=== PATIENT | male | born 1955 | race Caucasian/White ===

== ENCOUNTER → 2016-12-06 | Outpatient (CLI) | payer OTHER ==
[2016-12-06 11:48] LABS: Anion Gap 9 mmol/L; Blood Urea Nitrogen 21 mg/dL (9-20); Calcium 9.5 mg/dL (8.4-10.2); Carbon Dioxide 30 mmol/L (22-30); Chloride 102 mmol/L (98-107); Glucose 102 mg/dL (74-99); Non-African American GFR(MDRD) >60 (>60 ml/min/1.73 sqM); Sodium 141 mmol/L (137-145)
== END | disposition home or self-care (01) ==
LOC: LABWHC1 10:50
PROVIDERS: ATTEND Internal Medicine Interventional Cardiology
DX: I25.10 Atherosclerotic heart disease of native coronary artery without angina pectoris (principal)
CPT/HCPCS: 36415; 80048

== ENCOUNTER → 2017-04-03 | Outpatient (CLI) | payer OTHER ==
--- NOTE | 2017-04-03 16:49 | US ---
EXAMINATION TYPE: US venous doppler duplex LE LT DATE OF EXAM: 04/03/2017 4:40 PM COMPARISON: NONE CLINICAL HISTORY: Edema R60.0 Left. SIDE PERFORMED: Left TECHNIQUE: The lower extremity deep venous system is examined utilizing real time linear array sonog lis with graded compression, doppler sonography and color-flow sonography. VESSELS IMAGED: External Iliac Vein (EIV) Common Femoral Vein Deep Femoral Vein Greater Saphenous Vein * Femoral Vein Popliteal Vein Small Saphenous Vein * Proximal Calf Veins (* superficial vessels) Left Leg: Negative for DVT IMPRESSION: Negative exam. No evidence of deep venous thrombosis in the left leg.
== END | disposition home or self-care (01) ==
LOC: RADUSMAIN 16:11
PROVIDERS: ATTEND Family Medicine
DX: R60.0 Localized edema (principal)

== ENCOUNTER → 2018-06-25 | Outpatient (CLI) | payer OTHER ==
[2018-06-25 13:15] LABS: HCT 43.9 % (39.0-53.0); HGB 14.5 gm/dL (13.0-17.5); MCH 33.1 pg (25.0-35.0); MCHC 33.1 g/dL (31.0-37.0); MCV 100.1 fL (80.0-100.0); Mean Platelet Volume 6.8; Platelet Count 281 k/uL (150-450); RBC 4.39 m/uL (4.30-5.90); RDW 13.6 % (11.5-15.5); WBC 7.1 k/uL (3.8-10.6)
[2018-06-25 13:22] LABS: Anion Gap 6 mmol/L; Blood Urea Nitrogen 32 mg/dL (9-20); Carbon Dioxide 33 mmol/L (22-30); Chloride 100 mmol/L (98-107); Potassium 4.3 mmol/L (3.5-5.1); Sodium 139 mmol/L (137-145)
== END | disposition home or self-care (01) ==
LOC: LABPAT 12:27
PROVIDERS: ATTEND Internal Medicine Interventional Cardiology
DX: Z01.812 Encounter for preprocedural laboratory examination (principal); I34.0 Nonrheumatic mitral (valve) insufficiency; E78.00 Pure hypercholesterolemia, unspecified
CPT/HCPCS: 36415; 80051; 82565; 84520; 85027

== ENCOUNTER 2018-07-01 08:01 | Day surgery (SDC) | payer OTHER ==
[2018-06-29 13:17] VITALS: BMI 26.6
[~2018-07-01 08:01] MED LIST: ALPRAZolam 0.25 MG TAB PO PRN; ALPRAZolam 0.5 MG TAB PO PRN; ASPIRIN 325 MG TAB PO STA; ATORVASTATIN 80 MG TAB PO ONE; NITROGLYCERIN SL TABS 0.4 MG TAB SUBLINGUAL PRN; SODIUM CHLORIDE 0.9% 1,000 ML in EMPTY BAG 1 BAG IV ONE
[2018-07-01] MEDS ORDERED: SODIUM CHLORIDE 0.9% 1,000 ML IV ONE ×2 (09:05→10:39)
[2018-07-01] MEDS ORDERED: BENZOCAINE SPRAY 1 CAN MUCOUS MEM ONE ×2 (09:05)
[2018-07-01] MEDS ORDERED: fentaNYL (PF) 50 MCG/ML 2 ML AMP IV ONE (09:09)
[2018-07-01] MEDS ORDERED: MIDAZOLAM 2 MG/2 ML VIAL IV ONE (09:09)
--- NOTE | 2018-07-01 09:56 | ECHOT ---
TRANSESOPHAGEAL ECHOCARDIOGRAM This transesophageal echocardiogram was performed to evaluate the patient's mitral regurgitation. Patient was given intravenous sedation with Versed and fentanyl and transesophageal echocardiogram was performed without any complications. Left ventricular chamber is normal in size with inferior wall hypokinesia with ejection fraction in the range of 40%. Left atrium is moderate to severely enlarged. The right atrium is moderate to severely enlarged. The mitral leaflet morphology is normal. The posterior leaflet motion is restricted and tethered, suggestive of ischemic mitral regurgitation. There is no evidence of any mitral valve prolapse. There is evidence of severe mitral regurgitation with reversal of systolic and diastolic flow in the pulmonary vein. There is no evidence of any thrombus in left atrium or atrial appendage. Interatrial septum is intact. There is no evidence of any PFO. There is a mild diffuse atherosclerotic plaque noted in the descending thoracic aorta. FINAL IMPRESSION: 1. This study shows the mitral valve leaflet morphology is normal. There is some tethering of the posterior mitral leaflet suggestive of ischemic mitral regurgitation. There is no evidence of mitral valve prolapse. There is evidence of severe degree mitral regurgitation which is directed posteriorly and it is suggestive of ischemic and functional mitral regurgitation. There is a reversal of systolic and diastolic flow in the pulmonary vein. 2. Biatrial enlargement is noted. 3. Moderate degree of tricuspid regurgitation is noted and trace aortic regurgitation is noted. 4. There is no evidence of any PFO. 5. There is a diffuse arthrosclerotic plaque noted in the descending thoracic. MMODL / IJN: [id number] /
[2018-07-01 09:58] VITALS: PULSE 74
[2018-07-01] MEDS ORDERED: MIDAZOLAM 2 MG/2 ML VIAL ONE (10:46)
[2018-07-01] MEDS ORDERED: diphenhydrAMINE 50 MG/ML 1 ML VIAL ONE (10:47)
[2018-07-01] MEDS ORDERED: diphenhydrAMINE 50 MG/ML 1 ML VIAL IVP ONE (11:10)
[2018-07-01] MEDS ORDERED: MIDAZOLAM 2 MG/2 ML VIAL IVP ONE (11:11)
[2018-07-01] MEDS ORDERED: LIDOCAINE 1% INJ 10MG/ML (20 ML MDV) SQ ONE (11:18)
[2018-07-01] MEDS ORDERED: FUROSEMIDE 10 MG/ML 4 ML VIAL ONE (11:54)
[2018-07-01] MEDS ORDERED: FUROSEMIDE 10 MG/ML 4 ML VIAL IV ONE (11:56)
[2018-07-01] MEDS ORDERED: IOPAMIDOL-370 100ML BTL INJ ONE ×2 (12:02→12:17)
[2018-07-01 12:04] LABS: O2 Sat Blood Gas 66.6 %
[2018-07-01 12:04] LABS: O2 Sat Blood Gas 66.8 %
[2018-07-01 12:05] LABS: O2 Sat Blood Gas 67.7 %
[2018-07-01 12:05] LABS: O2 Sat Blood Gas 96.2 %
[2018-07-01] MEDS ORDERED: RX INFO: IV CONTRAST WAS GIVEN 1 EACH MISC MISCELLANE PRN (13:00)
[2018-07-01] MEDS ORDERED: SODIUM CHLORIDE 0.9% 1,000 ML IV SCH (13:00)
--- NOTE | 2018-07-01 13:32 | CC ---
CARDIAC CATHETERIZATION REPORT DATE OF STUDY: 07/01/2018. PROCEDURE: Right and left heart catheterization, coronary angiography and selective injection of bypass grafts. PERFORMED BY: Dr. Ludmila Vogt. Moderate conscious sedation time was 64 minutes. Patient was administered Benadryl and Versed and his oxygen saturation, hemodynamics and EKG were monitored closely. CLINICAL INFORMATION: Mr. Abisai Warner is a 62-year-old gentleman with a known history of CAD, hypertension, hyperlipidemia, and previous history of Hodgkin disease for which he had radiation to his chest wall. The patient in 2002 underwent aortocoronary bypass surgery with WEBSTER to LAD, a free radial artery graft to the first obtuse marginal, vein graft to the diagonal and vein graft to the second obtuse marginal and RCA. In 2005, his vein graft to the diagonal and vein graft to the circumflex marginal were occluded. He had only 3 patent grafts. One was to the RCA which was a vein graft, the second was a free radial artery graft to the first OM and the WEBSTER to LAD was also patent. He presented with acute inferior MN and cardiogenic shock in 2005 and underwent stenting of [facility] circumflex had a balloon pump and recovered from this. In 2007, I performed stenting of the [facility] diagonal whose graft was already occluded. Since then, he has done fairly well. He is known to have moderate stable mitral regurgitation, but of late he is having increasing symptoms of shortness of breath and objectively he has developed more severe MR and pulmonary hypertension and therefore was advised coronary angiography with symptoms of increasing shortness of breath with mild activity. PROCEDURE NOTE: Under local anesthesia and strict aseptic precautions, a 6-Citizen [place] introducer was placed in the right femoral artery and an 8-Citizen [place] introducer in the right femoral vein. I performed a right heart catheterization using a balloon tipped floatation catheter. Hemodynamics and saturations were obtained. Thermodilution and Lamar cardiac outputs were obtained. I then performed coronary angiography. I used a standard left Marisa catheter for the left system and a standard right Marisa catheter for the right coronary artery. Used a Vince catheter for the vein graft and also the same Vince was used for the WEBSTER injection. I used an AR2 catheter for selective injection of the free radial artery graft to the obtuse marginal one branch. Subsequently, I checked LV pressures with a pigtail catheter but did not perform an LV-gram. The venous sheath was taken out and manual compression applied. Arterial sheath was taken out and Angio-Seal device used to secure hemostasis and he was sent to the room in a stable condition. CARDIAC CATHETERIZATION FINDINGS: The right atrial pressure was about 8 mmHg. Right ventricular pressure was 60/9. Pulmonary arterial pressure was 60/18 with a mean of 38. Pulmonary capillary wedge pressure was 25 mmHg and the V-wave was 50 mmHg. The Lamar cardiac output was 4.6 L and thermodilution cardiac output was 5.7 L. Oxygen saturation from the femoral artery was 96% and pulmonary artery was 68%. The left ventricular end-diastolic pressure was about 16 to 18 mmHg without any gradient across the aortic valve. CORONARY ANGIOGRAPHY FINDINGS: LEFT MAIN CORONARY ARTERY: A long patent disease-free vessel that bifurcates into LAD and circumflex. LEFT ANTERIOR DESCENDING CORONARY ARTERY: This vessel is totally occluded in the midportion and gives off a first diagonal branch and a large septal branch. The first diagonal branch was stented in 2007 appears to be patent with brisk flow. Very proximally there is a 40% narrowing of the diagonal that is unchanged, but the stented segment is widely patent with brisk flow. LAD is totally occluded in the midportion with some competitive flow. First septal is large and has no significant disease. LEFT POSTERIOR CIRCUMFLEX CORONARY ARTERY: This vessel was stented in 2005, is widely patent. This is a dominant circumflex vessel. The distal branches are patent and also the mid circumflex at the stented segment is widely patent. The obtuse marginal branches were occluded. RIGHT CORONARY ARTERY: This vessel is probably a codominant or nondominant vessel with fair caliber and fair distribution which was grafted. Now the vessel is totally occluded with very limited antegrade flow. There is a subtotal occlusion in the proximal and midportion, but the distal segment appears to be patent and appears to be small. SAPHENOUS VEIN GRAFT TO THE RCA: This graft is totally occluded, seen as a stump. SAPHENOUS VEIN GRAFT TO THE DIAGONAL BRANCH: This is totally occluded, seen as a stump. SAPHENOUS VEIN GRAFT TO THE SECOND OBTUSE MARGINAL: This is also totally occluded, seen as a stump. FREE RADIAL ARTERY GRAFT TO THE OBTUSE MARGINAL 1: This graft is widely patent. At the origin, there is a 30% to 40% narrowing. The body of the graft and beyond insertion site, the obtuse marginal is widely patent. There is no significant disease. The graft at its origin has about a 40% narrowing but no other significant disease is noted. There is brisk flow noted. LEFT AND LEFT INTERNAL MAMMARY ARTERY GRAFT TO LAD: This graft is widely patent at its origin, course and insertion site and opacifies the entire LAD, which goes back and fills the distal branches of the RCA. RCA is therefore collateralized from the distal LAD branches which is opacified by a good WEBSTER graft. The vein grafts to the diagonal and vein graft to the obtuse marginal are totally occluded, seen as stumps. LEFT VENTRICULOGRAM: Left ventriculogram was not performed, but LV pressures were obtained. FINAL IMPRESSION: This patient has a total occlusion of vein graft to the RCA which represents progression of disease. The previously occluded vein graft to the obtuse marginal and diagonal are noted again. The [facility] diagonal and circumflex vessel that was stented are widely patent. The WEBSTER to LAD is patent and the free radial artery graft to the first obtuse marginal is patent. By transesophageal echo, his mitral regurgitation is severe. He has significant MR with a V-wave of 50 mmHg and wedge of 25 mmHg. There is evidence of severe pulmonary hypertension with right-sided pressures in the range of 60 mmHg. RECOMMENDATIONS: Based on the data available, I believe patient will require a mitral valve replacement and possibly graft of the RCA. However, this is a major operation in a patient who has previous Hodgkin disease with radiation to the chest wall and also had a previous bypass surgery. I will therefore pursue medical therapy, re-evaluate the patient this Friday at 9:15 a.m. and then make further recommendations. I will seek a surgical opinion from Dr. Juan José Hussein. Based on clinical course, we will make further recommendations. Prognosis remains somewhat guarded. MMODL / IJN: [id number] /
--- NOTE | 2018-07-01 13:38 | LTR ---
July 01, 2018 Re: Abisai Warner Dear : Thank you for the opportunity to participate in the care of Mr. Abisai Warner. Please find enclosed my cardiac cath report for your records. He has significant progression of disease and also severe mitral regurgitation. Mitral valve replacement seems to be a reasonable approach associated with the significant risk. I will seek surgical opinion and then only make further recommendations. Thank you for your referral and please call for questions. With kindest regards. Sincerely yours. MD NELDA CoulterL / BELLEN: [id number] /
[2018-07-01 18:14] VITALS: RESP 18
[2018-07-01 18:16] VITALS: BP 103/74
== END 2018-07-01 18:05 | disposition home or self-care (01) ==
LOC: CATHCVL 08:01
PROVIDERS: ATTEND Internal Medicine Interventional Cardiology
DX: I08.3 Combined rheumatic disorders of mitral, aortic and tricuspid valves (principal); I70.0 Atherosclerosis of aorta; I25.110 Atherosclerotic heart disease of native coronary artery with unstable angina pectoris; I25.720 Atherosclerosis of autologous artery coronary artery bypass graft(s) with unstable angina pectoris; I25.790 Atherosclerosis of other coronary artery bypass graft(s) with unstable angina pectoris; I25.82 Chronic total occlusion of coronary artery; I10 Essential (primary) hypertension; E78.00 Pure hypercholesterolemia, unspecified; E03.9 Hypothyroidism, unspecified; F17.210 Nicotine dependence, cigarettes, uncomplicated; Z95.1 Presence of aortocoronary bypass graft; Z95.5 Presence of coronary angioplasty implant and graft; Z85.71 Personal history of Hodgkin lymphoma; Z92.3 Personal history of irradiation; Z82.49 Family history of ischemic heart disease and other diseases of the circulatory system; Z79.82 Long term (current) use of aspirin; Z79.890 Hormone replacement therapy; Z79.899 Other long term (current) drug therapy; Z91.09 Other allergy status, other than to drugs and biological substances
CPT/HCPCS: 93312; 93320; 93325; 93461; 85018; 82810; C1760; C1769 ×3; C1894 ×2; J2250; J1200; J1940; J2001; J3010; Q9967

== ENCOUNTER → 2018-07-23 | Outpatient (CLI) | payer OTHER ==
--- NOTE | 2018-07-23 10:53 | CT ---
EXAMINATION TYPE: CT chest w con DATE OF EXAM: 07/23/2018 COMPARISON: NONE HISTORY: Chest pain CT DLP: 257.9 mGycm. Automated Exposure Control for Dose Reduction was Utilized. TECHNIQUE: CT scan of the thorax is performed following with IV Contrast, patient injected with 100 ml mL of Isovue 300. FINDINGS: LUNGS: The lungs are grossly clear, there is no concerning parenchymal mass identified. Solitary gricelda d appearing 3 mm pulmonary nodule seen at the lateral left lung base on lung algorithm image 44. Min imal scattered subsegmental atelectasis. There is no pleural effusion or pneumothorax seen. The trac heobronchial tree is patent. MEDIASTINUM: There are no greater than 1 cm hilar or mediastinal lymph nodes. No pericardial effusi on is seen. Post CABG changes of the chest are noted. Reflux of contrast into the inferior vena cava and hepatic veins suggests a component of right heart failure. Correlate with echocardiogram. Main p ulmonary arteries within normal limits of size measuring 2.8 cm as is the ascending thoracic aorta me asuring 3.5 cm. Descending thoracic aorta is also within normal limits measuring 2.6 cm. Aortic root is also within normal limits measuring 3.6 cm. No central pulmonary embolus is seen. No evidence of a ortic dissection or focal stenosis. OTHER: Postsurgical changes of the sternoclavicular joint is seen. Spleen is surgically absent. There is a healed posterior rib fracture rib 7 on the left. Minimal degenerative changes of the thoracic s pine are seen. IMPRESSION: 1. Post CABG changes of the chest with findings that could relate to component of right heart failure . Correlate with echocardiogram. 2. Healed posterior left rib 7 fracture. 3. Solitary 3 mm left basilar pulmonary nodule. Follow-up CT thorax in one year is recommended to ens ure stability.
== END | disposition home or self-care (01) ==
LOC: RADCTMAIN 08:48
PROVIDERS: ATTEND Internal Medicine Critical Care Medicine
DX: R91.1 Solitary pulmonary nodule (principal); Z95.1 Presence of aortocoronary bypass graft; Z91.041 Radiographic dye allergy status
CPT/HCPCS: 71260; Q9967

== ENCOUNTER 2019-01-19 10:21 | Day surgery (SDC) | payer OTHER ==
[2019-01-14 15:55] VITALS: BMI 26.6
[2019-01-19] MEDS ORDERED: SODIUM CHLORIDE 0.9% 1,000 ML IV ONE (10:55)
[2019-01-19 10:56] VITALS: TEMP 98.2
[2019-01-19] MEDS ORDERED: fentaNYL (PF) 50 MCG/ML 2 ML AMP ONE (11:46)
[2019-01-19] MEDS: BENZOCAINE SPRAY 1 CAN MUCOUS MEM ONE ×2 (12:06→12:09)
[2019-01-19] MEDS ORDERED: MIDAZOLAM 2 MG/2 ML VIAL IV ONE ×2 (12:10→12:17)
[2019-01-19] MEDS ORDERED: fentaNYL (PF) 50 MCG/ML 2 ML AMP IV ONE (12:14)
[2019-01-19] MEDS ORDERED: SODIUM CHLORIDE 0.9% 1,000 ML IV SCH (12:45)
--- NOTE | 2019-01-19 13:26 | ECHOT ---
TRANSESOPHAGEAL ECHOCARDIOGRAM Mr. Warner is a 63-year-old gentleman who was advised transesophageal echocardiogram to assess the mitral regurgitation. The patient is status post previous coronary artery bypass surgery. PROCEDURE: Patient was given intravenous sedation with Versed and fentanyl and transesophageal echocardiogram was performed without any complications. FINDINGS: Left ventricular chamber is normal in size. There is evidence of inferior wall hypokinesia with estimated ejection fraction of 45%. Mitral valve morphology is normal. There is a tethering of the posterior mitral leaflet noted with evidence of severe mitral regurgitation. There is evidence of reversal of flow in the pulmonary vein. Left atrium is moderately enlarged. There is no evidence of thrombus in the left atrial appendage. There is a moderate degree of tricuspid regurgitation noted and severe pulmonary hypertension is noted with right ventricular systolic pressure calculated in the range of 70 to 80 mmHg. Interatrial septum is intact. There is no evidence of any PFO. FINAL IMPRESSION: 1. Normal left ventricular chamber size with inferior wall hypokinesia with ejection fraction of 45%. 2. There is evidence of severe degree of mitral regurgitation with reversal of flow in the pulmonary vein. The posterior leaflet is restricted. There is no any evidence of mitral valve prolapse or any flail mitral leaflet and this is suggestive of ischemic mitral regurgitation. 3. The left atrium is moderately enlarged. 4. There is no evidence of thrombus in left atrium. 5. There is a moderate degree of tricuspid regurgitation with severe pulmonary hypertension. Right ventricular systolic pressure is calculated in the range of 70 to 80 mmHg. 6. Interatrial septum is intact. MMODL / IJN: [id number] /
[2019-01-19 16:54] VITALS: RESP 16
[2019-01-19 16:58] VITALS: BP 118/67; PULSE 68
== END 2019-01-19 14:27 | disposition home or self-care (01) ==
LOC: CATHCVL 10:21
PROVIDERS: ATTEND Internal Medicine Cardiovascular Disease
DX: I34.1 Nonrheumatic mitral (valve) prolapse (principal); I08.1 Rheumatic disorders of both mitral and tricuspid valves; I27.20 Pulmonary hypertension, unspecified; I10 Essential (primary) hypertension; E78.00 Pure hypercholesterolemia, unspecified; I25.810 Atherosclerosis of coronary artery bypass graft(s) without angina pectoris; Z95.5 Presence of coronary angioplasty implant and graft; E03.9 Hypothyroidism, unspecified; E78.5 Hyperlipidemia, unspecified; Z87.891 Personal history of nicotine dependence; Z79.82 Long term (current) use of aspirin; Z79.890 Hormone replacement therapy; Z79.899 Other long term (current) drug therapy
CPT/HCPCS: 93312; 93320; 93325; J2250; J3010

== ENCOUNTER → 2019-02-09 | Outpatient (CLI) | payer OTHER ==
[2019-02-09 09:52] LABS: HCT 40.7 % (39.0-53.0); HGB 13.7 gm/dL (13.0-17.5); MCH 33.5 pg (25.0-35.0); MCHC 33.6 g/dL (31.0-37.0); MCV 99.7 fL (80.0-100.0); Macrocytosis Slight; Mean Platelet Volume 6.3; Platelet Count 311 k/uL (150-450); RBC 4.09 m/uL (4.30-5.90); RDW 14.3 % (11.5-15.5); WBC 4.1 k/uL (3.8-10.6)
[2019-02-09 09:58] LABS: Partial Thromboplastin Time 23.6 sec (22.0-30.0); Prothrombin Time 10.3 sec (9.0-12.0)
[2019-02-09 10:22] LABS: ALT 38 U/L (21-72); AST 25 U/L (17-59); Albumin 4.2 g/dL (3.5-5.0); Alkaline Phosphatase 66 U/L (38-126); Anion Gap 6 mmol/L; Blood Urea Nitrogen 21 mg/dL (9-20); Calcium 9.6 mg/dL (8.4-10.2); Carbon Dioxide 32 mmol/L (22-30); Chloride 101 mmol/L (98-107); Cholesterol 146 mg/dL (<200); Glucose 92 mg/dL (74-99); HDL Cholesterol 53 mg/dL (40-60); LDL Cholesterol,Calculated 74 mg/dL (0-99); Magnesium 2.3 mg/dL (1.6-2.3); Potassium 4.1 mmol/L (3.5-5.1); Sodium 139 mmol/L (137-145); Total Bilirubin 1.1 mg/dL (0.2-1.3); Total Protein 6.6 g/dL (6.3-8.2); Triglycerides 95 mg/dL (<150)
[2019-02-09 11:16] LABS: Appearance,Urine Clear (Clear); Bilirubin,Urine Negative (Negative); Blood,Urine Negative (Negative); Color,Urine Yellow; Glucose,Urine (UA) Negative (Negative); Ketones,Urine Negative (Negative); Leukocyte Esterase,Urine Negative (Negative); Nitrite,Urine Negative (Negative); PH, Urine 6.5 (5.0-8.0); Protein,Urine Trace (Negative); Specific Gravity,Urine 1.027 (1.001-1.035)
[2019-02-09 11:59] LABS: T4, Free (Free Thyroxine) 1.31 ng/dL (0.78-2.19)
--- NOTE | 2019-02-09 12:45 | US ---
EXAMINATION TYPE: US carotid duplex BILAT DATE OF EXAM: 02/09/2019 COMPARISON: NONE CLINICAL HISTORY: Open Heart. Pre-OP open heart EXAM MEASUREMENTS: RIGHT: Peak Systolic Velocity (PSV) cm/sec ----- Right CCA: 58.1 ----- Right ICA: 97.8 ----- Right ECA: 59.0 ICA/CCA ratio: 1.7 RIGHT: End Diastole cm/sec ----- Right CCA: 17.1 ----- Right ICA: 38.3 ----- Right ECA: 0.0 LEFT: Peak Systolic Velocity (PSV) cm/sec ----- Left CCA: 68.5 ----- Left ICA: 83.1 ----- Left ECA: 49.1 ICA/CCA ratio: 1.2 LEFT: End Diastole cm/sec ----- Left CCA: 21.9 ----- Left ICA: 33.8 ----- Left ECA: 0.0 VERTEBRALS (direction of flow): Right Vertebral: Antegrade Left Vertebral: Antegrade Rhythm: Normal No significant stenosis seen IMPRESSION: Mild degree of grayscale atheromatous plaquing with no sonographically evident hemodynam ically significant stenosis within either visualized carotid arterial system. Criteria for Assigning % of Stenosis / Diameter reduction (Estimation based on the indirect measurements of the internal carotid artery velocities (ICA PSV). 1. Normal (no stenosis)=ICA PSV < 125 cm/s: ratio < 2.0: ICA EDV<40 cm/s. 2. Less than 50% stenosis=ICA PSV < 125 cm/s: ratio < 2.0: ICA EDV<40 cm/s. 3. 50 to 69% stenosis=ICA PSV of 125 to 230 cm/s: ration 2.0 ? 4.0: ICA EDV 40-100 cm/s. 4. Greater than 70% stenosis to near occlusion= ICA PSV > 230 cm/s: ratio > 4.0: ICA EDV > 100 cm/s. 5. Near occlusion= ICA PSV velocities may be low or undetectable: variable ratio and ICA EDV. 6. Total occlusion=unable to detect flow.
--- NOTE | 2019-02-09 12:46 | XR ---
EXAMINATION TYPE: XR chest 2V DATE OF EXAM: 02/09/2019 COMPARISON: NONE HISTORY: Preoperative examination for open heart surgery. TECHNIQUE: Frontal and lateral views of the chest are obtained. FINDINGS: Post CABG changes are seen of the chest. Surgical clips are also seen in the left upper qu adrant. There appears to be mild osseous demineralization and minimal degenerative changes of the spi ne. No focal consolidation, pleural effusion or pneumothorax. Cardiomediastinal silhouette is nonenla rged. IMPRESSION: Postoperative changes of the chest and upper abdomen. No acute cardiopulmonary process.
--- NOTE | 2019-02-09 15:02 | P.PN ---
Progress Note - Text Progress Note Date: 02/09/19 5 meter walk test completed 02/09/19: #1 3.2 sec #2 3.35 sec #3 3.38 sec STS risk score calculated and discussed with patient
[2019-02-09 16:25] LABS: Hepatitis A Antibody IgM Non-Reactive (Non-Reactive); Hepatitis B Core IgM Non-Reactive (Non-Reactive)
[2019-02-09 19:20] LABS: Hemoglobin A1C 5.2 % (4.0-6.0)
== END ==
LOC: LABWHC1 08:54
PROVIDERS: ATTEND Thoracic Surgery (Cardiothoracic Vascular Surgery)
DX: Z01.810 Encounter for preprocedural cardiovascular examination (principal); Z01.812 Encounter for preprocedural laboratory examination; I25.10 Atherosclerotic heart disease of native coronary artery without angina pectoris; I34.0 Nonrheumatic mitral (valve) insufficiency; I67.2 Cerebral atherosclerosis; Z98.890 Other specified postprocedural states
CPT/HCPCS: 36415; 71046; 80053; 80061; 80074; 81003; 83036; 83735; 84439; 84443; 85027; 85610; 85730; 86850; 86900; 86901; 86920; 87070; 87086; 93005; 93880; 93970; 94150

== ENCOUNTER 2019-02-15 05:36 | Inpatient (IN) | payer OTHER ==
[~2019-02-15 05:36] MED LIST changes: +ALBUMIN HUMAN 25% 50 ML IV ONE; -ALPRAZolam 0.25 MG TAB PO PRN; -ALPRAZolam 0.5 MG TAB PO PRN; +ASPIRIN 325 MG TAB PO ONE; -ASPIRIN 325 MG TAB PO STA; +ATORVASTATIN 10 MG TAB PO ONE; -ATORVASTATIN 80 MG TAB PO ONE; +CALCIUM CHLORIDE 100 MG/ML 10 ML SYRINGE IV ONE; +CHLORHEXIDINE GLUCONATE 15 ML CUP MUCOUS MEM ONE; +CLEVIDIPINE BUTYRATE 25 MG in EMPTY BAG 1 BAG IV ONE; +DEXTROSE 5% IN WATER 1,000 ML with POTASSIUM CHLORIDE 110 MEQ, MAGNESIUM SULFATE 16 MEQ... IV ONE; +DEXTROSE 5% IN WATER 1,000 ML with POTASSIUM CHLORIDE 25 MEQ, SODIUM CHLORIDE 2.5MEQ/ML... IRRIGATION ONE; +HEPARIN SODIUM 1,000 UN/ML (10ML VL) IV ONE; +HEPARIN SODIUM,PORCINE 5,000 UNIT in SODIUM CHLORIDE 0.9% 500 ML 500 ML IV ONE; +INSULIN REGULAR 100 UNIT in SODIUM CHLORIDE 0.9% 100 ML IV ONE; +LACTATED RINGERS 1,000 ML IV ONE; +MAGNESIUM SULFATE MG 500 MG/ML IV ONE; +MANNITOL 25% 12.5 GM/50 ML VIAL IV ONE; +METOPROLOL TARTRATE 12.5 MG TAB PO ONE; -NITROGLYCERIN SL TABS 0.4 MG TAB SUBLINGUAL PRN; +NITROGLYCERIN-D5W PMX 25 MG/250 ML BTL IV ONE; +NOREPINEPHRINE 4 MG in SODIUM CHLORIDE 0.9% 250 ML IV ONE; +PAPAVERINE 360 MG in SODIUM CHLORIDE 0.9% 90 ML IV ONE; +PHENYLEPHRINE 10 MG/ML VIAL IV ONE; +PHENYLEPHRINE 40 MG in SODIUM CHLORIDE 0.9% 250 ML IV ONE; +PROPOFOL 1,000 MG/100 ML VIAL IV ONE; +PROTAMINE SULFATE 10 MG/ML 25 ML VIAL IV ONE; +PROTAMINE SULFATE 250 MG in EMPTY BAG 1 BAG IV ONE; +SODIUM BICARB 8.4% 50 ML SYR (1 MEQ/ML) IV ONE; +SODIUM CHLORIDE 0.9% 1,000 ML IV ONE; -SODIUM CHLORIDE 0.9% 1,000 ML in EMPTY BAG 1 BAG IV ONE; +TRANEXAMIC ACID 2,000 MG in SODIUM CHLORIDE 0.9% 80 ML IV ONE; +VANCOMYCIN 1,000 MG VIAL MISCELLANE ONE; +ceFAZolin 2,000 MG in SODIUM CHLORIDE 0.9% 30 ML IVPB ONE
[2019-02-15] MEDS ORDERED: LACTATED RINGERS 1,000 ML IV ONE (05:50)
[2019-02-15] MEDS ORDERED: fentaNYL (PF) 50 MCG/ML 2 ML AMP ONE (07:35)
[2019-02-15] MEDS ORDERED: ONDANSETRON 4 MG/2 ML VIAL ONE (07:35)
[2019-02-15] MEDS ORDERED: VECURONIUM 10 MG VIAL IV ONE (07:35)
[2019-02-15] MEDS ORDERED: SODIUM CHLORIDE 0.9% 250 ML BAG ONE (07:35)
[2019-02-15] MEDS ORDERED: HEPARIN SODIUM,PORCINE 10,000 UNIT/ML 1 ML VIAL ONE (07:35)
[2019-02-15] MEDS ORDERED: TRANEXAMIC ACID 1,000 MG/10 ML VIAL ONE (07:35)
[2019-02-15] MEDS ORDERED: MAGNESIUM SULFATE 4 MEQ/ML 10ML VIAL ONE (07:35)
[2019-02-15] MEDS ORDERED: METOCLOPRAMIDE 5 MG/ML 2 ML VIAL ONE (07:35)
[2019-02-15] MEDS ORDERED: PROPOFOL 10 MG/ML 20 ML VIAL IV ONE (07:35)
[2019-02-15] MEDS ORDERED: MIDAZOLAM 2 MG/2 ML VIAL ONE (07:35)
[2019-02-15] MEDS ORDERED: ALBUMIN HUMAN 5% (25gm) 500 ML VIAL IVPB ONE (07:35)
[2019-02-15] MEDS ORDERED: fentaNYL (PF) 50 MCG/ML 50 ML VIAL ONE (07:35)
[2019-02-15] MEDS ORDERED: PROTAMINE SULFATE 10 MG/ML 25 ML VIAL IV ONE (07:35)
[2019-02-15 08:49] LABS: ABG Base Excess 5.6 mmol/L; ABG HCO3 31 mmol/L (21-25); ABG PCO2 45 mmHg (35-45); ABG PH 7.44 (7.35-7.45); ABG Potassium Whole Blood 3.2 mmol/L (3.4-4.5); ABG Sodium Whole Blood 141 mmol/L (135-146); ABG TCO2 32 mmol/L (19-24)
[2019-02-15] MEDS ORDERED: PAPAVERINE 360 MG in SODIUM CHLORIDE 0.9% 90 ML IV ONE (09:34)
[2019-02-15] MEDS ORDERED: SODIUM CHLORIDE 0.9% 500 ML 500 ML with HEPARIN SODIUM,PORCINE 5,000 UNIT IV ONE ×2 (09:34)
[2019-02-15 11:02] LABS: ABG Base Excess 6.5 mmol/L; ABG HCO3 30 mmol/L (21-25); ABG Oxygen Saturation 99.4 % (94-97); ABG PCO2 39 mmHg (35-45); ABG PO2 123 mmHg (83-108); ABG Potassium Whole Blood 3.4 mmol/L (3.4-4.5); ABG Sodium Whole Blood 139 mmol/L (135-146); ABG TCO2 31 mmol/L (19-24)
[2019-02-15 11:13] LABS: ABG Base Excess 1.5 mmol/L; ABG HCO3 26 mmol/L (21-25); ABG PCO2 41 mmHg (35-45); ABG PH 7.41 (7.35-7.45); ABG PO2 410 mmHg (83-108); ABG Potassium Whole Blood 3.3 mmol/L (3.4-4.5); ABG Sodium Whole Blood 136 mmol/L (135-146); ABG TCO2 28 mmol/L (19-24)
[2019-02-15 11:54] LABS: ABG Base Excess 5.4 mmol/L; ABG HCO3 30 mmol/L (21-25); ABG PCO2 43 mmHg (35-45); ABG PH 7.45 (7.35-7.45); ABG PO2 356 mmHg (83-108); ABG Potassium Whole Blood 4.2 mmol/L (3.4-4.5); ABG Sodium Whole Blood 136 mmol/L (135-146); ABG TCO2 31 mmol/L (19-24)
[2019-02-15 12:28] LABS: ABG Base Excess 3.7 mmol/L; ABG HCO3 29 mmol/L (21-25); ABG PCO2 47 mmHg (35-45); ABG PO2 280 mmHg (83-108); ABG Potassium Whole Blood 4.3 mmol/L (3.4-4.5); ABG Sodium Whole Blood 137 mmol/L (135-146); ABG TCO2 30 mmol/L (19-24)
[2019-02-15 13:07] LABS: ABG Base Excess 4.8 mmol/L; ABG HCO3 29 mmol/L (21-25); ABG PCO2 43 mmHg (35-45); ABG PH 7.45 (7.35-7.45); ABG PO2 357 mmHg (83-108); ABG Potassium Whole Blood 4.3 mmol/L (3.4-4.5); ABG Sodium Whole Blood 136 mmol/L (135-146); ABG TCO2 31 mmol/L (19-24)
[2019-02-15 14:40] LABS: ABG Base Excess 2.2 mmol/L; ABG HCO3 27 mmol/L (21-25); ABG PCO2 40 mmHg (35-45); ABG PH 7.43 (7.35-7.45); ABG PO2 286 mmHg (83-108); ABG Potassium Whole Blood 3.2 mmol/L (3.4-4.5); ABG Sodium Whole Blood 140 mmol/L (135-146); ABG TCO2 28 mmol/L (19-24)
[2019-02-15 15:05] LABS: ABG PO2 >420 mmHg (83-108)
[2019-02-15] MEDS: MILRINONE-D5W PMX 20 MG in DEXTROSE/WATER 1 100ML.BAG IV SCH ×2 (15:15→22:37)
[2019-02-15] MEDS: NOREPINEPHRINE 4 MG in SODIUM CHLORIDE 0.9% 250 ML IV SCH ×2 (15:15→20:49)
[2019-02-15] MEDS: LACTATED RINGERS 1,000 ML IV SCH (15:15)
[2019-02-15] MEDS ORDERED: DEXTROSE 5% IN WATER 100 ML with AMIODARONE 150 MG IV PRN (15:24)
[2019-02-15] MEDS ORDERED: BENZOCAINE/MENTHOL LOZENG 1 EACH LOZENGE MUCOUS MEM PRN (15:24)
[2019-02-15] MEDS ORDERED: NITROGLYCERIN-D5W PMX 50 MG in DEXTROSE/WATER 1 250ML.BAG IV SCH (15:24)
[2019-02-15] MEDS ORDERED: Potassium Replacement Protocol 1 EACH MISC MISCELLANE PRN (15:24)
[2019-02-15] MEDS ORDERED: METOCLOPRAMIDE 5 MG/ML 2 ML VIAL IVP PRN (15:24)
[2019-02-15] MEDS ORDERED: IPRATROPIUM-ALBUTEROL 3 ML NEB INHALATION PRN (15:24)
[2019-02-15] MEDS ORDERED: ONDANSETRON 4 MG/2 ML VIAL IVP PRN (15:24)
[2019-02-15] MEDS ORDERED: Phosphorus Replacement Protoco 1 EACH MISC MISCELLANE PRN (15:24)
[2019-02-15] MEDS ORDERED: Magnesium Replacement Protocol 1 EACH MISC MISCELLANE PRN (15:24)
[2019-02-15 15:35] LABS: Glucose,Whole Blood 142 mg/dL (75-99)
[2019-02-15] MEDS: PROPOFOL 1,000 MG in EMPTY BAG 1 BAG IV SCH ×2 (15:45→22:30)
--- NOTE | 2019-02-15 15:57 | XR ---
EXAMINATION TYPE: XR chest 1V portable DATE OF EXAM: 02/15/2019 HISTORY: Post Op CABG COMPARISON: 4:30 seen TECHNIQUE: Single view of the chest is submitted. FINDINGS: Endotracheal tube, NG tube, SG catheter, mediastinal drains and chest tubes are appropriately placed. Post operative changes of CABG. No sizeable pneumothorax. Scattered Pleural-parenchymal opacities may reflect atelectasis. The heart is not enlarged. IMPRESSION: 1. Post operative changes of CABG.
[2019-02-15 15:58] LABS: ABG Base Excess -0.5 mmol/L; ABG HCO3 26 mmol/L (21-25); ABG Oxygen Saturation 99.8 % (94-97); ABG PCO2 53 mmHg (35-45); ABG PO2 293 mmHg (83-108); ABG TCO2 28 mmol/L (19-24)
[2019-02-15] MEDS ORDERED: AMIODARONE 360 MG in DEXTROSE 5% IN WATER 200 ML IV PRN ×2 (16:00)
[2019-02-15] MEDS ORDERED: CALCIUM GLUCONATE 2 GM in SODIUM CHLORIDE 0.9% 100 ML IVPB PRN (16:00)
[2019-02-15 16:01] LABS: Ionized Calcium 4.9 mg/dL (4.5-5.3)
[2019-02-15] MEDS: IPRATROPIUM-ALBUTEROL 3 ML NEB INHALATION SCH ×3 (16:06→19:18)
[2019-02-15 16:11] LABS: ALT 28 U/L (21-72); AST 61 U/L (17-59); Alkaline Phosphatase 28 U/L (38-126); Anion Gap 3 mmol/L; Blood Urea Nitrogen 19 mg/dL (9-20); Calcium 8.3 mg/dL (8.4-10.2); Carbon Dioxide 27 mmol/L (22-30); Chloride 108 mmol/L (98-107); Glucose 143 mg/dL (74-99); Magnesium 2.7 mg/dL (1.6-2.3); Potassium 4.2 mmol/L (3.5-5.1); Sodium 138 mmol/L (137-145); Total Bilirubin 1.7 mg/dL (0.2-1.3); Total Protein 4.5 g/dL (6.3-8.2)
[2019-02-15 16:13] LABS: Basophils % (A) 0 %; Eosinophils % (A) 1 %; HCT 26.4 % (39.0-53.0); Lymphocytes # (A) 1.3 k/uL (1.0-4.8); Lymphocytes % (A) 20 %; MCH 33.2 pg (25.0-35.0); MCHC 32.8 g/dL (31.0-37.0); Macrocytosis Slight; Mean Platelet Volume 7.8; Monocytes # (A) 0.2 k/uL (0-1.0); Monocytes % (A) 3 %; Neutrophils # (A) 4.7 k/uL (1.3-7.7); Neutrophils % (A) 76 %; Platelet Count 161 k/uL (150-450); RBC 2.62 m/uL (4.30-5.90); RDW 14.2 % (11.5-15.5); WBC 6.2 k/uL (3.8-10.6)
[2019-02-15 16:35] LABS: HGB 8.7 gm/dL (13.0-17.5)
[2019-02-15 16:35] LABS: Glucose,Whole Blood 137 mg/dL (75-99)
[2019-02-15] MEDS: ALBUMIN HUMAN 5% 250 ML in EMPTY BAG 1 BAG IVPB PRN ×3 (16:45→23:47)
[2019-02-15] MEDS ORDERED: PROTAMINE SULFATE 10 MG/ML 5 ML VIAL IV STA ×2 (17:06→17:12)
[2019-02-15 17:13] LABS: INR 1.3 (<1.2); Prothrombin Time 13.3 sec (9.0-12.0)
[2019-02-15 17:14] LABS: Partial Thromboplastin Time 39.2 sec (22.0-30.0)
[2019-02-15] MEDS ORDERED: LACTATED RINGERS 1,000 ML BAG IV ONE (17:35)
[2019-02-15] MEDS ORDERED: ELECTROLYTE-R (PH 7.4) 1,000 ML IV.SOLN IV ONE (17:35)
--- NOTE | 2019-02-15 17:35 | HP ---
HISTORY AND PHYSICAL DATE OF PROCEDURE: 02/15/2019 ATTENDING SURGEON: Dr. Juan José Hussein ASSISTANTS: 1. Jose Antonio ADAMS. 2. Claude Luo NP. PREOPERATIVE DIAGNOSIS: Severe mitral regurgitation. POSTOPERATIVE DIAGNOSIS: Severe mitral regurgitation. PROCEDURE: Redo sternotomy, mitral valve replacement with a #29 mm Magna Ease bioprosthetic aortic valve, coronary bypass grafting x1 with reverse saphenous vein graft off the aorta to the posterior descending artery with right lower extremity greater saphenous vein endoscopic vein harvesting and intraoperative transesophageal echocardiogram. ANESTHESIA: General. BLOOD LOSS: 500 mL. SUMMARY: The patient was taken to the operating room and placed in supine position. After administration of a general endotracheal anesthetic, placement of a Ward-Lauren catheter, arterial line adequate IV access, Severino catheter, the patient was carefully prepped and draped in normal sterile fashion using Betadine paint and sterile towels. Greater saphenous vein was harvested from the right lower extremity with endovascular vein harvesting technique. All branches were doubly tied and divided and the incisions closed in 2 layers. Midline incision in the chest was made. Sternum was divided using the redo sternal saw. A great amount of time was taken to gently dissect the dense adhesions from both sides of the sternum off the heart. Once this was completed, retractor was placed. At this point the patent WEBSTER to the LAD artery was dissected free and a vessel loop placed around it. At this point significant time was taken to dissect out the aorta and the right atrium. At this point, the patient was heparinized to an ACT of greater than 480. The aorta and 2 single-stage venous cannulas were placed. Antegrade and retrograde cardioplegic catheters were positioned in the ascending aorta and the coronary sinus. Patient was placed on bypass, cross-clamp placed, heart arrested with 1 L antegrade followed by 500 mL retrograde cardioplegia. Retrograde cardioplegia was delivered 300 to 500 mL at the end of each 20-minutes interval. First the distal anastomosis was constructed. Reverse saphenous vein graft anastomosis to the proximal posterior descending artery was constructed using a 7-0 Prolene running suture. Caliber of this vessel was 1.5 mm. Next the left atrium was dissected free at the junction of the right superior pulmonary vein and opened. A handheld retractor was placed. The mitral valve was identified. It was noted that, as preoperatively determined, there were significant foreshortened chordae to both posterior and to a small degree to the anterior leaflet, and these were thickened. But there were the 2 large calcific plaques ingrained in the anterior and posterior leaflets. Therefore it was decided that this would not be good valve for considering repair. The valve leaflets were carefully excised, the anulus debrided, and it was irrigated copiously again and again with cold saline. At this point, it sized to a 29 mm Magna Ease bioprosthetic aortic valve. The valve was brought into the field and prepared in the usual fashion as 2-0 Tycron non-pledgeted sutures were placed circumferentially with the pledgets atrially based. The valve was then brought into the field and all sutures passed through the valve. The valve was seated and seated well. All sutures were then secured using the Cor knot ligature system device. At this point it was irrigated out again and then tested with a shantanu. There was no leakage. The atrium was closed in a double-layered pledgeted 4-0 Prolene vertical mattress followed by an [id number] stitch on both sides. At this point, a single proximal anastomosis was constructed in the ascending aorta using 6-0 Prolene running suture. Complete de-airing maneuvers were performed 3 times and 1 L of warm blood retrograde cardioplegia was run. Cross- clamp was then removed. Once beating normal sinus rhythm, the patient was re-perfused and brought off bypass. He came off bypass uneventfully with good hemodynamics. Protamine was delivered and patient decannulated. Atrial and ventricular pacing wires were placed. Mediastinal left and right pleural chest tubes were placed. At this point, the sternum was closed with four #6 sternal wires and 2 [id number] Ferdinand cable closure cables. Postoperative JACEK showed excellent mitral valve function, no perivalvular leak, good left ventricular function. The patient was transported to the ICU in critical but stable condition. MMODL / IJN: [id number] /
[2019-02-15] MEDS: ceFAZolin IN SWFI 2 GM/20 ML SYRINGE IVP SCH (17:40)
--- NOTE | 2019-02-15 17:40 | P.CNPUL ---
History of Present Illness Consult date: 02/15/19 Requesting physician: Juan José Hussein Chief complaint: Coronary artery disease, severe mitral regurgitation History of present illness: This is a 63-year-old white male patient of Dr. Emse Raymond, with history of coronary artery disease with bypass surgery in 2002, with the reocclusion of the 2 vein grafts in 2005 requiring stenting of the [place] circumflex, that follows with Dr. CYRIL Vogt, was found to have progression of coronary artery disease, and severe mitral regurgitation. Patient was complaining of worsening dyspnea with mild activity. Heart catheterization showed a total occlusion of the vein graft to the RCA representing progression of the disease, and there was a previously occluded vein graft to the OM and the diagonal. The WEBSTER to LAD was patent, and the free radial artery graft to the first obtuse marginal was patent. Transesophageal echocardiogram revealed severe degree of mitral regurgi tation with reversal of flow in the pulmonary vein, with restriction of the posterior leaflet, there was no evidence of mitral valve prolapse or any flail mitral leaflet, no evidence of thrombus in the left atrium, there was moderate degree of tricuspid regurgitation with severe pulmonary hypertension with right ventricular systolic pressure in the range of 70 to 80 mmHg, anterior atrial septum was intact. Patient was recommended surgical intervention, and today on 02/15/2019 patient underwent a single-vessel bypass with a saphenous vein graft to the RCA and a mitral valve replacement with a tissue valve, Magna-Ease bioprosthetic valve #29. Patient is seen in the intensive care unit following surgery, sedated, intubated on mechanical ventilator, and initial vent settings were SIMV mode of ventilation with a rate of 12, tidal vital 500, FiO2 100% and PEEP of 5, and blood gases were obtained, which showed pO2 of 293, pCO2 of 53, and pH of 7.23, and ventilator adjustments were made, patient was placed on assist-control mode of ventilation with a rate of 16, FiO2 was decreased to 60%, and PEEP was increased to 8 related to bleeding from the chest tubes. Patient had estimated EBL of around 2 L, he did receive 2 units of fresh frozen plasma, 1 unit of platelets. Patient has 4 chest tubes, right pleural connected with right mediastinal, and left pleural connected with left mediastinal chest tubes, with sanguinous output in the Pleur-evac. Maintenance IV fluids include lactated Ringer's at a rate of 50 ML per hour, nitroglycerin drip at 5 mics per minute, Diprivan and at 30 mics per kilo per minute, levo fed at 7.9 mics per minute, insulin is at 3 units per hour, Primacor is a 3.75 mics per kilo per minute. PA pressures are 32/22, cardiac output and index are 3.5 and 1.8 respectively. Review of Systems All systems: negative Constitutional: Denies chills, Denies fever Eyes: denies blurred vision, denies pain Ears, nose, mouth and throat: Denies headache, Denies sore throat Cardiovascular: Denies chest pain, Denies shortness of breath Respiratory: Denies cough Gastrointestinal: Denies abdominal pain, Denies diarrhea, Denies nausea, Denies vomiting Musculoskeletal: Denies myalgias Integumentary: Denies pruritus, Denies rash Neurological: Denies numbness, Denies weakness Psychiatric: Denies anxiety, Denies depression Endocrine: Denies fatigue, Denies weight change Past Medical History Past Medical History: Cancer, Heart Failure, Hyperlipidemia, Hypertension, Myocardial Infarction (NM), Thyroid Disorder Additional Past Medical History / Comment(s): currently has bruised area with intermittent pain to left chest/rib areas after 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, RLS, mitral valve problem,insomnia-states "only sleeps a couple hours per night Last Myocardial Infarction Date:: 2004 History of Any Multi-Drug Resistant Organisms: None Reported Past Surgical History: Appendectomy, Bowel Resection, Coronary Bypass/CABG, Heart Catheterization, Heart Catheterization With Stent Additional Past Surgical History / Comment(s): staging laparotomy for Hodgkin's & splenectomy, quad bypass 2002,JACEK Past Anesthesia/Blood Transfusion Reactions: No Reported Reaction, Motion Sickness Additional Past Anesthesia/Blood Transfusion Reaction / Comment(s): no known hx blood trnasfusion Date of Last Stent Placement:: 2004 Smoking Status: Former smoker - Past Family History Mother Family Medical History: Cancer Additional Family Medical History / Comment(s): esophageal Medications and Allergies Home Medications Medication Instructions Recorded Confirmed Type Aspirin 325 mg PO DAILY 07/01/18 02/15/19 History Carvedilol [Coreg] 6.25 mg PO BID 07/01/18 02/15/19 History Furosemide [Lasix] 60 mg PO DAILY 07/01/18 02/15/19 History Levothyroxine Sodium [Synthroid] 50 mcg PO QAM 07/01/18 02/15/19 History Losartan [Cozaar] 25 mg PO DAILY 07/01/18 02/15/19 History Omeprazole [PriLOSEC] 20 mg PO HS 07/01/18 02/15/19 History Simvastatin 40 mg PO HS 07/01/18 02/15/19 History rOPINIRole HCL 0.75 mg PO HS 07/01/18 02/15/19 History Multivitamins, Thera [Multivitamin 1 tab PO DAILY 02/10/19 02/15/19 History (formulary)] Mupirocin 2% Oint [Bactroban 2% 1 applic NASAL BID 02/12/19 02/15/19 History Oint] Allergies Allergy/AdvReac Type Severity Reaction Status Date / Time Iodinated Contrast- Oral and Allergy Nausea & Verified 02/15/19 15:31 IV Dye Vomiting,chills Physical Exam Vitals: Vital Signs Temp Pulse Pulse Resp BP BP Pulse Ox 02/15/19 16:32 87 02/15/19 16:09 82 02/15/19 16:02 35.4 F L 80 16 105/55 02/15/19 16:00 95.7 F L 80 16 106/57 98 02/15/19 15:44 35.9 F L 84 14 117/63 98 02/15/19 15:40 35.6 F L 87 14 119/65 02/15/19 05:57 98.3 F 81 18 142/90 97 Intake and Output 02/15/19 02/15/19 02/15/19 06:59 14:59 22:59 Intake Total 100 5 610 Output Total 1100 Balance 100 -1095 610 Intake: IV 100 5 Blood Product 0 610 Ffp 24 Cp2d Unit 183 [id number] Ffp 24 Cp2d Unit 222 [id number] Platelet Pheresis Acda1 0 205 Unit [id number] Output: Urine 600 Estimated Blood Loss 500 GENERAL EXAM: Sedated, intubated 63-year-old white male comfortable in no apparent distress. HEAD: Normocephalic/atraumatic. EYES: Normal reaction of pupils, equal size. Conjunctiva pink, sclera white. NOSE: Clear with pink turbinates. THROAT: No erythema or exudates. NECK: No masses, no JVD, no thyroid enlargement, no adenopathy. CHEST: No chest wall deformity. Symmetrical expansion. Midsternal incision is clean dry and intact, covered with a surgical dressing, right pleural connected with the right mediastinal, and left pleural connected with the left mediastinal with moderate amount of sinus output and the Pleur-evac's no leak noted, AV wires connected to an external pacemaker with the backup rate, intrinsic rhythm is sinus rhythm with a rate of 70-80 LUNGS: Equal air entry with no crackles, wheeze, rhonchi or dullness. CVS: Regular rate and rhythm, normal S1 and S2, no gallops, no murmurs, no rubs ABDOMEN: Soft, nontender. No hepatosplenomegaly, normal bowel sounds, no guarding or rigidity. EXTREMITIES: No clubbing, no edema, no cyanosis, 2+ pulses and upper and lower extremities. Bilateral lower extremities are hamlet wrapped, and SCDs are on MUSCULOSKELETAL: Muscle strength and tone normal. SPINE: No scoliosis or deformity SKIN: No rashes CENTRAL NERVOUS SYSTEM: Sedated. No focal deficits, tone is normal in all 4 extremities. Results - Laboratory Findings CBC and BMP: 02/15/19 15:30 02/15/19 15:30 ABG ABG pH 7.30 (7.35-7.45) L 02/15/19 15:56 ABG pCO2 53 mmHg (35-45) H 02/15/19 15:56 ABG pO2 293 mmHg (83-108) H 02/15/19 15:56 ABG O2 Saturation 99.8 % (94-97) H 02/15/19 15:56 Abnormal lab findings: Abnormal Labs 02/09/19 02/15/19 02/15/19 09:10 08:49 11:02 RBC Hgb Hct MCV ABG pH 7.50 H ABG pCO2 ABG pO2 >420 H 123 H ABG HCO3 31 H 30 H ABG Total CO2 32 H 31 H ABG O2 Saturation 100.0 H 99.4 H ABG Hematocrit ABG Potassium 3.2 L ABG Ionized Calcium ABG Glucose 121 H 131 H Hemoglobin 12.7 L 12.0 L Chloride Creatinine Glucose POC Glucose (mg/dL) Calcium Magnesium Total Bilirubin AST Alkaline Phosphatase Total Protein Albumin Arterial Blood Potassium 3.2 L Arterial Blood Glucose 121 H 131 H Crossmatch See Detail 02/15/19 02/15/19 02/15/19 11:13 11:54 12:30 RBC Hgb Hct MCV ABG pH ABG pCO2 47 H ABG pO2 410 H 356 H 280 H ABG HCO3 26 H 30 H 29 H ABG Total CO2 28 H 31 H 30 H ABG O2 Saturation 100.0 H 100.0 H 100.0 H ABG Hematocrit 30 L 29 L 31 L ABG Potassium 3.3 L ABG Ionized Calcium 4.0 L 4.3 L 4.3 L ABG Glucose 117 H 204 H 215 H Hemoglobin 9.7 L 9.5 L 10.0 L Chloride Creatinine Glucose POC Glucose (mg/dL) Calcium Magnesium Total Bilirubin AST Alkaline Phosphatase Total Protein Albumin Arterial Blood Potassium 3.3 L Arterial Blood Glucose 117 H 204 H 215 H Crossmatch 02/15/19 02/15/19 02/15/19 13:07 14:40 15:30 RBC 2.62 L Hgb 8.7 L D Hct 26.4 L MCV 101.0 H ABG pH ABG pCO2 ABG pO2 357 H 286 H ABG HCO3 29 H 27 H ABG Total CO2 31 H 28 H ABG O2 Saturation 100.0 H 100.0 H ABG Hematocrit 29 L 29 L ABG Potassium 3.2 L ABG Ionized Calcium 4.2 L 4.2 L ABG Glucose 221 H 144 H Hemoglobin 9.4 L 9.3 L Chloride Creatinine Glucose POC Glucose (mg/dL) Calcium Magnesium Total Bilirubin AST Alkaline Phosphatase Total Protein Albumin Arterial Blood Potassium 3.2 L Arterial Blood Glucose 221 H 144 H Crossmatch 02/15/19 02/15/19 02/15/19 15:30 15:32 15:56 RBC Hgb Hct MCV ABG pH 7.30 L ABG pCO2 53 H ABG pO2 293 H ABG HCO3 26 H ABG Total CO2 28 H ABG O2 Saturation 99.8 H ABG Hematocrit ABG Potassium ABG Ionized Calcium ABG Glucose Hemoglobin Chloride 108 H Creatinine 0.64 L Glucose 143 H POC Glucose (mg/dL) 142 H Calcium 8.3 L Magnesium 2.7 H Total Bilirubin 1.7 H AST 61 H Alkaline Phosphatase 28 L Total Protein 4.5 L Albumin 3.0 L Arterial Blood Potassium Arterial Blood Glucose Crossmatch 02/15/19 16:32 RBC Hgb Hct MCV ABG pH ABG pCO2 ABG pO2 ABG HCO3 ABG Total CO2 ABG O2 Saturation ABG Hematocrit ABG Potassium ABG Ionized Calcium ABG Glucose Hemoglobin Chloride Creatinine Glucose POC Glucose (mg/dL) 137 H Calcium Magnesium Total Bilirubin AST Alkaline Phosphatase Total Protein Albumin Arterial Blood Potassium Arterial Blood Glucose Crossmatch - Diagnostic Findings Chest x-ray: report reviewed Assessment and Plan Plan: Assessment: #1. Progression of coronary artery disease, and heart catheterization showed a totally occluded RCA, status post 1 vessel coronary artery bypass with the saphenous vein graft to the RCA, postop day 0 #2. Severe nonrheumatic mitral regurgitation, statis post mitral valve replacement with a bioprosthetic Magna-Ease #29 valve, postop day 0 #3. Routine postoperative ventilator management #4. Acute blood loss anemia, an expected outcome of bypass and valve replacement surgery #5. History of coronary artery bypass grafting in 2002, with a WEBSTER to the LAD, a free radial artery graft to the first obtuse marginal, SVG to the diagonal, and SVG to the OR on 2 and RCA. Patient had his SVG to the diagonal and to the circumflex occluded in 2005. Patient had subsequent stenting of [place] circumflex in 2005 at the time of acute inferior wall NM and cardiogenic shock requiring IABP placement #6. Severe pulmonary hypertension with JACEK revealing right ventricular systolic pressure of 70-80 mmHg #7. Hypertension #6. Hyperlipidemia #7. Previous history of Hodgkin's disease with radiation to the chest wall #8. Solitary 3 mm left basilar pulmonary nodule for which 1 year follow-up with CT of the chest was recommended, noted on the CT chest on 07/23/2018 #9. History of nicotine dependence, [id number] history of 2 packs a day for 38 years. Preoperative FEV1 was reviewed and was 2.03 L or 62% of predicted, with forced vital capacity of 3 L or 68% of predicted, consistent with moderate restriction Plan: Postop blood gases were reviewed, necessary vent adjustments have been made, postop chest x-ray was reviewed by Dr. Hansen, patient was seen and evaluated by Dr. Hansen. Patient is having moderate amount of bleeding from his chest tubes, he has received some blood products, and he is requiring Primacor, and low-dose levo fed for low cardiac output, will likely be transfused with additional volume, including blood products. No arrhythmias, hemodynamically is stable. We'll monitor hemodynamic status, bleeding amount, we'll continue with spontaneous breathing trials and extubation as well as the patient remains hemodynamically stable. We'll start breathing treatments, incentive spirometry use, daily chest x-rays, daily labs. We'll continue to closely follow with CT surgery. I performed a history & physical examination of the patient and discussed their management with my nurse practitioner, Roseann Alcantara. I reviewed the nurse practitioner's note and agree with the documented findings and plan of care. Lung sounds are positive for clear breath sounds. The findings and the impression was discussed with the patient. I attest to the documentation by the nurse practitioner. Time with Patient: Greater than 30
[2019-02-15] MEDS: ACETAMINOPHEN IV (For NPO) 1,000 MG in EMPTY BAG 1 BAG IVPB SCH (17:43)
[2019-02-15] MEDS: PROTAMINE SULFATE 100 MG in SODIUM CHLORIDE 0.9% 50 ML IV ONE ×2 (17:50→17:53)
[2019-02-15 18:17] LABS: Glucose,Whole Blood 207 mg/dL (75-99)
[2019-02-15 19:15] LABS: Glucose,Whole Blood 197 mg/dL (75-99)
[2019-02-15] MEDS ORDERED: INSULIN REGULAR 100 UNIT in SODIUM CHLORIDE 0.9% 100 ML IV SCH (19:30)
[2019-02-15 20:04] LABS: Glucose,Whole Blood 164 mg/dL (75-99)
[2019-02-15] MEDS: CLEVIDIPINE BUTYRATE 25 MG in EMPTY BAG 1 BAG IV SCH (20:23)
[2019-02-15 21:14] LABS: Glucose,Whole Blood 132 mg/dL (75-99)
[2019-02-15] MEDS ORDERED: AMIODARONE 300 MG in DEXTROSE 5% IN WATER 250 ML IV PRN ×2 (22:00)
[2019-02-15 22:13] LABS: Glucose,Whole Blood 127 mg/dL (75-99)
[2019-02-15 23:11] LABS: Glucose,Whole Blood 106 mg/dL (75-99)
[2019-02-15 23:49] LABS: Basophils % (A) 0 %; Eosinophils % (A) 0 %; HCT 20.4 % (39.0-53.0); Lymphocytes # (A) 0.5 k/uL (1.0-4.8); Lymphocytes % (A) 7 %; MCH 32.6 pg (25.0-35.0); MCHC 34.5 g/dL (31.0-37.0); MCV 94.3 fL (80.0-100.0); Mean Platelet Volume 8.2; Monocytes # (A) 0.4 k/uL (0-1.0); Monocytes % (A) 6 %; Neutrophils % (A) 87 %; RBC 2.16 m/uL (4.30-5.90); RDW 15.6 % (11.5-15.5); WBC 6.9 k/uL (3.8-10.6)
[2019-02-15] MEDS: MUPIROCIN 2% OINT 22 GM TUBE NASAL SCH (23:59)
[2019-02-16 00:17] LABS: Glucose,Whole Blood 122 mg/dL (75-99)
[2019-02-16 00:22] LABS: INR 1.2 (<1.2); Partial Thromboplastin Time 25.4 sec (22.0-30.0); Prothrombin Time 12.3 sec (9.0-12.0)
[2019-02-16] MEDS: ACETAMINOPHEN IV (For NPO) 1,000 MG in EMPTY BAG 1 BAG IVPB SCH (00:26)
[2019-02-16] MEDS: ceFAZolin IN SWFI 2 GM/20 ML SYRINGE IVP SCH ×2 (00:27→08:29)
[2019-02-16 00:41] LABS: Platelet Count 99 k/uL (150-450)
[2019-02-16 01:40] LABS: Glucose,Whole Blood 115 mg/dL (75-99)
[2019-02-16] MEDS: HEPARIN SODIUM,PORCINE 5,000 UNIT/ML 1 ML VIAL SQ SCH ×3 (01:43→15:50)
[2019-02-16 02:26] LABS: Glucose,Whole Blood 110 mg/dL (75-99)
[2019-02-16] MEDS: NOREPINEPHRINE 4 MG in SODIUM CHLORIDE 0.9% 250 ML IV SCH (02:56)
[2019-02-16 03:57] LABS: Glucose,Whole Blood 120 mg/dL (75-99)
[2019-02-16] MEDS: PROPOFOL 1,000 MG in EMPTY BAG 1 BAG IV SCH (04:04)
[2019-02-16 04:22] LABS: Glucose,Whole Blood 128 mg/dL (75-99)
[2019-02-16 05:40] LABS: Basophils % (A) 0 %; Eosinophils % (A) 0 %; HCT 20.9 % (39.0-53.0); HGB 7.4 gm/dL (13.0-17.5); Lymphocytes # (A) 0.7 k/uL (1.0-4.8); Lymphocytes % (A) 10 %; MCH 33.4 pg (25.0-35.0); MCHC 35.4 g/dL (31.0-37.0); MCV 94.3 fL (80.0-100.0); Mean Platelet Volume 9.5; Monocytes # (A) 0.3 k/uL (0-1.0); Monocytes % (A) 5 %; Neutrophils # (A) 6.1 k/uL (1.3-7.7); Neutrophils % (A) 84 %; RBC 2.22 m/uL (4.30-5.90); RDW 15.9 % (11.5-15.5); WBC 7.2 k/uL (3.8-10.6)
[2019-02-16 05:43] LABS: Glucose,Whole Blood 136 mg/dL (75-99)
[2019-02-16 05:47] LABS: Platelet Count 92 k/uL (150-450)
[2019-02-16 06:01] LABS: Ionized Calcium 4.7 mg/dL (4.5-5.3)
[2019-02-16] MEDS ORDERED: DEXMEDETOMIDINE/0.9% NACL(PMX) 400 MCG in EMPTY BAG 1 BAG IV SCH (06:15)
[2019-02-16 06:19] LABS: Calcium 8.1 mg/dL (8.4-10.2); Magnesium 2.2 mg/dL (1.6-2.3); Phosphorus 3.8 mg/dL (2.5-4.5); Potassium 3.8 mmol/L (3.5-5.1); Total Bilirubin 1.2 mg/dL (0.2-1.3); Total Protein 4.6 g/dL (6.3-8.2)
[2019-02-16 06:21] LABS: INR 1.1 (<1.2); Partial Thromboplastin Time 24.8 sec (22.0-30.0); Prothrombin Time 11.8 sec (9.0-12.0)
[2019-02-16 06:32] LABS: Glucose,Whole Blood 122 mg/dL (75-99)
[2019-02-16] MEDS ORDERED: POTASSIUM BICARBONATE/CIT AC 20 MEQ TABLET.EFF NG-TUBE SCH (07:00)
[2019-02-16 07:13] LABS: ABG HCO3 27 mmol/L (21-25); ABG Oxygen Saturation 99.5 % (94-97); ABG PCO2 48 mmHg (35-45); ABG PH 7.35 (7.35-7.45); ABG PO2 171 mmHg (83-108); ABG TCO2 28 mmol/L (19-24)
[2019-02-16 07:16] LABS: Glucose,Whole Blood 125 mg/dL (75-99)
--- NOTE | 2019-02-16 07:46 | P.CRDCN ---
History of Present Illness Consult date: 02/16/19 History of present illness: This is a pleasant 63-year-old gentleman with a past medical history significant for coronary artery disease and prior coronary artery bypass grafting in 2002, hypertension, dyslipidemia, the patient does follow with Dr. CYRIL Vogt in the office as an outpatient, was experiencing recently a worsening dyspnea even with minor activities. Because of that a heart catheterization was performed and that revealed the total occlusion of the vein graft to the RCA as well as a total occlusion of the graft to OM and diagonal. The LAD WEBSTER to LAD was patent. Beside that he was found to have severe mitral regurgitation which was documented by transesophageal echocardiogram. Because of that the patient was referred for redo CABG as well as mitral valve repair. He underwent redo CABG and mitral valve repair yesterday. He underwent single-vessel bypass with SVG to RCA and mitral valve repair using #29 valve. This is his postovulation day #1. The patient continues to be intubated but he is awake and response to commands.. He is on Primacor as well as norepinephrine he has been utilizing the pacemaker. He has been making good urine. The hemoglobin is 7.4. The platelet is 92,000. The plan is possible extubation later on today. The plan also to wean the patient from norepinephrine hopefully from Primacor down the line. He is on aspirin as well as a statin. He is also on metoprolol. The Plavix is on hold at this point because of thrombocytopenia. 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, RLS, mitral valve problem,insomnia-states "only sleeps a couple hours per night Last Myocardial Infarction Date:: 2004 History of Any Multi-Drug Resistant Organisms: None Reported Past Surgical History: Appendectomy, Bowel Resection, Coronary Bypass/CABG, Heart Catheterization, Heart Catheterization With Stent Additional Past Surgical History / Comment(s): staging laparotomy for Hodgkin's & splenectomy, quad bypass 2002,JACEK Past Anesthesia/Blood Transfusion Reactions: No Reported Reaction, Motion Sickness Additional Past Anesthesia/Blood Transfusion Reaction / Comment(s): no known hx blood trnasfusion Date of Last Stent Placement:: 2004 Smoking Status: Former smoker - Past Family History Mother Family Medical History: Cancer Additional Family Medical History / Comment(s): esophageal Medications and Allergies Home Medications Medication Instructions Recorded Confirmed Type Aspirin 325 mg PO DAILY 07/01/18 02/15/19 History Carvedilol [Coreg] 6.25 mg PO BID 07/01/18 02/15/19 History Furosemide [Lasix] 60 mg PO DAILY 07/01/18 02/15/19 History Levothyroxine Sodium [Synthroid] 50 mcg PO QAM 07/01/18 02/15/19 History Losartan [Cozaar] 25 mg PO DAILY 07/01/18 02/15/19 History Omeprazole [PriLOSEC] 20 mg PO HS 07/01/18 02/15/19 History Simvastatin 40 mg PO HS 07/01/18 02/15/19 History rOPINIRole HCL 0.75 mg PO HS 07/01/18 02/15/19 History Multivitamins, Thera [Multivitamin 1 tab PO DAILY 02/10/19 02/15/19 History (formulary)] Mupirocin 2% Oint [Bactroban 2% 1 applic NASAL BID 02/12/19 02/15/19 History Oint] Allergies Allergy/AdvReac Type Severity Reaction Status Date / Time Iodinated Contrast- Oral and Allergy Nausea & Verified 02/15/19 15:31 IV Dye Vomiting,chills Physical Exam Vitals: Vital Signs Temp Pulse Pulse Resp BP Pulse Ox 02/16/19 07:15 101 H 24 100 02/16/19 07:00 80 28 H 99 02/16/19 06:45 63 16 99 02/16/19 06:30 63 16 100 02/16/19 06:15 67 16 100 02/16/19 06:00 65 16 99 02/16/19 05:45 66 17 100 02/16/19 05:30 67 17 100 02/16/19 05:15 67 28 H 100 02/16/19 05:00 67 16 100 02/16/19 04:45 67 16 100 02/16/19 04:30 68 16 100 02/16/19 04:15 66 17 100 02/16/19 04:05 99.9 F H 68 16 130/50 100 02/16/19 04:00 67 16 100 05 03:45 72 16 95 05 03:32 99.3 F 67 16 94/42 100 05 03:30 68 16 100 05 03:22 99.5 F 68 18 99/43 100 05 03:15 66 20 100 05 03:00 68 16 100 05 02:45 68 16 100 05 02:30 69 16 100 05 02:15 65 17 100 02/16/19 02:00 68 16 100 02/16/19 01:45 66 17 100 02/16/19 01:30 70 16 100 02/16/19 01:15 70 16 100 02/16/19 01:00 70 16 89/49 100 02/16/19 00:45 72 17 100 02/16/19 00:30 71 17 89/49 100 05 00:15 71 16 100 02/16/19 00:00 68 16 100 05 23:45 69 16 70/40 99 05 23:30 70 16 96/43 99 05 23:15 71 27 H 96/43 100 05 23:00 70 16 96/43 100 02/15/19 22:45 71 16 100 05 22:30 68 16 100 02/15/19 22:15 70 16 96/43 100 05 22:00 98.6 F 70 16 86/40 100 05/03/31 21:45 69 16 100 05 21:40 98.4 F 67 16 79/39 100 05/06 21:30 98.4 F 74 16 85/43 100 05/06 21:15 16 100 05/06 21:00 81 16 96/42 100 05/03/31 20:45 97.9 F 82 16 90/42 100 05/06 20:30 82 16 100 05/06 20:15 84 16 100 05/03/31 20:10 97.3 F L 84 16 71/35 100 05/06 20:00 97.2 F L 89 17 79/42 100 05/06 19:45 84 16 96/43 100 05/0619 19:30 85 17 100 02/15/19 19:26 88 02/15/19 19:15 87 16 100 02/15/19 19:12 86 02/15/19 19:00 84 18 100 02/15/19 18:45 85 18 100 02/15/19 18:30 86 16 100 02/15/19 18:15 35.6 F L 89 16 86/44 100 02/15/19 18:13 35.8 F L 86 16 85/43 100 02/15/19 18:08 35.7 F L 86 16 85/43 100 02/15/19 18:00 90 16 100 02/15/19 17:45 90 16 100 02/15/19 17:30 89 16 100 02/15/19 17:15 35.5 F L 87 16 100 02/15/19 17:00 90 16 100 02/15/19 16:45 86 16 100 02/15/19 16:32 87 02/15/19 16:30 85 16 100 02/15/19 16:15 35.4 F L 81 16 100 02/15/19 16:09 82 02/15/19 16:02 35.4 F L 80 16 105/55 02/15/19 16:00 95.7 F L 82 12 106/57 100 02/15/19 15:45 90 12 100 02/15/19 15:44 35.9 F L 84 14 117/63 98 02/15/19 15:40 35.6 F L 87 14 119/65 02/15/19 15:30 35.8 F L 80 12 100 02/15/19 15:20 81 16 Intake and Output 02/15/19 02/16/19 02/16/19 22:59 06:59 14:59 Intake Total 2982.538 2171.339 125.258 Output Total 2260 689 105 Balance 159.016 8192.339 20.258 Intake: IV 1372.64 957.18 63.74 ACETAMINOPHEN IV (For NPO 100 ) 1,000 mg In Empty Bag 1 bag @ 400 mls/hr IVPB Q6HR JON Rx#:[id number] Albumin Human 5% 250 ml 750 250 In Empty Bag 1 bag @ 250 mls/hr IVPB Q1HR PRN Rx#: [id number] CO/CI 40 140 Lactated Ringers 1,000 ml 430 350 50 @ 50 mls/hr IV .Q20H JON Rx#:[id number] Milrinone-D5w Pmx 20 mg 71.64 33.18 4.74 In Dextrose/Water 1 100ml .bag @ Per Protocol IV . Q0M JON Rx#:[id number] Nitroglycerin-D5w Pmx 50 3.0 12.0 mg In Dextrose/Water 1 250ml.bag @ 5 MCG/MIN 1.5 mls/hr IV .Q24H JON Rx#: [id number] Protamine Sulfate 100 mg 60 In Sodium Chloride 0.9% 50 ml @ Per Protocol 120 mls/hr IV ONCE ONE Rx#: [id number] pressure bag 18 72 9 Intake, IV Titration 367.898 504.159 61.518 Amount Dexmedetomidine/0.9% NaCl 6.268 (Pmx) 400 mcg In Empty Bag 1 bag @ Titrate IV . Q0M JON Rx#:[id number] Insulin Regular 100 unit 14.754 12.440 In Sodium Chloride 0.9% 100 ml @ Per Protocol IV .Q0M JON Rx#:[id number] Milrinone-D5w Pmx 20 mg 65.784 42.153 In Dextrose/Water 1 100ml .bag @ Per Protocol IV . Q0M JON Rx#:[id number] Nitroglycerin-D5w Pmx 50 23.55 mg In Dextrose/Water 1 250ml.bag @ 5 MCG/MIN 1.5 mls/hr IV .Q24H JON Rx#: [id number] Norepinephrine 4 mg In 216.795 338.883 Sodium Chloride 0.9% 250 ml @ 0.02 MCG/KG/MIN 6. 049 mls/hr IV .Q24H JON Rx#:[id number] Propofol 1,000 mg In 70.565 129.286 13.097 Empty Bag 1 bag @ Titrate IV .Q0M JON Rx#: [id number] Blood Product 1242 620 Ffp 24 Cp2d Unit 205 [id number] Ffp 24 Cp2d Unit 183 [id number] Ffp 24 Cp2d Unit 222 [id number] Ffp 24 Cpd Unit 0 [id number] Platelet Pheresis Acda1 205 Unit [id number] Pooled Cryoprecipitate 117 Unit [id number] Rc As-1 Unit 0 310 [id number] Rc As-1 Unit 310 [id number] Rc Pheresis 2 As3 Unit 310 [id number] Other 90 Output: Chest Tube Drainage 1930 420 60 Chest Tube Left Pleural/ 830 230 20 Mediastinal Chest Tube Right Pleural/ 1100 190 40 Mediastinal Urine 330 269 45 Other: Voiding Method Indwelling Catheter Indwelling Catheter Weight 84.5 kg ABP, PAP, CO, CI - Last 8 Hours Arterial Blood Pressure 98/46 Arterial Blood Pressure 111/43 Arterial Blood Pressure 85/35 Arterial Blood Pressure 122/47 Arterial Blood Pressure 93/37 Arterial Blood Pressure 100/41 Arterial Blood Pressure 110/43 Arterial Blood Pressure 105/44 Arterial Blood Pressure 115/50 Arterial Blood Pressure 137/55 Arterial Blood Pressure 126/49 Arterial Blood Pressure 131/55 Arterial Blood Pressure 126/50 Arterial Blood Pressure 125/49 Arterial Blood Pressure 135/46 Arterial Blood Pressure 102/44 Arterial Blood Pressure 123/49 Arterial Blood Pressure 119/49 Arterial Blood Pressure 113/48 Arterial Blood Pressure 100/45 Arterial Blood Pressure 88/42 Arterial Blood Pressure 97/45 Arterial Blood Pressure 116/49 Arterial Blood Pressure 105/46 Arterial Blood Pressure 94/43 Arterial Blood Pressure 88/40 Arterial Blood Pressure 92/44 Arterial Blood Pressure 89/41 Arterial Blood Pressure 91/41 Arterial Blood Pressure 79/39 Arterial Blood Pressure 70/37 Pulmonary Artery Pressure 34/17 Pulmonary Artery Pressure 30/17 Pulmonary Artery Pressure 27/13 Pulmonary Artery Pressure 28/14 Pulmonary Artery Pressure 30/14 Pulmonary Artery Pressure 23/12 Pulmonary Artery Pressure 24/13 Pulmonary Artery Pressure 26/16 Pulmonary Artery Pressure 31/18 Pulmonary Artery Pressure 32/20 Pulmonary Artery Pressure 31/19 Pulmonary Artery Pressure 35/20 Pulmonary Artery Pressure 34/20 Pulmonary Artery Pressure 33/19 Pulmonary Artery Pressure 40/21 Pulmonary Artery Pressure 31/18 Pulmonary Artery Pressure 31/19 Pulmonary Artery Pressure 30/17 Pulmonary Artery Pressure 29/17 Pulmonary Artery Pressure 29/17 Pulmonary Artery Pressure 27/16 Pulmonary Artery Pressure 29/17 Pulmonary Artery Pressure 31/18 Pulmonary Artery Pressure 31/18 Pulmonary Artery Pressure 31/18 Pulmonary Artery Pressure 33/18 Pulmonary Artery Pressure 33/20 Pulmonary Artery Pressure 35/20 Pulmonary Artery Pressure 33/20 Pulmonary Artery Pressure 33/19 Pulmonary Artery Pressure 31/19 Cardiac Output 5 Cardiac Output 5 Cardiac Output 5 Cardiac Output 5 Cardiac Output 5 Cardiac Output 5.1 Cardiac Output 5.1 Cardiac Output 5.1 Cardiac Output 5.1 Cardiac Output 5.1 Cardiac Output 5.5 Cardiac Output 5.5 Cardiac Output 5.5 Cardiac Output 5.5 Cardiac Output 5.5 Cardiac Output 5 Cardiac Output 5 Cardiac Output 5 Cardiac Output 5 Cardiac Output 4.7 Cardiac Output 4.7 Cardiac Output 5.3 Cardiac Output 5.3 Cardiac Output 5.3 Cardiac Output 5.3 Cardiac Output 4.7 Cardiac Output 4.7 Cardiac Output 4.7 Cardiac Index 2.6 Cardiac Index 2.7 Cardiac Index 2.8 Cardiac Index 2.6 Cardiac Index 2.4 - Constitutional General appearance: no acute distress Results 02/16/19 05:20 02/16/19 05:20 Cardiac Enzymes 02/15/19 02/16/19 Range/Units 15:30 05:20 AST 61 H 77 H (17-59) U/L Coagulation 02/15/19 02/15/19 02/16/19 Range/Units 15:30 23:07 05:20 PT 13.3 H 12.3 H 11.8 (9.0-12.0) sec APTT 39.2 H 25.4 24.8 (22.0-30.0) sec CBC 02/15/19 02/15/19 02/16/19 Range/Units 15:30 23:07 05:20 WBC 6.2 6.9 7.2 (3.8-10.6) k/uL RBC 2.62 L 2.16 L 2.22 L (4.30-5.90) m/uL Hgb 8.7 L D 7.0 L D 7.4 L (13.0-17.5) gm/dL Hct 26.4 L 20.4 L 20.9 L (39.0-53.0) % Plt Count 161 99 L 92 L (150-450) k/uL Comprehensive Metabolic Panel 02/15/19 02/16/19 Range/Units 15:30 05:20 Sodium 138 138 (137-145) mmol/L Potassium 4.2 3.8 (3.5-5.1) mmol/L Chloride 108 H 106 (98-107) mmol/L Carbon Dioxide 27 24 (22-30) mmol/L BUN 19 23 H (9-20) mg/dL Creatinine 0.64 L 1.06 (0.66-1.25) mg/dL Glucose 143 H 112 H (74-99) mg/dL Calcium 8.3 L 8.1 L (8.4-10.2) mg/dL AST 61 H 77 H (17-59) U/L ALT 28 31 (21-72) U/L Alkaline Phosphatase 28 L 28 L (38-126) U/L Total Protein 4.5 L 4.6 L (6.3-8.2) g/dL Albumin 3.0 L 3.0 L (3.5-5.0) g/dL Current Medications Generic Name Dose Route Start Last Admin Trade Name Freq PRN Reason Stop Dose Admin Hydrocodone Bitart/Acetaminophen 2 each 02/16/19 15:17 [place] 5-325 PO Q4HR PRN Severe Pain Hydrocodone Bitart/Acetaminophen 1 each 02/16/19 15:17 [place] 5-325 PO Q4HR PRN Moderate Pain Albuterol/Ipratropium 3 ml 02/15/19 15:24 Duoneb 0.5 Mg-3 Mg/3 Ml Soln INHALATION RT-Q2H PRN Shortness Of Breath Or Wheezing Albuterol/Ipratropium 3 ml 02/15/19 21:18 02/15/19 19:18 Duoneb 0.5 Mg-3 Mg/3 Ml Soln INHALATION Not Given RT-QID [facility] Aspirin 325 mg 02/16/19 09:00 Aspirin PO DAILY [facility] Atorvastatin Calcium 40 mg 02/16/19 09:00 Lipitor PO DAILY [facility] Benzocaine/Menthol 1 each 02/15/19 15:24 Cepacol Lozenge MUCOUS MEM Q2H PRN Sore Throat Bisacodyl 10 mg 02/16/19 15:17 Dulcolax RECTAL DAILY PRN Constipation Cefazolin Sodium 2 gm 02/15/19 16:00 02/16/19 00:27 Kefzol IVP 02/16/19 08:01 2 gm Q8HR [facility] Administration Clopidogrel Bisulfate 75 mg 02/16/19 09:00 Plavix PO DAILY [facility] Heparin Sodium (Porcine) 5,000 unit 02/16/19 00:00 02/16/19 01:43 Heparin SQ 5,000 unit Q8HR [facility] Administration Albumin Human 250 ml/ IV 250 mls @ 250 mls/hr 02/15/19 15:24 02/15/19 23:47 Solution IVPB 02/17/19 15:25 250 mls/hr Q1HR PRN Administration For Volume Amiodarone HCl 150 mg/ 103 mls @ 618 mls/hr 02/15/19 15:24 Dextrose/Water IV .Q10M PRN A.FIB/FLUTTER Protocol Amiodarone HCl 360 mg/ 200 mls @ 33.333 mls/hr 02/15/19 16:00 Dextrose/Water IV .Q6H PRN A.FIB/FLUTTER Protocol 1 MG/MIN Amiodarone HCl 300 mg/ 250 mls @ 25 mls/hr 02/15/19 22:00 Dextrose/Water IV .Q10H PRN A.FIB/FLUTTER Protocol 0.5 MG/MIN Clevidipine 25 mg/ IV Solution 50 mls @ 2 mls/hr 02/15/19 15:24 02/15/19 20:23 IV Not Given .Q24H JON Protocol 1 MG/HR Lactated Ringer's 1,000 mls @ 20 mls/hr 02/15/19 15:24 02/15/19 15:15 Lactated Ringers IV 50 mls/hr .Q24H JON Administration Milrinone Lactate/Dextrose 20 100 mls @ 0 mls/hr 02/15/19 16:00 02/16/19 07:28 mg/ IV Solution IV 0.1 mcg/kg/min .Q0M JON 2.381 mls/hr Titration Protocol Per Protocol Norepinephrine Bitartrate 4 mg 254 mls @ 6.049 mls/hr 02/15/19 16:00 02/16/19 06:57 / Sodium Chloride IV 0.02 mcg/kg/min .Q24H JON 6.049 mls/hr Titration Protocol 0.02 MCG/KG/MIN Insulin Human Regular 100 unit 101 mls @ 0 mls/hr 02/15/19 19:30 02/16/19 06:18 / Sodium Chloride IV 1 unit/hr .Q0M JON 1.01 mls/hr Titration Protocol Per Protocol Dexmedetomidine HCl 400 mcg/ 100 mls @ 0 mls/hr 02/16/19 06:15 02/16/19 07:25 IV Solution IV 02/17/19 06:12 0.3 mcg/kg/hr .Q0M JON 6.338 mls/hr Titration Protocol Titrate Magnesium Hydroxide 2,400 mg 02/16/19 15:17 Milk Of Magnesia PO BID PRN Constipation Metoclopramide HCl 10 mg 02/15/19 15:24 Reglan IVP Q4H PRN Nausea And Vomiting Metoprolol Tartrate 12.5 mg 02/16/19 09:00 Lopressor PO BID JON Miscellaneous Information 1 each 02/15/19 15:24 Magnesium Per Protocol MISCELLANE DAILY PRN Per Protocol Protocol Miscellaneous Information 1 each 02/15/19 15:24 Phosphorus Per Protocol MISCELLANE DAILY PRN Per Protocol Protocol Miscellaneous Information 1 each 02/15/19 15:24 Potassium Per Protocol MISCELLANE DAILY PRN Per Protocol Protocol Mupirocin 1 applic 02/15/19 21:00 02/15/19 23:59 Bactroban Oint NASAL 02/18/19 21:01 1 applic BID JON Administration Ondansetron HCl 4 mg 02/15/19 15:24 Zofran IVP Q6HR PRN Nausea And Vomiting Oxycodone HCl 10 mg 02/15/19 15:24 02/16/19 04:34 Oxyir PO 02/16/19 15:25 10 mg Q4H PRN Administration Severe Pain Oxycodone HCl 5 mg 02/15/19 15:24 Oxyir PO 02/16/19 15:25 Q4H PRN Moderate Pain Pantoprazole Sodium 40 mg 02/16/19 09:00 Protonix IVP DAILY JON Senna/Docusate Sodium 2 each 02/16/19 21:00 Senokot-S PO HS JON Sodium Chloride 10 ml 02/15/19 21:00 02/15/19 22:03 Saline Flush IV Not Given BID JON Intake and Output 02/15/19 02/16/19 02/16/19 22:59 06:59 14:59 Intake Total 2982.538 2171.339 125.258 Output Total 2260 689 105 Balance 574.680 2894.339 20.258 Intake: IV 1372.64 957.18 63.74 ACETAMINOPHEN IV (For NPO 100 ) 1,000 mg In Empty Bag 1 bag @ 400 mls/hr IVPB Q6HR [facility] Rx#:[id number] Albumin Human 5% 250 ml 750 250 In Empty Bag 1 bag @ 250 mls/hr IVPB Q1HR PRN Rx#: [id number] CO/CI 40 140 Lactated Ringers 1,000 ml 430 350 50 @ 50 mls/hr IV .Q20H JON Rx#:[id number] Milrinone-D5w Pmx 20 mg 71.64 33.18 4.74 In Dextrose/Water 1 100ml .bag @ Per Protocol IV . Q0M JON Rx#:[id number] Nitroglycerin-D5w Pmx 50 3.0 12.0 mg In Dextrose/Water 1 250ml.bag @ 5 MCG/MIN 1.5 mls/hr IV .Q24H JON Rx#: [id number] Protamine Sulfate 100 mg 60 In Sodium Chloride 0.9% 50 ml @ Per Protocol 120 mls/hr IV ONCE ONE Rx#: [id number] pressure bag 18 72 9 Intake, IV Titration 367.898 504.159 61.518 Amount Dexmedetomidine/0.9% NaCl 6.268 (Pmx) 400 mcg In Empty Bag 1 bag @ Titrate IV . Q0M [facility] Rx#:[id number] Insulin Regular 100 unit 14.754 12.440 In Sodium Chloride 0.9% 100 ml @ Per Protocol IV .Q0M JON Rx#:[id number] Milrinone-D5w Pmx 20 mg 65.784 42.153 In Dextrose/Water 1 100ml .bag @ Per Protocol IV . Q0M JON Rx#:[id number] Nitroglycerin-D5w Pmx 50 23.55 mg In Dextrose/Water 1 250ml.bag @ 5 MCG/MIN 1.5 mls/hr IV .Q24H JON Rx#: [id number] Norepinephrine 4 mg In 216.795 338.883 Sodium Chloride 0.9% 250 ml @ 0.02 MCG/KG/MIN 6. 049 mls/hr IV .Q24H JNO Rx#:[id number] Propofol 1,000 mg In 70.565 129.286 13.097 Empty Bag 1 bag @ Titrate IV .Q0M JON Rx#: [id number] Blood Product 1242 620 Ffp 24 Cp2d Unit 205 [id number] Ffp 24 Cp2d Unit 183 [id number] Ffp 24 Cp2d Unit 222 [id number] Ffp 24 Cpd Unit 0 [id number] Platelet Pheresis Acda1 205 Unit [id number] Pooled Cryoprecipitate 117 Unit [id number] Rc As-1 Unit 0 310 [id number] Rc As-1 Unit 310 [id number] Rc Pheresis 2 As3 Unit 310 [id number] Other 90 Output: Chest Tube Drainage 1930 420 60 Chest Tube Left Pleural/ 830 230 20 Mediastinal Chest Tube Right Pleural/ 1100 190 40 Mediastinal Urine 330 269 45 Other: Voiding Method Indwelling Catheter Indwelling Catheter Weight 84.5 kg 02/16/19 05:20 02/16/19 05:20 Assessment and Plan Assessment: Assessment #1 status post redo CABG with WEBSTER to LAD and status post mitral valve repair #2 known severe underlying coronary artery disease #3 multiple comorbid conditions Plan #1 continue the aspirin, statin, and metoprolol #2 consider adding Plavix once the platelet count improved #3 right wean the patient from norepinephrine as well as from Primacor #4 follow-up with the patient
[2019-02-16 08:15] LABS: Glucose,Whole Blood 135 mg/dL (75-99)
[2019-02-16] MEDS: IPRATROPIUM-ALBUTEROL 3 ML NEB INHALATION SCH ×4 (08:20→20:26)
[2019-02-16] MEDS ORDERED: Potassium Replacement Protocol 1 EACH MISC MISCELLANE PRN (08:24)
[2019-02-16] MEDS: POTASSIUM CHLORIDE 20 MEQ in WATER FOR INJECTION 1 100ML.BAG IVPB SCH ×2 (08:30→11:29)
--- NOTE | 2019-02-16 08:51 | XR ---
EXAMINATION TYPE: XR chest 1V portable DATE OF EXAM: 02/16/2019 COMPARISON: 02/15/2019 INDICATION: Postoperative cardiac surgery TECHNIQUE: Single frontal view of the chest is obtained. FINDINGS: The heart size is borderline prominent. The pulmonary vasculature is normal. Some mild infiltrate may be on the left. Small left pleural fluid may be present. Endotracheal tube tip is above the venessa. Nasogastric tube transverses the thorax the tip in left up per quadrant of the abdomen. Epicardial leads are present. Mediastinal chest tubes appear present. Le ft-sided chest tubes are present and stable in position. Right-sided chest tube is present. No pneumo thorax is evident. Right [place] catheter is present with the tip in the main pulmonary artery carina on. Sternotomy wires are present from cardiac valve surgery. IMPRESSION: 1. Mild cardiomegaly. 2. Small left pleural fluid. 3. Multiple lines and catheters, stable in position.
[2019-02-16] MEDS ORDERED: PANTOPRAZOLE 40 MG/10 ML VIAL IVP SCH (09:00)
[2019-02-16 09:09] LABS: Glucose,Whole Blood 135 mg/dL (75-99)
[2019-02-16] MEDS: ASPIRIN 325 MG TAB PO SCH (09:48)
[2019-02-16] MEDS: MUPIROCIN 2% OINT 22 GM TUBE NASAL SCH ×2 (09:48→21:19)
[2019-02-16] MEDS: ATORVASTATIN 40 MG TAB PO SCH (09:48)
[2019-02-16] MEDS: CLOPIDOGREL 75 MG TAB PO SCH (09:48)
[2019-02-16 10:07] LABS: Glucose,Whole Blood 131 mg/dL (75-99)
--- NOTE | 2019-02-16 10:38 | P.PN ---
Subjective Progress Note Date: 02/16/19 Principal diagnosis: Coronary artery disease and severe mitral regurgitation, status post CABG/one- vessel coronary artery bypass with saphenous vein graft to RCA, and mitral valve replacement with bioprosthetic magna ease #29 valve. Postoperative day #1. This is a 63-year-old white male patient of Dr. Esme Raymond, with history of coronary artery disease with bypass surgery in 2002, with the reocclusion of the 2 vein grafts in 2005 requiring stenting of the yurok circumflex, that follows with Dr. CYRIL Vogt, was found to have progression of coronary artery disease, and severe mitral regurgitation. Patient was complaining of worsening dyspnea with mild activity. Heart catheterization showed a total occlusion of the vein graft to the RCA representing progression of the disease, and there was a previously occluded vein graft to the OM and the diagonal. The WEBSTER to LAD was patent, and the free radial artery graft to the first obtuse marginal was patent. Transesophageal echocardiogram revealed severe degree of mitral regurgitation with reversal of flow in the pulmonary vein, with restriction of the posterior leaflet, there was no evidence of mitral valve prolapse or any flail mitral leaflet, no evidence of thrombus in the left atrium, there was moderate degree of tricuspid regurgitation with severe pulmonary hypertension with right ventricular systolic pressure in the range of 70 to 80 mmHg, anterior atrial septum was intact. Patient was recommended surgical intervention, and today on 02/15/2019 patient underwent a single-vessel bypass with a saphenous vein graft to the RCA and a mitral valve replacement with a tissue valve, Magna- Ease bioprosthetic valve #29. Patient is seen in the intensive care unit following surgery, sedated, intubated on mechanical ventilator, and initial vent settings were SIMV mode of ventilation with a rate of 12, tidal vital 500, FiO2 100% and PEEP of 5, and blood gases were obtained, which showed pO2 of 293, pCO2 of 53, and pH of 7.23, and ventilator adjustments were made, patient was placed on assist-control mode of ventilation with a rate of 16, FiO2 was decreased to 60%, and PEEP was increased to 8 related to bleeding from the chest tubes. Patient had estimated EBL of around 2 L, he did receive 2 units of fresh frozen plasma, 1 unit of platelets. Patient has 4 chest tubes, right pleural connected with right mediastinal, and left pleural connected with left mediastinal chest tubes, with sanguinous output in the Pleur-evac. Maintenance IV fluids include lactated Ringer's at a rate of 50 ML per hour, nitroglycerin drip at 5 mics per minute, Diprivan and at 30 mics per kilo per minute, levo fed at 7.9 mics per minute, insulin is at 3 units per hour, Primacor is a 3.75 mics per kilo per minute. PA pressures are 32/22, cardiac output and index are 3.5 and 1.8 respectively. Patient was reevaluated today on 02/16/2019, patient was on mechanical ventilation overnight, extubated early this morning, he was on a very short course of Precedex prior to extubation. Patient tolerated the extubation well, doing quite well at present, feels generally weak and tired. Denies any cough no wheezing no shortness of breath, no chest pain. Chest x-ray showed mild cardiomegaly, small left pleural effusion, and lines and catheters noted to be in proper position. Labs were reviewed. Hemoglobin is 7.4, electrolytes are normal BUN is 23 creatinine 1.06. All drips were reviewed. Objective - Vital Signs Vital signs: Vital Signs Temp 37.4 F L 02/16/19 08:00 Pulse 80 02/16/19 09:00 Resp 14 02/16/19 09:00 BP 107/67 02/16/19 09:00 Pulse Ox 99 02/16/19 09:00 Intake & Output 02/15/19 02/16/19 02/16/19 18:59 06:59 18:59 Intake Total 2157.561 3001.316 281.335 Output Total 2802 1247 252 Balance -450.571 7411.316 29.335 Weight 84.5 kg Intake: IV 1168.28 1166.54 207.48 ACETAMINOPHEN IV (For NPO 100 ) 1,000 mg In Empty Bag 1 bag @ 400 mls/hr IVPB Q6HR JON Rx#:[id number] Albumin Human 5% 250 ml 750 250 In Empty Bag 1 bag @ 250 mls/hr IVPB Q1HR PRN Rx#: [id number] CO/CI 180 20 Lactated Ringers 1,000 ml 300 480 150 @ 20 mls/hr IV .Q24H JON Rx#:[id number] Milrinone-D5w Pmx 20 mg 53.28 51.54 10.48 In Dextrose/Water 1 100ml .bag @ Per Protocol IV . Q0M [facility]ON Rx#:[id number] Nitroglycerin-D5w Pmx 50 15.0 mg In Dextrose/Water 1 250ml.bag @ 5 MCG/MIN 1.5 mls/hr IV .Q24H JON Rx#: [id number] Protamine Sulfate 100 mg 60 In Sodium Chloride 0.9% 50 ml @ Per Protocol 120 mls/hr IV ONCE ONE Rx#: [id number] pressure bag 90 27 Intake, IV Titration 57.281 814.776 73.855 Amount Dexmedetomidine/0.9% NaCl 9.965 (Pmx) 400 mcg In Empty Bag 1 bag @ Titrate IV . Q0M [facility] Rx#:[id number] Insulin Regular 100 unit 2.087 25.107 2.289 In Sodium Chloride 0.9% 100 ml @ Per Protocol IV .Q0M JON Rx#:[id number] Milrinone-D5w Pmx 20 mg 65.784 42.153 In Dextrose/Water 1 100ml .bag @ Per Protocol IV . Q0M [facility] Rx#:[id number] Nitroglycerin-D5w Pmx 50 23.55 mg In Dextrose/Water 1 250ml.bag @ 5 MCG/MIN 1.5 mls/hr IV .Q24H [facility] Rx#: [id number] Norepinephrine 4 mg In 55.194 500.484 6.351 Sodium Chloride 0.9% 250 ml @ 0.02 MCG/KG/MIN 6. 049 mls/hr IV .Q24H [facility] Rx#:[id number] Propofol 1,000 mg In 199.851 13.097 Empty Bag 1 bag @ Titrate IV .Q0M [facility] Rx#: [id number] Blood Product 932 930 0 Ffp 24 Cp2d Unit 205 [id number] Ffp 24 Cp2d Unit 183 [id number] Ffp 24 Cp2d Unit 222 [id number] Ffp 24 Cpd Unit 0 0 [id number] Platelet Pheresis Acda1 205 Unit [id number] Pooled Cryoprecipitate 117 Unit [id number] Rc As-1 Unit 310 [id number] Rc As-1 Unit 310 [id number] Rc Pheresis 2 As3 Unit 310 [id number] Other 90 Output: Chest Tube Drainage 1470 880 160 Chest Tube Left Pleural/ 660 400 50 Mediastinal Chest Tube Right Pleural/ 810 480 110 Mediastinal Urine 832 367 92 Estimated Blood Loss 500 Other: Voiding Method Indwelling Catheter Indwelling Catheter Indwelling Catheter ABP, PAP, CO, CI - Last Documented Arterial Blood Pressure 120/46 Pulmonary Artery Pressure 26/13 Cardiac Output 5 Cardiac Index 2.6 - Exam GENERAL EXAM: Revealed a 63-year-old white male, in no distress. On nasal cannula. HEAD: Normocephalic/atraumatic. EYES: Normal reaction of pupils, equal size. Conjunctiva pink, sclera white. NOSE: Clear with pink turbinates. THROAT: No erythema or exudates. NECK: No masses, no JVD, no thyroid enlargement, no adenopathy. CHEST: No chest wall deformity. Symmetrical expansion. Midsternal incision is clean dry and intact, covered with a surgical dressing, right pleural connected with the right mediastinal, and left pleural connected with the left mediastinal with moderate amount of output and the Pleur-evac's no leak noted, AV wires connected to an external pacemaker with the backup rate, intrinsic rhythm is sinus rhythm LUNGS: Equal air entry with no crackles, wheeze, rhonchi or dullness. CVS: Regular rate and rhythm, normal S1 and S2, no gallops, no murmurs, no rubs ABDOMEN: Soft, nontender. No hepatosplenomegaly, normal bowel sounds, no guarding or rigidity. EXTREMITIES: No clubbing, no edema, no cyanosis, 2+ pulses and upper and lower extremities. Bilateral lower extremities are hamlet wrapped, and SCDs are on MUSCULOSKELETAL: Muscle strength and tone normal. SPINE: No scoliosis or deformity CENTRAL NERVOUS SYSTEM: Alert oriented 3, no gross focal neurologic deficit.. - Labs CBC & Chem 7: 02/16/19 05:20 02/16/19 05:20 Labs: Abnormal Lab Results - Last 24 Hours (Table) 02/09/19 02/15/19 02/15/19 Range/Units 09:10 08:49 11:02 RBC (4.30-5.90) m/uL Hgb (13.0-17.5) gm/dL Hct (39.0-53.0) % MCV (80.0-100.0) fL RDW (11.5-15.5) % Plt Count (150-450) k/uL Lymphocytes # (1.0-4.8) k/uL PT (9.0-12.0) sec INR (<1.2) APTT (22.0-30.0) sec Fibrinogen (200-500) mg/dL ABG pH 7.50 H (7.35-7.45) ABG pCO2 (35-45) mmHg ABG pO2 >420 H 123 H (83-108) mmHg ABG HCO3 31 H 30 H (21-25) mmol/L ABG Total CO2 32 H 31 H (19-24) mmol/L ABG O2 Saturation 100.0 H 99.4 H (94-97) % ABG Hematocrit (34.0-46.0) % ABG Potassium 3.2 L (3.4-4.5) mmol/L ABG Ionized Calcium (4.5-5.3) mg/dL ABG Glucose 121 H 131 H (75-99) mg/dL Hemoglobin 12.7 L 12.0 L (13.0-17.5) gm/dL Chloride (98-107) mmol/L BUN (9-20) mg/dL Creatinine (0.66-1.25) mg/dL Glucose (74-99) mg/dL POC Glucose (mg/dL) (75-99) mg/dL Calcium (8.4-10.2) mg/dL Magnesium (1.6-2.3) mg/dL Total Bilirubin (0.2-1.3) mg/dL AST (17-59) U/L Alkaline Phosphatase (38-126) U/L Total Protein (6.3-8.2) g/dL Albumin (3.5-5.0) g/dL Arterial Blood Potassium 3.2 L (3.4-4.5) mmol/L Arterial Blood Glucose 121 H 131 H (75-99) mg/dL Crossmatch See Detail 02/15/19 02/15/19 02/15/19 Range/Units 11:13 11:54 12:30 RBC (4.30-5.90) m/uL Hgb (13.0-17.5) gm/dL Hct (39.0-53.0) % MCV (80.0-100.0) fL RDW (11.5-15.5) % Plt Count (150-450) k/uL Lymphocytes # (1.0-4.8) k/uL PT (9.0-12.0) sec INR (<1.2) APTT (22.0-30.0) sec Fibrinogen (200-500) mg/dL ABG pH (7.35-7.45) ABG pCO2 47 H (35-45) mmHg ABG pO2 410 H 356 H 280 H (83-108) mmHg ABG HCO3 26 H 30 H 29 H (21-25) mmol/L ABG Total CO2 28 H 31 H 30 H (19-24) mmol/L ABG O2 Saturation 100.0 H 100.0 H 100.0 H (94-97) % ABG Hematocrit 30 L 29 L 31 L (34.0-46.0) % ABG Potassium 3.3 L (3.4-4.5) mmol/L ABG Ionized Calcium 4.0 L 4.3 L 4.3 L (4.5-5.3) mg/dL ABG Glucose 117 H 204 H 215 H (75-99) mg/dL Hemoglobin 9.7 L 9.5 L 10.0 L (13.0-17.5) gm/dL Chloride (98-107) mmol/L BUN (9-20) mg/dL Creatinine (0.66-1.25) mg/dL Glucose (74-99) mg/dL POC Glucose (mg/dL) (75-99) mg/dL Calcium (8.4-10.2) mg/dL Magnesium (1.6-2.3) mg/dL Total Bilirubin (0.2-1.3) mg/dL AST (17-59) U/L Alkaline Phosphatase (38-126) U/L Total Protein (6.3-8.2) g/dL Albumin (3.5-5.0) g/dL Arterial Blood Potassium 3.3 L (3.4-4.5) mmol/L Arterial Blood Glucose 117 H 204 H 215 H (75-99) mg/dL Crossmatch 02/15/19 02/15/19 02/15/19 Range/Units 13:07 14:40 15:30 RBC (4.30-5.90) m/uL Hgb (13.0-17.5) gm/dL Hct (39.0-53.0) % MCV (80.0-100.0) fL RDW (11.5-15.5) % Plt Count (150-450) k/uL Lymphocytes # (1.0-4.8) k/uL PT (9.0-12.0) sec INR (<1.2) APTT (22.0-30.0) sec Fibrinogen 137 L (200-500) mg/dL ABG pH (7.35-7.45) ABG pCO2 (35-45) mmHg ABG pO2 357 H 286 H (83-108) mmHg ABG HCO3 29 H 27 H (21-25) mmol/L ABG Total CO2 31 H 28 H (19-24) mmol/L ABG O2 Saturation 100.0 H 100.0 H (94-97) % ABG Hematocrit 29 L 29 L (34.0-46.0) % ABG Potassium 3.2 L (3.4-4.5) mmol/L ABG Ionized Calcium 4.2 L 4.2 L (4.5-5.3) mg/dL ABG Glucose 221 H 144 H (75-99) mg/dL Hemoglobin 9.4 L 9.3 L (13.0-17.5) gm/dL Chloride (98-107) mmol/L BUN (9-20) mg/dL Creatinine (0.66-1.25) mg/dL Glucose (74-99) mg/dL POC Glucose (mg/dL) (75-99) mg/dL Calcium (8.4-10.2) mg/dL Magnesium (1.6-2.3) mg/dL Total Bilirubin (0.2-1.3) mg/dL AST (17-59) U/L Alkaline Phosphatase (38-126) U/L Total Protein (6.3-8.2) g/dL Albumin (3.5-5.0) g/dL Arterial Blood Potassium 3.2 L (3.4-4.5) mmol/L Arterial Blood Glucose 221 H 144 H (75-99) mg/dL Crossmatch 02/15/19 02/15/19 02/15/19 Range/Units 15:30 15:30 15:30 RBC 2.62 L (4.30-5.90) m/uL Hgb 8.7 L D (13.0-17.5) gm/dL Hct 26.4 L (39.0-53.0) % MCV 101.0 H (80.0-100.0) fL RDW (11.5-15.5) % Plt Count (150-450) k/uL Lymphocytes # (1.0-4.8) k/uL PT 13.3 H (9.0-12.0) sec INR 1.3 H (<1.2) APTT 39.2 H (22.0-30.0) sec Fibrinogen (200-500) mg/dL ABG pH (7.35-7.45) ABG pCO2 (35-45) mmHg ABG pO2 (83-108) mmHg ABG HCO3 (21-25) mmol/L ABG Total CO2 (19-24) mmol/L ABG O2 Saturation (94-97) % ABG Hematocrit (34.0-46.0) % ABG Potassium (3.4-4.5) mmol/L ABG Ionized Calcium (4.5-5.3) mg/dL ABG Glucose (75-99) mg/dL Hemoglobin (13.0-17.5) gm/dL Chloride 108 H (98-107) mmol/L BUN (9-20) mg/dL Creatinine 0.64 L (0.66-1.25) mg/dL Glucose 143 H (74-99) mg/dL POC Glucose (mg/dL) (75-99) mg/dL Calcium 8.3 L (8.4-10.2) mg/dL Magnesium 2.7 H (1.6-2.3) mg/dL Total Bilirubin 1.7 H (0.2-1.3) mg/dL AST 61 H (17-59) U/L Alkaline Phosphatase 28 L (38-126) U/L Total Protein 4.5 L (6.3-8.2) g/dL Albumin 3.0 L (3.5-5.0) g/dL Arterial Blood Potassium (3.4-4.5) mmol/L Arterial Blood Glucose (75-99) mg/dL Crossmatch 02/15/19 02/15/19 02/15/19 Range/Units 15:32 15:56 16:32 RBC (4.30-5.90) m/uL Hgb (13.0-17.5) gm/dL Hct (39.0-53.0) % MCV (80.0-100.0) fL RDW (11.5-15.5) % Plt Count (150-450) k/uL Lymphocytes # (1.0-4.8) k/uL PT (9.0-12.0) sec INR (<1.2) APTT (22.0-30.0) sec Fibrinogen (200-500) mg/dL ABG pH 7.30 L (7.35-7.45) ABG pCO2 53 H (35-45) mmHg ABG pO2 293 H (83-108) mmHg ABG HCO3 26 H (21-25) mmol/L ABG Total CO2 28 H (19-24) mmol/L ABG O2 Saturation 99.8 H (94-97) % ABG Hematocrit (34.0-46.0) % ABG Potassium (3.4-4.5) mmol/L ABG Ionized Calcium (4.5-5.3) mg/dL ABG Glucose (75-99) mg/dL Hemoglobin (13.0-17.5) gm/dL Chloride (98-107) mmol/L BUN (9-20) mg/dL Creatinine (0.66-1.25) mg/dL Glucose (74-99) mg/dL POC Glucose (mg/dL) 142 H 137 H (75-99) mg/dL Calcium (8.4-10.2) mg/dL Magnesium (1.6-2.3) mg/dL Total Bilirubin (0.2-1.3) mg/dL AST (17-59) U/L Alkaline Phosphatase (38-126) U/L Total Protein (6.3-8.2) g/dL Albumin (3.5-5.0) g/dL Arterial Blood Potassium (3.4-4.5) mmol/L Arterial Blood Glucose (75-99) mg/dL Crossmatch 02/15/19 02/15/19 02/15/19 Range/Units 18:13 19:11 20:02 RBC (4.30-5.90) m/uL Hgb (13.0-17.5) gm/dL Hct (39.0-53.0) % MCV (80.0-100.0) fL RDW (11.5-15.5) % Plt Count (150-450) k/uL Lymphocytes # (1.0-4.8) k/uL PT (9.0-12.0) sec INR (<1.2) APTT (22.0-30.0) sec Fibrinogen (200-500) mg/dL ABG pH (7.35-7.45) ABG pCO2 (35-45) mmHg ABG pO2 (83-108) mmHg ABG HCO3 (21-25) mmol/L ABG Total CO2 (19-24) mmol/L ABG O2 Saturation (94-97) % ABG Hematocrit (34.0-46.0) % ABG Potassium (3.4-4.5) mmol/L ABG Ionized Calcium (4.5-5.3) mg/dL ABG Glucose (75-99) mg/dL Hemoglobin (13.0-17.5) gm/dL Chloride (98-107) mmol/L BUN (9-20) mg/dL Creatinine (0.66-1.25) mg/dL Glucose (74-99) mg/dL POC Glucose (mg/dL) 207 H 197 H 164 H (75-99) mg/dL Calcium (8.4-10.2) mg/dL Magnesium (1.6-2.3) mg/dL Total Bilirubin (0.2-1.3) mg/dL AST (17-59) U/L Alkaline Phosphatase (38-126) U/L Total Protein (6.3-8.2) g/dL Albumin (3.5-5.0) g/dL Arterial Blood Potassium (3.4-4.5) mmol/L Arterial Blood Glucose (75-99) mg/dL Crossmatch 02/15/19 02/15/19 02/15/19 Range/Units 21:00 22:10 23:07 RBC 2.16 L (4.30-5.90) m/uL Hgb 7.0 L D (13.0-17.5) gm/dL Hct 20.4 L (39.0-53.0) % MCV (80.0-100.0) fL RDW 15.6 H (11.5-15.5) % Plt Count 99 L (150-450) k/uL Lymphocytes # 0.5 L (1.0-4.8) k/uL PT (9.0-12.0) sec INR (<1.2) APTT (22.0-30.0) sec Fibrinogen (200-500) mg/dL ABG pH (7.35-7.45) ABG pCO2 (35-45) mmHg ABG pO2 (83-108) mmHg ABG HCO3 (21-25) mmol/L ABG Total CO2 (19-24) mmol/L ABG O2 Saturation (94-97) % ABG Hematocrit (34.0-46.0) % ABG Potassium (3.4-4.5) mmol/L ABG Ionized Calcium (4.5-5.3) mg/dL ABG Glucose (75-99) mg/dL Hemoglobin (13.0-17.5) gm/dL Chloride (98-107) mmol/L BUN (9-20) mg/dL Creatinine (0.66-1.25) mg/dL Glucose (74-99) mg/dL POC Glucose (mg/dL) 132 H 127 H (75-99) mg/dL Calcium (8.4-10.2) mg/dL Magnesium (1.6-2.3) mg/dL Total Bilirubin (0.2-1.3) mg/dL AST (17-59) U/L Alkaline Phosphatase (38-126) U/L Total Protein (6.3-8.2) g/dL Albumin (3.5-5.0) g/dL Arterial Blood Potassium (3.4-4.5) mmol/L Arterial Blood Glucose (75-99) mg/dL Crossmatch 02/15/19 02/15/19 02/16/19 Range/Units 23:07 23:07 00:14 RBC (4.30-5.90) m/uL Hgb (13.0-17.5) gm/dL Hct (39.0-53.0) % MCV (80.0-100.0) fL RDW (11.5-15.5) % Plt Count (150-450) k/uL Lymphocytes # (1.0-4.8) k/uL PT 12.3 H (9.0-12.0) sec INR 1.2 H (<1.2) APTT (22.0-30.0) sec Fibrinogen 171 L (200-500) mg/dL ABG pH (7.35-7.45) ABG pCO2 (35-45) mmHg ABG pO2 (83-108) mmHg ABG HCO3 (21-25) mmol/L ABG Total CO2 (19-24) mmol/L ABG O2 Saturation (94-97) % ABG Hematocrit (34.0-46.0) % ABG Potassium (3.4-4.5) mmol/L ABG Ionized Calcium (4.5-5.3) mg/dL ABG Glucose (75-99) mg/dL Hemoglobin (13.0-17.5) gm/dL Chloride (98-107) mmol/L BUN (9-20) mg/dL Creatinine (0.66-1.25) mg/dL Glucose (74-99) mg/dL POC Glucose (mg/dL) 106 H 122 H (75-99) mg/dL Calcium (8.4-10.2) mg/dL Magnesium (1.6-2.3) mg/dL Total Bilirubin (0.2-1.3) mg/dL AST (17-59) U/L Alkaline Phosphatase (38-126) U/L Total Protein (6.3-8.2) g/dL Albumin (3.5-5.0) g/dL Arterial Blood Potassium (3.4-4.5) mmol/L Arterial Blood Glucose (75-99) mg/dL Crossmatch 02/16/19 02/16/19 02/16/19 Range/Units 01:18 02:12 03:03 RBC (4.30-5.90) m/uL Hgb (13.0-17.5) gm/dL Hct (39.0-53.0) % MCV (80.0-100.0) fL RDW (11.5-15.5) % Plt Count (150-450) k/uL Lymphocytes # (1.0-4.8) k/uL PT (9.0-12.0) sec INR (<1.2) APTT (22.0-30.0) sec Fibrinogen (200-500) mg/dL ABG pH (7.35-7.45) ABG pCO2 (35-45) mmHg ABG pO2 (83-108) mmHg ABG HCO3 (21-25) mmol/L ABG Total CO2 (19-24) mmol/L ABG O2 Saturation (94-97) % ABG Hematocrit (34.0-46.0) % ABG Potassium (3.4-4.5) mmol/L ABG Ionized Calcium (4.5-5.3) mg/dL ABG Glucose (75-99) mg/dL Hemoglobin (13.0-17.5) gm/dL Chloride (98-107) mmol/L BUN (9-20) mg/dL Creatinine (0.66-1.25) mg/dL Glucose (74-99) mg/dL POC Glucose (mg/dL) 115 H 110 H 120 H (75-99) mg/dL Calcium (8.4-10.2) mg/dL Magnesium (1.6-2.3) mg/dL Total Bilirubin (0.2-1.3) mg/dL AST (17-59) U/L Alkaline Phosphatase (38-126) U/L Total Protein (6.3-8.2) g/dL Albumin (3.5-5.0) g/dL Arterial Blood Potassium (3.4-4.5) mmol/L Arterial Blood Glucose (75-99) mg/dL Crossmatch 02/16/19 02/16/19 02/16/19 Range/Units 04:20 05:20 05:20 RBC 2.22 L (4.30-5.90) m/uL Hgb 7.4 L (13.0-17.5) gm/dL Hct 20.9 L (39.0-53.0) % MCV (80.0-100.0) fL RDW 15.9 H (11.5-15.5) % Plt Count 92 L (150-450) k/uL Lymphocytes # 0.7 L (1.0-4.8) k/uL PT (9.0-12.0) sec INR (<1.2) APTT (22.0-30.0) sec Fibrinogen (200-500) mg/dL ABG pH (7.35-7.45) ABG pCO2 (35-45) mmHg ABG pO2 (83-108) mmHg ABG HCO3 (21-25) mmol/L ABG Total CO2 (19-24) mmol/L ABG O2 Saturation (94-97) % ABG Hematocrit (34.0-46.0) % ABG Potassium (3.4-4.5) mmol/L ABG Ionized Calcium (4.5-5.3) mg/dL ABG Glucose (75-99) mg/dL Hemoglobin (13.0-17.5) gm/dL Chloride (98-107) mmol/L BUN 23 H (9-20) mg/dL Creatinine (0.66-1.25) mg/dL Glucose 112 H (74-99) mg/dL POC Glucose (mg/dL) 128 H (75-99) mg/dL Calcium 8.1 L (8.4-10.2) mg/dL Magnesium (1.6-2.3) mg/dL Total Bilirubin (0.2-1.3) mg/dL AST 77 H (17-59) U/L Alkaline Phosphatase 28 L (38-126) U/L Total Protein 4.6 L (6.3-8.2) g/dL Albumin 3.0 L (3.5-5.0) g/dL Arterial Blood Potassium (3.4-4.5) mmol/L Arterial Blood Glucose (75-99) mg/dL Crossmatch 02/16/19 02/16/19 02/16/19 Range/Units 05:25 06:18 07:10 RBC (4.30-5.90) m/uL Hgb (13.0-17.5) gm/dL Hct (39.0-53.0) % MCV (80.0-100.0) fL RDW (11.5-15.5) % Plt Count (150-450) k/uL Lymphocytes # (1.0-4.8) k/uL PT (9.0-12.0) sec INR (<1.2) APTT (22.0-30.0) sec Fibrinogen (200-500) mg/dL ABG pH (7.35-7.45) ABG pCO2 48 H (35-45) mmHg ABG pO2 171 H (83-108) mmHg ABG HCO3 27 H (21-25) mmol/L ABG Total CO2 28 H (19-24) mmol/L ABG O2 Saturation 99.5 H (94-97) % ABG Hematocrit (34.0-46.0) % ABG Potassium (3.4-4.5) mmol/L ABG Ionized Calcium (4.5-5.3) mg/dL ABG Glucose (75-99) mg/dL Hemoglobin (13.0-17.5) gm/dL Chloride (98-107) mmol/L BUN (9-20) mg/dL Creatinine (0.66-1.25) mg/dL Glucose (74-99) mg/dL POC Glucose (mg/dL) 136 H 122 H (75-99) mg/dL Calcium (8.4-10.2) mg/dL Magnesium (1.6-2.3) mg/dL Total Bilirubin (0.2-1.3) mg/dL AST (17-59) U/L Alkaline Phosphatase (38-126) U/L Total Protein (6.3-8.2) g/dL Albumin (3.5-5.0) g/dL Arterial Blood Potassium (3.4-4.5) mmol/L Arterial Blood Glucose (75-99) mg/dL Crossmatch 02/16/19 02/16/19 02/16/19 Range/Units 07:12 08:11 09:06 RBC (4.30-5.90) m/uL Hgb (13.0-17.5) gm/dL Hct (39.0-53.0) % MCV (80.0-100.0) fL RDW (11.5-15.5) % Plt Count (150-450) k/uL Lymphocytes # (1.0-4.8) k/uL PT (9.0-12.0) sec INR (<1.2) APTT (22.0-30.0) sec Fibrinogen (200-500) mg/dL ABG pH (7.35-7.45) ABG pCO2 (35-45) mmHg ABG pO2 (83-108) mmHg ABG HCO3 (21-25) mmol/L ABG Total CO2 (19-24) mmol/L ABG O2 Saturation (94-97) % ABG Hematocrit (34.0-46.0) % ABG Potassium (3.4-4.5) mmol/L ABG Ionized Calcium (4.5-5.3) mg/dL ABG Glucose (75-99) mg/dL Hemoglobin (13.0-17.5) gm/dL Chloride (98-107) mmol/L BUN (9-20) mg/dL Creatinine (0.66-1.25) mg/dL Glucose (74-99) mg/dL POC Glucose (mg/dL) 125 H 135 H 135 H (75-99) mg/dL Calcium (8.4-10.2) mg/dL Magnesium (1.6-2.3) mg/dL Total Bilirubin (0.2-1.3) mg/dL AST (17-59) U/L Alkaline Phosphatase (38-126) U/L Total Protein (6.3-8.2) g/dL Albumin (3.5-5.0) g/dL Arterial Blood Potassium (3.4-4.5) mmol/L Arterial Blood Glucose (75-99) mg/dL Crossmatch 02/16/19 Range/Units 10:02 RBC (4.30-5.90) m/uL Hgb (13.0-17.5) gm/dL Hct (39.0-53.0) % MCV (80.0-100.0) fL RDW (11.5-15.5) % Plt Count (150-450) k/uL Lymphocytes # (1.0-4.8) k/uL PT (9.0-12.0) sec INR (<1.2) APTT (22.0-30.0) sec Fibrinogen (200-500) mg/dL ABG pH (7.35-7.45) ABG pCO2 (35-45) mmHg ABG pO2 (83-108) mmHg ABG HCO3 (21-25) mmol/L ABG Total CO2 (19-24) mmol/L ABG O2 Saturation (94-97) % ABG Hematocrit (34.0-46.0) % ABG Potassium (3.4-4.5) mmol/L ABG Ionized Calcium (4.5-5.3) mg/dL ABG Glucose (75-99) mg/dL Hemoglobin (13.0-17.5) gm/dL Chloride (98-107) mmol/L BUN (9-20) mg/dL Creatinine (0.66-1.25) mg/dL Glucose (74-99) mg/dL POC Glucose (mg/dL) 131 H (75-99) mg/dL Calcium (8.4-10.2) mg/dL Magnesium (1.6-2.3) mg/dL Total Bilirubin (0.2-1.3) mg/dL AST (17-59) U/L Alkaline Phosphatase (38-126) U/L Total Protein (6.3-8.2) g/dL Albumin (3.5-5.0) g/dL Arterial Blood Potassium (3.4-4.5) mmol/L Arterial Blood Glucose (75-99) mg/dL Crossmatch Assessment and Plan Assessment: Impression: Status post CABG 4 totally occluded RCA, status post one-vessel coronary artery bypass with saphenous vein graft to RCA, postoperative day #1 Status post mitral valve replacement with a bioprosthetic magna ease #29 valve postoperative day #1 Previous CABG in 2002 Severe pulmonary hypertension documented on previous JACEK with right-sided pressures in the 70s. Benign essential hypertension History of Hodgkin's lymphoma and previous radiation History of 3 mm nodule will need to be monitored on outpatient basis follow-up CT in 6 months. Nicotine dependence syndrome [id number] smoking history with moderate COPD and FEV1 in the range of 62%. And some component of restrictive lung disease most likely related to previous radiation. Recommendation: Patient was extubated early this morning, tolerated the extubation well, will continue present cardiac meds, continue bronchodilators, incentive spirometry, early ambulation, GI and DVT prophylaxis, continue to monitor labs and renal profile on a daily basis, monitor electrolytes, and monitor hemoglobin. Patient will be kept in the ICU, no plans to transfer the patient out of the ICU yet today. We'll continue to follow. Time with Patient: Less than 30
[2019-02-16 11:27] LABS: Glucose,Whole Blood 115 mg/dL (75-99)
[2019-02-16] MEDS: MULTIVITAMINS, THERA 1 EACH TAB PO SCH (11:34)
[2019-02-16] MEDS: METOPROLOL TARTRATE 12.5 MG TAB PO SCH ×2 (11:34→22:08)
[2019-02-16] MEDS: LEVOTHYROXINE 50 MCG TAB PO SCH (11:34)
[2019-02-16 11:49] VITALS: BMI 28.3
--- NOTE | 2019-02-16 12:25 | P.PN ---
Subjective Progress Note Date: 02/16/19 Principal diagnosis: Severe nonrheumatic mitral regurgitation, coronary artery disease, severe pulmonary hypertension. 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 POD #1 redo sternotomy, mitral valve replacement with #29 mm magna ease bioprosthetic aortic valve, coronary bypass grafting 1 with reverse saphenous vein graft off the aorta to the posterior descending artery with right lower extremity greater saphenous vein endoscopic vein harvesting and intraoperative transesophageal echocardiogram. Postoperative acute blood loss anemia, expected outcome of surgery given cardiopulmonary bypass pump and hemodilution The patient's currently sitting up in bed in the intensive care unit in no acute distress. He had a ky postoperative course last night with hypotension, and restlessness. Did receive PRBCs, FFP, and platelets as well as IV levo administration. This morning he is currently hemodynamically stable, levo is off, Primacor is infusing at 0.1 mcg/kg/m. He was successfully extubated at 7:23 AM. States pain is controlled on current medication regimen, denies shortness of breath. No new complaints. Objective - Vital Signs Vital signs: Vital Signs Temp 37.4 F L 02/16/19 08:00 Pulse 80 02/16/19 11:00 Resp 12 02/16/19 11:00 BP 98/65 02/16/19 10:30 Pulse Ox 99 02/16/19 11:00 Intake & Output 02/15/19 02/16/19 02/16/19 18:59 06:59 18:59 Intake Total 2157.561 3001.316 903.930 Output Total 2802 1247 407 Balance -249.488 7906.316 496.930 Weight 84.5 kg 84.5 kg Intake: IV 1168.28 1166.54 275.48 ACETAMINOPHEN IV (For NPO 100 ) 1,000 mg In Empty Bag 1 bag @ 400 mls/hr IVPB Q6HR [facility] Rx#:[id number] Albumin Human 5% 250 ml 750 250 In Empty Bag 1 bag @ 250 mls/hr IVPB Q1HR PRN Rx#: [id number] CO/CI 180 20 Lactated Ringers 1,000 ml 300 480 200 @ 20 mls/hr IV .Q24H [facility] Rx#:[id number] Milrinone-D5w Pmx 20 mg 53.28 51.54 10.48 In Dextrose/Water 1 100ml .bag @ Per Protocol IV . Q0M [facility]ON Rx#:[id number] Nitroglycerin-D5w Pmx 50 15.0 mg In Dextrose/Water 1 250ml.bag @ 5 MCG/MIN 1.5 mls/hr IV .Q24H [facility] Rx#: [id number] Protamine Sulfate 100 mg 60 In Sodium Chloride 0.9% 50 ml @ Per Protocol 120 mls/hr IV ONCE ONE Rx#: [id number] pressure bag 90 45 Intake, IV Titration 57.281 814.776 78.450 Amount Dexmedetomidine/0.9% NaCl 9.965 (Pmx) 400 mcg In Empty Bag 1 bag @ Titrate IV . Q0M JON Rx#:[id number] Insulin Regular 100 unit 2.087 25.107 6.884 In Sodium Chloride 0.9% 100 ml @ Per Protocol IV .Q0M JON Rx#:[id number] Milrinone-D5w Pmx 20 mg 65.784 42.153 In Dextrose/Water 1 100ml .bag @ Per Protocol IV . Q0M [facility] Rx#:[id number] Nitroglycerin-D5w Pmx 50 23.55 mg In Dextrose/Water 1 250ml.bag @ 5 MCG/MIN 1.5 mls/hr IV .Q24H [facility] Rx#: [id number] Norepinephrine 4 mg In 55.194 500.484 6.351 Sodium Chloride 0.9% 250 ml @ 0.02 MCG/KG/MIN 6. 049 mls/hr IV .Q24H [facility] Rx#:[id number] Propofol 1,000 mg In 199.851 13.097 Empty Bag 1 bag @ Titrate IV .Q0M JON Rx#: [id number] Oral 500 Blood Product 932 930 0 Ffp 24 Cp2d Unit 205 [id number] Ffp 24 Cp2d Unit 183 [id number] Ffp 24 Cp2d Unit 222 [id number] Ffp 24 Cpd Unit 0 0 [id number] Platelet Pheresis Acda1 205 Unit [id number] Pooled Cryoprecipitate 117 Unit [id number] Rc As-1 Unit 310 [id number] Rc As-1 Unit 310 [id number] Rc Pheresis 2 As3 Unit 310 [id number] Lipid 50 Lactated Ringers 1,000 ml 50 @ 20 mls/hr IV .Q24H [facility] Rx#:[id number] Other 90 Output: Chest Tube Drainage 1470 880 240 Chest Tube Left Pleural/ 660 400 100 Mediastinal Chest Tube Right Pleural/ 810 480 140 Mediastinal Urine 832 367 167 Estimated Blood Loss 500 Other: Voiding Method Indwelling Catheter Indwelling Catheter Indwelling Catheter ABP, PAP, CO, CI - Last Documented Arterial Blood Pressure 118/43 Pulmonary Artery Pressure 26/10 Cardiac Output 5 Cardiac Index 2.6 - Constitutional General appearance: Present: cooperative, no acute distress - Respiratory Details: Lungs sounds diminished bilaterally. Respirations even, nonlabored. Currently on 2 L nasal cannula with oxygen saturation 99%. Weak cough. Left/mediastinal chest tube to continuous wall suction, 200 mL serosanguineous drainage overnight, 1050 mL since surgery. Right/mediastinal chest tube to continuous wall suction, 120 mL serosanguineous drainage overnight, 1500 mL since surgery. No air leaks present. - Cardiovascular Details: S1, S2 present. Regular rate and rhythm, currently sinus rhythm on telemetry. Sternum stable. A/V epicardial pacemaker wires present, connected to generator, AAI mode with rate 80 bpm, patient is occasionally atrially pacing. Palpable pe ripheral pulses bilaterally. No edema present. No calf pain or tenderness noted. Right internal jugular Scribner/Cordis, right radial arterial line present. Last CO/CI 5.0/2.6 and 0.1 mics per kilogram per minute of Primacor. Heart hugger in place with patient intermittently using appropriately. Antiembolism stockings, SCDs present. - Gastrointestinal Gastrointestinal Comment(s): Abdomen soft, nontender, nondistended. Hypoactive bowel sounds 4 quadrants. Tolerating ice chips. - Genitourinary Genitourinary Comment(s): Severino present draining clear, yellow urine. Output 25-45 mL per hour overnight. - Integumentary Integumentary Comment(s): Skin is warm and dry with evidence of good perfusion. Anterior chest incision well approximated and covered with dry intact dressing. Right lower extremity EVH site well approximated. - Neurologic Neurologic: Present: CNII-XII intact - Musculoskeletal Musculoskeletal: Present: strength equal bilaterally - Psychiatric Psychiatric: Present: A&O x's 3, appropriate affect, intact judgment & insight - Allied health notes Allied health notes reviewed: nursing - Labs CBC & Chem 7: 02/16/19 05:20 02/16/19 05:20 Labs: Abnormal Lab Results - Last 24 Hours (Table) 02/09/19 02/15/19 02/15/19 Range/Units 09:10 08:49 11:02 RBC (4.30-5.90) m/uL Hgb (13.0-17.5) gm/dL Hct (39.0-53.0) % MCV (80.0-100.0) fL RDW (11.5-15.5) % Plt Count (150-450) k/uL Lymphocytes # (1.0-4.8) k/uL PT (9.0-12.0) sec INR (<1.2) APTT (22.0-30.0) sec Fibrinogen (200-500) mg/dL ABG pH 7.50 H (7.35-7.45) ABG pCO2 (35-45) mmHg ABG pO2 >420 H 123 H (83-108) mmHg ABG HCO3 31 H 30 H (21-25) mmol/L ABG Total CO2 32 H 31 H (19-24) mmol/L ABG O2 Saturation 100.0 H 99.4 H (94-97) % ABG Hematocrit (34.0-46.0) % ABG Potassium 3.2 L (3.4-4.5) mmol/L ABG Ionized Calcium (4.5-5.3) mg/dL ABG Glucose 121 H 131 H (75-99) mg/dL Hemoglobin 12.7 L 12.0 L (13.0-17.5) gm/dL Chloride (98-107) mmol/L BUN (9-20) mg/dL Creatinine (0.66-1.25) mg/dL Glucose (74-99) mg/dL POC Glucose (mg/dL) (75-99) mg/dL Calcium (8.4-10.2) mg/dL Magnesium (1.6-2.3) mg/dL Total Bilirubin (0.2-1.3) mg/dL AST (17-59) U/L Alkaline Phosphatase (38-126) U/L Total Protein (6.3-8.2) g/dL Albumin (3.5-5.0) g/dL Arterial Blood Potassium 3.2 L (3.4-4.5) mmol/L Arterial Blood Glucose 121 H 131 H (75-99) mg/dL Crossmatch See Detail 02/15/19 02/15/19 02/15/19 Range/Units 11:13 11:54 12:30 RBC (4.30-5.90) m/uL Hgb (13.0-17.5) gm/dL Hct (39.0-53.0) % MCV (80.0-100.0) fL RDW (11.5-15.5) % Plt Count (150-450) k/uL Lymphocytes # (1.0-4.8) k/uL PT (9.0-12.0) sec INR (<1.2) APTT (22.0-30.0) sec Fibrinogen (200-500) mg/dL ABG pH (7.35-7.45) ABG pCO2 47 H (35-45) mmHg ABG pO2 410 H 356 H 280 H (83-108) mmHg ABG HCO3 26 H 30 H 29 H (21-25) mmol/L ABG Total CO2 28 H 31 H 30 H (19-24) mmol/L ABG O2 Saturation 100.0 H 100.0 H 100.0 H (94-97) % ABG Hematocrit 30 L 29 L 31 L (34.0-46.0) % ABG Potassium 3.3 L (3.4-4.5) mmol/L ABG Ionized Calcium 4.0 L 4.3 L 4.3 L (4.5-5.3) mg/dL ABG Glucose 117 H 204 H 215 H (75-99) mg/dL Hemoglobin 9.7 L 9.5 L 10.0 L (13.0-17.5) gm/dL Chloride (98-107) mmol/L BUN (9-20) mg/dL Creatinine (0.66-1.25) mg/dL Glucose (74-99) mg/dL POC Glucose (mg/dL) (75-99) mg/dL Calcium (8.4-10.2) mg/dL Magnesium (1.6-2.3) mg/dL Total Bilirubin (0.2-1.3) mg/dL AST (17-59) U/L Alkaline Phosphatase (38-126) U/L Total Protein (6.3-8.2) g/dL Albumin (3.5-5.0) g/dL Arterial Blood Potassium 3.3 L (3.4-4.5) mmol/L Arterial Blood Glucose 117 H 204 H 215 H (75-99) mg/dL Crossmatch 02/15/19 02/15/19 02/15/19 Range/Units 13:07 14:40 15:30 RBC (4.30-5.90) m/uL Hgb (13.0-17.5) gm/dL Hct (39.0-53.0) % MCV (80.0-100.0) fL RDW (11.5-15.5) % Plt Count (150-450) k/uL Lymphocytes # (1.0-4.8) k/uL PT (9.0-12.0) sec INR (<1.2) APTT (22.0-30.0) sec Fibrinogen 137 L (200-500) mg/dL ABG pH (7.35-7.45) ABG pCO2 (35-45) mmHg ABG pO2 357 H 286 H (83-108) mmHg ABG HCO3 29 H 27 H (21-25) mmol/L ABG Total CO2 31 H 28 H (19-24) mmol/L ABG O2 Saturation 100.0 H 100.0 H (94-97) % ABG Hematocrit 29 L 29 L (34.0-46.0) % ABG Potassium 3.2 L (3.4-4.5) mmol/L ABG Ionized Calcium 4.2 L 4.2 L (4.5-5.3) mg/dL ABG Glucose 221 H 144 H (75-99) mg/dL Hemoglobin 9.4 L 9.3 L (13.0-17.5) gm/dL Chloride (98-107) mmol/L BUN (9-20) mg/dL Creatinine (0.66-1.25) mg/dL Glucose (74-99) mg/dL POC Glucose (mg/dL) (75-99) mg/dL Calcium (8.4-10.2) mg/dL Magnesium (1.6-2.3) mg/dL Total Bilirubin (0.2-1.3) mg/dL AST (17-59) U/L Alkaline Phosphatase (38-126) U/L Total Protein (6.3-8.2) g/dL Albumin (3.5-5.0) g/dL Arterial Blood Potassium 3.2 L (3.4-4.5) mmol/L Arterial Blood Glucose 221 H 144 H (75-99) mg/dL Crossmatch 02/15/19 02/15/19 02/15/19 Range/Units 15:30 15:30 15:30 RBC 2.62 L (4.30-5.90) m/uL Hgb 8.7 L D (13.0-17.5) gm/dL Hct 26.4 L (39.0-53.0) % MCV 101.0 H (80.0-100.0) fL RDW (11.5-15.5) % Plt Count (150-450) k/uL Lymphocytes # (1.0-4.8) k/uL PT 13.3 H (9.0-12.0) sec INR 1.3 H (<1.2) APTT 39.2 H (22.0-30.0) sec Fibrinogen (200-500) mg/dL ABG pH (7.35-7.45) ABG pCO2 (35-45) mmHg ABG pO2 (83-108) mmHg ABG HCO3 (21-25) mmol/L ABG Total CO2 (19-24) mmol/L ABG O2 Saturation (94-97) % ABG Hematocrit (34.0-46.0) % ABG Potassium (3.4-4.5) mmol/L ABG Ionized Calcium (4.5-5.3) mg/dL ABG Glucose (75-99) mg/dL Hemoglobin (13.0-17.5) gm/dL Chloride 108 H (98-107) mmol/L BUN (9-20) mg/dL Creatinine 0.64 L (0.66-1.25) mg/dL Glucose 143 H (74-99) mg/dL POC Glucose (mg/dL) (75-99) mg/dL Calcium 8.3 L (8.4-10.2) mg/dL Magnesium 2.7 H (1.6-2.3) mg/dL Total Bilirubin 1.7 H (0.2-1.3) mg/dL AST 61 H (17-59) U/L Alkaline Phosphatase 28 L (38-126) U/L Total Protein 4.5 L (6.3-8.2) g/dL Albumin 3.0 L (3.5-5.0) g/dL Arterial Blood Potassium (3.4-4.5) mmol/L Arterial Blood Glucose (75-99) mg/dL Crossmatch 02/15/19 02/15/19 02/15/19 Range/Units 15:32 15:56 16:32 RBC (4.30-5.90) m/uL Hgb (13.0-17.5) gm/dL Hct (39.0-53.0) % MCV (80.0-100.0) fL RDW (11.5-15.5) % Plt Count (150-450) k/uL Lymphocytes # (1.0-4.8) k/uL PT (9.0-12.0) sec INR (<1.2) APTT (22.0-30.0) sec Fibrinogen (200-500) mg/dL ABG pH 7.30 L (7.35-7.45) ABG pCO2 53 H (35-45) mmHg ABG pO2 293 H (83-108) mmHg ABG HCO3 26 H (21-25) mmol/L ABG Total CO2 28 H (19-24) mmol/L ABG O2 Saturation 99.8 H (94-97) % ABG Hematocrit (34.0-46.0) % ABG Potassium (3.4-4.5) mmol/L ABG Ionized Calcium (4.5-5.3) mg/dL ABG Glucose (75-99) mg/dL Hemoglobin (13.0-17.5) gm/dL Chloride (98-107) mmol/L BUN (9-20) mg/dL Creatinine (0.66-1.25) mg/dL Glucose (74-99) mg/dL POC Glucose (mg/dL) 142 H 137 H (75-99) mg/dL Calcium (8.4-10.2) mg/dL Magnesium (1.6-2.3) mg/dL Total Bilirubin (0.2-1.3) mg/dL AST (17-59) U/L Alkaline Phosphatase (38-126) U/L Total Protein (6.3-8.2) g/dL Albumin (3.5-5.0) g/dL Arterial Blood Potassium (3.4-4.5) mmol/L Arterial Blood Glucose (75-99) mg/dL Crossmatch 02/15/19 02/15/19 02/15/19 Range/Units 18:13 19:11 20:02 RBC (4.30-5.90) m/uL Hgb (13.0-17.5) gm/dL Hct (39.0-53.0) % MCV (80.0-100.0) fL RDW (11.5-15.5) % Plt Count (150-450) k/uL Lymphocytes # (1.0-4.8) k/uL PT (9.0-12.0) sec INR (<1.2) APTT (22.0-30.0) sec Fibrinogen (200-500) mg/dL ABG pH (7.35-7.45) ABG pCO2 (35-45) mmHg ABG pO2 (83-108) mmHg ABG HCO3 (21-25) mmol/L ABG Total CO2 (19-24) mmol/L ABG O2 Saturation (94-97) % ABG Hematocrit (34.0-46.0) % ABG Potassium (3.4-4.5) mmol/L ABG Ionized Calcium (4.5-5.3) mg/dL ABG Glucose (75-99) mg/dL Hemoglobin (13.0-17.5) gm/dL Chloride (98-107) mmol/L BUN (9-20) mg/dL Creatinine (0.66-1.25) mg/dL Glucose (74-99) mg/dL POC Glucose (mg/dL) 207 H 197 H 164 H (75-99) mg/dL Calcium (8.4-10.2) mg/dL Magnesium (1.6-2.3) mg/dL Total Bilirubin (0.2-1.3) mg/dL AST (17-59) U/L Alkaline Phosphatase (38-126) U/L Total Protein (6.3-8.2) g/dL Albumin (3.5-5.0) g/dL Arterial Blood Potassium (3.4-4.5) mmol/L Arterial Blood Glucose (75-99) mg/dL Crossmatch 02/15/19 02/15/19 02/15/19 Range/Units 21:00 22:10 23:07 RBC 2.16 L (4.30-5.90) m/uL Hgb 7.0 L D (13.0-17.5) gm/dL Hct 20.4 L (39.0-53.0) % MCV (80.0-100.0) fL RDW 15.6 H (11.5-15.5) % Plt Count 99 L (150-450) k/uL Lymphocytes # 0.5 L (1.0-4.8) k/uL PT (9.0-12.0) sec INR (<1.2) APTT (22.0-30.0) sec Fibrinogen (200-500) mg/dL ABG pH (7.35-7.45) ABG pCO2 (35-45) mmHg ABG pO2 (83-108) mmHg ABG HCO3 (21-25) mmol/L ABG Total CO2 (19-24) mmol/L ABG O2 Saturation (94-97) % ABG Hematocrit (34.0-46.0) % ABG Potassium (3.4-4.5) mmol/L ABG Ionized Calcium (4.5-5.3) mg/dL ABG Glucose (75-99) mg/dL Hemoglobin (13.0-17.5) gm/dL Chloride (98-107) mmol/L BUN (9-20) mg/dL Creatinine (0.66-1.25) mg/dL Glucose (74-99) mg/dL POC Glucose (mg/dL) 132 H 127 H (75-99) mg/dL Calcium (8.4-10.2) mg/dL Magnesium (1.6-2.3) mg/dL Total Bilirubin (0.2-1.3) mg/dL AST (17-59) U/L Alkaline Phosphatase (38-126) U/L Total Protein (6.3-8.2) g/dL Albumin (3.5-5.0) g/dL Arterial Blood Potassium (3.4-4.5) mmol/L Arterial Blood Glucose (75-99) mg/dL Crossmatch 02/15/19 02/15/19 02/16/19 Range/Units 23:07 23:07 00:14 RBC (4.30-5.90) m/uL Hgb (13.0-17.5) gm/dL Hct (39.0-53.0) % MCV (80.0-100.0) fL RDW (11.5-15.5) % Plt Count (150-450) k/uL Lymphocytes # (1.0-4.8) k/uL PT 12.3 H (9.0-12.0) sec INR 1.2 H (<1.2) APTT (22.0-30.0) sec Fibrinogen 171 L (200-500) mg/dL ABG pH (7.35-7.45) ABG pCO2 (35-45) mmHg ABG pO2 (83-108) mmHg ABG HCO3 (21-25) mmol/L ABG Total CO2 (19-24) mmol/L ABG O2 Saturation (94-97) % ABG Hematocrit (34.0-46.0) % ABG Potassium (3.4-4.5) mmol/L ABG Ionized Calcium (4.5-5.3) mg/dL ABG Glucose (75-99) mg/dL Hemoglobin (13.0-17.5) gm/dL Chloride (98-107) mmol/L BUN (9-20) mg/dL Creatinine (0.66-1.25) mg/dL Glucose (74-99) mg/dL POC Glucose (mg/dL) 106 H 122 H (75-99) mg/dL Calcium (8.4-10.2) mg/dL Magnesium (1.6-2.3) mg/dL Total Bilirubin (0.2-1.3) mg/dL AST (17-59) U/L Alkaline Phosphatase (38-126) U/L Total Protein (6.3-8.2) g/dL Albumin (3.5-5.0) g/dL Arterial Blood Potassium (3.4-4.5) mmol/L Arterial Blood Glucose (75-99) mg/dL Crossmatch 02/16/19 02/16/19 02/16/19 Range/Units 01:18 02:12 03:03 RBC (4.30-5.90) m/uL Hgb (13.0-17.5) gm/dL Hct (39.0-53.0) % MCV (80.0-100.0) fL RDW (11.5-15.5) % Plt Count (150-450) k/uL Lymphocytes # (1.0-4.8) k/uL PT (9.0-12.0) sec INR (<1.2) APTT (22.0-30.0) sec Fibrinogen (200-500) mg/dL ABG pH (7.35-7.45) ABG pCO2 (35-45) mmHg ABG pO2 (83-108) mmHg ABG HCO3 (21-25) mmol/L ABG Total CO2 (19-24) mmol/L ABG O2 Saturation (94-97) % ABG Hematocrit (34.0-46.0) % ABG Potassium (3.4-4.5) mmol/L ABG Ionized Calcium (4.5-5.3) mg/dL ABG Glucose (75-99) mg/dL Hemoglobin (13.0-17.5) gm/dL Chloride (98-107) mmol/L BUN (9-20) mg/dL Creatinine (0.66-1.25) mg/dL Glucose (74-99) mg/dL POC Glucose (mg/dL) 115 H 110 H 120 H (75-99) mg/dL Calcium (8.4-10.2) mg/dL Magnesium (1.6-2.3) mg/dL Total Bilirubin (0.2-1.3) mg/dL AST (17-59) U/L Alkaline Phosphatase (38-126) U/L Total Protein (6.3-8.2) g/dL Albumin (3.5-5.0) g/dL Arterial Blood Potassium (3.4-4.5) mmol/L Arterial Blood Glucose (75-99) mg/dL Crossmatch 02/16/19 02/16/19 02/16/19 Range/Units 04:20 05:20 05:20 RBC 2.22 L (4.30-5.90) m/uL Hgb 7.4 L (13.0-17.5) gm/dL Hct 20.9 L (39.0-53.0) % MCV (80.0-100.0) fL RDW 15.9 H (11.5-15.5) % Plt Count 92 L (150-450) k/uL Lymphocytes # 0.7 L (1.0-4.8) k/uL PT (9.0-12.0) sec INR (<1.2) APTT (22.0-30.0) sec Fibrinogen (200-500) mg/dL ABG pH (7.35-7.45) ABG pCO2 (35-45) mmHg ABG pO2 (83-108) mmHg ABG HCO3 (21-25) mmol/L ABG Total CO2 (19-24) mmol/L ABG O2 Saturation (94-97) % ABG Hematocrit (34.0-46.0) % ABG Potassium (3.4-4.5) mmol/L ABG Ionized Calcium (4.5-5.3) mg/dL ABG Glucose (75-99) mg/dL Hemoglobin (13.0-17.5) gm/dL Chloride (98-107) mmol/L BUN 23 H (9-20) mg/dL Creatinine (0.66-1.25) mg/dL Glucose 112 H (74-99) mg/dL POC Glucose (mg/dL) 128 H (75-99) mg/dL Calcium 8.1 L (8.4-10.2) mg/dL Magnesium (1.6-2.3) mg/dL Total Bilirubin (0.2-1.3) mg/dL AST 77 H (17-59) U/L Alkaline Phosphatase 28 L (38-126) U/L Total Protein 4.6 L (6.3-8.2) g/dL Albumin 3.0 L (3.5-5.0) g/dL Arterial Blood Potassium (3.4-4.5) mmol/L Arterial Blood Glucose (75-99) mg/dL Crossmatch 02/16/19 02/16/19 02/16/19 Range/Units 05:25 06:18 07:10 RBC (4.30-5.90) m/uL Hgb (13.0-17.5) gm/dL Hct (39.0-53.0) % MCV (80.0-100.0) fL RDW (11.5-15.5) % Plt Count (150-450) k/uL Lymphocytes # (1.0-4.8) k/uL PT (9.0-12.0) sec INR (<1.2) APTT (22.0-30.0) sec Fibrinogen (200-500) mg/dL ABG pH (7.35-7.45) ABG pCO2 48 H (35-45) mmHg ABG pO2 171 H (83-108) mmHg ABG HCO3 27 H (21-25) mmol/L ABG Total CO2 28 H (19-24) mmol/L ABG O2 Saturation 99.5 H (94-97) % ABG Hematocrit (34.0-46.0) % ABG Potassium (3.4-4.5) mmol/L ABG Ionized Calcium (4.5-5.3) mg/dL ABG Glucose (75-99) mg/dL Hemoglobin (13.0-17.5) gm/dL Chloride (98-107) mmol/L BUN (9-20) mg/dL Creatinine (0.66-1.25) mg/dL Glucose (74-99) mg/dL POC Glucose (mg/dL) 136 H 122 H (75-99) mg/dL Calcium (8.4-10.2) mg/dL Magnesium (1.6-2.3) mg/dL Total Bilirubin (0.2-1.3) mg/dL AST (17-59) U/L Alkaline Phosphatase (38-126) U/L Total Protein (6.3-8.2) g/dL Albumin (3.5-5.0) g/dL Arterial Blood Potassium (3.4-4.5) mmol/L Arterial Blood Glucose (75-99) mg/dL Crossmatch 02/16/19 02/16/19 02/16/19 Range/Units 07:12 08:11 09:06 RBC (4.30-5.90) m/uL Hgb (13.0-17.5) gm/dL Hct (39.0-53.0) % MCV (80.0-100.0) fL RDW (11.5-15.5) % Plt Count (150-450) k/uL Lymphocytes # (1.0-4.8) k/uL PT (9.0-12.0) sec INR (<1.2) APTT (22.0-30.0) sec Fibrinogen (200-500) mg/dL ABG pH (7.35-7.45) ABG pCO2 (35-45) mmHg ABG pO2 (83-108) mmHg ABG HCO3 (21-25) mmol/L ABG Total CO2 (19-24) mmol/L ABG O2 Saturation (94-97) % ABG Hematocrit (34.0-46.0) % ABG Potassium (3.4-4.5) mmol/L ABG Ionized Calcium (4.5-5.3) mg/dL ABG Glucose (75-99) mg/dL Hemoglobin (13.0-17.5) gm/dL Chloride (98-107) mmol/L BUN (9-20) mg/dL Creatinine (0.66-1.25) mg/dL Glucose (74-99) mg/dL POC Glucose (mg/dL) 125 H 135 H 135 H (75-99) mg/dL Calcium (8.4-10.2) mg/dL Magnesium (1.6-2.3) mg/dL Total Bilirubin (0.2-1.3) mg/dL AST (17-59) U/L Alkaline Phosphatase (38-126) U/L Total Protein (6.3-8.2) g/dL Albumin (3.5-5.0) g/dL Arterial Blood Potassium (3.4-4.5) mmol/L Arterial Blood Glucose (75-99) mg/dL Crossmatch 02/16/19 02/16/19 Range/Units 10:02 11:24 RBC (4.30-5.90) m/uL Hgb (13.0-17.5) gm/dL Hct (39.0-53.0) % MCV (80.0-100.0) fL RDW (11.5-15.5) % Plt Count (150-450) k/uL Lymphocytes # (1.0-4.8) k/uL PT (9.0-12.0) sec INR (<1.2) APTT (22.0-30.0) sec Fibrinogen (200-500) mg/dL ABG pH (7.35-7.45) ABG pCO2 (35-45) mmHg ABG pO2 (83-108) mmHg ABG HCO3 (21-25) mmol/L ABG Total CO2 (19-24) mmol/L ABG O2 Saturation (94-97) % ABG Hematocrit (34.0-46.0) % ABG Potassium (3.4-4.5) mmol/L ABG Ionized Calcium (4.5-5.3) mg/dL ABG Glucose (75-99) mg/dL Hemoglobin (13.0-17.5) gm/dL Chloride (98-107) mmol/L BUN (9-20) mg/dL Creatinine (0.66-1.25) mg/dL Glucose (74-99) mg/dL POC Glucose (mg/dL) 131 H 115 H (75-99) mg/dL Calcium (8.4-10.2) mg/dL Magnesium (1.6-2.3) mg/dL Total Bilirubin (0.2-1.3) mg/dL AST (17-59) U/L Alkaline Phosphatase (38-126) U/L Total Protein (6.3-8.2) g/dL Albumin (3.5-5.0) g/dL Arterial Blood Potassium (3.4-4.5) mmol/L Arterial Blood Glucose (75-99) mg/dL Crossmatch - Imaging and Cardiology Chest x-ray: report reviewed, image reviewed Assessment and Plan Assessment: 1. Severe nonrheumatic mitral regurgitation, status post bioprosthetic mitral valve replacement 2. Coronary artery disease, status post redo coronary bypass surgery 3. Severe pulmonary hypertension 4. History of coronary artery disease status post CABG in 2002 with subsequent stenting of the [place] circumflex in 2005 5. Previous myocardial infarction 6. Hyperlipidemia 7. Hypertension 8. Chronic systolic heart failure 9. Hypothyroidism 10. Hodgkin's lymphoma in 1988 status post radiation 11. 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 Restless leg syndrome 13. Splenectomy 14. Solitary 3 mm left basilar pulmonary nodule 15. Mild COPD with preoperative FEV1 62% of predicted 16. Previous tobacco dependence 17. Postoperative acute blood loss anemia Plan: 1. Continue aspirin, statin, Plavix, beta cristina therapy. Will increase beta cristina therapy as tolerated. 2. Discontinue levo. Wean Primacor. 3. Wean O2 as tolerated. Encourage incentive spirometry is 10 times every hour while awake. 4. Increase activity, out of bed to chair, ambulate as tolerated. PT/OT/cardiac rehab following. 5. Bronchodilators per pulmonology. Encourage continued smoking cessation. 6. Will monitor daily labs and x-rays. Electrolyte replacement protocol. No further transfusions at this point. 7. Pain control with current medication regimen. 8. Insulin management per primary care service. 9. GI/DVT prophylaxis. 10. Restart home Synthroid, Requip 11. More recommendations to follow. Time with Patient: Greater than 30
[2019-02-16] MEDS ORDERED: HYDROcodone/APAP 5-325MG 1 EACH TAB PO PRN (15:17)
[2019-02-16] MEDS ORDERED: BISACODYL 10 MG SUPP RECTAL PRN (15:17)
[2019-02-16] MEDS: LACTATED RINGERS 1,000 ML IV SCH (15:50)
[2019-02-16] MEDS: CLEVIDIPINE BUTYRATE 25 MG in EMPTY BAG 1 BAG IV SCH (15:50)
[2019-02-16] MEDS: HYDROcodone/APAP 5-325MG 1 EACH TAB PO PRN ×2 (16:07→21:32)
[2019-02-16 17:28] LABS: Glucose,Whole Blood 131 mg/dL (75-99)
[2019-02-16] MEDS: INSULIN ASPART (NovoLOG) 100 UNIT/ML VIAL SQ SCH ×2 (17:30→21:16)
[2019-02-16 20:52] LABS: Glucose,Whole Blood 142 mg/dL (75-99)
[2019-02-16] MEDS: SENNOSIDES-DOCUSATE SODIUM 1 EACH TAB PO SCH (21:16)
--- NOTE | 2019-02-17 00:04 | CONS ---
CONSULTATION DATE OF CONSULTATION: 02/16/2019. REASON FOR CONSULTATION: Medical management requested by Dr. Hussein. CONSULTATION: This is a 63-year-old patient of Dr. Kang Raymond. Chronic stable medical conditions include hypertension, hyperlipidemia, restless leg syndrome, chronic insomnia. The patient did undergo a coronary bypass x1 and mitral valve replacement with prosthetic valve yesterday. The patient was extubated this morning. Currently on 2 L of nasal cannula. Awake. Telemetry shows sinus rhythm. The patient is off all drips. The patient has got [address] Did try some clear liquids. REVIEW OF SYSTEMS: CONSTITUTIONAL: Tired. HEENT: None. RESPIRATORY: Some short of breath. CARDIOVASCULAR: As above CARDIOVASCULAR: None. MUSCULOSKELETAL: None. DERMATOLOGIC, HEMATOLOGIC, LYMPHATIC: None. PSYCHIATRY: None. NEUROLOGIC: None. PAST MEDICAL HISTORY: Hypertension, hyperlipidemia, Hodgkin lymphoma treated, restless legs syndrome, coronary artery disease with stent, chronic insomnia. PAST SURGICAL HISTORY: Appendectomy, bowel resection, coronary bypass, cardiac cath with stent, staging laparotomy for Hodgkin and splenectomy, had a bypass in 2002. SOCIAL HISTORY: Patient is retired from ____ in [place]. Stopped smoking over 10 years ago. Alcohol occasionally. Marijuana occasionally. . FAMILY HISTORY: Esophageal cancer. MEDICATIONS: 1. Ropinirole 0.75 mg at bedtime. 2. Simvastatin 40 mg at bedtime. 3. Prilosec 20 mg at bedtime. 4. Bactroban 2% nasal b.i.d. 5. Multivitamin 1 tablet p.o. daily. 6. Cozaar 25 mg p.o. daily. 7. Synthroid 50 mcg p.o. daily. 8. Lasix 60 mg p.o. daily. 9. Coreg 6.25 b.i.d. 10.Aspirin 325 p.o. daily. ALLERGIES: IV CONTRAST DYE. PHYSICAL EXAMINATION: Temperature 98.6, pulse 80, respirations 12, blood pressure 120/52, pulse ox 100 percent on 2 L. GENERAL APPEARANCE: Lying in bed, awake. EYES: Normal. HEENT: External appearance of nose and ears normal. Oral cavity normal. Nasal cannula in place. NECK: JVD unable to assess. Mass not palpable. Respiratory effort normal. LUNGS: Diminished breath sounds. CARDIOVASCULAR: 1st and 2nd heart sounds normal. No edema. ABDOMEN: Soft, nontender. Liver and spleen not palpable. Chest tubes in place. LYMPHATIC: No lymph nodes palpable in the neck and axilla. PSYCHIATRY: Alert and oriented x3. Mood and affect normal. NEUROLOGIC: Pupils equal grossly intact. Moving all 4 limbs. INVESTIGATIONS: White count 7.2, hemoglobin 7.4, platelets 92,000, potassium 3.8, BUN 23, creatinine 1.06. Accu-Cheks are noted. Albumin 3.00. ASSESSMENT: 1. Status post coronary bypass x1 vessel and prosthetic mitral valve replacement. 2. Acute postoperative blood loss anemia expected from surgery. 3. Dilutional thrombocytopenia. 4. Essential hypertension. 5. Hyperlipidemia. 6. Restless leg syndrome. 7. Coronary artery disease with prior bypass and stent. 8. Chronic insomnia idiopathic. PLAN: Current medications reviewed. Home medications will be resumed. The patient is currently off all drips. Earlier had received amiodarone, albumin, clevidipine, , Milrinone, Lopressor. Care was discussed with the patient. Questions were answered. Will follow. Thank you Dr. Hussein. MMMELODYL / IJN: [id number] /
[2019-02-17] MEDS: HYDROcodone/APAP 5-325MG 1 EACH TAB PO PRN ×2 (01:52→05:02)
[2019-02-17] MEDS: HEPARIN SODIUM,PORCINE 5,000 UNIT/ML 1 ML VIAL SQ SCH ×4 (01:52→23:17)
[2019-02-17 05:07] LABS: Anisocytosis Slight; Basophils % (A) 0 %; Eosinophils % (A) 0 %; HCT 21.1 % (39.0-53.0); HGB 7.4 gm/dL (13.0-17.5); Lymphocytes # (A) 1.5 k/uL (1.0-4.8); Lymphocytes % (A) 14 %; MCH 33.5 pg (25.0-35.0); MCHC 35.1 g/dL (31.0-37.0); MCV 95.4 fL (80.0-100.0); Mean Platelet Volume 8.4; Monocytes # (A) 0.6 k/uL (0-1.0); Monocytes % (A) 6 %; Neutrophils # (A) 8.1 k/uL (1.3-7.7); Neutrophils % (A) 78 %; Platelet Count 109 k/uL (150-450); Poikilocytosis Slight; RBC 2.21 m/uL (4.30-5.90); RDW 16.7 % (11.5-15.5); WBC 10.5 k/uL (3.8-10.6)
[2019-02-17 05:13] LABS: Ionized Calcium 4.9 mg/dL (4.5-5.3)
[2019-02-17 05:21] LABS: ALT 32 U/L (21-72); AST 88 U/L (17-59); Albumin 3.3 g/dL (3.5-5.0); Alkaline Phosphatase 34 U/L (38-126); Anion Gap 4 mmol/L; Blood Urea Nitrogen 33 mg/dL (9-20); Calcium 8.6 mg/dL (8.4-10.2); Carbon Dioxide 28 mmol/L (22-30); Chloride 105 mmol/L (98-107); Glucose 117 mg/dL (74-99); Potassium 4.7 mmol/L (3.5-5.1); Sodium 137 mmol/L (137-145); Total Protein 5.1 g/dL (6.3-8.2)
[2019-02-17] MEDS: LEVOTHYROXINE 50 MCG TAB PO SCH (06:17)
[2019-02-17 07:05] LABS: Glucose,Whole Blood 146 mg/dL (75-99)
[2019-02-17] MEDS: INSULIN ASPART (NovoLOG) 100 UNIT/ML VIAL SQ SCH ×4 (07:08→21:02)
[2019-02-17] MEDS: IPRATROPIUM-ALBUTEROL 3 ML NEB INHALATION SCH ×4 (07:35→21:06)
--- NOTE | 2019-02-17 07:38 | XR ---
EXAMINATION TYPE: XR chest 1V portable DATE OF EXAM: 02/17/2019 Comparison: 02/16/2019 Clinical History: 63-year-old male Post Operative Cardiac Surgery Findings: Right IJ [place] catheter with tip in the expected proximal right main pulmonary artery. Median payam rnotomy wires and prosthetic cardiac valve and post-CABG clips. Mediastinal drain are present with 2 left-sided chest tubes and one right-sided chest tube. Continued small left pleural effusion but with prominent opacity within the left mid and lower lung, slightly increased in the interval. There is a small right apical pneumothorax measuring 1.1 cm. In retrospect, this may have measured 6 mm, previo usly. Heart remains borderline enlarged. Impression: 1. 2 chest tubes on the left and one chest tube on the right. There is a small right apical pneumotho rax measuring 1.1 cm. In retrospect, this measured 6 mm, previously. 2. Continued small left pleural effusion but with increasing confluent atelectasis or infiltrate at t he left mid and lower lung.
[2019-02-17] MEDS: ASPIRIN 325 MG TAB PO SCH (08:22)
[2019-02-17] MEDS: PANTOPRAZOLE 40 MG TABLET PO SCH (08:22)
[2019-02-17] MEDS: ATORVASTATIN 40 MG TAB PO SCH (08:22)
[2019-02-17] MEDS: CLOPIDOGREL 75 MG TAB PO SCH (08:23)
[2019-02-17] MEDS: MUPIROCIN 2% OINT 22 GM TUBE NASAL SCH ×2 (08:24→20:57)
--- NOTE | 2019-02-17 10:10 | P.PN ---
Subjective Progress Note Date: 02/17/19 Principal diagnosis: Status post coronary artery bypass grafting This is a pleasant 63-year-old gentleman with a past medical history significant for coronary artery disease and prior coronary artery bypass grafting in 2002, hypertension, dyslipidemia, the patient does follow with Dr. CYRIL Vogt in the office as an outpatient, was experiencing recently a worsening dyspnea even with minor activities. Because of that a heart catheterization was performed and that revealed the total occlusion of the vein graft to the RCA as well as a total occlusion of the graft to OM and diagonal. The LAD WEBSTER to LAD was patent. Beside that he was found to have severe mitral regurgitation which was documented by transesophageal echocardiogram. Because of that the patient was referred for redo CABG as well as mitral valve repair. He underwent redo CABG and mitral valve repair yesterday. He underwent single-vessel bypass with SVG to RCA and mitral valve repair using #29 valve. On follow-up with the patient today, February 182018, This is postovulation day #2. He was extubated yesterday. Hemodynamically, he is slightly hypotensive. He is also bradycardic. For that reason the metoprolol is going to be stopped. Beside that he continues to be on dual antiplatelet therapy with a statin. The platelet is better today and about 100,000. Objective - Vital Signs Vital signs: Vital Signs Temp 98.6 F 02/17/19 04:00 Pulse 79 02/17/19 09:00 Resp 14 02/17/19 09:00 BP 137/91 02/17/19 08:00 Pulse Ox 98 02/17/19 09:00 Intake & Output 02/16/19 02/17/19 02/17/19 18:59 06:59 18:59 Intake Total 1307.930 828 137 Output Total 857 866 115 Balance 450.930 -38 22 Weight 84.5 kg 87.3 kg Intake: IV 679.48 728 137 CO/CI 70 20 20 Lactated Ringers 1,000 ml 500 600 90 @ 20 mls/hr IV .Q24H JON Rx#:[id number] Milrinone-D5w Pmx 20 mg 10.48 In Dextrose/Water 1 100ml .bag @ Per Protocol IV . Q0M JON Rx#:[id number] pressure bag 99 108 27 Intake, IV Titration 78.450 Amount Dexmedetomidine/0.9% NaCl 9.965 (Pmx) 400 mcg In Empty Bag 1 bag @ Titrate IV . Q0M JON Rx#:[id number] Insulin Regular 100 unit 6.884 In Sodium Chloride 0.9% 100 ml @ Per Protocol IV .Q0M JON Rx#:[id number] Milrinone-D5w Pmx 20 mg 42.153 In Dextrose/Water 1 100ml .bag @ Per Protocol IV . Q0M JON Rx#:[id number] Norepinephrine 4 mg In 6.351 Sodium Chloride 0.9% 250 ml @ 0.02 MCG/KG/MIN 6. 049 mls/hr IV .Q24H JON Rx#:[id number] Propofol 1,000 mg In 13.097 Empty Bag 1 bag @ Titrate IV .Q0M JON Rx#: [id number] Oral 500 100 Blood Product 0 Ffp 24 Cpd Unit 0 [id number] Lipid 50 Lactated Ringers 1,000 ml 50 @ 20 mls/hr IV .Q24H JON Rx#:[id number] Output: Chest Tube Drainage 510 486 Chest Tube Left Pleural/ 220 200 Mediastinal Chest Tube Right Pleural/ 290 286 Mediastinal Urine 347 380 115 Other: Voiding Method Indwelling Catheter Indwelling Catheter Indwelling Catheter ABP, PAP, CO, CI - Last Documented Arterial Blood Pressure 98/59 Pulmonary Artery Pressure 32/17 Cardiac Output 4.2 Cardiac Index 2.2 - Constitutional General appearance: Present: no acute distress - Respiratory Respiratory: bilateral: rales - Cardiovascular Rhythm: regular - Labs CBC & Chem 7: 02/17/19 05:00 02/17/19 05:00 Labs: Abnormal Lab Results - Last 24 Hours (Table) 02/09/19 02/16/19 02/16/19 Range/Units 09:10 11:24 17:25 RBC (4.30-5.90) m/uL Hgb (13.0-17.5) gm/dL Hct (39.0-53.0) % RDW (11.5-15.5) % Plt Count (150-450) k/uL Neutrophils # (1.3-7.7) k/uL BUN (9-20) mg/dL Glucose (74-99) mg/dL POC Glucose (mg/dL) 115 H 131 H (75-99) mg/dL AST (17-59) U/L Alkaline Phosphatase (38-126) U/L Total Protein (6.3-8.2) g/dL Albumin (3.5-5.0) g/dL Crossmatch See Detail 02/16/19 02/17/19 02/17/19 Range/Units 20:37 05:00 05:00 RBC 2.21 L (4.30-5.90) m/uL Hgb 7.4 L (13.0-17.5) gm/dL Hct 21.1 L (39.0-53.0) % RDW 16.7 H (11.5-15.5) % Plt Count 109 L (150-450) k/uL Neutrophils # 8.1 H (1.3-7.7) k/uL BUN 33 H (9-20) mg/dL Glucose 117 H (74-99) mg/dL POC Glucose (mg/dL) 142 H (75-99) mg/dL AST 88 H (17-59) U/L Alkaline Phosphatase 34 L (38-126) U/L Total Protein 5.1 L (6.3-8.2) g/dL Albumin 3.3 L (3.5-5.0) g/dL Crossmatch 02/17/19 Range/Units 07:03 RBC (4.30-5.90) m/uL Hgb (13.0-17.5) gm/dL Hct (39.0-53.0) % RDW (11.5-15.5) % Plt Count (150-450) k/uL Neutrophils # (1.3-7.7) k/uL BUN (9-20) mg/dL Glucose (74-99) mg/dL POC Glucose (mg/dL) 146 H (75-99) mg/dL AST (17-59) U/L Alkaline Phosphatase (38-126) U/L Total Protein (6.3-8.2) g/dL Albumin (3.5-5.0) g/dL Crossmatch Assessment and Plan Assessment: Assessment #1 status post redo CABG with WEBSTER to LAD and status post mitral valve repair #2 known severe underlying coronary artery disease #3 multiple comorbid conditions Plan #1 continue the aspirin, statin, and metoprolol #2 DC metoprolol
[2019-02-17] MEDS: methylPREDNISolone SOD SUCCI 40 MG/ML 1 ML VIAL IV SCH ×3 (10:22→23:17)
--- NOTE | 2019-02-17 11:30 | P.PN ---
Subjective Progress Note Date: 02/17/19 Principal diagnosis: Severe nonrheumatic mitral regurgitation, coronary artery disease, severe pulmonary hypertension. 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 POD #2 redo sternotomy, mitral valve replacement with #29 mm magna ease bioprosthetic aortic valve, coronary bypass grafting 1 with reverse saphenous vein graft off the aorta to the posterior descending artery with right lower extremity greater saphenous vein endoscopic vein harvesting and intraoperative transesophageal echocardiogram. Postoperative acute blood loss anemia, expected outcome of surgery given cardiopulmonary bypass pump and hemodilution Postoperative thrombocytopenia, expected, reactive secondary to dilation and bypass pump The patient's currently sitting up in a recliner in the intensive care unit in no acute distress. Complains of surgical incisional type pain, not quite controlled on current medication regimen, denies shortness of breath. Epicardial pacemaker wires connected to generator and atrially pacing for hemodynamic support, underlying rhythm sinus bradycardia in the 50s. Patient had some hypotension getting up to the chair on the bed. Currently hemodynamically stable. Objective - Vital Signs Vital signs: Vital Signs Temp 98.6 F 02/17/19 04:00 Pulse 81 02/17/19 08:00 Resp 13 02/17/19 08:00 BP 137/91 02/17/19 08:00 Pulse Ox 100 02/17/19 08:00 Intake & Output 02/16/19 02/17/19 02/17/19 18:59 06:59 18:59 Intake Total 1307.930 828 108 Output Total 857 866 90 Balance 450.930 -38 18 Weight 84.5 kg 87.3 kg Intake: IV 679.48 728 108 CO/CI 70 20 20 Lactated Ringers 1,000 ml 500 600 70 @ 20 mls/hr IV .Q24H JON Rx#:[id number] Milrinone-D5w Pmx 20 mg 10.48 In Dextrose/Water 1 100ml .bag @ Per Protocol IV . Q0M JON Rx#:[id number] pressure bag 99 108 18 Intake, IV Titration 78.450 Amount Dexmedetomidine/0.9% NaCl 9.965 (Pmx) 400 mcg In Empty Bag 1 bag @ Titrate IV . Q0M JON Rx#:[id number] Insulin Regular 100 unit 6.884 In Sodium Chloride 0.9% 100 ml @ Per Protocol IV .Q0M JON Rx#:[id number] Milrinone-D5w Pmx 20 mg 42.153 In Dextrose/Water 1 100ml .bag @ Per Protocol IV . Q0M JON Rx#:[id number] Norepinephrine 4 mg In 6.351 Sodium Chloride 0.9% 250 ml @ 0.02 MCG/KG/MIN 6. 049 mls/hr IV .Q24H JON Rx#:[id number] Propofol 1,000 mg In 13.097 Empty Bag 1 bag @ Titrate IV .Q0M JON Rx#: [id number] Oral 500 100 Blood Product 0 Ffp 24 Cpd Unit 0 [id number] Lipid 50 Lactated Ringers 1,000 ml 50 @ 20 mls/hr IV .Q24H JON Rx#:[id number] Output: Chest Tube Drainage 510 486 Chest Tube Left Pleural/ 220 200 Mediastinal Chest Tube Right Pleural/ 290 286 Mediastinal Urine 347 380 90 Other: Voiding Method Indwelling Catheter Indwelling Catheter ABP, PAP, CO, CI - Last Documented Arterial Blood Pressure 113/64 Pulmonary Artery Pressure 32/17 Cardiac Output 4.2 Cardiac Index 2.2 - Constitutional General appearance: Present: cooperative, no acute distress - Respiratory Details: Lungs sounds diminished bilaterally. Respirations even, nonlabored. Currently on 2 L nasal cannula with oxygen saturation 97%. Weak cough. Left/mediastinal chest tube to continuous wall suction, 50 mL serosanguineous drainage overnight, 450 mL in the last 24 hours. Right/mediastinal chest tube to continuous wall suction, 130 mL serosanguineous drainage overnight, 960 mL in the last 24 hours. No air leaks present. - Cardiovascular Details: S1, S2 present. Regular rate and rhythm, atrially pacing on telemetry, u nderlying rhythm sinus bradycardia with heart rate in the 50s. A/V epicardial pacemaker wires present, connected to generator, AAI mode with rate 80 bpm. Sternum stable. Palpable peripheral pulses bilaterally. No edema present. No calf pain or tenderness noted. Right internal jugular [place], right radial arterial line present. Last CO/CI 4.6/2.2 on no inotropes or pressors. Heart hugger in place with patient using appropriately. Antiembolism stockings, SCDs present. - Gastrointestinal Gastrointestinal Comment(s): Abdomen soft, nontender, nondistended. Hypoactive bowel sounds 4 quadrants. Tolerating ice chips. Positive flatus, negative bowel movement. - Genitourinary Genitourinary Comment(s): [place] present draining clear, yellow urine. Output 25-50 mL per hour overnight. - Integumentary Integumentary Comment(s): Skin is warm and dry with evidence of good perfusion. Anterior chest incision well approximated and covered with dry intact dressing. Right lower extremity EVH site well approximated. - Neurologic Neurologic: Present: CNII-XII intact - Musculoskeletal Musculoskeletal: Present: generalized weakness, strength equal bilaterally - Psychiatric Psychiatric: Present: A&O x's 3, appropriate affect, intact judgment & insight - Allied health notes Allied health notes reviewed: nursing - Labs CBC & Chem 7: 02/17/19 05:00 02/17/19 05:00 Labs: Abnormal Lab Results - Last 24 Hours (Table) 02/09/19 02/16/19 02/16/19 Range/Units 09:10 09:06 10:02 RBC (4.30-5.90) m/uL Hgb (13.0-17.5) gm/dL Hct (39.0-53.0) % RDW (11.5-15.5) % Plt Count (150-450) k/uL Neutrophils # (1.3-7.7) k/uL BUN (9-20) mg/dL Glucose (74-99) mg/dL POC Glucose (mg/dL) 135 H 131 H (75-99) mg/dL AST (17-59) U/L Alkaline Phosphatase (38-126) U/L Total Protein (6.3-8.2) g/dL Albumin (3.5-5.0) g/dL Crossmatch See Detail 02/16/19 02/16/19 02/16/19 Range/Units 11:24 17:25 20:37 RBC (4.30-5.90) m/uL Hgb (13.0-17.5) gm/dL Hct (39.0-53.0) % RDW (11.5-15.5) % Plt Count (150-450) k/uL Neutrophils # (1.3-7.7) k/uL BUN (9-20) mg/dL Glucose (74-99) mg/dL POC Glucose (mg/dL) 115 H 131 H 142 H (75-99) mg/dL AST (17-59) U/L Alkaline Phosphatase (38-126) U/L Total Protein (6.3-8.2) g/dL Albumin (3.5-5.0) g/dL Crossmatch 02/17/19 02/17/19 02/17/19 Range/Units 05:00 05:00 07:03 RBC 2.21 L (4.30-5.90) m/uL Hgb 7.4 L (13.0-17.5) gm/dL Hct 21.1 L (39.0-53.0) % RDW 16.7 H (11.5-15.5) % Plt Count 109 L (150-450) k/uL Neutrophils # 8.1 H (1.3-7.7) k/uL BUN 33 H (9-20) mg/dL Glucose 117 H (74-99) mg/dL POC Glucose (mg/dL) 146 H (75-99) mg/dL AST 88 H (17-59) U/L Alkaline Phosphatase 34 L (38-126) U/L Total Protein 5.1 L (6.3-8.2) g/dL Albumin 3.3 L (3.5-5.0) g/dL Crossmatch - Imaging and Cardiology Chest x-ray: report reviewed, image reviewed Assessment and Plan Assessment: 1. Severe nonrheumatic mitral regurgitation, status post bioprosthetic mitral valve replacement 2. Coronary artery disease, status post redo coronary bypass surgery 3. Severe pulmonary hypertension 4. History of coronary artery disease status post CABG in 2002 with subsequent stenting of the qawalangin circumflex in 2005 5. Previous myocardial infarction 6. Hyperlipidemia 7. Hypertension 8. Chronic systolic heart failure 9. Hypothyroidism 10. Hodgkin's lymphoma in 1987 status post radiation 11. 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 Restless leg syndrome 13. Splenectomy 14. Solitary 3 mm left basilar pulmonary nodule 15. Mild COPD with preoperative FEV1 62% of predicted 16. Previous tobacco dependence 17. Postoperative acute blood loss anemia 18. Postoperative thrombocytopenia Plan: 1. Continue aspirin, statin, Plavix. Will hold beta cristina therapy for now secondary to underlying bradycardia. 2. Will monitor hemodynamics, possibly give IV lasix later today. Keep Severino for accurate intake and output. 3. Wean O2 as tolerated. Encourage incentive spirometry is 10 times every hour while awake. Patient needs encouragement for aggressive pulmonary hygiene 4. Increase activity, ambulate as tolerated. PT/OT/cardiac rehab following. 5. Bronchodilators per pulmonology. Encourage continued smoking cessation. 6. Will monitor daily labs and x-rays. Electrolyte replacement protocol. No further transfusions at this point. 7. Pain control with current medication regimen. [place] increased for better pain control. 8. Insulin management per primary care service. 9. GI/DVT prophylaxis. 10. We will keep chest tubes for another 24 hours. 11. Discontinue [place]. Connect Cordis to continue CVP monitoring. 12. More recommendations to follow. Time with Patient: Greater than 30
--- NOTE | 2019-02-17 11:49 | P.PN ---
Subjective Progress Note Date: 02/17/19 Principal diagnosis: Coronary artery disease and severe mitral regurgitation, status post CABG/one- vessel coronary artery bypass with saphenous vein graft to RCA, and mitral valve replacement with bioprosthetic magna ease #29 valve. Postoperative day #2 This is a 63-year-old white male patient of Dr. Esme Raymond, with history of coronary artery disease with bypass surgery in 2002, with the reocclusion of the 2 vein grafts in 2005 requiring stenting of the [place] circumflex, that follows with Dr. CYRIL Vogt, was found to have progression of coronary artery disease, and severe mitral regurgitation. Patient was complaining of worsening dyspnea with mild activity. Heart catheterization showed a total occlusion of the vein graft to the RCA representing progression of the disease, and there was a previously occluded vein graft to the OM and the diagonal. The WEBSTER to LAD was patent, and the free radial artery graft to the first obtuse marginal was patent. Transesophageal echocardiogram revealed severe degree of mitral regurgitation with reversal of flow in the pulmonary vein, with restriction of the posterior leaflet, there was no evidence of mitral valve prolapse or any flail mitral leaflet, no evidence of thrombus in the left atrium, there was moderate degree of tricuspid regurgitation with severe pulmonary hypertension with right ventricular systolic pressure in the range of 70 to 80 mmHg, anterior atrial septum was intact. Patient was recommended surgical intervention, and today on 02/15/2019 patient underwent a single-vessel bypass with a saphenous vein graft to the RCA and a mitral valve replacement with a tissue valve, Magna- Ease bioprosthetic valve #29. Patient is seen in the intensive care unit following surgery, sedated, intubated on mechanical ventilator, and initial vent settings were SIMV mode of ventilation with a rate of 12, tidal vital 500, FiO2 100% and PEEP of 5, and blood gases were obtained, which showed pO2 of 293, pCO2 of 53, and pH of 7.23, and ventilator adjustments were made, patient was placed on assist-control mode of ventilation with a rate of 16, FiO2 was decreased to 60%, and PEEP was increased to 8 related to bleeding from the chest tubes. Patient had estimated EBL of around 2 L, he did receive 2 units of fresh frozen plasma, 1 unit of platelets. Patient has 4 chest tubes, right pleural connected with right mediastinal, and left pleural connected with left mediastinal chest tubes, with sanguinous output in the Pleur-evac. Maintenance IV fluids include lactated Ringer's at a rate of 50 ML per hour, nitroglycerin drip at 5 mics per minute, Diprivan and at 30 mics per kilo per minute, levo fed at 7.9 mics per minute, insulin is at 3 units per hour, Primacor is a 3.75 mics per kilo per minute. PA pressures are 32/22, cardiac output and index are 3.5 and 1.8 respectively. Patient was reevaluated today on 02/16/2019, patient was on mechanical ventilation overnight, extubated early this morning, he was on a very short course of Precedex prior to extubation. Patient tolerated the extubation well, doing quite well at present, feels generally weak and tired. Denies any cough no wheezing no shortness of breath, no chest pain. Chest x-ray showed mild cardiomegaly, small left pleural effusion, and lines and catheters noted to be in proper position. Labs were reviewed. Hemoglobin is 7.4, electrolytes are normal BUN is 23 creatinine 1.06. All drips were reviewed. Reevaluated today on 02/17/2019, patient is sitting in a recliner, asymptomatic, in no distress, does have some incisional pain and discomfort. Denies being short of breath, patient continues to have underlying sinus bradycardia rhythm in the 50s. Presently he is being paced. Labs showed hemoglobin of 7.4 WBC count of 10.5 electrodes are normal renal profile is normal. Chest x-ray continues to show 2 chest tubes on the left, one chest tube on the right, small right apical pneumothorax is noted, small left pleural effusion is also noted with some atelectasis. Objective - Vital Signs Vital signs: Vital Signs Temp 98.6 F 02/17/19 04:00 Pulse 80 02/17/19 11:26 Resp 14 02/17/19 11:00 BP 121/72 02/17/19 10:00 Pulse Ox 98 02/17/19 11:00 Intake & Output 02/16/19 02/17/19 02/17/19 18:59 06:59 18:59 Intake Total 1307.930 828 315 Output Total 857 866 300 Balance 450.930 -38 15 Weight 84.5 kg 87.3 kg Intake: IV 679.48 728 315 CO/CI 70 20 20 Lactated Ringers 1,000 ml 500 600 250 @ 20 mls/hr IV .Q24H [facility] Rx#:[id number] Milrinone-D5w Pmx 20 mg 10.48 In Dextrose/Water 1 100ml .bag @ Per Protocol IV . Q0M [facility] Rx#:[id number] pressure bag 99 108 45 Intake, IV Titration 78.450 Amount Dexmedetomidine/0.9% NaCl 9.965 (Pmx) 400 mcg In Empty Bag 1 bag @ Titrate IV . Q0M [facility] Rx#:[id number] Insulin Regular 100 unit 6.884 In Sodium Chloride 0.9% 100 ml @ Per Protocol IV .Q0M [facility] Rx#:[id number] Milrinone-D5w Pmx 20 mg 42.153 In Dextrose/Water 1 100ml .bag @ Per Protocol IV . Q0M [facility] Rx#:[id number] Norepinephrine 4 mg In 6.351 Sodium Chloride 0.9% 250 ml @ 0.02 MCG/KG/MIN 6. 049 mls/hr IV .Q24H [facility] Rx#:[id number] Propofol 1,000 mg In 13.097 Empty Bag 1 bag @ Titrate IV .Q0M [facility] Rx#: [id number] Oral 500 100 Blood Product 0 Ffp 24 Cpd Unit 0 [id number] Lipid 50 Lactated Ringers 1,000 ml 50 @ 20 mls/hr IV .Q24H [facility] Rx#:[id number] Output: Chest Tube Drainage 510 486 120 Chest Tube Left Pleural/ 220 200 50 Mediastinal Chest Tube Right Pleural/ 290 286 70 Mediastinal Urine 347 380 180 Other: Voiding Method Indwelling Catheter Indwelling Catheter Indwelling Catheter ABP, PAP, CO, CI - Last Documented Arterial Blood Pressure 143/65 Pulmonary Artery Pressure 32/17 Cardiac Output 4.2 Cardiac Index 2.2 - Exam GENERAL EXAM: Revealed a 63-year-old white male, in no distress. On nasal cannula. HEAD: Normocephalic/atraumatic. EYES: Normal reaction of pupils, equal size. Conjunctiva pink, sclera white. NOSE: Clear with pink turbinates. THROAT: No erythema or exudates. NECK: No masses, no JVD, no thyroid enlargement, no adenopathy. CHEST: No chest wall deformity. Symmetrical expansion. Rhonchi noted bilaterally wheezing on forced expiratory maneuver was also noted. Chest tubes were also noted, and amount of bloody drainage was noted. CVS: Regular rate and rhythm, normal S1 and S2, no gallops, no murmurs, no rubs ABDOMEN: Soft, nontender. No hepatosplenomegaly, normal bowel sounds, no guarding or rigidity. EXTREMITIES: No clubbing, no edema, no cyanosis, 2+ pulses and upper and lower extremities. Bilateral lower extremities are hamlet wrapped, and SCDs are on MUSCULOSKELETAL: Muscle strength and tone normal. SPINE: No scoliosis or deformity CENTRAL NERVOUS SYSTEM: Alert oriented 3, no gross focal neurologic deficit.. - Labs CBC & Chem 7: 02/17/19 05:02/17/19 05:00 Labs: Abnormal Lab Results - Last 24 Hours (Table) 02/09/19 02/16/19 02/16/19 Range/Units 09:10 17:25 20:37 RBC (4.30-5.90) m/uL Hgb (13.0-17.5) gm/dL Hct (39.0-53.0) % RDW (11.5-15.5) % Plt Count (150-450) k/uL Neutrophils # (1.3-7.7) k/uL BUN (9-20) mg/dL Glucose (74-99) mg/dL POC Glucose (mg/dL) 131 H 142 H (75-99) mg/dL AST (17-59) U/L Alkaline Phosphatase (38-126) U/L Total Protein (6.3-8.2) g/dL Albumin (3.5-5.0) g/dL Crossmatch See Detail 02/17/19 02/17/19 02/17/19 Range/Units 05:00 05:00 07:03 RBC 2.21 L (4.30-5.90) m/uL Hgb 7.4 L (13.0-17.5) gm/dL Hct 21.1 L (39.0-53.0) % RDW 16.7 H (11.5-15.5) % Plt Count 109 L (150-450) k/uL Neutrophils # 8.1 H (1.3-7.7) k/uL BUN 33 H (9-20) mg/dL Glucose 117 H (74-99) mg/dL POC Glucose (mg/dL) 146 H (75-99) mg/dL AST 88 H (17-59) U/L Alkaline Phosphatase 34 L (38-126) U/L Total Protein 5.1 L (6.3-8.2) g/dL Albumin 3.3 L (3.5-5.0) g/dL Crossmatch Assessment and Plan Assessment: Impression: Status post CABG 4 totally occluded RCA, status post one-vessel coronary artery bypass with saphenous vein graft to RCA, postoperative day #2 Status post mitral valve replacement with a bioprosthetic magna ease #29 valve postoperative day #2 Previous CABG in 2002 Severe pulmonary hypertension documented on previous JACEK with right-sided pressures in the 70s. Benign essential hypertension History of Hodgkin's lymphoma and previous radiation History of 3 mm nodule will need to be monitored on outpatient basis follow-up CT in 6 months. Nicotine dependence syndrome 07-yvac-ibab smoking history with moderate COPD and FEV1 in the range of 62%. And some component of restrictive lung disease most likely related to previous radiation. Recommendation: Continue present supportive care measures, added Solu-Medrol bec ause of his pulmonary findings on physical examination today, patient will receive 40 mg of Solu-Medrol IV push every 8 hours, continue updrafts, continue incentive spirometry, GI and DVT prophylaxis, continue to monitor labs and renal profile on a daily basis, monitor electrolytes, and monitor hemoglobin. Continue aspirin and statin and Plavix, holding beta blockers because of underlying bradycardia. Continue to wean O2 as tolerated. Increase activity as tolerated. Continue bronchodilators along with IV Solu-Medrol. Continue pain control with medication. Continue GI and DVT prophylaxis. We'll continue to follow. Time with Patient: Less than 30
[2019-02-17 12:02] LABS: Glucose,Whole Blood 170 mg/dL (75-99)
[2019-02-17] MEDS: MULTIVITAMINS, THERA 1 EACH TAB PO SCH (12:24)
[2019-02-17] MEDS: LACTATED RINGERS 1,000 ML IV SCH (12:27)
[2019-02-17] MEDS: HYDROcodone/APAP 7.5-325MG 1 EACH TAB PO PRN ×2 (15:52→20:52)
[2019-02-17 16:54] LABS: Glucose,Whole Blood 139 mg/dL (75-99)
[2019-02-17] MEDS: SENNOSIDES-DOCUSATE SODIUM 1 EACH TAB PO SCH (20:50)
[2019-02-17 21:02] LABS: Glucose,Whole Blood 147 mg/dL (75-99)
[2019-02-18] MEDS ORDERED: hydrALAZINE HCL 20 MG/ML 1 ML VIAL IVP PRN (02:31)
[2019-02-18] MEDS ORDERED: FUROSEMIDE 10 MG/ML 4 ML VIAL IV STA ×2 (02:31→16:20)
[2019-02-18] MEDS: HYDROcodone/APAP 7.5-325MG 1 EACH TAB PO PRN ×3 (04:13→21:06)
[2019-02-18 04:46] LABS: ALT 29 U/L (21-72); AST 62 U/L (17-59); Albumin 3.4 g/dL (3.5-5.0); Alkaline Phosphatase 44 U/L (38-126); Anion Gap 6 mmol/L; Blood Urea Nitrogen 31 mg/dL (9-20); Calcium 8.7 mg/dL (8.4-10.2); Carbon Dioxide 27 mmol/L (22-30); Chloride 104 mmol/L (98-107); Glucose 114 mg/dL (74-99); Potassium 4.3 mmol/L (3.5-5.1); Sodium 137 mmol/L (137-145); Total Protein 5.3 g/dL (6.3-8.2)
[2019-02-18 05:08] LABS: Anisocytosis Slight; HCT 24.1 % (39.0-53.0); HGB 8.1 gm/dL (13.0-17.5); MCH 33.3 pg (25.0-35.0); MCHC 33.8 g/dL (31.0-37.0); MCV 98.5 fL (80.0-100.0); Macrocytosis Slight; Mean Platelet Volume 8.5; Platelet Count 111 k/uL (150-450); RBC 2.45 m/uL (4.30-5.90); RDW 16.9 % (11.5-15.5)
[2019-02-18 05:25] LABS: Band Neutrophils % 2 %; Lymphocytes # (M) 0.76 k/uL (1.0-4.8); Metamyelocytes # (M) 0.11 k/uL (0); Metamyelocytes % 1 %; Monocytes # (M) 0.32 k/uL (0-1.0); Neutrophils % (M) 89 %; Nucleated Red Blood Cells 2 /100 WBC (0-0); Poikilocytosis (M) Present; Polychromasia Present; Total Cells Counted 200; WBC 10.8 k/uL (3.8-10.6)
[2019-02-18 05:26] LABS: Crenated RBC Present
--- NOTE | 2019-02-18 05:47 | PN ---
PROGRESS NOTE DATE OF SERVICE: 02/17/2019 PRESENTING COMPLAINT: Coronary bypass. INTERVAL HISTORY: Patient is status post coronary bypass, mitral valve replacement with prosthetic valve. Sitting up in a chair. Not much of an appetite. Does feel a bit tired on room air. REVIEW OF SYSTEMS: Done for constitutional, cardiovascular, GI, pulmonary; relevant findings as above. CURRENT MEDICATIONS: Current medications are reviewed. PHYSICAL EXAMINATION: On examination, temperature 98.9, pulse 80, respiration 23, blood pressure 114/84, pulse ox 96% on 1 L. GENERAL APPEARANCE: Sitting up in a chair, awake. EYES: Pupils equal. Conjunctivae normal. NECK: JVD not raised. Mass not palpable. RESPIRATORY: Effort increased. LUNGS: Diminished breath sounds. CARDIOVASCULAR: First and second sounds normal. No edema. ABDOMEN: Soft, nontender. Liver and spleen not palpable. PSYCHIATRY: Alert and oriented x3. Mood and affect normal. INVESTIGATIONS: White count 10.5, hemoglobin 7.4, platelets 109, potassium 4.7, BUN 33, creatinine 1.0. Accu-Cheks are noted. ASSESSMENT: 1. Status post coronary bypass, one-vessel, and prosthetic mitral valve replacement. 2. Acute postoperative blood loss anemia expected from surgery. 3. Dilutional thrombocytopenia. 4. Essential hypertension. 5. Hyperlipidemia. 6. Restless legs syndrome. 7. Coronary artery disease with prior history of bypass and stent. 8. Chronic insomnia, idiopathic. PLAN: Continue current medication and treatment plan. Overall doing better. Sugars are looking good. Some hyperglycemia from steroids. MMODL / IJN: [id number] /
[2019-02-18 07:04] LABS: Glucose,Whole Blood 155 mg/dL (75-99)
--- NOTE | 2019-02-18 07:35 | P.PN ---
Subjective Progress Note Date: 02/18/19 Principal diagnosis: Status post coronary artery bypass grafting This is a pleasant 63-year-old gentleman with a past medical history significant for coronary artery disease and prior coronary artery bypass grafting in 2002, hypertension, dyslipidemia, the patient does follow with Dr. CYRIL Vogt in the office as an outpatient, was experiencing recently a worsening dyspnea even with minor activities. Because of that a heart catheterization was performed and that revealed the total occlusion of the vein graft to the RCA as well as a total occlusion of the graft to OM and diagonal. The LAD WEBSTER to LAD was patent. Beside that he was found to have severe mitral regurgitation which was documented by transesophageal echocardiogram. Because of that the patient was referred for redo CABG as well as mitral valve repair. He underwent redo CABG and mitral valve repair yesterday. He underwent single-vessel bypass with SVG to RCA and mitral valve repair using #29 valve. On follow-up with the patient today, 02/18/2019, this is his post operation day #3. Clinically the patient seems to be doing good. Hemodynamically he still goes to bradycardia. I will suggest stop the metoprolol by mouth and start the patient on Norvasc. Beside that continue the current medical regimen including dual antiplatelet therapy as well as a statin. Continue monitor the kidney function and electrolytes. Objective - Vital Signs Vital signs: Vital Signs Temp 98.5 F 02/18/19 04:00 Pulse 80 02/18/19 07:00 Resp 15 02/18/19 07:00 BP 146/84 02/18/19 07:00 Pulse Ox 98 02/18/19 07:00 Intake & Output 02/17/19 02/18/19 02/18/19 18:59 06:59 18:59 Intake Total 482 241 Output Total 670 1385 Balance -188 -1144 Intake: IV 482 241 CO/CI 20 Lactated Ringers 1,000 ml 390 220 @ 20 mls/hr IV .Q24H [facility] Rx#:[id number] pressure bag 72 21 Output: Chest Tube Drainage 290 140 Chest Tube Left Pleural/ 150 70 Mediastinal Chest Tube Right Pleural/ 140 70 Mediastinal Urine 380 1245 Other: Voiding Method Indwelling Catheter Indwelling Catheter ABP, PAP, CO, CI - Last Documented Arterial Blood Pressure 133/64 Pulmonary Artery Pressure 32/17 Cardiac Output 4.6 Cardiac Index 2.2 - Constitutional General appearance: Present: no acute distress - Respiratory Respiratory: bilateral: CTA - Cardiovascular Rhythm: regular - Labs CBC & Chem 7: 02/18/19 04:20 02/18/19 04:20 Labs: Abnormal Lab Results - Last 24 Hours (Table) 02/17/19 02/17/19 02/17/19 Range/Units 11:58 16:51 20:58 WBC (3.8-10.6) k/uL RBC (4.30-5.90) m/uL Hgb (13.0-17.5) gm/dL Hct (39.0-53.0) % RDW (11.5-15.5) % Plt Count (150-450) k/uL Neutrophils # (Manual) (1.3-7.7) k/uL Lymphocytes # (Manual) (1.0-4.8) k/uL Metamyelocytes # (Man) (0) k/uL Nucleated RBCs (0-0) /100 WBC BUN (9-20) mg/dL Glucose (74-99) mg/dL POC Glucose (mg/dL) 170 H 139 H 147 H (75-99) mg/dL AST (17-59) U/L Total Protein (6.3-8.2) g/dL Albumin (3.5-5.0) g/dL 02/18/19 02/18/19 02/18/19 Range/Units 04:20 04:20 07:01 WBC 10.8 H (3.8-10.6) k/uL RBC 2.45 L (4.30-5.90) m/uL Hgb 8.1 L (13.0-17.5) gm/dL Hct 24.1 L (39.0-53.0) % RDW 16.9 H (11.5-15.5) % Plt Count 111 L (150-450) k/uL Neutrophils # (Manual) 9.80 H (1.3-7.7) k/uL Lymphocytes # (Manual) 0.76 L (1.0-4.8) k/uL Metamyelocytes # (Man) 0.11 H (0) k/uL Nucleated RBCs 2 H (0-0) /100 WBC BUN 31 H (9-20) mg/dL Glucose 114 H (74-99) mg/dL POC Glucose (mg/dL) 155 H (75-99) mg/dL AST 62 H (17-59) U/L Total Protein 5.3 L (6.3-8.2) g/dL Albumin 3.4 L (3.5-5.0) g/dL Assessment and Plan Assessment: Assessment #1 status post redo CABG with WEBSTER to LAD and status post mitral valve repair #2 known severe underlying coronary artery disease #3 multiple comorbid conditions Plan #1 continue the current medical regimen Follow-up with the patient
[2019-02-18] MEDS: PANTOPRAZOLE 40 MG TABLET PO SCH (07:36)
[2019-02-18] MEDS: LEVOTHYROXINE 50 MCG TAB PO SCH (07:36)
[2019-02-18] MEDS: INSULIN ASPART (NovoLOG) 100 UNIT/ML VIAL SQ SCH ×4 (07:38→21:06)
--- NOTE | 2019-02-18 07:47 | XR ---
EXAMINATION TYPE: XR chest 1V portable DATE OF EXAM: 02/18/2019 CLINICAL HISTORY: Difficulty breathing progress study. TECHNIQUE: Single AP portable upright view of the chest is obtained. COMPARISON: Chest x-ray from one day earlier and older studies. FINDINGS: Interval removal of right internal jugular [place] catheter with persistent cordis sheat h. Redemonstration of bilateral chest tubes and mediastinal drainage catheters. Persistent left basilar opacity silhouetting left hemidiaphragm. Stable mild cardiomegaly. Overlying sternal wires and mediastinal clips are redemonstrated. Metallic aortic valve is again seen. Surgical clips and sutures epigastric region redemonstrated. Right lung remains clear. Osseous structures are intact. Improving right apical pneumothorax noted. Tiny residual pneumothorax are present. IMPRESSION: Improving tiny right apical pneumothorax with chest tube in place. Persistent cardiomegal y with left basilar acute infiltrate and/or atelectasis and probable small left pleural effusion are all redemonstrated.
[2019-02-18] MEDS: IPRATROPIUM-ALBUTEROL 3 ML NEB INHALATION SCH ×4 (07:54→19:24)
[2019-02-18] MEDS: ASPIRIN 325 MG TAB PO SCH (08:18)
[2019-02-18] MEDS: KETOROLAC 30 MG/ML 1 ML VIAL IVP SCH ×3 (08:19→20:05)
[2019-02-18] MEDS: ATORVASTATIN 40 MG TAB PO SCH (08:19)
[2019-02-18] MEDS: CLOPIDOGREL 75 MG TAB PO SCH (08:19)
[2019-02-18] MEDS: HEPARIN SODIUM,PORCINE 5,000 UNIT/ML 1 ML VIAL SQ SCH ×2 (08:21→15:21)
[2019-02-18] MEDS: MAGNESIUM HYDROXIDE 2,400 MG/10 ML CUP PO PRN (08:23)
[2019-02-18] MEDS: MUPIROCIN 2% OINT 22 GM TUBE NASAL SCH ×2 (08:24→20:07)
[2019-02-18] MEDS: METOPROLOL TARTRATE 25 MG TAB PO SCH ×2 (08:35→20:06)
[2019-02-18] MEDS: MULTIVITAMINS, THERA 1 EACH TAB PO SCH (12:11)
--- NOTE | 2019-02-18 12:17 | P.PN ---
Subjective Progress Note Date: 02/18/19 Principal diagnosis: Coronary artery disease and severe mitral regurgitation, status post CABG/one- vessel coronary artery bypass with saphenous vein graft to RCA, and mitral valve replacement with bioprosthetic magna ease #29 valve. Postoperative day #3 This is a 63-year-old white male patient of Dr. Esme Raymond, with history of coronary artery disease with bypass surgery in 2002, with the reocclusion of the 2 vein grafts in 2005 requiring stenting of the [place] circumflex, that follows with Dr. CYRIL Vogt, was found to have progression of coronary artery disease, and severe mitral regurgitation. Patient was complaining of worsening dyspnea with mild activity. Heart catheterization showed a total occlusion of the vein graft to the RCA representing progression of the disease, and there was a previously occluded vein graft to the OM and the diagonal. The WEBSTER to LAD was patent, and the free radial artery graft to the first obtuse marginal was patent. Transesophageal echocardiogram revealed severe degree of mitral regurgitation with reversal of flow in the pulmonary vein, with restriction of the posterior leaflet, there was no evidence of mitral valve prolapse or any flail mitral leaflet, no evidence of thrombus in the left atrium, there was moderate degree of tricuspid regurgitation with severe pulmonary hypertension with right ventricular systolic pressure in the range of 70 to 80 mmHg, anterior atrial septum was intact. Patient was recommended surgical intervention, and today on 02/15/2019 patient underwent a single-vessel bypass with a saphenous vein graft to the RCA and a mitral valve replacement with a tissue valve, Magna- Ease bioprosthetic valve #29. Patient is seen in the intensive care unit following surgery, sedated, intubated on mechanical ventilator, and initial vent settings were SIMV mode of ventilation with a rate of 12, tidal vital 500, FiO2 100% and PEEP of 5, and blood gases were obtained, which showed pO2 of 293, pCO2 of 53, and pH of 7.23, and ventilator adjustments were made, patient was placed on assist-control mode of ventilation with a rate of 16, FiO2 was decreased to 60%, and PEEP was increased to 8 related to bleeding from the chest tubes. Patient had estimated EBL of around 2 L, he did receive 2 units of fresh frozen plasma, 1 unit of platelets. Patient has 4 chest tubes, right pleural connected with right mediastinal, and left pleural connected with left mediastinal chest tubes, with sanguinous output in the Pleur-evac. Maintenance IV fluids include lactated Ringer's at a rate of 50 ML per hour, nitroglycerin drip at 5 mics per minute, Diprivan and at 30 mics per kilo per minute, levo fed at 7.9 mics per minute, insulin is at 3 units per hour, Primacor is a 3.75 mics per kilo per minute. PA pressures are 32/22, cardiac output and index are 3.5 and 1.8 respectively. Patient was reevaluated today on 02/16/2019, patient was on mechanical ventilation overnight, extubated early this morning, he was on a very short course of Precedex prior to extubation. Patient tolerated the extubation well, doing quite well at present, feels generally weak and tired. Denies any cough no wheezing no shortness of breath, no chest pain. Chest x-ray showed mild cardiomegaly, small left pleural effusion, and lines and catheters noted to be in proper position. Labs were reviewed. Hemoglobin is 7.4, electrolytes are normal BUN is 23 creatinine 1.06. All drips were reviewed. Reevaluated today on 02/17/2019, patient is sitting in a recliner, asymptomatic, in no distress, does have some incisional pain and discomfort. Denies being short of breath, patient continues to have underlying sinus bradycardia rhythm in the 50s. Presently he is being paced. Labs showed hemoglobin of 7.4 WBC count of 10.5 electrodes are normal renal profile is normal. Chest x-ray continues to show 2 chest tubes on the left, one chest tube on the right, small right apical pneumothorax is noted, small left pleural effusion is also noted with some atelectasis. Reevaluated today on 02/18/2019, patient seems to be comfortable, sitting at a bedside chair, in no distress, however on examination he is noted to have signi ficant rhonchi and wheezes bilaterally. Patient is not doing quite well with incentive spirometry, and not doing well with deep coughing and deep breathing. I recommended Solu-Medrol because of his wheezing yesterday, discontinued by thoracic surgery, mostly concerned about surgical wound healing. Patient is presently on DuoNeb 4 times a day and when necessary, he is also on Pulmicort. Patient is hemodynamically stable, intermittently bradycardic, that is being addressed by cardiology. Remains on dual antiplatelet therapy as well as statin. Labs showed the PEEP cigar of 10.8 hemoglobin 8.1. Electrolytes and renal profile are normal. Chest x-ray showed improving tiny right apical pneu mothorax left basilar atelectasis. And possibly a small left pleural effusion Objective - Vital Signs Vital signs: Vital Signs Temp 98.6 F 02/18/19 08:00 Pulse 62 02/18/19 11:44 Resp 8 L 02/18/19 09:00 BP 146/84 02/18/19 09:00 Pulse Ox 97 02/18/19 09:00 Intake & Output 02/17/19 02/18/19 02/18/19 18:59 06:59 18:59 Intake Total 482 264 46 Output Total 670 1775 90 Balance -188 -1511 -44 Weight 86 kg Intake: IV 482 264 46 CO/CI 20 Lactated Ringers 1,000 ml 390 240 40 @ 20 mls/hr IV .Q24H [facility] Rx#:[id number] pressure bag 72 24 6 Output: Chest Tube Drainage 290 330 Chest Tube Left Pleural/ 150 160 Mediastinal Chest Tube Right Pleural/ 140 170 Mediastinal Urine 380 1445 90 Other: Voiding Method Indwelling Catheter Indwelling Catheter Indwelling Catheter ABP, PAP, CO, CI - Last Documented Arterial Blood Pressure 133/64 Pulmonary Artery Pressure 32/17 Cardiac Output 4.6 Cardiac Index 2.2 - Exam GENERAL EXAM: Revealed a 63-year-old white male, in no distress. On nasal cannula. HEAD: Normocephalic/atraumatic. EYES: Normal reaction of pupils, equal size. Conjunctiva pink, sclera white. NOSE: Clear with pink turbinates. THROAT: No erythema or exudates. NECK: No masses, no JVD, no thyroid enlargement, no adenopathy. CHEST: No chest wall deformity. Symmetrical expansion. Rhonchi noted bilaterally wheezing on forced expiratory maneuver was also noted. Chest tubes were also noted, and amount of bloody drainage was noted. CVS: Regular rate and rhythm, normal S1 and S2, no gallops, no murmurs, no rubs ABDOMEN: Soft, nontender. No hepatosplenomegaly, normal bowel sounds, no guarding or rigidity. EXTREMITIES: No clubbing, no edema, no cyanosis, 2+ pulses and upper and lower extremities. Bilateral lower extremities are hamlet wrapped, and SCDs are on MUSCULOSKELETAL: Muscle strength and tone normal. SPINE: No scoliosis or deformity CENTRAL NERVOUS SYSTEM: Alert oriented 3, no gross focal neurologic deficit.. - Labs CBC & Chem 7: 02/18/19 04:20 02/18/19 04:20 Labs: Abnormal Lab Results - Last 24 Hours (Table) 02/17/19 02/17/19 02/18/19 Range/Units 16:51 20:58 04:20 WBC 10.8 H (3.8-10.6) k/uL RBC 2.45 L (4.30-5.90) m/uL Hgb 8.1 L (13.0-17.5) gm/dL Hct 24.1 L (39.0-53.0) % RDW 16.9 H (11.5-15.5) % Plt Count 111 L (150-450) k/uL Neutrophils # (Manual) 9.80 H (1.3-7.7) k/uL Lymphocytes # (Manual) 0.76 L (1.0-4.8) k/uL Metamyelocytes # (Man) 0.11 H (0) k/uL Nucleated RBCs 2 H (0-0) /100 WBC BUN (9-20) mg/dL Glucose (74-99) mg/dL POC Glucose (mg/dL) 139 H 147 H (75-99) mg/dL AST (17-59) U/L Total Protein (6.3-8.2) g/dL Albumin (3.5-5.0) g/dL 02/18/19 02/18/19 Range/Units 04:20 07:01 WBC (3.8-10.6) k/uL RBC (4.30-5.90) m/uL Hgb (13.0-17.5) gm/dL Hct (39.0-53.0) % RDW (11.5-15.5) % Plt Count (150-450) k/uL Neutrophils # (Manual) (1.3-7.7) k/uL Lymphocytes # (Manual) (1.0-4.8) k/uL Metamyelocytes # (Man) (0) k/uL Nucleated RBCs (0-0) /100 WBC BUN 31 H (9-20) mg/dL Glucose 114 H (74-99) mg/dL POC Glucose (mg/dL) 155 H (75-99) mg/dL AST 62 H (17-59) U/L Total Protein 5.3 L (6.3-8.2) g/dL Albumin 3.4 L (3.5-5.0) g/dL Assessment and Plan Assessment: Impression: Status post CABG 4 totally occluded RCA, status post one-vessel coronary artery bypass with saphenous vein graft to RCA, postoperative day #3 Status post mitral valve replacement with a bioprosthetic magna ease #29 valve postoperative day # 3 Previous CABG in 2003 Severe pulmonary hypertension documented on previous JACEK with right-sided pressures in the 70s. Benign essential hypertension History of Hodgkin's lymphoma and previous radiation History of 3 mm nodule will need to be monitored on outpatient basis follow-up CT in 6 months. Nicotine dependence syndrome [id number] smoking history with moderate COPD and FEV1 in the range of 62%. And some component of restrictive lung disease most likely related to previous radiation. Recommendation: Continue present supportive care measures, continue updrafts, Pulmicort updrafts were added. continue incentive spirometry, GI and DVT p rophylaxis, continue to monitor labs and renal profile on a daily basis, monitor electrolytes, and monitor hemoglobin. Continue aspirin and statin and Plavix, holding beta blockers because of underlying bradycardia. Continue to wean O2 as tolerated. Increase activity as tolerated. Continue bronchodilators , condition is guarded, still concerned about significant rhonchi and wheezes on physical examination. He eventually require going back on steroids. Time with Patient: Less than 30
[2019-02-18 12:19] LABS: Glucose,Whole Blood 150 mg/dL (75-99)
[2019-02-18] MEDS ORDERED: LOSARTAN 25 MG TAB PO SCH (12:45)
--- NOTE | 2019-02-18 14:11 | P.PN ---
Subjective Progress Note Date: 02/18/19 Principal diagnosis: Severe nonrheumatic mitral regurgitation, coronary artery disease, severe pulmonary hypertension. 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 POD #3 redo sternotomy, mitral valve replacement with #29 mm magna ease bioprosthetic aortic valve, coronary bypass grafting 1 with reverse saphenous vein graft off the aorta to the posterior descending artery with right lower extremity greater saphenous vein endoscopic vein harvesting and intraoperative transesophageal echocardiogram. Postoperative acute blood loss anemia, expected outcome of surgery given cardiopulmonary bypass pump and hemodilution Postoperative thrombocytopenia, expected, reactive secondary to dilation and bypass pump The patient's currently sitting up in a recliner in the intensive care unit in no acute distress. Complains of surgical incisional type pain, better controlled on current medication regimen, denies shortness of breath. Epicardial pacemaker wires connected to generator, underlying rhythm sinus rhythm in the 70-80s. Currently hemodynamically stable no inotropes or pressors. Received IV Lasix last night with excellent diuresis of 1 L. Objective - Vital Signs Vital signs: Vital Signs Temp 98.8 F 02/18/19 12:00 Pulse 61 02/18/19 12:00 Resp 14 02/18/19 12:00 BP 138/78 02/18/19 12:00 Pulse Ox 98 02/18/19 12:00 Intake & Output 02/17/19 02/18/19 02/18/19 18:59 06:59 18:59 Intake Total 482 264 138 Output Total 670 1285 215 Balance -188 -1511 -77 Weight 86 kg Intake: IV 482 264 138 CO/CI 20 Lactated Ringers 1,000 ml 390 240 120 @ 20 mls/hr IV .Q24H [facility] Rx#:[id number] pressure bag 72 24 18 Output: Chest Tube Drainage 290 330 50 Chest Tube Left Pleural/ 150 160 Mediastinal Chest Tube Right Pleural/ 140 170 50 Mediastinal Urine 380 1445 165 Other: Voiding Method Indwelling Catheter Indwelling Catheter Indwelling Catheter ABP, PAP, CO, CI - Last Documented Arterial Blood Pressure 133/64 Pulmonary Artery Pressure 32/17 Cardiac Output 4.6 Cardiac Index 2.2 - Constitutional General appearance: Present: cooperative, no acute distress - Respiratory Details: Lungs sounds diminished bilaterally. Respirations even, nonlabored. Currently on 2 L nasal cannula with oxygen saturation 99%. Weak cough. Left/mediastinal chest tube to continuous wall suction, 160 mL serosanguineous drainage overni ght, 300 mL in the last 24 hours. Right/mediastinal chest tube to continuous wall suction, 170 mL serosanguineous drainage overnight, 340 mL in the last 24 hours. No air leaks present. - Cardiovascular Details: S1, S2 present. Regular rate and rhythm, underlying rhythm sinus rhythm on telemetry. A/V epicardial pacemaker wires present, connected to generator, AAI mode with rate 80 bpm, decreased to backup rate 50 bpm. Sternum stable. Palpable peripheral pulses bilaterally. No edema present. No calf pain or tenderness noted. Right internal jugular Cordis present. Heart hugger in place with patient using appropriately. Antiembolism stockings, SCDs present. - Gastrointestinal Gastrointestinal Comment(s): Abdomen soft, nontender, nondistended. Hypoactive bowel sounds 4 quadrants. Tolerating ice chips. Positive flatus, negative bowel movement. - Genitourinary Genitourinary Comment(s): Severino present draining clear, yellow urine. Output 45-50 mL per hour overnight, diuresed approximately 1 L after IV Lasix given. - Integumentary Integumentary Comment(s): Skin is warm and dry with evidence of good perfusion. Anterior chest incision well approximated and covered with dry intact dressing. Right lower extremity EVH site well approximated. - Neurologic Neurologic: Present: CNII-XII intact - Musculoskeletal Musculoskeletal: Present: gait normal, generalized weakness, strength equal bilaterally - Psychiatric Psychiatric: Present: A&O x's 3, appropriate affect, intact judgment & insight - Allied health notes Allied health notes reviewed: nursing - Labs CBC & Chem 7: 02/18/19 04:20 02/18/19 04:20 Labs: Abnormal Lab Results - Last 24 Hours (Table) 02/17/19 02/17/19 02/18/19 Range/Units 16:51 20:58 04:20 WBC 10.8 H (3.8-10.6) k/uL RBC 2.45 L (4.30-5.90) m/uL Hgb 8.1 L (13.0-17.5) gm/dL Hct 24.1 L (39.0-53.0) % RDW 16.9 H (11.5-15.5) % Plt Count 111 L (150-450) k/uL Neutrophils # (Manual) 9.80 H (1.3-7.7) k/uL Lymphocytes # (Manual) 0.76 L (1.0-4.8) k/uL Metamyelocytes # (Man) 0.11 H (0) k/uL Nucleated RBCs 2 H (0-0) /100 WBC BUN (9-20) mg/dL Glucose (74-99) mg/dL POC Glucose (mg/dL) 139 H 147 H (75-99) mg/dL AST (17-59) U/L Total Protein (6.3-8.2) g/dL Albumin (3.5-5.0) g/dL 02/18/19 02/18/19 02/18/19 Range/Units 04:20 07:01 12:15 WBC (3.8-10.6) k/uL RBC (4.30-5.90) m/uL Hgb (13.0-17.5) gm/dL Hct (39.0-53.0) % RDW (11.5-15.5) % Plt Count (150-450) k/uL Neutrophils # (Manual) (1.3-7.7) k/uL Lymphocytes # (Manual) (1.0-4.8) k/uL Metamyelocytes # (Man) (0) k/uL Nucleated RBCs (0-0) /100 WBC BUN 31 H (9-20) mg/dL Glucose 114 H (74-99) mg/dL POC Glucose (mg/dL) 155 H 150 H (75-99) mg/dL AST 62 H (17-59) U/L Total Protein 5.3 L (6.3-8.2) g/dL Albumin 3.4 L (3.5-5.0) g/dL - Imaging and Cardiology Chest x-ray: report reviewed, image reviewed Assessment and Plan Assessment: 1. Severe nonrheumatic mitral regurgitation, status post bioprosthetic mitral valve replacement 2. Coronary artery disease, status post redo coronary bypass surgery 3. Severe pulmonary hypertension 4. History of coronary artery disease status post CABG in 2002 with subsequent stenting of the [place] circumflex in 2005 5. Previous myocardial infarction 6. Hyperlipidemia 7. Hypertension 8. Chronic systolic heart failure 9. Hypothyroidism 10. Hodgkin's lymphoma in 1987 status post radiation 11. 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 Restless leg syndrome 13. Splenectomy 14. Solitary 3 mm left basilar pulmonary nodule 15. Mild COPD with preoperative FEV1 62% of predicted 16. Previous tobacco dependence 17. Postoperative acute blood loss anemia 18. Postoperative thrombocytopenia Plan: 1. Continue aspirin, statin, Plavix. Beta cristina restarted, will increase as tolerated. Cozaar added for afterload reduction. 2. IV Lasix given this morning. Discontinue Severino catheter. 3. Wean O2 as tolerated. Encourage incentive spirometry is 10 times every hour while awake. Patient needs encouragement for aggressive pulmonary hygiene 4. Increase activity, ambulate as tolerated. PT/OT/cardiac rehab following. 5. Bronchodilators per pulmonology. Encourage continued smoking cessation. 6. Will monitor daily labs and x-rays. Electrolyte replacement protocol. No further transfusions at this point. 7. Pain control with current medication regimen. Toradol added for better pain control. 8. Insulin management per primary care service. 9. GI/DVT prophylaxis. 10. Mediastinal chest tubes discontinued without incident. Left and right pleural chest tubes to be kept for another 24 hours. 11. More recommendations to follow. Time with Patient: Greater than 30
[2019-02-18 17:20] LABS: Glucose,Whole Blood 123 mg/dL (75-99)
[2019-02-18] MEDS: BUDESONIDE 1 MG/2 ML NEBU INHALATION SCH (19:23)
[2019-02-18] MEDS: SENNOSIDES-DOCUSATE SODIUM 1 EACH TAB PO SCH (20:05)
[2019-02-18] MEDS: LACTATED RINGERS 1,000 ML IV SCH (20:07)
[2019-02-18 20:33] LABS: Glucose,Whole Blood 157 mg/dL (75-99)
[2019-02-19] MEDS: HEPARIN SODIUM,PORCINE 5,000 UNIT/ML 1 ML VIAL SQ SCH ×4 (00:48→23:30)
[2019-02-19] MEDS: KETOROLAC 30 MG/ML 1 ML VIAL IVP SCH ×2 (00:53→08:30)
[2019-02-19] MEDS: HYDROcodone/APAP 7.5-325MG 1 EACH TAB PO PRN ×4 (00:53→22:11)
[2019-02-19 05:54] LABS: Albumin 3.2 g/dL (3.5-5.0); Calcium 9.1 mg/dL (8.4-10.2); Potassium 4.4 mmol/L (3.5-5.1); Total Bilirubin 0.8 mg/dL (0.2-1.3); Total Protein 5.1 g/dL (6.3-8.2)
[2019-02-19 05:58] LABS: Anisocytosis Slight; HGB 7.7 gm/dL (13.0-17.5); MCH 33.2 pg (25.0-35.0); MCHC 33.5 g/dL (31.0-37.0); MCV 99.3 fL (80.0-100.0); Macrocytosis Slight; Mean Platelet Volume 8.2; Platelet Count 127 k/uL (150-450); Poikilocytosis Slight; RBC 2.32 m/uL (4.30-5.90)
--- NOTE | 2019-02-19 06:01 | PN ---
PROGRESS NOTE DATE OF SERVICE: 02/18/2019 PRESENTING COMPLAINT: Coronary bypass. INTERVAL HISTORY: Patient is status post coronary bypass, mitral valve replacement and prosthetic heart valve. Sitting up on a chair. Appetite is still not good. Just feels a bit tired and run down. Breathing is stable. Has been out of chair. REVIEW OF SYSTEMS: Done for constitutional, cardiovascular, GI, pulmonary; relevant findings as above. CURRENT MEDICATIONS: Current medications are reviewed. PHYSICAL EXAMINATION: On examination, temperature 98.2, pulse 62, respirations 14, blood pressure 131/83, pulse ox 99% on room air. GENERAL APPEARANCE: Sitting up on a chair, awake. EYES: Pupils equal. Conjunctivae normal. NECK: JVD not raised. Mass not palpable. RESPIRATORY: Effort normal. LUNGS: Decreased breath sounds. CARDIOVASCULAR: First and second sounds normal. No edema. ABDOMEN: Soft, nontender. Liver and spleen not palpable. PSYCHIATRY: Alert and oriented x3. Mood and affect normal. INVESTIGATIONS: White count 10.8, hemoglobin 8.1, platelets 111, potassium 4.3. BUN 31, creatinine 0.7. Accu-Cheks are noted. ASSESSMENT: 1. Status post coronary bypass one-vessel and prosthetic mitral valve replacement. 2. Acute postoperative blood loss anemia expected from surgery. 3. Dilutional thrombocytopenia. 4. Essential hypertension. 5. Hyperlipidemia. 6. Restless legs syndrome. 7. Coronary artery disease. 8. Chronic insomnia, idiopathic. PLAN: Patient is slowly improving. Encouraged to be out of bed. Continue current medication and treatment plan. Will follow. MMODL / IJN: [id number] /
[2019-02-19 06:25] LABS: Neutrophils % (M) 83 %; Nucleated Red Blood Cells 5 /100 WBC (0-0); Total Cells Counted 200
[2019-02-19 06:26] LABS: Monocytes # (M) 0.96 k/uL (0-1.0); Neutrophils # (M) 9.96 k/uL (1.3-7.7); Polychromasia Present
[2019-02-19 07:06] LABS: Glucose,Whole Blood 116 mg/dL (75-99)
--- NOTE | 2019-02-19 07:12 | P.PN ---
Subjective Progress Note Date: 02/19/19 Principal diagnosis: Status post coronary artery bypass grafting This is a pleasant 63-year-old gentleman with a past medical history significant for coronary artery disease and prior coronary artery bypass grafting in 2002, hypertension, dyslipidemia, the patient does follow with Dr. CYRIL Vogt in the office as an outpatient, was experiencing recently a worsening dyspnea even with minor activities. Because of that a heart catheterization was performed and that revealed the total occlusion of the vein graft to the RCA as well as a total occlusion of the graft to OM and diagonal. The LAD WEBSTER to LAD was patent. Beside that he was found to have severe mitral regurgitation which was documented by transesophageal echocardiogram. Because of that the patient was referred for redo CABG as well as mitral valve repair. He underwent redo CABG and mitral valve repair yesterday. He underwent single-vessel bypass with SVG to RCA and mitral valve repair using #29 valve. On follow-up with the patient today, February 192018, this is postoperative operation day #4. The patient is looking better clinically. Hemodynamically he is stable. He is not utilizing the pacer anymore. We'll continue monitor the hemoglobin as well as continue monitor the kidney function and electrolytes. He continues to be on aspirin, statin, Plavix, and metoprolol. Objective - Vital Signs Vital signs: Vital Signs Temp 97.8 F 02/19/19 04:00 Pulse 57 L 02/19/19 04:00 Resp 16 02/19/19 04:00 BP 131/83 02/19/19 04:00 Pulse Ox 99 02/19/19 04:00 Intake & Output 02/18/19 02/19/19 02/19/19 18:59 06:59 18:59 Intake Total 276 253 Output Total 410 615 Balance -134 -362 Intake: IV 276 253 Lactated Ringers 1,000 ml 240 220 @ 20 mls/hr IV .Q24H [facility] Rx#:[id number] pressure bag 36 33 Output: Chest Tube Drainage 115 150 Chest Tube Left 20 50 Chest Tube Right 45 100 Chest Tube Right Pleural/ 50 Mediastinal Urine 295 465 Other: Voiding Method Indwelling Catheter Indwelling Catheter ABP, PAP, CO, CI - Last Documented Arterial Blood Pressure 133/64 Pulmonary Artery Pressure 32/17 Cardiac Output 4.6 Cardiac Index 2.2 - Constitutional General appearance: Present: no acute distress - Respiratory Respiratory: bilateral: diminished - Cardiovascular Rhythm: regular Heart sounds: normal: S1, S2 - Labs CBC & Chem 7: 02/19/19 05:30 02/19/19 05:30 Labs: Abnormal Lab Results - Last 24 Hours (Table) 02/18/19 02/18/19 02/18/19 Range/Units 12:15 17:16 20:20 WBC (3.8-10.6) k/uL RBC (4.30-5.90) m/uL Hgb (13.0-17.5) gm/dL Hct (39.0-53.0) % RDW (11.5-15.5) % Plt Count (150-450) k/uL Neutrophils # (Manual) (1.3-7.7) k/uL Nucleated RBCs (0-0) /100 WBC Sodium (137-145) mmol/L Carbon Dioxide (22-30) mmol/L BUN (9-20) mg/dL Creatinine (0.66-1.25) mg/dL POC Glucose (mg/dL) 150 H 123 H 157 H (75-99) mg/dL Magnesium (1.6-2.3) mg/dL Total Protein (6.3-8.2) g/dL Albumin (3.5-5.0) g/dL 02/19/19 02/19/19 02/19/19 Range/Units 05:30 05:30 07:03 WBC 12.0 H (3.8-10.6) k/uL RBC 2.32 L (4.30-5.90) m/uL Hgb 7.7 L (13.0-17.5) gm/dL Hct 23.0 L (39.0-53.0) % RDW 18.0 H (11.5-15.5) % Plt Count 127 L (150-450) k/uL Neutrophils # (Manual) 9.96 H (1.3-7.7) k/uL Nucleated RBCs 5 H (0-0) /100 WBC Sodium 136 L (137-145) mmol/L Carbon Dioxide 33 H (22-30) mmol/L BUN 52 H (9-20) mg/dL Creatinine 1.27 H (0.66-1.25) mg/dL POC Glucose (mg/dL) 116 H (75-99) mg/dL Magnesium 3.0 H (1.6-2.3) mg/dL Total Protein 5.1 L (6.3-8.2) g/dL Albumin 3.2 L (3.5-5.0) g/dL Assessment and Plan Assessment: Assessment #1 status post redo CABG with WEBSTER to LAD and status post mitral valve repair #2 known severe underlying coronary artery disease #3 multiple comorbid conditions Plan #1 continue the current medical regimen #2 continue dual antiplatelet therapy along with a statin and metoprolol #3 follow-up with the patient
--- NOTE | 2019-02-19 07:17 | XR ---
EXAMINATION TYPE: XR chest 1V portable DATE OF EXAM: 02/19/2019 COMPARISON: 02/18/2019 HISTORY: SOB, Follow Up FINDINGS: Bilateral chest tubes are in place. Small biapical pneumothoraces are noted estimated at less than 10 %. Left basilar opacity persists which may reflect atelectasis and/or infiltrate. Stable appearance of the cardio-mediastinal structures at this time. Pleural effusion unchanged. IMPRESSION: 1. Bilateral chest tubes are in place. Small biapical pneumothoraces are noted, estimated at less th an 10%.
[2019-02-19] MEDS: BUDESONIDE 1 MG/2 ML NEBU INHALATION SCH ×2 (07:47→19:37)
[2019-02-19] MEDS: IPRATROPIUM-ALBUTEROL 3 ML NEB INHALATION SCH ×4 (07:47→19:37)
[2019-02-19] MEDS: INSULIN ASPART (NovoLOG) 100 UNIT/ML VIAL SQ SCH ×4 (08:11→22:09)
[2019-02-19] MEDS: CLOPIDOGREL 75 MG TAB PO SCH (08:31)
[2019-02-19] MEDS: PANTOPRAZOLE 40 MG TABLET PO SCH (08:31)
[2019-02-19] MEDS: METOPROLOL TARTRATE 25 MG TAB PO SCH ×2 (08:31→22:09)
[2019-02-19] MEDS: ASPIRIN 325 MG TAB PO SCH (08:31)
[2019-02-19] MEDS: ATORVASTATIN 40 MG TAB PO SCH (08:31)
[2019-02-19] MEDS: LEVOTHYROXINE 50 MCG TAB PO SCH (08:31)
[2019-02-19 09:31] LABS: Glucose,Whole Blood 111 mg/dL (75-99)
[2019-02-19] MEDS: MAGNESIUM HYDROXIDE 2,400 MG/10 ML CUP PO PRN (09:57)
[2019-02-19] MEDS: hydrALAZINE HCL 25 MG TAB PO SCH ×2 (09:58→22:08)
--- NOTE | 2019-02-19 11:20 | P.PN ---
Subjective Progress Note Date: 02/19/19 Principal diagnosis: Severe nonrheumatic mitral regurgitation, coronary artery disease, severe pulmonary hypertension. 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 POD #4 redo sternotomy, mitral valve replacement with #29 mm magna ease bioprosthetic aortic valve, coronary bypass grafting 1 with reverse saphenous vein graft off the aorta to the posterior descending artery with right lower extremity greater saphenous vein endoscopic vein harvesting and intraoperative transesophageal echocardiogram. Postoperative acute blood loss anemia, expected outcome of surgery given cardiopulmonary bypass pump and hemodilution Postoperative thrombocytopenia, expected, reactive secondary to dilation and bypass pump Acute kidney injury, likely secondary to dehydration after IV Lasix given yesterday combined with initiation of Cozaar and Toradol The patient's currently sitting up in a recliner in the intensive care unit in no acute distress. Complains of surgical incisional type pain, better controlled on current medication regimen, denies shortness of breath. Remains in normal sinus rhythm. Currently hemodynamically stable no inotropes or pressors. Received IV Lasix twice yesterday with bump in BUN/creatinine this morning. Does complain of feeling weak, refusing to ambulate this morning. Objective - Vital Signs Vital signs: Vital Signs Temp 98.6 F 02/19/19 08:00 Pulse 56 L 02/19/19 10:00 Resp 14 02/19/19 10:00 BP 123/68 02/19/19 10:00 Pulse Ox 95 02/19/19 10:00 Intake & Output 02/18/19 02/19/19 02/19/19 18:59 06:59 18:59 Intake Total 276 276 69 Output Total 410 635 88 Balance -134 -359 -19 Weight 85 kg Intake: IV 276 276 69 Lactated Ringers 1,000 ml 240 240 60 @ 20 mls/hr IV .Q24H [facility] Rx#:[id number] pressure bag 36 36 9 Output: Chest Tube Drainage 115 150 Chest Tube Left 20 50 Chest Tube Right 45 100 Chest Tube Right Pleural/ 50 Mediastinal Urine 295 485 88 Other: Voiding Method Indwelling Catheter Indwelling Catheter Indwelling Catheter ABP, PAP, CO, CI - Last Documented Arterial Blood Pressure 133/64 Pulmonary Artery Pressure 32/17 Cardiac Output 4.6 Cardiac Index 2.2 - Constitutional General appearance: Present: cooperative, no acute distress - Respiratory Details: Lungs sounds diminished bilaterally. Respirations even, nonlabored. Currently on room air with oxygen saturation 98%. Weak cough. Left chest tube to continuous wall suction, 40 mL serosanguineous drainage overnight, 90 mL in the last 24 hours. Right chest tube to continuous wall suction, 80 mL serosanguineous drainage overnight, 250 mL in the last 24 hours. No air leaks present. - Cardiovascular Details: S1, S2 present. Regular rate and rhythm, underlying rhythm sinus rhythm on telemetry. A/V epicardial pacemaker wires present, connected to generator, AAI mode with a backup rate 50 bpm. Sternum stable. Palpable peripheral pulses bilaterally. No edema present. No calf pain or tenderness noted. Right internal jugular Cordis present. Heart hugger in place with patient using appropriately. Antiembolism stockings, SCDs present. - Gastrointestinal Gastrointestinal Comment(s): Abdomen soft, nontender, nondistended. Hypoactive bowel sounds 4 quadrants. Tolerating clear liquids. Positive flatus, negative bowel movement. - Genitourinary Genitourinary Comment(s): Severino present draining clear, yellow urine. Output 20-35 mL per hour overnight, diuresed approximately 1 L after IV Lasix given yesterday morning, another 250 after Lasix given yesterday afternoon. - Integumentary Integumentary Comment(s): Skin is warm and dry with evidence of good perfusion. Anterior chest incision well approximated and covered with dry intact dressing. Right lower extremity EVH site well approximated. - Neurologic Neurologic: Present: CNII-XII intact - Musculoskeletal Musculoskeletal: Present: generalized weakness, strength equal bilaterally - Psychiatric Psychiatric Comment(s): Flat affect, patient reported to nurse that he felt he was seen things out of the corner of his eyes Psychiatric: Present: A&O x's 3 - Allied health notes Allied health notes reviewed: nursing - Labs CBC & Chem 7: 02/19/19 05:30 02/19/19 05:30 Labs: Abnormal Lab Results - Last 24 Hours (Table) 02/18/19 02/18/19 02/18/19 Range/Units 12:15 17:16 20:20 WBC (3.8-10.6) k/uL RBC (4.30-5.90) m/uL Hgb (13.0-17.5) gm/dL Hct (39.0-53.0) % RDW (11.5-15.5) % Plt Count (150-450) k/uL Neutrophils # (Manual) (1.3-7.7) k/uL Nucleated RBCs (0-0) /100 WBC Sodium (137-145) mmol/L Carbon Dioxide (22-30) mmol/L BUN (9-20) mg/dL Creatinine (0.66-1.25) mg/dL POC Glucose (mg/dL) 150 H 123 H 157 H (75-99) mg/dL Magnesium (1.6-2.3) mg/dL Total Protein (6.3-8.2) g/dL Albumin (3.5-5.0) g/dL 02/19/19 02/19/19 02/19/19 Range/Units 05:30 05:30 07:03 WBC 12.0 H (3.8-10.6) k/uL RBC 2.32 L (4.30-5.90) m/uL Hgb 7.7 L (13.0-17.5) gm/dL Hct 23.0 L (39.0-53.0) % RDW 18.0 H (11.5-15.5) % Plt Count 127 L (150-450) k/uL Neutrophils # (Manual) 9.96 H (1.3-7.7) k/uL Nucleated RBCs 5 H (0-0) /100 WBC Sodium 136 L (137-145) mmol/L Carbon Dioxide 33 H (22-30) mmol/L BUN 52 H (9-20) mg/dL Creatinine 1.27 H (0.66-1.25) mg/dL POC Glucose (mg/dL) 116 H (75-99) mg/dL Magnesium 3.0 H (1.6-2.3) mg/dL Total Protein 5.1 L (6.3-8.2) g/dL Albumin 3.2 L (3.5-5.0) g/dL 02/19/19 Range/Units 09:28 WBC (3.8-10.6) k/uL RBC (4.30-5.90) m/uL Hgb (13.0-17.5) gm/dL Hct (39.0-53.0) % RDW (11.5-15.5) % Plt Count (150-450) k/uL Neutrophils # (Manual) (1.3-7.7) k/uL Nucleated RBCs (0-0) /100 WBC Sodium (137-145) mmol/L Carbon Dioxide (22-30) mmol/L BUN (9-20) mg/dL Creatinine (0.66-1.25) mg/dL POC Glucose (mg/dL) 111 H (75-99) mg/dL Magnesium (1.6-2.3) mg/dL Total Protein (6.3-8.2) g/dL Albumin (3.5-5.0) g/dL - Imaging and Cardiology Chest x-ray: report reviewed, image reviewed Assessment and Plan Assessment: 1. Severe nonrheumatic mitral regurgitation, status post bioprosthetic mitral valve replacement 2. Coronary artery disease, status post redo coronary bypass surgery 3. Severe pulmonary hypertension 4. History of coronary artery disease status post CABG in 2002 with subsequent stenting of the twenty-nine palms circumflex in 2005 5. Previous myocardial infarction 6. Hyperlipidemia 7. Hypertension 8. Chronic systolic heart failure 9. Hypothyroidism 10. Hodgkin's lymphoma in 1987 status post radiation 11. 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 Restless leg syndrome 13. Splenectomy 14. Solitary 3 mm left basilar pulmonary nodule 15. Mild COPD with preoperative FEV1 62% of predicted 16. Previous tobacco dependence 17. Postoperative acute blood loss anemia 18. Postoperative thrombocytopenia Plan: 1. Continue aspirin, statin, Plavix, beta cristina. Discontinue Cozaar secondary to increased creatinine. Will start hydralazine for afterload reduction. 2. No Lasix today. Discontinue Severino catheter, may straight cath for greater than 300 mL residual. 3. Encourage incentive spirometry is 10 times every hour while awake. Patient needs encouragement for aggressive pulmonary hygiene 4. Increase activity, ambulate as tolerated. PT/OT/cardiac rehab following. 5. Bronchodilators per pulmonology. Encourage continued smoking cessation. 6. Will monitor daily labs and x-rays. Electrolyte replacement protocol. No further transfusions at this point. 7. Pain control with current medication regimen. Toradol discontinued secondary to increased creatinine. 8. Insulin management per primary care service. 9. GI/DVT prophylaxis. 10. Will discontinue left pleural chest tube. Right pleural chest tubes to be kept for another 24 hours. Discontinue Cordis. 11. Will place transfer orders for 3 S. cardiac stepdown unit. May transfer when bed available. 12. Patient may need rehab at discharge, would likely need daily physician visits and frequent lab work as well as higher acuity nursing care and nutritional management. Consult place for Dr. Lowery for inpatient rehab. 11. More recommendations to follow. Time with Patient: Greater than 30
[2019-02-19] MEDS: MULTIVITAMINS, THERA 1 EACH TAB PO SCH (11:33)
[2019-02-19 12:25] LABS: Glucose,Whole Blood 135 mg/dL (75-99)
--- NOTE | 2019-02-19 13:34 | P.CONS ---
History of Present Illness - Chief Complaint Cardiac debility - History of Present Illness I had the opportunity see patient for inpatient rehab consultation regarding cardiac debility. He was admitted to [facility] February 15 with known coronary disease and history of previous bypass and severe mitral regurg. Underwent single- vessel CABG and mitral valve replacement on February 16. Seen and consultations by Dr. Pepe and Tyrone. Chest x-rays followed and no tubes. PT reports minimal assistance for transfers and functional mobility. Gait 300 feet with supervision but fatigues. OT reports minimal assistance for upper dressing and toileting and moderate assistance for lower dressing and bathing and minimal assistance functional debility and transfers. Previous functional history as elicited from patient: 63-year-old right-handed white male who is lives in one floor home with . Patient retired but works full-time. They share the cooking and does the laundry. Patient dependent driving, standing shower and gait without device. Doesn't smoke or just quit and has a weekly drink. his regular doctor. Family history mother with cancer. Review of Systems Review of systems: ENT: Denies sneezes or discharge. Eyes: Denies discharge or photophobia. Cardiac: At least mild sternal discomfort. Pulmonary: [id number] shortness of breath. Gastrointestinal: Denies nausea, emesis, constipation, diarrhea. Genitourinary: Denies discharge or frequency. Musculoskeletal: Denies muscle or bone aches. Neurologic: Mild to moderate generalized weakness. Endocrine: Denies shakes or sweats. Oncology: Denies cancers. Dermatologic: Denies rash, itching, pruritus. ALLERGY/immunology: Denies sneezes, rashes. 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, RLS, mitral valve problem,insomnia-states "only sleeps a couple hours per night Last Myocardial Infarction Date:: 2004 History of Any Multi-Drug Resistant Organisms: None Reported Past Surgical History: Appendectomy, Bowel Resection, Coronary Bypass/CABG, Heart Catheterization, Heart Catheterization With Stent Additional Past Surgical History / Comment(s): staging laparotomy for Hodgkin's & splenectomy, quad bypass 2003,JACEK Past Anesthesia/Blood Transfusion Reactions: No Reported Reaction, Motion Sickness Additional Past Anesthesia/Blood Transfusion Reaction / Comm: no known hx blood trnasfusion Date of Last Stent Placement:: 2004 Smoking Status: Former smoker - Past Family History Mother Family Medical History: Cancer Additional Family Medical History / Comment(s): esophageal Medications and Allergies Home Medications Medication Instructions Recorded Confirmed Type Aspirin 325 mg PO DAILY 07/01/18 02/15/19 History Carvedilol [Coreg] 6.25 mg PO BID 07/01/18 02/15/19 History Furosemide [Lasix] 60 mg PO DAILY 07/01/18 02/15/19 History Levothyroxine Sodium [Synthroid] 50 mcg PO QAM 07/01/18 02/15/19 History Losartan [Cozaar] 25 mg PO DAILY 07/01/18 02/15/19 History Omeprazole [PriLOSEC] 20 mg PO HS 07/01/18 02/15/19 History Simvastatin 40 mg PO HS 07/01/18 02/15/19 History rOPINIRole HCL 0.75 mg PO HS 07/01/18 02/15/19 History Multivitamins, Thera [Multivitamin 1 tab PO DAILY 02/10/19 02/15/19 History (formulary)] Mupirocin 2% Oint [Bactroban 2% 1 applic NASAL BID 02/12/19 02/15/19 History Oint] Allergies Allergy/AdvReac Type Severity Reaction Status Date / Time Iodinated Contrast- Oral and Allergy Nausea & Verified 02/15/19 15:31 IV Dye Vomiting,chills Physical Exam Vitals: Vital Signs Temp Pulse Resp BP Pulse Ox 02/19/19 12:10 91 L 02/19/19 12:00 97.9 F 69 10 L 113/80 92 L 02/19/19 11:30 64 28 H 96 02/19/19 11:00 58 L 17 101/66 98 02/19/19 10:30 58 L 14 101/66 94 L 02/19/19 10:00 56 L 14 123/68 95 02/19/19 09:30 55 L 18 123/68 94 L 02/19/19 09:00 60 10 L 126/76 90 L 02/19/19 08:30 66 20 126/76 96 02/19/19 08:01 67 02/19/19 08:00 98.6 F 63 11 L 155/93 99 02/19/19 07:48 67 96 02/19/19 07:30 67 14 155/93 95 02/19/19 07:00 75 18 141/81 100 02/19/19 06:30 67 21 141/81 100 02/19/19 06:00 59 L 12 132/84 100 02/19/19 05:30 60 12 132/84 100 02/19/19 05:00 59 L 10 L 131/83 100 02/19/19 04:30 60 18 131/83 99 02/19/19 04:00 97.8 F 57 L 16 131/83 99 02/19/19 03:38 7 L 02/19/19 03:30 58 L 9 L 128/84 98 02/19/19 03:00 59 L 7 L 127/90 99 02/19/19 02:00 60 7 L 143/89 99 02/19/19 01:00 63 18 115/74 98 02/19/19 00:00 57 L 13 121/78 98 02/18/19 23:00 97.8 F 58 L 11 L 116/76 98 02/18/19 22:05 59 L 20 116/76 98 02/18/19 22:00 59 L 11 L 137/98 98 02/18/19 21:00 63 18 137/80 99 02/18/19 20:00 98.4 F 62 18 128/77 99 02/18/19 19:39 66 02/18/19 19:25 70 02/18/19 19:00 59 L 14 128/75 98 02/18/19 18:00 65 12 147/85 100 02/18/19 17:00 61 13 138/78 99 02/18/19 16:00 98.2 F 62 14 131/83 99 02/18/19 15:47 64 02/18/19 15:34 63 02/18/19 15:00 73 17 131/83 100 02/18/19 14:00 64 15 125/71 98 Intake and Output 02/18/19 02/19/19 02/19/19 22:59 06:59 14:59 Intake Total 184 184 135 Output Total 485 310 197 Balance -301 -126 -62 Intake: IV 184 184 135 Lactated Ringers 1,000 ml 160 160 120 @ 20 mls/hr IV .Q24H [facility] Rx#:[id number] pressure bag 24 24 15 Output: Chest Tube Drainage 95 120 Chest Tube Left 30 40 Chest Tube Right 65 80 Urine 390 190 197 Other: Voiding Method Indwelling Catheter Indwelling Catheter Indwelling Catheter Weight 85 kg ABP, PAP, CO, CI - Last 8 Hours Cardiac Output 4.6 Cardiac Output 4.6 Cardiac Output 4.6 Cardiac Output 4.6 Cardiac Output 4.6 Cardiac Output 4.6 Cardiac Output 4.6 Cardiac Output 4.6 Cardiac Output 4.6 Cardiac Output 4.6 Cardiac Output 4.6 Cardiac Output 4.6 Cardiac Output 4.6 Skin: Good color, texture, turgor. General: Medium build and comfortable appearance. Head: Normocephalic, atraumatic. Eyes: Symmetric. Pupils equal round. Ears: Symmetric. Hearing within normal limits. Mouth: Clear. Neck: Supple. Carotid without bruit. Cardiac: Regular rate and rhythm. Sternum clean and dressed. Wearing harness. Lungs: Clear anteriorly and posteriorly. Abdomen: Soft active nontender. Extremities: Normal tone. Neurological: Mental status: Alert, cooperative, pleasant. Cranial nerves: Symmetric facial tone and trapezius. Motor: Active movement all 4 limbs. Sensation: Intact throughout. DTRs: Symmetric and equal throughout. Mobility: Sits with physical assistance. Results CBC & Chem 7: 02/19/19 05:30 02/19/19 05:30 Labs: Abnormal Lab Results - Last 24 Hours (Table) 02/18/19 02/18/19 02/19/19 Range/Units 17:16 20:20 05:30 WBC (3.8-10.6) k/uL RBC (4.30-5.90) m/uL Hgb (13.0-17.5) gm/dL Hct (39.0-53.0) % RDW (11.5-15.5) % Plt Count (150-450) k/uL Neutrophils # (Manual) (1.3-7.7) k/uL Nucleated RBCs (0-0) /100 WBC Sodium 136 L (137-145) mmol/L Carbon Dioxide 33 H (22-30) mmol/L BUN 52 H (9-20) mg/dL Creatinine 1.27 H (0.66-1.25) mg/dL POC Glucose (mg/dL) 123 H 157 H (75-99) mg/dL Magnesium 3.0 H (1.6-2.3) mg/dL Total Protein 5.1 L (6.3-8.2) g/dL Albumin 3.2 L (3.5-5.0) g/dL 02/19/19 02/19/19 02/19/19 Range/Units 05:30 07:03 09:28 WBC 12.0 H (3.8-10.6) k/uL RBC 2.32 L (4.30-5.90) m/uL Hgb 7.7 L (13.0-17.5) gm/dL Hct 23.0 L (39.0-53.0) % RDW 18.0 H (11.5-15.5) % Plt Count 127 L (150-450) k/uL Neutrophils # (Manual) 9.96 H (1.3-7.7) k/uL Nucleated RBCs 5 H (0-0) /100 WBC Sodium (137-145) mmol/L Carbon Dioxide (22-30) mmol/L BUN (9-20) mg/dL Creatinine (0.66-1.25) mg/dL POC Glucose (mg/dL) 116 H 111 H (75-99) mg/dL Magnesium (1.6-2.3) mg/dL Total Protein (6.3-8.2) g/dL Albumin (3.5-5.0) g/dL 02/19/19 Range/Units 11:59 WBC (3.8-10.6) k/uL RBC (4.30-5.90) m/uL Hgb (13.0-17.5) gm/dL Hct (39.0-53.0) % RDW (11.5-15.5) % Plt Count (150-450) k/uL Neutrophils # (Manual) (1.3-7.7) k/uL Nucleated RBCs (0-0) /100 WBC Sodium (137-145) mmol/L Carbon Dioxide (22-30) mmol/L BUN (9-20) mg/dL Creatinine (0.66-1.25) mg/dL POC Glucose (mg/dL) 135 H (75-99) mg/dL Magnesium (1.6-2.3) mg/dL Total Protein (6.3-8.2) g/dL Albumin (3.5-5.0) g/dL Assessment and Plan (1) Mitral regurgitation Current Visit: Yes Status: Acute Code(s): I34.0 - NONRHEUMATIC MITRAL (VALVE) INSUFFICIENCY SNOMED Code(s): 68088151 Plan: Impression: 1. Cardiac debility. 2. Coronary artery disease with history of previous CABG and SD and recent CABG and one vessel 2. Mitral valve regurg status post MVR. 3. Hypertension. 4. Acute on chronic CHF. Comments and plan: At this time PT and OT are ongoing. Safety concerns noted. History discussed possible inpatient rehab with patient and he seems agreeable if necessary.
--- NOTE | 2019-02-19 14:36 | P.PN ---
Subjective Progress Note Date: 02/19/19 Principal diagnosis: Coronary artery disease and severe mitral regurgitation, status post CABG/one- vessel coronary artery bypass with saphenous vein graft to RCA, and mitral valve replacement with bioprosthetic magna ease #29 valve. Postoperative day #4 This is a 63-year-old white male patient of Dr. Esme Raymond, with history of coronary artery disease with bypass surgery in 2002, with the reocclusion of the 2 vein grafts in 2005 requiring stenting of the [place] circumflex, that follows with Dr. CYRIL Vogt, was found to have progression of coronary artery disease, and severe mitral regurgitation. Patient was complaining of worsening dyspnea with mild activity. Heart catheterization showed a total occlusion of the vein graft to the RCA representing progression of the disease, and there was a previously occluded vein graft to the OM and the diagonal. The WEBSTER to LAD was patent, and the free radial artery graft to the first obtuse marginal was patent. Transesophageal echocardiogram revealed severe degree of mitral regurgitation with reversal of flow in the pulmonary vein, with restriction of the posterior leaflet, there was no evidence of mitral valve prolapse or any flail mitral leaflet, no evidence of thrombus in the left atrium, there was moderate degree of tricuspid regurgitation with severe pulmonary hypertension with right ventricular systolic pressure in the range of 70 to 80 mmHg, anterior atrial septum was intact. Patient was recommended surgical intervention, and today on 02/15/2019 patient underwent a single-vessel bypass with a saphenous vein graft to the RCA and a mitral valve replacement with a tissue valve, Magna- Ease bioprosthetic valve #29. Patient is seen in the intensive care unit following surgery, sedated, intubated on mechanical ventilator, and initial vent settings were SIMV mode of ventilation with a rate of 12, tidal vital 500, FiO2 100% and PEEP of 5, and blood gases were obtained, which showed pO2 of 293, pCO2 of 53, and pH of 7.23, and ventilator adjustments were made, patient was placed on assist-control mode of ventilation with a rate of 16, FiO2 was decreased to 60%, and PEEP was increased to 8 related to bleeding from the chest tubes. Patient had estimated EBL of around 2 L, he did receive 2 units of fresh frozen plasma, 1 unit of platelets. Patient has 4 chest tubes, right pleural connected with right mediastinal, and left pleural connected with left mediastinal chest tubes, with sanguinous output in the Pleur-evac. Maintenance IV fluids include lactated Ringer's at a rate of 50 ML per hour, nitroglycerin drip at 5 mics per minute, Diprivan and at 30 mics per kilo per minute, levo fed at 7.9 mics per minute, insulin is at 3 units per hour, Primacor is a 3.75 mics per kilo per minute. PA pressures are 32/22, cardiac output and index are 3.5 and 1.8 respectively. Patient was reevaluated today on 02/16/2019, patient was on mechanical ventilation overnight, extubated early this morning, he was on a very short course of Precedex prior to extubation. Patient tolerated the extubation well, doing quite well at present, feels generally weak and tired. Denies any cough no wheezing no shortness of breath, no chest pain. Chest x-ray showed mild cardiomegaly, small left pleural effusion, and lines and catheters noted to be in proper position. Labs were reviewed. Hemoglobin is 7.4, electrolytes are normal BUN is 23 creatinine 1.06. All drips were reviewed. Reevaluated today on 02/17/2019, patient is sitting in a recliner, asymptomatic, in no distress, does have some incisional pain and discomfort. Denies being short of breath, patient continues to have underlying sinus bradycardia rhythm in the 50s. Presently he is being paced. Labs showed hemoglobin of 7.4 WBC count of 10.5 electrodes are normal renal profile is normal. Chest x-ray continues to show 2 chest tubes on the left, one chest tube on the right, small right apical pneumothorax is noted, small left pleural effusion is also noted with some atelectasis. Reevaluated today on 02/18/2019, patient seems to be comfortable, sitting at a bedside chair, in no distress, however on examination he is noted to have signi ficant rhonchi and wheezes bilaterally. Patient is not doing quite well with incentive spirometry, and not doing well with deep coughing and deep breathing. I recommended Solu-Medrol because of his wheezing yesterday, discontinued by thoracic surgery, mostly concerned about surgical wound healing. Patient is presently on DuoNeb 4 times a day and when necessary, he is also on Pulmicort. Patient is hemodynamically stable, intermittently bradycardic, that is being addressed by cardiology. Remains on dual antiplatelet therapy as well as statin. Labs showed the PEEP cigar of 10.8 hemoglobin 8.1. Electrolytes and renal profile are normal. Chest x-ray showed improving tiny right apical pneu mothorax left basilar atelectasis. And possibly a small left pleural effusion Patient was reevaluated today on 02/19/2019, remains in the ICU, continues to have chest tubes in place, patient is comfortable, complaining of pain, denies any fever chills, continues to have poor cough, and doing poorly with incentive spirometry. Chest x-ray showed small biapical pneumothoraces, estimated to be less than 10%. Patient is hemodynamically stable, remains on diuretics. Objective - Vital Signs Vital signs: Vital Signs Temp 97.9 F 02/19/19 12:00 Pulse 63 02/19/19 14:00 Resp 20 02/19/19 14:00 BP 123/71 02/19/19 14:00 Pulse Ox 99 02/19/19 14:00 Intake & Output 02/18/19 02/19/19 02/19/19 18:59 06:59 18:59 Intake Total 276 276 181 Output Total 410 635 197 Balance -134 -359 -16 Weight 85 kg Intake: IV 276 276 181 Lactated Ringers 1,000 ml 240 240 160 @ 20 mls/hr IV .Q24H [facility] Rx#:[id number] pressure bag 36 36 21 Output: Chest Tube Drainage 115 150 Chest Tube Left 20 50 Chest Tube Right 45 100 Chest Tube Right Pleural/ 50 Mediastinal Urine 295 485 197 Other: Voiding Method Indwelling Catheter Indwelling Catheter Indwelling Catheter ABP, PAP, CO, CI - Last Documented Arterial Blood Pressure 133/64 Pulmonary Artery Pressure 32/17 Cardiac Output 4.6 Cardiac Index 2.2 - Exam GENERAL EXAM: Revealed a 63-year-old white male, in no distress. On room air HEAD: Normocephalic/atraumatic. EYES: Normal reaction of pupils, equal size. Conjunctiva pink, sclera white. NOSE: Clear with pink turbinates. THROAT: No erythema or exudates. NECK: No masses, no JVD, no thyroid enlargement, no adenopathy. CHEST: No chest wall deformity. Symmetrical expansion. Rhonchi noted bilaterally wheezing on forced expiratory maneuver was also noted. CVS: Regular rate and rhythm, normal S1 and S2, no gallops, no murmurs, no rubs ABDOMEN: Soft, nontender. No hepatosplenomegaly, normal bowel sounds, no guarding or rigidity. EXTREMITIES: No clubbing, no edema, no cyanosis, 2+ pulses and upper and lower extremities. Bilateral lower extremities are hamlet wrapped, and SCDs are on MUSCULOSKELETAL: Muscle strength and tone normal. SPINE: No scoliosis or deformity CENTRAL NERVOUS SYSTEM: Alert oriented 3, no gross focal neurologic deficit.. - Labs CBC & Chem 7: 02/19/19 05:30 02/19/19 05:30 Labs: Abnormal Lab Results - Last 24 Hours (Table) 02/18/19 02/18/19 02/19/19 Range/Units 17:16 20:20 05:30 WBC (3.8-10.6) k/uL RBC (4.30-5.90) m/uL Hgb (13.0-17.5) gm/dL Hct (39.0-53.0) % RDW (11.5-15.5) % Plt Count (150-450) k/uL Neutrophils # (Manual) (1.3-7.7) k/uL Nucleated RBCs (0-0) /100 WBC Sodium 136 L (137-145) mmol/L Carbon Dioxide 33 H (22-30) mmol/L BUN 52 H (9-20) mg/dL Creatinine 1.27 H (0.66-1.25) mg/dL POC Glucose (mg/dL) 123 H 157 H (75-99) mg/dL Magnesium 3.0 H (1.6-2.3) mg/dL Total Protein 5.1 L (6.3-8.2) g/dL Albumin 3.2 L (3.5-5.0) g/dL 02/19/19 02/19/19 02/19/19 Range/Units 05:30 07:03 09:28 WBC 12.0 H (3.8-10.6) k/uL RBC 2.32 L (4.30-5.90) m/uL Hgb 7.7 L (13.0-17.5) gm/dL Hct 23.0 L (39.0-53.0) % RDW 18.0 H (11.5-15.5) % Plt Count 127 L (150-450) k/uL Neutrophils # (Manual) 9.96 H (1.3-7.7) k/uL Nucleated RBCs 5 H (0-0) /100 WBC Sodium (137-145) mmol/L Carbon Dioxide (22-30) mmol/L BUN (9-20) mg/dL Creatinine (0.66-1.25) mg/dL POC Glucose (mg/dL) 116 H 111 H (75-99) mg/dL Magnesium (1.6-2.3) mg/dL Total Protein (6.3-8.2) g/dL Albumin (3.5-5.0) g/dL 02/19/19 Range/Units 11:59 WBC (3.8-10.6) k/uL RBC (4.30-5.90) m/uL Hgb (13.0-17.5) gm/dL Hct (39.0-53.0) % RDW (11.5-15.5) % Plt Count (150-450) k/uL Neutrophils # (Manual) (1.3-7.7) k/uL Nucleated RBCs (0-0) /100 WBC Sodium (137-145) mmol/L Carbon Dioxide (22-30) mmol/L BUN (9-20) mg/dL Creatinine (0.66-1.25) mg/dL POC Glucose (mg/dL) 135 H (75-99) mg/dL Magnesium (1.6-2.3) mg/dL Total Protein (6.3-8.2) g/dL Albumin (3.5-5.0) g/dL Assessment and Plan Assessment: Impression: Status post CABG 4 totally occluded RCA, status post one-vessel coronary artery bypass with saphenous vein graft to RCA, postoperative day #4 Status post mitral valve replacement with a bioprosthetic magna ease #29 valve postoperative day number Previous CABG in 2002 Severe pulmonary hypertension documented on previous JACEK with right-sided pressures in the 70s. Benign essential hypertension History of Hodgkin's lymphoma and previous radiation History of 3 mm nodule will need to be monitored on outpatient basis follow-up CT in 6 months. Nicotine dependence syndrome [id number] smoking history with moderate COPD and FEV1 in the range of 62%. And some component of restrictive lung disease most likely related to previous radiation. Recommendation: Continue present supportive care measures, continue updrafts, Pulmicort updrafts were added. continue incentive spirometry, GI and DVT prophylaxis, continue to monitor labs and renal profile on a daily basis, monitor electrolytes, and monitor hemoglobin. Continue aspirin and statin and Plavix, we'll continue to follow. Time with Patient: Less than 30
[2019-02-19] MEDS: LACTATED RINGERS 1,000 ML IV SCH (17:20)
[2019-02-19 17:26] LABS: Glucose,Whole Blood 99 mg/dL (75-99)
[2019-02-19 20:25] LABS: Glucose,Whole Blood 110 mg/dL (75-99)
--- NOTE | 2019-02-19 22:08 | PN ---
PROGRESS NOTE DATE OF SERVICE: 02/19/2019 PRESENTING COMPLAINT: Coronary artery bypass. INTERVAL HISTORY: Patient is status post coronary artery bypass, mitral valve replacement, prosthetic cow valve, sitting up in a chair. Chest tube is in place. Appetite has picked up a bit today. Did walk a bit. Overall feeling better. Breathing is more stable. REVIEW OF SYSTEMS: Done for constitutional, cardiovascular, GI, pulmonary; relevant findings as above. CURRENT MEDICATIONS: Reviewed. PHYSICAL EXAMINATION: VITAL SIGNS: Temperature 97.9, pulse 59, respiration 15, blood pressure 113/80, pulse ox 92% on room air. GENERAL APPEARANCE: Sitting up in a chair. Looking more comfortable. EYES: Pupils equal. Conjunctivae normal. NECK: JVD not raised. Mass not palpable. RESPIRATORY: Effort normal. Lungs are clear. LUNGS: Decreased breath sounds. CARDIOVASCULAR: First and second sounds normal. No edema. ABDOMEN: Soft, non-tender. Liver and spleen not palpable. PSYCHIATRY: Alert and oriented x3. Mood and affect normal. INVESTIGATIONS: White count 12, hemoglobin 7.7, platelets 127, potassium 4.4, BUN 52, creatinine 1.27. ASSESSMENT: 1. Status post coronary artery bypass, one vessel, and prosthetic mitral valve replacement. 2. Acute postoperative blood loss anemia, expected from surgery. 3. Dilutional thrombocytopenia. 4. Essential hypertension. 5. Hyperlipidemia. 6. Restless legs syndrome. 7. Coronary artery disease. 8. Chronic insomnia, idiopathic. 9. Acute renal failure. Creatinine is gone from 0.64 up to 1.27; likely prerenal from getting IV Lasix. Must be careful with his diuretics. Follow electrolytes very closely. If need be, depending on renal function we may have to consult Nephrology. MMODL / IJN: [id number] /
[2019-02-19] MEDS: SENNOSIDES-DOCUSATE SODIUM 1 EACH TAB PO SCH (22:09)
[2019-02-20] MEDS: HYDROcodone/APAP 7.5-325MG 1 EACH TAB PO PRN ×4 (02:56→20:34)
[2019-02-20 04:59] LABS: Anisocytosis Slight; HGB 7.6 gm/dL (13.0-17.5); MCH 33.1 pg (25.0-35.0); MCHC 33.2 g/dL (31.0-37.0); MCV 99.5 fL (80.0-100.0); Macrocytosis Slight; Mean Platelet Volume 8.1; Platelet Count 168 k/uL (150-450); Poikilocytosis Slight; RBC 2.31 m/uL (4.30-5.90); RDW 17.1 % (11.5-15.5); WBC 9.7 k/uL (3.8-10.6)
[2019-02-20 05:08] LABS: Anion Gap 2 mmol/L; Blood Urea Nitrogen 59 mg/dL (9-20); Carbon Dioxide 32 mmol/L (22-30); Chloride 103 mmol/L (98-107); Glucose 88 mg/dL (74-99); Potassium 4.4 mmol/L (3.5-5.1); Sodium 137 mmol/L (137-145)
--- NOTE | 2019-02-20 06:25 | XR ---
EXAMINATION TYPE: XR chest 1V portable DATE OF EXAM: 02/20/2019 HISTORY: Post cardiac surgery. REFERENCE: Previous study dated 02/19/2019. FINDINGS: The patient's left pleural drain has been removed. The right pleural drain remains in place . There continue to be small apical pneumothoraces present bilaterally. The heart is enlarged. There is left basilar airspace disease. There is a left effusion. IMPRESSION: CONTINUING BIAPICAL PNEUMOTHORACES.
[2019-02-20 07:32] LABS: Glucose,Whole Blood 129 mg/dL (75-99)
--- NOTE | 2019-02-20 07:42 | P.PN ---
Subjective Progress Note Date: 02/20/19 Principal diagnosis: Status post coronary artery bypass grafting This is a pleasant 63-year-old gentleman with a past medical history significant for coronary artery disease and prior coronary artery bypass grafting in 2002, hypertension, dyslipidemia, the patient does follow with Dr. CYRIL Vogt in the office as an outpatient, was experiencing recently a worsening dyspnea even with minor activities. Because of that a heart catheterization was performed and that revealed the total occlusion of the vein graft to the RCA as well as a total occlusion of the graft to OM and diagonal. The LAD WEBSTER to LAD was patent. Beside that he was found to have severe mitral regurgitation which was documented by transesophageal echocardiogram. Because of that the patient was referred for redo CABG as well as mitral valve repair. He underwent redo CABG and mitral valve repair yesterday. He underwent single-vessel bypass with SVG to RCA and mitral valve repair using #29 valve. On follow-up with the patient today, 02/20/2019, this is postoperative day #5. The patient is doing good clinically. Hemodynamically he continues to be stable. He is on maximize medical treatment. He possibly can be discharged home in the next 24-48 hours. Objective - Vital Signs Vital signs: Vital Signs Temp 98 F 02/20/19 04:00 Pulse 63 02/20/19 04:00 Resp 10 L 02/20/19 04:00 BP 135/77 02/20/19 04:00 Pulse Ox 99 02/20/19 04:00 Intake & Output 02/19/19 02/20/19 02/20/19 18:59 06:59 18:59 Intake Total 181 250 Output Total 257 400 150 Balance -76 -150 -150 Weight 83.4 kg Intake: IV 181 Lactated Ringers 1,000 ml 160 @ 20 mls/hr IV .Q24H [facility] Rx#:[id number] pressure bag 21 Oral 250 Output: Chest Tube Drainage 150 Chest Tube Right 150 Urine 257 400 Other: Voiding Method Urinal Bedside Commode Urinal # Voids 1 # Bowel Movements 1 1 ABP, PAP, CO, CI - Last Documented Arterial Blood Pressure 133/64 Pulmonary Artery Pressure 32/17 Cardiac Output 4.6 Cardiac Index 2.2 - Constitutional General appearance: Present: no acute distress - Respiratory Respiratory: bilateral: diminished - Cardiovascular Rhythm: regular - Labs CBC & Chem 7: 02/20/19 04:34 02/20/19 04:34 Labs: Abnormal Lab Results - Last 24 Hours (Table) 02/19/19 02/19/19 02/19/19 Range/Units 09:28 11:59 20:17 RBC (4.30-5.90) m/uL Hgb (13.0-17.5) gm/dL Hct (39.0-53.0) % RDW (11.5-15.5) % Carbon Dioxide (22-30) mmol/L BUN (9-20) mg/dL POC Glucose (mg/dL) 111 H 135 H 110 H (75-99) mg/dL 02/20/19 02/20/19 02/20/19 Range/Units 04:34 04:34 07:12 RBC 2.31 L (4.30-5.90) m/uL Hgb 7.6 L (13.0-17.5) gm/dL Hct 23.0 L (39.0-53.0) % RDW 17.1 H (11.5-15.5) % Carbon Dioxide 32 H (22-30) mmol/L BUN 59 H (9-20) mg/dL POC Glucose (mg/dL) 129 H (75-99) mg/dL Assessment and Plan Assessment: Assessment #1 status post redo CABG with WEBSTER to LAD and status post mitral valve repair #2 known severe underlying coronary artery disease #3 multiple comorbid conditions Plan #1 continue the current medical regimen #2 continue dual antiplatelet therapy along with a statin and metoprolol #3 follow-up with the patient
[2019-02-20] MEDS: INSULIN ASPART (NovoLOG) 100 UNIT/ML VIAL SQ SCH ×4 (07:56→20:44)
[2019-02-20] MEDS: BUDESONIDE 1 MG/2 ML NEBU INHALATION SCH ×2 (08:03→20:54)
[2019-02-20] MEDS: IPRATROPIUM-ALBUTEROL 3 ML NEB INHALATION SCH ×4 (08:03→20:54)
[2019-02-20] MEDS: METOPROLOL TARTRATE 25 MG TAB PO SCH ×2 (08:20→20:34)
[2019-02-20] MEDS: HEPARIN SODIUM,PORCINE 5,000 UNIT/ML 1 ML VIAL SQ SCH ×2 (08:21→17:00)
[2019-02-20] MEDS: ASPIRIN 325 MG TAB PO SCH (08:21)
[2019-02-20] MEDS: CLOPIDOGREL 75 MG TAB PO SCH (08:21)
[2019-02-20] MEDS: LEVOTHYROXINE 50 MCG TAB PO SCH (08:21)
[2019-02-20] MEDS: ATORVASTATIN 40 MG TAB PO SCH (08:21)
[2019-02-20] MEDS: hydrALAZINE HCL 25 MG TAB PO SCH ×2 (08:21→20:34)
[2019-02-20] MEDS: PANTOPRAZOLE 40 MG TABLET PO SCH (08:21)
[2019-02-20] MEDS ORDERED: FUROSEMIDE 10 MG/ML 4 ML VIAL IV STA (09:13)
--- NOTE | 2019-02-20 10:42 | P.PN ---
Subjective Progress Note Date: 02/20/19 Principal diagnosis: Coronary artery disease and severe mitral regurgitation, status post CABG/one- vessel coronary artery bypass with saphenous vein graft to RCA, and mitral valve replacement with bioprosthetic magna ease #29 valve. Postoperative day #5 This is a 63-year-old white male patient of Dr. Esme Raymond, with history of coronary artery disease with bypass surgery in 2002, with the reocclusion of the 2 vein grafts in 2005 requiring stenting of the [place] circumflex, that follows with Dr. CYRIL Vogt, was found to have progression of coronary artery disease, and severe mitral regurgitation. Patient was complaining of worsening dyspnea with mild activity. Heart catheterization showed a total occlusion of the vein graft to the RCA representing progression of the disease, and there was a previously occluded vein graft to the OM and the diagonal. The WEBSTER to LAD was patent, and the free radial artery graft to the first obtuse marginal was patent. Transesophageal echocardiogram revealed severe degree of mitral regurgitation with reversal of flow in the pulmonary vein, with restriction of the posterior leaflet, there was no evidence of mitral valve prolapse or any flail mitral leaflet, no evidence of thrombus in the left atrium, there was moderate degree of tricuspid regurgitation with severe pulmonary hypertension with right ventricular systolic pressure in the range of 70 to 80 mmHg, anterior atrial septum was intact. Patient was recommended surgical intervention, and today on 02/15/2019 patient underwent a single-vessel bypass with a saphenous vein graft to the RCA and a mitral valve replacement with a tissue valve, Magna- Ease bioprosthetic valve #29. Patient is seen in the intensive care unit following surgery, sedated, intubated on mechanical ventilator, and initial vent settings were SIMV mode of ventilation with a rate of 12, tidal vital 500, FiO2 100% and PEEP of 5, and blood gases were obtained, which showed pO2 of 293, pCO2 of 53, and pH of 7.23, and ventilator adjustments were made, patient was placed on assist-control mode of ventilation with a rate of 16, FiO2 was decreased to 60%, and PEEP was increased to 8 related to bleeding from the chest tubes. Patient had estimated EBL of around 2 L, he did receive 2 units of fresh frozen plasma, 1 unit of platelets. Patient has 4 chest tubes, right pleural connected with right mediastinal, and left pleural connected with left mediastinal chest tubes, with sanguinous output in the Pleur-evac. Maintenance IV fluids include lactated Ringer's at a rate of 50 ML per hour, nitroglycerin drip at 5 mics per minute, Diprivan and at 30 mics per kilo per minute, levo fed at 7.9 mics per minute, insulin is at 3 units per hour, Primacor is a 3.75 mics per kilo per minute. PA pressures are 32/22, cardiac output and index are 3.5 and 1.8 respectively. Patient was reevaluated today on 02/16/2019, patient was on mechanical ventilation overnight, extubated early this morning, he was on a very short course of Precedex prior to extubation. Patient tolerated the extubation well, doing quite well at present, feels generally weak and tired. Denies any cough no wheezing no shortness of breath, no chest pain. Chest x-ray showed mild cardiomegaly, small left pleural effusion, and lines and catheters noted to be in proper position. Labs were reviewed. Hemoglobin is 7.4, electrolytes are normal BUN is 23 creatinine 1.06. All drips were reviewed. Reevaluated today on 02/17/2019, patient is sitting in a recliner, asymptomatic, in no distress, does have some incisional pain and discomfort. Denies being short of breath, patient continues to have underlying sinus bradycardia rhythm in the 50s. Presently he is being paced. Labs showed hemoglobin of 7.4 WBC count of 10.5 electrodes are normal renal profile is normal. Chest x-ray continues to show 2 chest tubes on the left, one chest tube on the right, small right apical pneumothorax is noted, small left pleural effusion is also noted with some atelectasis. Reevaluated today on 02/18/2019, patient seems to be comfortable, sitting at a bedside chair, in no distress, however on examination he is noted to have signi ficant rhonchi and wheezes bilaterally. Patient is not doing quite well with incentive spirometry, and not doing well with deep coughing and deep breathing. I recommended Solu-Medrol because of his wheezing yesterday, discontinued by thoracic surgery, mostly concerned about surgical wound healing. Patient is presently on DuoNeb 4 times a day and when necessary, he is also on Pulmicort. Patient is hemodynamically stable, intermittently bradycardic, that is being addressed by cardiology. Remains on dual antiplatelet therapy as well as statin. Labs showed the PEEP cigar of 10.8 hemoglobin 8.1. Electrolytes and renal profile are normal. Chest x-ray showed improving tiny right apical pneu mothorax left basilar atelectasis. And possibly a small left pleural effusion Patient was reevaluated today on 02/19/2019, remains in the ICU, continues to have chest tubes in place, patient is comfortable, complaining of pain, denies any fever chills, continues to have poor cough, and doing poorly with incentive spirometry. Chest x-ray showed small biapical pneumothoraces, estimated to be less than 10%. Patient is hemodynamically stable, remains on diuretics. Reevaluated today on 02/19/2019, remains in the ICU, seems to be quite comfortable, in no distress, no cough no fever no chills, doing well with incentive spirometry, feels congested intermittently, but denies shortness of breath. Chest x-ray continues to have biapical small tiny pneumothoraces. Right-sided Chest tube remains in place. Objective - Vital Signs Vital signs: Vital Signs Temp 98.7 F 02/20/19 08:00 Pulse 76 02/20/19 08:18 Resp 13 02/20/19 08:00 BP 131/80 02/20/19 08:00 Pulse Ox 96 02/20/19 08:00 Intake & Output 02/19/19 02/20/19 02/20/19 18:59 06:59 18:59 Intake Total 181 250 Output Total 257 400 150 Balance -76 -150 -150 Weight 83.4 kg Intake: IV 181 Lactated Ringers 1,000 ml 160 @ 20 mls/hr IV .Q24H [facility] Rx#:[id number] pressure bag 21 Oral 250 Output: Chest Tube Drainage 150 Chest Tube Right 150 Urine 257 400 Other: Voiding Method Urinal Bedside Commode Bedside Commode Urinal Urinal # Voids 1 # Bowel Movements 1 1 ABP, PAP, CO, CI - Last Documented Arterial Blood Pressure 133/64 Pulmonary Artery Pressure 32/17 Cardiac Output 4.6 Cardiac Index 2.2 - Exam GENERAL EXAM: Revealed a 63-year-old white male, in no distress. On room air HEAD: Normocephalic/atraumatic. EYES: Normal reaction of pupils, equal size. Conjunctiva pink, sclera white. NOSE: Clear with pink turbinates. THROAT: No erythema or exudates. NECK: No masses, no JVD, no thyroid enlargement, no adenopathy. CHEST: No chest wall deformity. Symmetrical expansion. Rhonchi noted bilaterally wheezing on forced expiratory maneuver was also noted. Right-sided chest tube is noted in place CVS: Regular rate and rhythm, normal S1 and S2, no gallops, no murmurs, no rubs ABDOMEN: Soft, nontender. No hepatosplenomegaly, normal bowel sounds, no guarding or rigidity. EXTREMITIES: No clubbing, no edema, no cyanosis, 2+ pulses and upper and lower extremities. Bilateral lower extremities are hamlet wrapped, and SCDs are on MUSCULOSKELETAL: Muscle strength and tone normal. SPINE: No scoliosis or deformity CENTRAL NERVOUS SYSTEM: Alert oriented 3, no gross focal neurologic deficit.. - Labs CBC & Chem 7: 02/20/19 04:34 02/20/19 04:34 Labs: Abnormal Lab Results - Last 24 Hours (Table) 02/19/19 02/19/19 02/20/19 Range/Units 11:59 20:17 04:34 RBC 2.31 L (4.30-5.90) m/uL Hgb 7.6 L (13.0-17.5) gm/dL Hct 23.0 L (39.0-53.0) % RDW 17.1 H (11.5-15.5) % Carbon Dioxide (22-30) mmol/L BUN (9-20) mg/dL POC Glucose (mg/dL) 135 H 110 H (75-99) mg/dL 02/20/19 02/20/19 Range/Units 04:34 07:12 RBC (4.30-5.90) m/uL Hgb (13.0-17.5) gm/dL Hct (39.0-53.0) % RDW (11.5-15.5) % Carbon Dioxide 32 H (22-30) mmol/L BUN 59 H (9-20) mg/dL POC Glucose (mg/dL) 129 H (75-99) mg/dL Assessment and Plan Assessment: Impression: Status post CABG 4 totally occluded RCA, status post one-vessel coronary artery bypass with saphenous vein graft to RCA, postoperative day #5 Status post mitral valve replacement with a bioprosthetic magna ease #29 valve postoperative day #5 Previous CABG in 2003 Severe pulmonary hypertension documented on previous JACEK with right-sided pressures in the 70s. Benign essential hypertension History of Hodgkin's lymphoma and previous radiation History of 3 mm nodule will need to be monitored on outpatient basis follow-up CT in 6 months. Nicotine dependence syndrome [id number] smoking history with moderate COPD and FEV1 in the range of 62%. And some component of restrictive lung disease most likely related to previous radiation. Recommendation: Continue present supportive care measures, continue updrafts, Pulmicort updrafts will continue. continue incentive spirometry, GI and DVT prophylaxis, continue to monitor labs and renal profile on a daily basis, monitor electrolytes, and monitor hemoglobin. Continue aspirin and statin and Plavix, we'll continue to follow. Time with Patient: Less than 30
[2019-02-20] MEDS: MULTIVITAMINS, THERA 1 EACH TAB PO SCH (12:18)
[2019-02-20 12:57] LABS: Glucose,Whole Blood 103 mg/dL (75-99)
--- NOTE | 2019-02-20 14:28 | P.PN ---
Subjective Progress Note Date: 02/20/19 Principal diagnosis: Severe nonrheumatic mitral regurgitation, coronary artery disease, severe pulmonary hypertension. 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 POD #5 redo sternotomy, mitral valve replacement with #29 mm magna ease bioprosthetic aortic valve, coronary bypass grafting 1 with reverse saphenous vein graft off the aorta to the posterior descending artery with right lower extremity greater saphenous vein endoscopic vein harvesting and intraoperative transesophageal echocardiogram. Postoperative acute blood loss anemia, expected outcome of surgery given cardiopulmonary bypass pump and hemodilution. Postoperative thrombocytopenia, expected, reactive secondary to hemodilution and bypass pump. Acute kidney injury, likely secondary to dehydration after IV Lasix given yesterday combined with initiation of Cozaar and Toradol. Patient is sitting up to bedside chair. He is in no acute distress. Denies any complaints of pain but reports that he is having episodes where he feels like he is gasping for his breaths. The patient states that he has had this feeling for a couple years even be for his open heart surgery. Bedside telemetry shows normal sinus rhythm heart rate 76. Remains hemodynamically stable and is on no inotropic or pressor support. Cozaar and Toradol were discontinued yesterday due to a bump in his BUN and creatinine. He also reports that he has been ambulating in the hallway with physical, occupational therapy and cardiac rehabilitation service. Objective - Vital Signs Vital signs: Vital Signs Temp 97.8 F 02/20/19 12:00 Pulse 82 02/20/19 12:00 Resp 17 02/20/19 12:00 BP 117/66 02/20/19 12:00 Pulse Ox 96 02/20/19 12:00 Intake & Output 02/19/19 02/20/19 02/20/19 18:59 06:59 18:59 Intake Total 181 250 Output Total 257 400 150 Balance -76 -150 -150 Weight 83.4 kg Intake: IV 181 Lactated Ringers 1,000 ml 160 @ 20 mls/hr IV .Q24H [facility] Rx#:[id number] pressure bag 21 Oral 250 Output: Chest Tube Drainage 150 Chest Tube Right 150 Urine 257 400 Other: Voiding Method Urinal Bedside Commode Bedside Commode Urinal Urinal # Voids 1 # Bowel Movements 1 1 ABP, PAP, CO, CI - Last Documented Arterial Blood Pressure 133/64 Pulmonary Artery Pressure 32/17 Cardiac Output 4.6 Cardiac Index 2.2 - Constitutional General appearance: Present: cooperative, no acute distress - Respiratory Details: Lungs sounds are diminished to his bilateral bases. Respirations are symmetrical and nonlabored. Oxygen saturation is are 95% on room air. Achieving 1500 mL on his incentive spirometry. Right pleural chest tube in place to low continuous wall suction -20 cm H2O. No air leak is present. Draining thin serosanguineous drainage with 150 mL output in the last 8 hours, 350 mL output in the last 24 hours. - Cardiovascular Details: Regular rhythm and rate. S1 and S2 present, negative for S3, gallop or murmur. Atrial and ventricular epicardial pacemaker wires present and grounded. Sternum is stable. Heart hugger is in place and he is demonstrating appropriate use. Knee-high NICOLLE hose and sequential compression devices in place was bilateral lower extremities. No edema present. Bedside telemetry showing normal sinus rhythm heart rate 76. - Gastrointestinal Gastrointestinal Comment(s): Abdomen is soft, nontender and nondistended. Active bowel sounds to all 4 abdominal quadrants. Tolerating oral intake. Passing flatus. Bowel movement. - Genitourinary Genitourinary Comment(s): Voiding clear yellow urine. - Integumentary Integumentary Comment(s): Skin is warm and dry. No clubbing or cyanosis is present. Midline sternal incision is clean, dry and approximated. Dressing is clean, dry and intact. Right lower extremity EVH site is clean, dry and approximated. No drainage or redness at present. - Neurologic Neurologic: Present: CNII-XII intact - Musculoskeletal Musculoskeletal: Present: gait normal, strength equal bilaterally - Psychiatric Psychiatric: Present: A&O x's 3, appropriate affect, intact judgment & insight - Allied health notes Allied health notes reviewed: nursing - Labs CBC & Chem 7: 02/20/19 04:34 02/20/19 04:34 Labs: Abnormal Lab Results - Last 24 Hours (Table) 02/19/19 02/20/19 02/20/19 Range/Units 20:17 04:34 04:34 RBC 2.31 L (4.30-5.90) m/uL Hgb 7.6 L (13.0-17.5) gm/dL Hct 23.0 L (39.0-53.0) % RDW 17.1 H (11.5-15.5) % Carbon Dioxide 32 H (22-30) mmol/L BUN 59 H (9-20) mg/dL POC Glucose (mg/dL) 110 H (75-99) mg/dL 02/20/19 02/20/19 Range/Units 07:12 12:07 RBC (4.30-5.90) m/uL Hgb (13.0-17.5) gm/dL Hct (39.0-53.0) % RDW (11.5-15.5) % Carbon Dioxide (22-30) mmol/L BUN (9-20) mg/dL POC Glucose (mg/dL) 129 H 103 H (75-99) mg/dL - Imaging and Cardiology Chest x-ray: report reviewed, image reviewed Assessment and Plan Assessment: 1. Severe nonrheumatic mitral regurgitation, status post bioprosthetic mitral valve replacement 2. Coronary artery disease, status post redo coronary bypass surgery 3. Severe pulmonary hypertension 4. History of coronary artery disease status post CABG in 2002 with subsequent stenting of the [place] circumflex in 2005 5. Previous myocardial infarction 6. Hyperlipidemia 7. Hypertension 8. Chronic systolic heart failure 9. Hypothyroidism 10. Hodgkin's lymphoma in 1987 status post radiation 11. 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 Restless leg syndrome 13. Splenectomy 14. Solitary 3 mm left basilar pulmonary nodule 15. Mild COPD with preoperative FEV1 62% of predicted 16. Previous tobacco dependence 17. Postoperative acute blood loss anemia and expected outcome 18. Postoperative thrombocytopenia, expected Plan: 1. Continue aspirin, statin, Plavix, hydralazine and beta cristina. Will increase his beta cristina as tolerated. 2. Lasix 40 mg IV 1 now. 3. Encourage incentive spirometry is 10 times every hour while awake. 4. Increase activity, ambulate as tolerated. PT/OT/cardiac rehab following. 5. Bronchodilators per pulmonology. Encourage continued smoking cessation. 6. Will monitor daily labs and x-rays. Electrolyte replacement protocol. 7. Pain control with current medication regimen. 8. Insulin management per primary care service. 9. GI/DVT prophylaxis. 10. Will discontinue right pleural chest tube. 11. May transfer when bed available to 3 S. cardiac stepdown unit. 12. Patient may need rehab at discharge, would likely need daily physician visits and frequent lab work as well as higher acuity nursing care and nutritional management. 13. Discontinue atrial and ventricular epicardial pacemaker wires now, bed rest for 1 hour post pacemaker wire removal. 14. More recommendations to follow based on patient's clinical course. Atrial and ventricular epicardial pacemaker wires removed today without incident at 10:30 AM. He'll be on bed rest for 1 hour post pacemaker wire removal. Right pleural chest tube removed today without incident at 11:50 AM. 4 x 4 gauze to cover, Vaseline impregnated gauze and secured with tape. Time with Patient: Greater than 30
[2019-02-20 17:07] LABS: Glucose,Whole Blood 100 mg/dL (75-99)
--- NOTE | 2019-02-20 17:19 | PN ---
PROGRESS NOTE DATE OF SERVICE: 02/20/2019 This 63-year-old gentleman who was admitted after CAD, CABG is improved significantly. The patient also had mitral valve replacement. The patient had previous CABG in 2002. The chest tube has been removed at this time. Blood sugar has been improved at 110, 120, 103. The patient is being closely monitored. Hemoglobin 7.6. PAST MEDICAL HISTORY: Reviewed. REVIEW OF SYSTEMS: CARDIOVASCULAR SYSTEM: No angina. RESPIRATORY SYSTEM: As mentioned earlier. GI: As mentioned earlier. : No dysuria. NERVOUS SYSTEM: No numbness or weakness. CURRENT MEDICATIONS: Current medications are reviewed and include: 1. [place] 7.5 p.r.n. 2. DuoNeb q.i.d. and p.r.n. 3. Amiodarone for atrial fibrillation. 4. Aspirin 325 mg daily. 5. Lipitor. 6. Cepacol. 7. Pulmicort. 8. Plavix. 9. Apresoline. 10.Synthroid 50 mcg daily. 11.Reglan. 12.Lopressor. 13.Magnesium replacement protocols. 14.Zofran. 15.Protonix. 16.Senokot. PHYSICAL EXAMINATION: Patient is alert and oriented x3. Pulse 82, blood pressure 117/66, respiration 17, temperature 97.8, pulse ox 96% on room air. HEENT: Conjunctivae normal. NECK: No jugular venous distention. CARDIOVASCULAR: S1, S2 muffled. RESPIRATORY: Breath sounds diminished at bases. A few scattered rhonchi and crackles. ABDOMEN: Soft, nontender. LEGS: No edema. NERVOUS SYSTEM: No focal deficits. LABS: Labs are at this time show labs are WBC 9.7, hemoglobin 7.6. Sodium 137, potassium 4.4. Glucose 129, 103. ASSESSMENT: 1. Status post coronary artery disease, coronary artery bypass grafting and prosthetic mitral valve replacement. 2. Acute postoperative blood-loss anemia, suspected from the surgery. 3. Dilutional thrombocytopenia. 4. Essential hypertension. 5. Hyperlipidemia. 6. Restless legs syndrome. 7. Coronary artery disease. 8. Chronic insomnia, idiopathic. 9. Acute renal failure. 10.Remote history of nicotine dependence. 11.History of severe pulmonary hypertension. 12.History of Hodgkin's lymphoma with previous radiation. RECOMMENDATIONS AND DISCUSSION: Recommend to continue current medications. Continue symptomatic treatment. Continue the bronchodilators. Continue with DVT prophylaxis. Repeat labs and incentive spirometry. Continue with insulin scale and Accu-Cheks a.c. and at bedtime. The patient did not have any history of previous history of diabetes mellitus, so the elevated blood sugars could be managed by sliding scale and continue to monitor. Further recommendations to follow. MMODL / IJN: [id number] /
[2019-02-20] MEDS: SENNOSIDES-DOCUSATE SODIUM 1 EACH TAB PO SCH (20:35)
[2019-02-20 20:50] LABS: Glucose,Whole Blood 123 mg/dL (75-99)
[2019-02-21] MEDS: HEPARIN SODIUM,PORCINE 5,000 UNIT/ML 1 ML VIAL SQ SCH ×2 (00:15→09:12)
[2019-02-21] MEDS: HYDROcodone/APAP 7.5-325MG 1 EACH TAB PO PRN ×2 (04:44→09:11)
[2019-02-21 05:38] LABS: Anisocytosis Slight; HCT 23.5 % (39.0-53.0); HGB 7.9 gm/dL (13.0-17.5); Hypochromasia Slight; MCH 33.6 pg (25.0-35.0); MCHC 33.7 g/dL (31.0-37.0); MCV 99.7 fL (80.0-100.0); Macrocytosis Slight; Mean Platelet Volume 8.2; Platelet Count 190 k/uL (150-450); Poikilocytosis Slight; RBC 2.36 m/uL (4.30-5.90); RDW 18.2 % (11.5-15.5); WBC 10.5 k/uL (3.8-10.6)
[2019-02-21 05:48] LABS: Anion Gap 4 mmol/L; Blood Urea Nitrogen 37 mg/dL (9-20); Calcium 8.9 mg/dL (8.4-10.2); Carbon Dioxide 33 mmol/L (22-30); Chloride 101 mmol/L (98-107); Glucose 110 mg/dL (74-99); Potassium 3.8 mmol/L (3.5-5.1); Sodium 138 mmol/L (137-145)
--- NOTE | 2019-02-21 06:48 | XR ---
EXAMINATION TYPE: XR chest 1V portable DATE OF EXAM: 02/21/2019 HISTORY: Postoperative redo CABG/mitral valve replacement. REFERENCE: Previous study dated 02/20/2019. FINDINGS: The patient's right pleural drain has been removed. There continues to be a small right api miladys pneumothorax. No definite left-sided pneumothorax is seen. There is left basilar airspace disease. There is a left-sided effusion. The heart is not enlarged. IMPRESSION: 1. TINY RIGHT APICAL PNEUMOTHORAX. 2. CONTINUING LEFT BASILAR AIRSPACE DISEASE. 3. SMALL, LEFT-SIDED EFFUSION.
[2019-02-21 07:27] LABS: Glucose,Whole Blood 109 mg/dL (75-99)
[2019-02-21] MEDS: INSULIN ASPART (NovoLOG) 100 UNIT/ML VIAL SQ SCH ×2 (07:51→12:09)
[2019-02-21] MEDS: BUDESONIDE 1 MG/2 ML NEBU INHALATION SCH (07:53)
[2019-02-21] MEDS: IPRATROPIUM-ALBUTEROL 3 ML NEB INHALATION SCH ×2 (07:53→11:37)
[2019-02-21] MEDS: hydrALAZINE HCL 25 MG TAB PO SCH (09:11)
[2019-02-21] MEDS: LEVOTHYROXINE 50 MCG TAB PO SCH (09:11)
[2019-02-21] MEDS: PANTOPRAZOLE 40 MG TABLET PO SCH (09:11)
[2019-02-21] MEDS: ASPIRIN 325 MG TAB PO SCH (09:12)
[2019-02-21] MEDS: CLOPIDOGREL 75 MG TAB PO SCH (09:12)
[2019-02-21] MEDS: ATORVASTATIN 40 MG TAB PO SCH (09:12)
[2019-02-21] MEDS: METOPROLOL TARTRATE 25 MG TAB PO SCH (09:12)
[2019-02-21 09:20] VITALS: TEMP 98.4
[2019-02-21] MEDS ORDERED: FUROSEMIDE 10 MG/ML 4 ML VIAL IV STA (11:23)
[2019-02-21] MEDS ORDERED: POTASSIUM CHLORIDE ER 20 MEQ TAB.ER PO SCH (11:30)
[2019-02-21] MEDS: MULTIVITAMINS, THERA 1 EACH TAB PO SCH (11:50)
[2019-02-21 12:08] VITALS: BP 109/66; PULSE 79; RESP 21
[2019-02-21 12:09] LABS: Glucose,Whole Blood 101 mg/dL (75-99)
--- NOTE | 2019-02-21 12:56 | P.PN ---
Subjective Progress Note Date: 02/21/19 Principal diagnosis: Status post coronary artery bypass grafting This is a pleasant 63-year-old gentleman with a past medical history significant for coronary artery disease and prior coronary artery bypass grafting in 2002, hypertension, dyslipidemia, the patient does follow with Dr. CYRIL Vogt in the office as an outpatient, was experiencing recently a worsening dyspnea even with minor activities. Because of that a heart catheterization was performed and that revealed the total occlusion of the vein graft to the RCA as well as a total occlusion of the graft to OM and diagonal. The LAD WEBSTER to LAD was patent. Beside that he was found to have severe mitral regurgitation which was documented by transesophageal echocardiogram. Because of that the patient was referred for redo CABG as well as mitral valve repair. He underwent redo CABG and mitral valve repair yesterday. He underwent single-vessel bypass with SVG to RCA and mitral valve repair using #29 valve. On follow-up with the patient today, 02/21/2019, this is postoperative day #6. The patient is doing good clinically. Hemodynamically he continues to be stable. He is on maximize medical treatment. He possibly can be discharged home in the next 24-48 hours. Objective - Vital Signs Vital signs: Vital Signs Temp 98.4 F 02/21/19 12:00 Pulse 79 02/21/19 12:00 Resp 21 02/21/19 12:00 BP 109/66 02/21/19 10:00 Pulse Ox 94 L 02/21/19 12:00 Intake & Output 02/20/19 02/21/19 02/21/19 18:59 06:59 18:59 Intake Total 180 250 Output Total 150 450 700 Balance -150 -270 -450 Weight 80.4 kg Intake: Oral 180 250 Output: Chest Tube Drainage 150 Chest Tube Right 150 Urine 450 700 Other: Voiding Method Bedside Commode Bedside Commode Bedside Commode Urinal Urinal Urinal # Voids 3 # Bowel Movements 1 1 ABP, PAP, CO, CI - Last Documented Arterial Blood Pressure 133/64 Pulmonary Artery Pressure 32/17 Cardiac Output 4.6 Cardiac Index 2.2 - Constitutional General appearance: Present: no acute distress - Respiratory Respiratory: bilateral: diminished - Cardiovascular Rhythm: regular - Labs CBC & Chem 7: 02/21/19 05:08 02/21/19 05:08 Labs: Abnormal Lab Results - Last 24 Hours (Table) 02/20/19 02/20/19 02/20/19 Range/Units 12:07 17:04 20:38 RBC (4.30-5.90) m/uL Hgb (13.0-17.5) gm/dL Hct (39.0-53.0) % RDW (11.5-15.5) % Carbon Dioxide (22-30) mmol/L BUN (9-20) mg/dL Glucose (74-99) mg/dL POC Glucose (mg/dL) 103 H 100 H 123 H (75-99) mg/dL 02/21/19 02/21/19 02/21/19 Range/Units 05:08 05:08 07:24 RBC 2.36 L (4.30-5.90) m/uL Hgb 7.9 L (13.0-17.5) gm/dL Hct 23.5 L (39.0-53.0) % RDW 18.2 H (11.5-15.5) % Carbon Dioxide 33 H (22-30) mmol/L BUN 37 H (9-20) mg/dL Glucose 110 H (74-99) mg/dL POC Glucose (mg/dL) 109 H (75-99) mg/dL 02/21/19 Range/Units 11:48 RBC (4.30-5.90) m/uL Hgb (13.0-17.5) gm/dL Hct (39.0-53.0) % RDW (11.5-15.5) % Carbon Dioxide (22-30) mmol/L BUN (9-20) mg/dL Glucose (74-99) mg/dL POC Glucose (mg/dL) 101 H (75-99) mg/dL Assessment and Plan Assessment: Assessment #1 status post redo CABG with WEBSTER to LAD and status post mitral valve repair #2 known severe underlying coronary artery disease #3 multiple comorbid conditions Plan #1 continue the current medical regimen #2 continue dual antiplatelet therapy along with a statin and metoprolol #3 follow-up with the patient
--- NOTE | 2019-02-21 13:03 | P.DS ---
Providers Date of admission: 02/15/19 05:36 Expected date of discharge: 02/21/19 Attending physician: Juan José Hussein Consults: 02/15/19 15:24 Consult Physician Routine Consulting Provider: Yuriy Alcantar Consult Reason/Comments: Air Brake Tester Consult: post cardiac surgery Do you want consulting provider notified?: Yes Consult Physician Routine Consulting Provider: Ashley Vogt Consult Reason/Comments: Medical Laboratory Technicians Consult: post cardiac surgery Do you want consulting provider notified?: Yes 02/16/19 10:30 Consult Physician Routine Consulting Provider: Anders Brown Consult Reason/Comments: med management Do you want consulting provider notified?: Already Contacted 02/19/19 10:14 Consult Physician Routine Consulting Provider: Roscoe Lowery Consult Reason/Comments: inpatient rehab Do you want consulting provider notified?: Yes Primary care physician: Kang Raymond [facility] Course: FINAL DIAGNOSIS: 1. Severe nonrheumatic mitral regurgitation, status post bioprosthetic mitral valve replacement 2. Coronary artery disease, status post redo coronary bypass surgery 3. Severe pulmonary hypertension 4. History of coronary artery disease status post CABG in 2002 with subsequent stenting of the takotna circumflex in 2005 5. Previous myocardial infarction 6. Hyperlipidemia 7. Hypertension 8. Chronic systolic heart failure 9. Hypothyroidism 10. Hodgkin's lymphoma in 1987 status post radiation 11. 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 Restless leg syndrome 13. Splenectomy 14. Solitary 3 mm left basilar pulmonary nodule 15. Mild COPD with preoperative FEV1 62% of predicted 16. Previous tobacco dependence 17. Postoperative acute blood loss anemia and expected outcome 18. Postoperative thrombocytopenia, expected PRINCIPAL PROCEDURE: 1. Redo sternotomy, mitral valve replacement with a #29 mm magna ease bioprosthetic mitral valve. 2. Coronary artery bypass grafting 1 using a reverse greater saphenous vein off the aorta to the posterior descending coronary artery. 3. Right lower extremity greater saphenous vein endoscopic vein harvesting. 4. Intraoperative transesophageal echocardiogram. HISTORY OF PRESENT ILLNESS: This is a 63-year-old gentleman who is followed by Dr. Esme Raymond on an outpatient basis. He is a past medical history significant for severe nonrheumatic mitral valve regurgitation, coronary artery disease having undergone a order artery bypass grafting surgery 5 vessels in 2002 with subsequent stenting of his takotna circumflex coronary artery in 2005, previous myocardial infarction, hyperlipidemia, hypertension, chronic systolic heart failure, Hypothyroidism, Hodgkin's lymphoma in 1988 status post radiation, cancer of the appendix and 2015 status post appendectomy and splenectomy, restless leg syndrome, solitary 3 mm left basilar pulmonary nodule, COPD, and remote history of tobacco dependence. The patient has been following with Dr. CYRIL Vogt from [facility] for his cardiac checkups. Recently, the patient has had complaints of progressive shortness of breath and increased swelling to his lower extremities. Subsequently he underwent a cardiac catheterization which demonstrated a total occlusion of the vein graft to his right coronary artery, previously occluded vein graft to the obtuse marginal and diagonal coronary artery, and his takotna diagonal and circumflex coronary artery was stented and were widely patent. The WEBSTER to the LAD was shown to be patent and the free radial artery graft to the obtuse marginal coronary artery was also shown to be patent. For further evaluation the patient underwent a transesophageal echocardiogram which showed an overall normal left ventricular chamber size with inferior wall hypokinesia with an ejection fraction of 45%. It also showed evidence of severe degree of mitral valve regurgitation with a reversal of flow in the pulmonary vein and a moderate degree of tricuspid valve regurgitation with severe pulmonary hypertension. Due to the patient's recent symptoms of progressive shortness of breath, cardiac catheterization results and transesophageal echocardiogram result a consult was placed to Dr. Hussein from cardiothoracic surgery. Dr. Hussein reviewed the findings of the heart catheterization and transesophageal echocardiogram results with the patient and his and an elective redo sternotomy, mitral valve repair/replacement and myocardial revascularization surgery was recommended. The risks and benefits including the STS risk score was discussed with the patient and his and they wish to proceed with an elective surgery. HOSPITAL COURSE: The patient was admitted to the hospital and after obtaining consent was taken the operating room where Dr. Juan José Hussein performed an elective redo sternotomy, mitral valve replacement with a #29 mm magna ease bioprosthetic mitral valve, a coronary artery bypass grafting 1 vessel using a reverse greater saphenous vein graft off the aorta to the posterior descending coronary artery, endoscopic vein harvesting of his right lower extremity greater saphenous vein and an intraoperative transesophageal echocardiogram. Upon completion of the surgery the patient was transferred to the cardiovascular intensive care unit where he was recovered, monitored hemodynamically and where he progressed cardiac rehabilitation phase 1. He was extubated, all lines, tubes and supportive drips were discontinued when appropriate. Transfer orders were placed for 3 S. cardiac stepdown unit but due to lack of bed availability he was kept in the intensive care unit for further monitoring and rehabilitation. His oxygen was titrated down, he continued to work with physical and occupational therapy, he was tolerating a normal heart healthy diet, his pain was well-controlled and he was ready to be discharged home with [facility] care on postoperative day #6. He has received written and verbal instructions regarding his medications, activity restrictions, signs and symptoms requiring physician notification and his follow-up appointments. COMPLICATIONS: There were no postoperative complications. CONSULTATIONS: 1. Dr. CYRIL Vogt for cardiology management. 2. Dr. Mcallister for pulmonary and ventilator management. 3. Dr. Brown for medical management. 4. Dr. Lowery for rehab management. DISCHARGE INSTRUCTIONS: 1. No driving for 4 weeks, or until physician gives their ok. 2. The patient should sleep in their own bed, no medical bed needed. 3. Stairs are not an issue. If the bedroom is upstairs, it is advised that the patient go up at night and down in the morning for the first week. Go slowly, using handrail and take 1 step at a time. 4. NICOLLE hose are to be worn for 30 days or until physician discontinues. 5. Heart hugger is to be worn 100% of the time until physician discontinues.(except when showering) 6. No lifting, pushing, or pulling more than 10 pounds for 12 weeks. The physician will advise of any restriction changes. 7. The patient is expected to continue the prescribed walking program. 8. Continue pain control per as needed orders. 9. Continue with incentive spirometry and splinting/heart hugger until otherwise directed by the physician. 10. Must shower daily using liquid antibacterial soap and a separate white washcloth for each individual incision. 11. Routine sternal incision care, no ointments, lotions or powders on the incisions. 12. Please notify surgeon/nurse practitioner for temperature greater than 101F or purulent drainage from incisions 13. Prescriptions for first 30 days given per cardiac surgery service. After 30 days, all prescription refills obtained through cardiology/primary care physician. 14. A red arm and has been placed on this patient it should be worn for 30 days post surgery and will be removed by the cardiothoracic surgeons. If an ER visit is necessary, please make sure the number on the red arm band is called. HOME HEALTH SERVICES TO PROVIDE: RN SKILLED HOME CARE SERVICES FOR POST-OP SURGICAL PATIENTS WITH THE FO LLOWING: Coronary Artery Bypass Surgery (CABG), Mitral Valve Replacement/Repair ( MVR), Aortic Valve Replacement/Repair (AVR) RN TO CONTINUE EDUCATION FROM ``ROAD TO A HEALTH HEART PATIENT EDUCATION MANUAL" (GIVEN TO PATIENT IN THE HOSPITAL) MEDICATION RECONCILIATION WITH EDUCATION NEEDED ON FIRST HOME VISIT EMPHASIZE IMPORTANCE OF WEARING BREAST SUPPORT/HEART HUGGER ENCOURAGE USE OF INCENTIVE SPIROMETER 10 X EVERY HOUR WHILE AWAKE ENCOURAGE UTILIZATION OF LOWER EXTREMITY COMPRESSION STOCKINGS/NICOLLE HOSE and ELEVATE LEGS ABOVE LEVEL OF HEART WHILE AT REST. ENCOURAGE AMBULATION 3-5x/day INCREASING TOLERATES, WHILE AVOID EXTREMES IN TEMPERATURE FREQUENCY: RN TO OPEN THE PATIENT WITHIN 24 HOURS OF DISCHARGE FROM THE HOSPITAL WITH TELEHEALTH INSTALLED AT [facility] [place], [place], RN TO VISIT 2-3 X A WEEK FOR 4 WEEKS ESTABLISHED BY PATIENT NEEDS. LABORATORY: CBC, CMP TO BE DRAWN ON THE THIRD DAY HOME, 02/24/2018 (RAN STAT) FAX RESULTS TO [phone]. TELEHEALTH PARAMETERS: WEIGHT: NOTIFY MD OF WEIGHT GAIN OF 2 LBS IN 24 HOURS OR 5 LBS IN ONE WEEK HR: NOTIFY MD OF HR <55 BPM OR HR>100 BPM BP: NOTIFY MD IF BP <90/55 OR BP>140/100 O2 SAT: NOTIFY MD IF PO2<93% ON ROOM AIR SEND TELEHEALTH REPORT TO BOBJ DEVELOPER AND CARDIOVASCULAR SURGEON THE FIRST WEEK OF CARE AND THEN BI-WEEKLY. PLEASE ADDITIONALLY COMMUNICATE ANY ABNORMALS AND NEW FINDINGS TO THE SURGEONS OFFICE. Plan - Discharge Summary Discharge Rx Participant: No New Discharge Prescriptions: New hydrALAZINE HCL [Apresoline] 25 mg PO BID #60 tab Furosemide [Lasix] 40 mg PO DAILY #30 tab Atorvastatin [Lipitor] 40 mg PO DAILY #30 tab Metoprolol Tartrate [Lopressor] 25 mg PO BID #60 tab Clopidogrel [Plavix] 75 mg PO DAILY #30 tab Sennosides-Docusate Sodium [Senokot-S] 2 each PO HS #14 tab Acetaminophen Tab [Tylenol] 1,000 mg PO Q6HR PRN #100 tablet PRN Reason: Pain Continue Aspirin 325 mg PO DAILY Levothyroxine Sodium [Synthroid] 50 mcg PO QAM Omeprazole [PriLOSEC] 20 mg PO HS rOPINIRole HCL 0.75 mg PO HS Multivitamins, Thera [Multivitamin (formulary)] 1 tab PO DAILY Discontinued Furosemide [Lasix] 60 mg PO DAILY Losartan [Cozaar] 25 mg PO DAILY Carvedilol [Coreg] 6.25 mg PO BID Simvastatin 40 mg PO HS Mupirocin 2% Oint [Bactroban 2% Oint] 1 applic NASAL BID Discharge Medication List Aspirin 325 mg PO DAILY 07/01/18 [History] Levothyroxine Sodium [Synthroid] 50 mcg PO QAM 07/01/18 [History] Omeprazole [PriLOSEC] 20 mg PO HS 07/01/18 [History] rOPINIRole HCL 0.75 mg PO HS 07/01/18 [History] Multivitamins, Thera [Multivitamin (formulary)] 1 tab PO DAILY 02/10/19 [Hist ory] Acetaminophen Tab [Tylenol] 1,000 mg PO Q6HR PRN #100 tablet 02/21/19 [Rx] Atorvastatin [Lipitor] 40 mg PO DAILY #30 tab 02/21/19 [Rx] Clopidogrel [Plavix] 75 mg PO DAILY #30 tab 02/21/19 [Rx] Furosemide [Lasix] 40 mg PO DAILY #30 tab 02/21/19 [Rx] Metoprolol Tartrate [Lopressor] 25 mg PO BID #60 tab 02/21/19 [Rx] Sennosides-Docusate Sodium [Senokot-S] 2 each PO HS #14 tab 02/21/19 [Rx] hydrALAZINE HCL [Apresoline] 25 mg PO BID #60 tab 02/21/19 [Rx] Follow up Appointment(s)/Referral(s): [facility], [NON-STAFF] - 1-2 Days Ashley Vogt MD [STAFF PHYSICIAN] - 2 Weeks Almas Carmen DO [Doctor of Osteopathic Medicine] - 2 Weeks Kang Raymond DO [Primary Care Provider] - 2 Weeks Juan José Hussein MD [STAFF PHYSICIAN] - 4 Weeks Claude Luo NPC [Nurse Practitioner] - 02/26/19 3:30 pm Ambulatory/Diagnostic Orders: Complete Blood Count w/diff [LAB.AMB] Time Frame: 02/24/19, Facility: [facility], Location: Laboratory Main Hospital Comprehensive Metabolic Panel [LAB.AMB] Time Frame: 02/24/19, Facility: [facility], Location: Laboratory Main Hospital Discharge Disposition: HOME WITH HOME HEALTH SERVICES
[2019-02-22] MEDS ORDERED: FUROSEMIDE 40 MG TAB PO SCH (09:00)
== END 2019-02-21 13:25 | disposition home health service (06) | DRG 219 ==
LOC: 2ORMAIN 05:36 → 2SICU 15:22
PROVIDERS: ADMIT Thoracic Surgery (Cardiothoracic Vascular Surgery); ATTEND Thoracic Surgery (Cardiothoracic Vascular Surgery)
PROC: 5A1221Z Performance of Cardiac Output, Continuous (ICD-10-PCS; 2019-02-15)
PROC: 5A1223Z Performance of Cardiac Pacing, Continuous (ICD-10-PCS; 2019-02-15)
PROC: B24BZZ4 Ultrasonography of Heart with Aorta, Transesophageal (ICD-10-PCS; 2019-02-15)
PROC: 30243K1 Transfusion of Nonautologous Frozen Plasma into Central Vein, Percutaneous Approach (ICD-10-PCS; 2019-02-15)
PROC: 30243N1 Transfusion of Nonautologous Red Blood Cells into Central Vein, Percutaneous Approach (ICD-10-PCS; 2019-02-15)
PROC: 30243R1 Transfusion of Nonautologous Platelets into Central Vein, Percutaneous Approach (ICD-10-PCS; 2019-02-15)
PROC: 02RG08Z Replacement of Mitral Valve with Zooplastic Tissue, Open Approach (ICD-10-PCS; principal; 2019-02-15 08:00)
PROC: 021009W Bypass Coronary Artery, One Artery from Aorta with Autologous Venous Tissue, Open Approach (ICD-10-PCS; 2019-02-15 08:00)
PROC: 06BP4ZZ Excision of Right Saphenous Vein, Percutaneous Endoscopic Approach (ICD-10-PCS; 2019-02-15 08:00)
DX: I08.1 Rheumatic disorders of both mitral and tricuspid valves (principal); I50.23 Acute on chronic systolic (congestive) heart failure; I25.810 Atherosclerosis of coronary artery bypass graft(s) without angina pectoris; D62 Acute posthemorrhagic anemia; J93.83 Other pneumothorax; J98.11 Atelectasis; N17.9 Acute kidney failure, unspecified; D69.59 Other secondary thrombocytopenia; I25.82 Chronic total occlusion of coronary artery; I27.20 Pulmonary hypertension, unspecified; I95.9 Hypotension, unspecified; I11.0 Hypertensive heart disease with heart failure; J98.4 Other disorders of lung; R00.1 Bradycardia, unspecified; J44.9 Chronic obstructive pulmonary disease, unspecified; E78.5 Hyperlipidemia, unspecified; E86.0 Dehydration; G25.81 Restless legs syndrome; I25.2 Old myocardial infarction; R45.1 Restlessness and agitation; R91.1 Solitary pulmonary nodule; F51.01 Primary insomnia; E03.9 Hypothyroidism, unspecified; Z79.82 Long term (current) use of aspirin; Z79.890 Hormone replacement therapy; Z79.899 Other long term (current) drug therapy; Z85.71 Personal history of Hodgkin lymphoma; Z87.891 Personal history of nicotine dependence; Z85.038 Personal history of other malignant neoplasm of large intestine; Z90.49 Acquired absence of other specified parts of digestive tract; Z92.3 Personal history of irradiation; Z90.81 Acquired absence of spleen; Z95.5 Presence of coronary angioplasty implant and graft; Z80.0 Family history of malignant neoplasm of digestive organs
CPT/HCPCS: 71045; 80048; 80053; 82330; 82805; 83735; 84100; 85025; 85027; 85384; 85520; 85610; 85730; 86850; 86891; 86900; 86901; 86920; 88305; 94002; 94003; 94640

== ENCOUNTER 2019-02-25 11:13 | Observation (INO) | payer OTHER ==
[2019-02-25] MEDS ORDERED: IBUPROFEN 600 MG TAB PO STA (11:28)
[2019-02-25] MEDS ORDERED: PIPERACILLIN-TAZOBACTAM 3.375 GM in SODIUM CHLORIDE 0.9% 100 ML IVPB STA (11:28)
[2019-02-25] MEDS ORDERED: ACETAMINOPHEN TAB 500 MG TAB PO STA (11:28)
--- NOTE | 2019-02-25 11:49 | ED ---
General Adult HPI - General Chief complaint: Arrhythmia/Palpitations Stated complaint: Weakness Time Seen by Provider: 02/25/19 11:25 Source: patient, EMS, RN notes reviewed Mode of arrival: EMS Limitations: no limitations - History of Present Illness Initial comments: This is a 63-year-old male who presents emergency Department with a past medical history of bypass surgery on the sixth of this month. Patient states he was at home and his heart rate started going real fast he noted it to be 160 on the monitor. Patient states he is also short of breath at this time. Patient states he is feeling better currently. Patient states the pain has not been that bad. Patient states he did take his aspirin this morning. Patient denies any lightheadedness dizziness or near syncopal episode. She denies any abdominal pain patient denies nausea or vomiting. Patient denies a fever patient states she does have cough. - Related Data Home Medications Medication Instructions Recorded Confirmed Aspirin 325 mg PO DAILY 07/01/18 02/25/19 Levothyroxine Sodium [Synthroid] 50 mcg PO QAM 07/01/18 02/25/19 Omeprazole [PriLOSEC] 20 mg PO HS 07/01/18 02/25/19 rOPINIRole HCL 0.75 mg PO HS 07/01/18 02/25/19 Multivitamins, Thera [Multivitamin 1 tab PO DAILY 02/10/19 02/25/19 (formulary)] Sennosides-Docusate Sodium 2 tab PO HS 02/25/19 02/25/19 [Senokot-S] Previous Rx's Medication Instructions Recorded Acetaminophen Tab [Tylenol] 1,000 mg PO Q6HR PRN #100 tablet 02/21/19 Atorvastatin [Lipitor] 40 mg PO DAILY #30 tab 02/21/19 Clopidogrel [Plavix] 75 mg PO DAILY #30 tab 02/21/19 Furosemide [Lasix] 40 mg PO DAILY #30 tab 02/21/19 Metoprolol Tartrate [Lopressor] 25 mg PO BID #60 tab 02/21/19 hydrALAZINE HCL [Apresoline] 25 mg PO BID #60 tab 02/21/19 Allergies Allergy/AdvReac Type Severity Reaction Status Date / Time Iodinated Contrast- Oral and AdvReac Nausea & Verified 02/25/19 11:37 IV Dye Vomiting,chills Review of Systems ROS Statement: Those systems with pertinent positive or pertinent negative responses have been documented in the HPI. ROS Other: All systems not noted in ROS Statement are negative. Past Medical History Past Medical History: Cancer, Heart Failure, Hyperlipidemia, Hypertension, Myocardial Infarction ([place]), Thyroid Disorder Additional Past Medical History / Comment(s): hx. 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, RLS, mitral valve problem,insomnia- states "only sleeps a couple hours per night Last Myocardial Infarction Date:: 2004 History of Any Multi-Drug Resistant Organisms: None Reported Past Surgical History: Appendectomy, Bowel Resection, Coronary Bypass/CABG, Heart Catheterization, Heart Catheterization With Stent Additional Past Surgical History / Comment(s): staging laparotomy for Hodgkin's & splenectomy, quad bypass 2002,JACEK Past Anesthesia/Blood Transfusion Reactions: No Reported Reaction, Motion Sickness Additional Past Anesthesia/Blood Transfusion Reaction / Comment(s): no known hx blood trnasfusion Date of Last Stent Placement:: 2004 Past Psychological History: No Psychological Hx Reported Smoking Status: Former smoker Past Alcohol Use History: None Reported Past Drug Use History: None Reported - Past Family History Mother Family Medical History: Cancer Additional Family Medical History / Comment(s): esophageal General Exam - General Exam Comments Initial Comments: GENERAL: Patient is well-developed and well-nourished. Patient is nontoxic and well- hydrated and is in mild distress. Oral temperature was 100.1 ENT: Neck is soft and supple. No significant lymphadenopathy is noted. Oropharynx is clear. Moist mucous membranes. Neck has full range of motion without eliciting any pain. EYES: The sclera were anicteric and conjunctiva were pink and moist. Extraocular movements were intact and pupils were equal round and reactive to light. Eyelids were unremarkable. PULMONARY: Unlabored respirations. Good breath sounds bilaterally. Patient is crackles bilateral bases CARDIOVASCULAR: Irregular rate at about 100 beats a minute ABDOMEN: Soft and nontender with normal bowel sounds. No palpable organomegaly was noted. There is no palpable pulsatile mass. SKIN: Skin is clear with no lesions or rashes and otherwise unremarkable. NEUROLOGIC: Patient is alert and oriented x3. Cranial nerves II through XII are grossly intact. Motor and sensory are also intact. Normal speech, volume and content. Symmetrical smile. MUSCULOSKELETAL: Normal extremities with adequate strength and full range of motion. LYMPHATICS: No significant lymphadenopathy is noted PSYCHIATRIC: Normal psychiatric evaluation. Limitations: no limitations Course Vital Signs 02/25/19 02/25/19 02/25/19 11:26 12:00 12:30 Temperature 100.1 F H Pulse Rate 97 101 H 69 Respiratory 24 22 22 Rate Blood Pressure 102/75 97/66 83/60 O2 Sat by Pulse 99 99 99 Oximetry 02/25/19 02/25/19 13:30 13:53 Temperature 98.2 F Pulse Rate 80 Respiratory 30 H Rate Blood Pressure 91/63 O2 Sat by Pulse 99 Oximetry Medical Decision Making - Medical Decision Making EKG showed atrial fibrillation at a rate of 102 bpm patient had multiple PVCs QRS is 96 QT interval 314 QTC is 49. Patient's EKG shows no ST segment elevation or depression. Patient felt a little dizzy so went in the room and it appeared that the patient converted to a normal sinus rhythm. I did a repeat EKG shows normal sinus rhythm at 71 bpm GA interval 140 Fortress is 90 QT intervals 438 QTC is 475. Patient's EKG shows some inversions in leads V2 V3 V4. Patient also has inverted T waves in 1 and aVL. After patient had been here a while he did indicate that he forgot to take his beta cristina last night and took it late thi s morning. Chest x-ray shows probable acute pulmonary edema. Infiltrate cannot be ruled out. Computed tomography scan of the chest was done secondary to the elevated d- dimer. Did not show any pulmonary embolism. Again demonstrated signs of pulmonary edema. I spoke with David Luo nurse practitioner for the cardiothoracic surgeon she agreed that we should 23 hour admit this patient for new onset A. fib and consult cardiothoracic surgery. I also started patient on antibiotics as of the possible infiltrate low-grade fever. - Lab Data Result diagrams: 02/25/19 11:56 02/25/19 11:56 Lab Results 02/25/19 02/25/19 02/25/19 Range/Units 11:56 11:56 11:56 WBC 10.8 H (3.8-10.6) k/uL RBC 3.25 L (4.30-5.90) m/uL Hgb 10.0 L D (13.0-17.5) gm/dL Hct 32.3 L (39.0-53.0) % MCV 99.2 (80.0-100.0) fL MCH 30.9 (25.0-35.0) pg MCHC 31.1 (31.0-37.0) g/dL RDW 16.6 H (11.5-15.5) % Plt Count 675 H D (150-450) k/uL Neutrophils % (Manual) 78 % Band Neutrophils % 1 % Lymphocytes % (Manual) 8 % Monocytes % (Manual) 6 % Eosinophils % (Manual) 7 % Neutrophils # (Manual) 8.50 H (1.3-7.7) k/uL Lymphocytes # (Manual) 0.86 L (1.0-4.8) k/uL Monocytes # (Manual) 0.65 (0-1.0) k/uL Eosinophils # (Manual) 0.76 H (0-0.7) k/uL Nucleated RBCs 1 H (0-0) /100 WBC Manual Slide Review Performed Polychromasia Present Hypochromasia Moderate Poikilocytosis Moderate Anisocytosis Slight Macrocytosis Slight PT 9.8 (9.0-12.0) sec INR 0.9 (<1.2) APTT 23.1 (22.0-30.0) sec D-Dimer 3.80 H (<0.60) mg/L FEU Sodium 139 (137-145) mmol/L Potassium 4.6 (3.5-5.1) mmol/L Chloride 103 (98-107) mmol/L Carbon Dioxide 30 (22-30) mmol/L Anion Gap 6 mmol/L BUN 26 H (9-20) mg/dL Creatinine 0.74 (0.66-1.25) mg/dL Est GFR (CKD-EPI)AfAm >90 (>60 ml/min/1.73 sqM) Est GFR (CKD-EPI)NonAf >90 (>60 ml/min/1.73 sqM) Glucose 118 H (74-99) mg/dL Plasma Lactic Acid Carlos Eduardo (0.7-2.0) mmol/L Calcium 9.1 (8.4-10.2) mg/dL Total Bilirubin 1.2 (0.2-1.3) mg/dL AST 114 H (17-59) U/L ALT 73 H (21-72) U/L Alkaline Phosphatase 80 (38-126) U/L Troponin I (0.000-0.034) ng/mL NT-Pro-B Natriuret Pep pg/mL Total Protein 6.2 L (6.3-8.2) g/dL Albumin 3.6 (3.5-5.0) g/dL Urine Color Urine Appearance (Clear) Urine pH (5.0-8.0) Ur Specific [place] (1.001-1.035) Urine Protein (Negative) Urine Glucose (UA) (Negative) Urine Ketones (Negative) Urine Blood (Negative) Urine Nitrite (Negative) Urine Bilirubin (Negative) Urine Urobilinogen (<2.0) mg/dL Ur Leukocyte Esterase (Negative) 02/25/19 02/25/19 02/25/19 Range/Units 11:56 11:56 11:56 WBC (3.8-10.6) k/uL RBC (4.30-5.90) m/uL Hgb (13.0-17.5) gm/dL Hct (39.0-53.0) % MCV (80.0-100.0) fL MCH (25.0-35.0) pg MCHC (31.0-37.0) g/dL RDW (11.5-15.5) % Plt Count (150-450) k/uL Neutrophils % (Manual) % Band Neutrophils % % Lymphocytes % (Manual) % Monocytes % (Manual) % Eosinophils % (Manual) % Neutrophils # (Manual) (1.3-7.7) k/uL Lymphocytes # (Manual) (1.0-4.8) k/uL Monocytes # (Manual) (0-1.0) k/uL Eosinophils # (Manual) (0-0.7) k/uL Nucleated RBCs (0-0) /100 WBC Manual Slide Review Polychromasia Hypochromasia Poikilocytosis Anisocytosis Macrocytosis PT (9.0-12.0) sec INR (<1.2) APTT (22.0-30.0) sec D-Dimer (<0.60) mg/L FEU Sodium (137-145) mmol/L Potassium (3.5-5.1) mmol/L Chloride (98-107) mmol/L Carbon Dioxide (22-30) mmol/L Anion Gap mmol/L BUN (9-20) mg/dL Creatinine (0.66-1.25) mg/dL Est GFR (CKD-EPI)AfAm (>60 ml/min/1.73 sqM) Est GFR (CKD-EPI)NonAf (>60 ml/min/1.73 sqM) Glucose (74-99) mg/dL Plasma Lactic Acid Carlos Eduardo 1.4 (0.7-2.0) mmol/L Calcium (8.4-10.2) mg/dL Total Bilirubin (0.2-1.3) mg/dL AST (17-59) U/L ALT (21-72) U/L Alkaline Phosphatase (38-126) U/L Troponin I 0.236 H* (0.000-0.034) ng/mL NT-Pro-B Natriuret Pep 2720 pg/mL Total Protein (6.3-8.2) g/dL Albumin (3.5-5.0) g/dL Urine Color Urine Appearance (Clear) Urine pH (5.0-8.0) Ur Specific [place] (1.001-1.035) Urine Protein (Negative) Urine Glucose (UA) (Negative) Urine Ketones (Negative) Urine Blood (Negative) Urine Nitrite (Negative) Urine Bilirubin (Negative) Urine Urobilinogen (<2.0) mg/dL Ur Leukocyte Esterase (Negative) 02/25/19 Range/Units 14:00 WBC (3.8-10.6) k/uL RBC (4.30-5.90) m/uL Hgb (13.0-17.5) gm/dL Hct (39.0-53.0) % MCV (80.0-100.0) fL MCH (25.0-35.0) pg MCHC (31.0-37.0) g/dL RDW (11.5-15.5) % Plt Count (150-450) k/uL Neutrophils % (Manual) % Band Neutrophils % % Lymphocytes % (Manual) % Monocytes % (Manual) % Eosinophils % (Manual) % Neutrophils # (Manual) (1.3-7.7) k/uL Lymphocytes # (Manual) (1.0-4.8) k/uL Monocytes # (Manual) (0-1.0) k/uL Eosinophils # (Manual) (0-0.7) k/uL Nucleated RBCs (0-0) /100 WBC Manual Slide Review Polychromasia Hypochromasia Poikilocytosis Anisocytosis Macrocytosis PT (9.0-12.0) sec INR (<1.2) APTT (22.0-30.0) sec D-Dimer (<0.60) mg/L FEU Sodium (137-145) mmol/L Potassium (3.5-5.1) mmol/L Chloride (98-107) mmol/L Carbon Dioxide (22-30) mmol/L Anion Gap mmol/L BUN (9-20) mg/dL Creatinine (0.66-1.25) mg/dL Est GFR (CKD-EPI)AfAm (>60 ml/min/1.73 sqM) Est GFR (CKD-EPI)NonAf (>60 ml/min/1.73 sqM) Glucose (74-99) mg/dL Plasma Lactic Acid Carlos Eduardo (0.7-2.0) mmol/L Calcium (8.4-10.2) mg/dL Total Bilirubin (0.2-1.3) mg/dL AST (17-59) U/L ALT (21-72) U/L Alkaline Phosphatase (38-126) U/L Troponin I (0.000-0.034) ng/mL NT-Pro-B Natriuret Pep pg/mL Total Protein (6.3-8.2) g/dL Albumin (3.5-5.0) g/dL Urine Color Yellow Urine Appearance Clear (Clear) Urine pH 7.0 (5.0-8.0) Ur Specific [place] 1.018 (1.001-1.035) Urine Protein Negative (Negative) Urine Glucose (UA) Negative (Negative) Urine Ketones Negative (Negative) Urine Blood Negative (Negative) Urine Nitrite Negative (Negative) Urine Bilirubin Negative (Negative) Urine Urobilinogen <2.0 (<2.0) mg/dL Ur Leukocyte Esterase Negative (Negative) Critical Care Time Critical Care Time: Yes Total Critical Care Time: 35 Disposition Clinical Impression: Atrial fibrillation, Elevated troponin, Acute pulmonary edema, Pneumonia Disposition: ADMITTED IP TO THIS [facility] Referrals: Kang Raymond DO [Primary Care Provider] - 1-2 days Time of Disposition: 15:14
[2019-02-25 12:19] LABS: ALT 73 U/L (21-72); AST 114 U/L (17-59); Albumin 3.6 g/dL (3.5-5.0); Alkaline Phosphatase 80 U/L (38-126); Anion Gap 6 mmol/L; Blood Urea Nitrogen 26 mg/dL (9-20); Calcium 9.1 mg/dL (8.4-10.2); Carbon Dioxide 30 mmol/L (22-30); Chloride 103 mmol/L (98-107); Glucose 118 mg/dL (74-99); Sodium 139 mmol/L (137-145); Total Bilirubin 1.2 mg/dL (0.2-1.3); Total Protein 6.2 g/dL (6.3-8.2)
[2019-02-25 12:28] LABS: INR 0.9 (<1.2); Partial Thromboplastin Time 23.1 sec (22.0-30.0); Prothrombin Time 9.8 sec (9.0-12.0)
[2019-02-25 12:31] LABS: Anisocytosis Slight; HCT 32.3 % (39.0-53.0); Hypochromasia Moderate; MCH 30.9 pg (25.0-35.0); MCHC 31.1 g/dL (31.0-37.0); MCV 99.2 fL (80.0-100.0); Macrocytosis Slight; Mean Platelet Volume 6.6; Poikilocytosis Moderate; RBC 3.25 m/uL (4.30-5.90); RDW 16.6 % (11.5-15.5)
[2019-02-25 12:32] LABS: D-Dimer 3.8 mg/L FEU (<0.60)
[2019-02-25 12:33] LABS: Platelet Count 675 k/uL (150-450)
[2019-02-25 12:47] LABS: Potassium 4.6 mmol/L (3.5-5.1)
[2019-02-25 12:52] LABS: Band Neutrophils % 1 %; Eosinophils # (M) 0.76 k/uL (0-0.7); Lymphocytes # (M) 0.86 k/uL (1.0-4.8); Monocytes # (M) 0.65 k/uL (0-1.0); Neutrophils % (M) 78 %; Nucleated Red Blood Cells 1 /100 WBC (0-0); Total Cells Counted 200; WBC 10.8 k/uL (3.8-10.6)
[2019-02-25 12:54] LABS: Polychromasia Present
--- NOTE | 2019-02-25 13:09 | XR ---
EXAMINATION TYPE: XR chest 2V DATE OF EXAM: 02/25/2019 COMPARISON: 02/21/2019 TECHNIQUE: PA and lateral views submitted. HISTORY: Shortness of breath FINDINGS: Bilateral pleural effusion and areas of consolidation or infiltrate are stable. Interstitial pattern seen and there is cardiomegaly with postsurgical changes. No definite sizable pneumothorax on today's exam. Findings appear progressed on the right relative to the prior exam. Hypertrophic changes of th e vertebral column noted. Surgical changes in the abdomen noted. IMPRESSION: 1. Bilateral infiltrate and pleural effusion correlate for pneumonia versus pulmonary edema. There ma y be slight progression in amount of pleural fluid on the right relative to the prior exam.
[2019-02-25] MEDS ORDERED: cefTRIAXone IN SWFI 1,000 MG/10 ML SYRINGE IVP STA (13:13)
[2019-02-25] MEDS ORDERED: diphenhydrAMINE 50 MG/ML 1 ML VIAL IVP STA (13:14)
[2019-02-25] MEDS ORDERED: methylPREDNISolone SOD SUCCI 125 MG/2 ML VIAL IV STA (13:14)
[2019-02-25] MEDS ORDERED: FAMOTIDINE 20 MG/2 ML VIAL IV STA (13:14)
[2019-02-25 14:18] LABS: Appearance,Urine Clear (Clear); Bilirubin,Urine Negative (Negative); Blood,Urine Negative (Negative); Color,Urine Yellow; Glucose,Urine (UA) Negative (Negative); Ketones,Urine Negative (Negative); Leukocyte Esterase,Urine Negative (Negative); Nitrite,Urine Negative (Negative); Protein,Urine Negative (Negative); Specific Gravity,Urine 1.018 (1.001-1.035); Urobilinogen,Urine <2.0 mg/dL (<2.0)
--- NOTE | 2019-02-25 14:57 | CT ---
EXAMINATION TYPE: CT chest angio for PE DATE OF EXAM: 02/25/2019 COMPARISON: Radiograph same day and CT chest 07/23/2018 HISTORY: 63-year-old male Weakness, trouble breathing, Hodgkin's lymphoma TECHNIQUE: Contiguous axial scanning of the chest performed with IV Contrast, patient injected with 1 00, wasted 20 ml mL of Isovue 370. Coronal/sagittal MIP reconstructions performed. CT DLP: 285.2 mGycm Automated exposure control for dose reduction was used. FINDINGS: Heart is borderline enlarged. Median sternotomy wires are present with prosthetic mitral valve post C ABG changes. Aorta normal caliber with conventional arch vessel branching anatomy. Satisfactory opacification of the pulmonary arterial system. Enlarged caliber to the main right and l eft pulmonary arteries and 2.7 and 2.6 cm, respectively. Excessive respiratory motion at the lower gualberto ngs limiting assessment, especially in the left lower lobe. Otherwise, no evidence for pulmonary embo thao. No flattening of the interventricular septum. Small amount of reflux of contrast into the hepati c veins. Calcified right paratracheal lymph node. No thoracic lymphadenopathy by size criteria. There is soft tissue thickening versus edema within the prevascular space extending up to the level o f the sternal notch and seems to extend out laterally along the right side of the heart measuring up to 1.5 cm thick. There are small to moderate right and small left pleural effusions. Mild emphysematous change in the upper lungs. Prominent groundglass in the left lower lobe with more focal masslike area of consolidat ion measuring 4.0 cm with adjacent focal opacities just above measuring up to 1.6 cm. There is an elongated opacity measuring 1.9 x 0.8 cm in the superior segment right lower lobe at the mid lung level. Upper abdomen shows hydropic gallbladder measuring 4.3 cm wide. A couple areas of focal nodularity along the anterior epigastrium measuring 1.7 and 1.4 cm. Foci of subcutaneous air within the anterior upper abdomen may relate to subcutaneous injections and should be correlated clinically. Bones: No osseous destructive process. IMPRESSION: 1. Some respiratory motion artifacts in the lower lungs. No definite pulmonary embolus. 2. Borderline heart size with pulmonary arterial hypertension, small to moderate right, and small lef t pleural effusions. Correlate for fluid overload state. 3. There is either soft tissue edema or abnormal soft tissue thickening in the prevascular space exte nding out laterally along the right side of the heart measuring up to 1.5 cm thick. Findings are new from 07/23/2018. Lymphomatous involvement versus mediastinal edema with adjacent pericardial effusion are in the differential. Follow up recommended after successful treatment of the patient's acute pre sentation. 4. Focal areas of consolidation in the left lower lobe measuring up to 4.0 cm could represent develo ping confluent pulmonary edema. An elongated focal opacity measuring 1.9 x 0.8 cm in the right midlun g is also noted. Given history of lymphoma, follow-up after successful treatment of the acute present ation. 5. A couple areas of nodularity in the anterior midline epigastric region measuring up to 1.7 cm. Aga in, follow-up recommended. 6. Mildly hydropic gallbladder may relate to fasting state. If right upper quadrant pain or concern f or early acute cholecystitis, follow-up ultrasound or HIDA scan.
[2019-02-25] MEDS ORDERED: SODIUM CHLORIDE 0.9% 1,000 ML IV ONE (15:14)
[2019-02-25] MEDS ORDERED: AZITHROMYCIN 500 MG in SODIUM CHLORIDE 0.9% 250 ML IVPB STA (15:18)
[2019-02-25] MEDS ORDERED: ACETAMINOPHEN TAB 500 MG TAB PO PRN (15:56)
[2019-02-25] MEDS: FUROSEMIDE 10 MG/ML 2 ML VIAL IV SCH ×2 (17:02→22:51)
[2019-02-25 18:01] VITALS: BMI 22.7
[2019-02-25] MEDS: SENNOSIDES-DOCUSATE SODIUM 1 EACH TAB PO SCH (20:18)
[2019-02-25] MEDS: METOPROLOL TARTRATE 25 MG TAB PO SCH (20:20)
[2019-02-25] MEDS: hydrALAZINE HCL 25 MG TAB PO SCH (20:20)
[2019-02-25] MEDS: PANTOPRAZOLE 40 MG TABLET PO SCH (20:20)
[2019-02-26] MEDS: LEVOTHYROXINE 50 MCG TAB PO SCH (06:16)
[2019-02-26 06:57] LABS: Anisocytosis Slight; HCT 28.5 % (39.0-53.0); HGB 8.7 gm/dL (13.0-17.5); Hypochromasia Marked; MCH 31.1 pg (25.0-35.0); MCHC 30.5 g/dL (31.0-37.0); Macrocytosis Moderate; Mean Platelet Volume 6.6; Platelet Count 643 k/uL (150-450); Poikilocytosis Moderate; RDW 17.2 % (11.5-15.5); WBC 13.3 k/uL (3.8-10.6)
[2019-02-26 07:23] LABS: Anion Gap 5 mmol/L; Blood Urea Nitrogen 29 mg/dL (9-20); Calcium 8.4 mg/dL (8.4-10.2); Carbon Dioxide 29 mmol/L (22-30); Chloride 103 mmol/L (98-107); Glucose 116 mg/dL (74-99); Magnesium 2.3 mg/dL (1.6-2.3); Potassium 4.2 mmol/L (3.5-5.1); Sodium 137 mmol/L (137-145)
--- NOTE | 2019-02-26 07:52 | XR ---
EXAMINATION TYPE: XR chest 1V portable DATE OF EXAM: 02/26/2019 COMPARISON: Prior chest x-ray and chest CT 02/25/2019 HISTORY: Postop coronary artery bypass graft, mitral valve replacement TECHNIQUE: Single frontal view of the chest is obtained. FINDINGS: There is blunting of the left gastric angle. Patient is post median sternotomy and mitral valve replacement. No pneumothorax. Heart size is stable. Patchy bilateral density within the lungs s hows a similar appearance. IMPRESSION: There are pleural effusions and associated atelectasis. Correlate for possible pneumonia . Follow-up recommended.
[2019-02-26] MEDS: FUROSEMIDE 10 MG/ML 2 ML VIAL IV SCH (08:20)
[2019-02-26] MEDS: MULTIVITAMINS, THERA 1 EACH TAB PO SCH (08:20)
[2019-02-26] MEDS: hydrALAZINE HCL 25 MG TAB PO SCH ×2 (08:20→20:02)
[2019-02-26] MEDS: METOPROLOL TARTRATE 25 MG TAB PO SCH ×2 (08:20→20:03)
[2019-02-26] MEDS: ATORVASTATIN 40 MG TAB PO SCH (08:21)
[2019-02-26] MEDS ORDERED: CLOPIDOGREL 75 MG TAB PO SCH (09:00)
[2019-02-26] MEDS ORDERED: ASPIRIN 325 MG TAB PO SCH (09:00)
[2019-02-26] MEDS: AMIODARONE 200 MG TAB PO SCH ×2 (12:29→20:02)
[2019-02-26] MEDS: APIXABAN 5 MG TAB PO SCH ×2 (12:29→20:02)
--- NOTE | 2019-02-26 12:33 | CONS ---
CONSULTATION Mr. Warner is a 63-year-old male who is followed by Dr. Ludmila Vogt and presented to the emergency room with symptoms of palpitation, dizziness and dyspnea. He has a known history of coronary artery disease, status post coronary artery bypass grafting in 2004 and subsequently was found to have progressive symptoms of dyspnea and worsening mitral regurgitation underwent repeat cardiac catheterization and redo surgery by Dr. Hussein done about 10 days ago with a single saphenous vein graft to the right coronary artery and mitral valve repair. He has been feeling weak after his surgery, but has been relatively stable until yesterday when he started to feel palpitation associated with dyspnea, dizziness but no chest discomfort, came into the emergency room, was noted to be in atrial fibrillation and subsequently converted to sinus mechanism. He is in sinus mechanism at this time and feeling better. He has no symptoms of angina. He has no prior history of atrial fibrillation. This is his first episode. He has no PND or orthopnea. He has some peripheral edema. No syncope. His coronary risk factors positive for remote history of smoking. He stopped about 9 years ago. He has a history of hypertension and hyperlipidemia. MEDICATION: His medications include ropinirole, omeprazole, hydralazine 25 mg twice a day, metoprolol tartrate 25 mg twice a day, Lasix 40 mg daily, Plavix 75 mg daily, Lipitor 40 mg daily and aspirin once a day. REVIEW OF SYSTEMS: RESPIRATORY SYSTEM: He had dyspnea on exertion recently. No significant cough. GI SYSTEM: No recent GI bleeding. No peptic ulcer disease. SYSTEM: No dysuria or hematuria. NERVOUS SYSTEM: No stroke or seizure. PHYSICAL EXAMINATION: A 63-year-old male, alert, oriented, in no apparent distress. Blood pressure running in the 120s to 130s with a heart rate in the 90s. HEAD: Normocephalic. EYES: Sclerae anicteric. NECK: Good upstroke. No bruit. No jugular venous distention. LUNGS: With few crackles at the bases. No wheezes. HEART: Regular rate and rhythm. S1, S2. No S3 with systolic ejection murmur. No diastolic murmur. No rub. ABDOMEN: Soft, nontender. EXTREMITIES: +1 edema. LAB DATA: Lab data revealed a chest x-ray that showed pleural effusion with questionable infiltrate. Initial EKG revealed atrial fibrillation, rate of 102, left axis deviation with nonspecific ST-T wave changes. Subsequent EKG reveals sinus mechanism with nonspecific ST-T wave changes. CT scan of the chest revealed a consolidation of the left lower lobe and soft tissue edema. His hemoglobin is 8.7, white blood cells 13.3, BUN and creatinine 29 and 0.84. Troponin 0.236, 0.246 and 0.164. NT proBNP of 2720. IMPRESSION: 1. Paroxysmal atrial fibrillation, post mitral valve repair and coronary artery bypass grafting. 2. Status post recent surgical intervention with redo surgery with mitral valve repair and coronary artery bypass grafting with single saphenous vein graft to the right coronary artery. 3. Pleural effusion. 4. Questionable pneumonia. 5. History of hypertension. 6. Hyperlipidemia. RECOMMENDATION: I will initiate anticoagulation with Eliquis and I will stop the Plavix. I will add amiodarone to his regimen to try to prevent atrial fibrillation at this point. I will switch him to oral diuretic, but increase the dose. Follow his weight and his rhythm. If he remains stable then will continue present therapy and I am hopeful that down the road we should be able to stop the amiodarone and the anticoagulation as well. I have discussed those finding with the patient and his family. Thank you for this consult. We will follow with you. NELDAL / IJN: [id number] / FERNANDA
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
--- NOTE | 2019-02-26 15:03 | HP ---
HISTORY AND PHYSICAL DATE OF ADMISSION: February 25, 2019. DATE OF SERVICE: February 26, 2019. PRESENTING COMPLAINT: Short of breath. HISTORY OF PRESENTING COMPLAINT: This is a very pleasant 63-year-old patient of . Chronic stable medical conditions include hypertension, hyperlipidemia, restless legs syndrome. Chronic insomnia. The patient on February 15, 2019, underwent a coronary bypass x1, mitral valve replacement with a prosthetic valve and was discharged on February 21, 2019. The night before, the patient missed 1 of his medications and noticed his heart rate to be going up, then last night again his heart rate was up to about 160s. Blood pressure is running low. The patient became short of breath and decided to come to the ER. The patient is found to be in atrial fibrillation with rapid ventricular rate. The patient was given IV Lasix in the ER. The patient denies any cough. No fever. No chills. Feels much better after getting the Lasix. Admitted for the same. No fever. No chills. Appetite is fair. REVIEW OF SYSTEMS: CONSTITUTIONAL: Tired. HEENT: None. RESPIRATORY as above. CARDIOVASCULAR: No chest pain. GASTROINTESTINAL: None. GENITOURINARY none. MUSCULOSKELETAL/DERMATOLOGICAL: Incision healing well. HEMATOLOGIC, LYMPHATIC: none. PSYCHIATRY none. NEUROLOGICAL none. PAST MEDICAL HISTORY: Of hypertension, hyperlipidemia, Hodgkin lymphoma treated, restless legs syndrome, coronary artery disease with stent, chronic insomnia, recent coronary artery bypass, mitral valve repair. PAST SURGICAL HISTORY: Appendectomy, bowel resection, coronary artery bypass, cardiac cath with stent, staging, and splenectomy, bypass in 2002. 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 Stopped smoking over 10 years ago. Alcohol occasionally. . Marijuana occasionally. FAMILY HISTORY: Esophageal cancer. HOME MEDICATIONS: Ropinirole 0.75 mg p.o. q.h.s., Senokot-S 2 tablets p.o. q.h.s., Prilosec 20 mg q.h.s., Tylenol 1000 mg p.o. q.6 p.r.n., hydralazine 25 mg b.i.d. multivitamin 1 tablet p.o. daily and Lopressor 25 mg b.i.d., Synthroid 50 mcg p.o. daily, Lasix 40 mg p.o. daily, Plavix 75 mg p.o. daily, Lipitor 40 mg p.o. daily, Aspirin 325 mg p.o. daily. ALLERGIES: IV CONTRAST DYE. PHYSICAL EXAMINATION: VITAL SIGNS: Vital signs on presentation: Temperature 100.1, pulse 106, respirations 24, blood pressure 102/75, pulse ox 99% on 2 L. GENERAL APPEARANCE: Thin build, sitting up in a chair, awake. EYES: Pupils are equal. Conjunctivae normal. HEENT: External appearance of nose and ears normal. Oral cavity normal. NECK: JVD not raised. Mass not palpable. RESPIRATORY: Effort increased. LUNGS: Decreased breath sounds. CARDIOVASCULAR: Heart sounds irregular. Minimal edema. ABDOMEN: Soft, nontender. Liver and spleen not palpable. LYMPHATIC: No lymph nodes palpable in the neck and axilla. PSYCHIATRY: Alert and oriented x3. Mood and affect normal. NEUROLOGICAL: Pupils equal. Cranial nerves grossly intact. Power and sensation grossly intact. Chest wall incision healing well. INVESTIGATIONS: White count 10.8, hemoglobin 10, platelets 675. Potassium 4.6, BUN 26, creatinine 0.74. Troponin 0.2, 0.2 and 0.01. TSH 1.0. ProBNP 2 720. UA negative. Chest x-ray film personally reviewed by me shows evidence of pulmonary edema, possible infiltrate. EKG tracing personally reviewed by me shows atrial fibrillation. Chest CTA negative for PE. EF is 45% from recent JACEK. ASSESSMENT: 1. Acute on chronic congestive heart failure from systolic dysfunction EF 45% from underlying coronary artery disease. 2. Coronary artery disease with recent coronary artery bypass. 3. Mitral valve replacement with prosthetic heart valve. 4. Pneumonia suspect gram-negative organism. 5. Essential hypertension. 6. Hyperlipidemia. 7. Restless legs syndrome. 8. Chronic insomnia idiopathic. PLAN: Patient is started on IV ceftriaxone, Zithromax in the ER, also did receive IV Lasix. Other home medications are resumed. The patient also started on Cordarone by Cardiology and also will be started on Eliquis. Repeat labs in the morning. Care was discussed with the patient. Questions were answered. Copy to . TYRELL / BELLEN: [id number] /
--- NOTE | 2019-02-26 16:28 | P.GSCN ---
History of Present Illness Consult date: 02/26/19 Reason for Consult: Recent redo sternotomy with single-vessel coronary artery bypass grafting and mitral valve replacement. Requesting physician: Francesco Patton History of present illness: This is 63-year-old gentleman who is followed by Dr. Esme Raymond on an outpatient basis. He is also followed by Dr. CYRIL Vogt from [facility]. 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 The patient also has a recent history of redo sternotomy with single-vessel coronary artery bypass grafting surgery and mitral valve replacement performed by Dr. Hussein on on 02/15/2019. He was subsequently discharged home on 02/21/2019 with home healthcare support. He presented to the emergency department here at [facility] yesterday with complaints of rapid heartbeat, feeling lightheaded with dizziness and near syncope. He denies any recent fever, chills, nausea, vomiting, diarrhea, syncope or pain. On presentation to the emergency department a 12-lead EKG was completed which showed atrial fibrillation with rapid ventricular response with a heart rate of 102 BPM. While in the emergency department he did convert to normal sinus rhythm and he reports once he was in a regular rhythm he did feel much better. He denies any further episodes of feeling his heart racing. Due to the patient's recent open heart surgery a consult was placed to Dr. Juan José Hussein. Review of Systems A 14 point review of systems was completed was negative except as mentioned in HPI. Past Medical History Past Medical History: Coronary Artery Disease (CAD), Cancer, Heart Failure, COPD, Hyperlipidemia, Hypertension, Myocardial Infarction (DE), Thyroid Disorder Additional Past Medical History / Comment(s): hx. 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, RLS, ,insomnia-states "only sleeps a couple hours per night,mitral valve replaced 02/15/2019 Last Myocardial Infarction Date:: 2004 History of Any Multi-Drug Resistant Organisms: None Reported Past Surgical History: Appendectomy, Bowel Resection, Coronary Bypass/CABG, Heart Catheterization, Heart Catheterization With Stent Additional Past Surgical History / Comment(s): staging laparotomy for Hodgkin's & splenectomy, CABG 5 vessel bypass 2002,JACEK, single-vessel bypass with mitral valve mitral valve replacement feb 15 2019 Past Anesthesia/Blood Transfusion Reactions: No Reported Reaction, Motion Sickness Additional Past Anesthesia/Blood Transfusion Reaction / Comm: no known hx blood trnasfusion Date of Last Stent Placement:: 2004 Past Psychological History: No Psychological Hx Reported Smoking Status: Former smoker Past Alcohol Use History: None Reported Additional Past Alcohol Use History / Comment(s): quit smoking 19 yrs. ago, 1- 2ppd for >30 yrs. Past Drug Use History: None Reported Additional Drug Use History / Comment(s): occasional use - Past Family History Mother Family Medical History: Cancer Additional Family Medical History / Comment(s): esophageal Medications and Allergies Home Medications Medication Instructions Recorded Confirmed Type Aspirin 325 mg PO DAILY 07/01/18 02/25/19 History Levothyroxine Sodium [Synthroid] 50 mcg PO QAM 07/01/18 02/25/19 History Omeprazole [PriLOSEC] 20 mg PO HS 07/01/18 02/25/19 History rOPINIRole HCL 0.75 mg PO HS 07/01/18 02/25/19 History Multivitamins, Thera [Multivitamin 1 tab PO DAILY 02/10/19 02/25/19 History (formulary)] Acetaminophen Tab [Tylenol] 1,000 mg PO Q6HR PRN #100 tablet 02/21/19 02/25/19 Rx Atorvastatin [Lipitor] 40 mg PO DAILY #30 tab 02/21/19 02/25/19 Rx Clopidogrel [Plavix] 75 mg PO DAILY #30 tab 02/21/19 02/25/19 Rx Furosemide [Lasix] 40 mg PO DAILY #30 tab 02/21/19 02/25/19 Rx Metoprolol Tartrate [Lopressor] 25 mg PO BID #60 tab 02/21/19 02/25/19 Rx hydrALAZINE HCL [Apresoline] 25 mg PO BID #60 tab 02/21/19 02/25/19 Rx Sennosides-Docusate Sodium 2 tab PO HS 02/25/19 02/25/19 History [Senokot-S] Allergies Allergy/AdvReac Type Severity Reaction Status Date / Time Iodinated Contrast- Oral and AdvReac Nausea & Verified 02/25/19 11:37 IV Dye Vomiting,chills Surgical - Exam Vital Signs Temp Pulse Resp BP Pulse Ox 100.1 F H 97 24 102/75 99 02/25/19 11:26 02/25/19 11:26 02/25/19 11:26 02/25/19 11:26 02/25/19 11:26 - General well developed, well nourished, no distress, no pain - Eyes PERRL, normal ocular movement - ENT normal pinna, normal nares, normal mucosa, no hearing loss, no congestion - Neck Neck is supple, no lymphadenopathy, no thyromegaly no masses, no bruits, trachea midline, no venous distension - Respiratory Lung sounds essentially clear throughout, diminished to his bilateral bases. Respirations are symmetrical and nonlabored. No wheezes no rhonchi. No edema present. - Cardiovascular Regular rhythm and rate. S1 and S2 present, negative for S3, or gallop. Systolic murmur present 1/6. - Abdomen Abdomen soft, nontender and nondistended. Active bowel sounds all 4 abdominal quadrants. No guarding or rigidity. No organomegaly. - Genitourinary Deferred - Rectum Deferred - Integumentary Midline sternal incision is clean, dry and approximated. No drainage or redness is present. Right lower extremity EVH site clean, dry and approximated. No drainage or redness present. no rash, no growths, no abnormal pigmentation - Neurologic normal coordination, normal sensation - Musculoskeletal normal gait, normal posture - Psychiatric oriented to time, oriented to person, oriented to place, speech is normal, memory intact Results - Labs 02/26/19 06:06 02/26/19 06:06 Abnormal Lab Results - Last 24 Hours (Table) 02/25/19 02/25/19 02/26/19 Range/Units 15:00 23:44 06:06 WBC 13.3 H (3.8-10.6) k/uL RBC 2.80 L (4.30-5.90) m/uL Hgb 8.7 L (13.0-17.5) gm/dL Hct 28.5 L (39.0-53.0) % MCV 102.0 H (80.0-100.0) fL MCHC 30.5 L (31.0-37.0) g/dL RDW 17.2 H (11.5-15.5) % Plt Count 643 H (150-450) k/uL BUN (9-20) mg/dL Glucose (74-99) mg/dL Troponin I 0.246 H* 0.164 H* (0.000-0.034) ng/mL 02/26/19 Range/Units 06:06 WBC (3.8-10.6) k/uL RBC (4.30-5.90) m/uL Hgb (13.0-17.5) gm/dL Hct (39.0-53.0) % MCV (80.0-100.0) fL MCHC (31.0-37.0) g/dL RDW (11.5-15.5) % Plt Count (150-450) k/uL BUN 29 H (9-20) mg/dL Glucose 116 H (74-99) mg/dL Troponin I (0.000-0.034) ng/mL Microbiology - Last 24 Hours (Table) 02/25/19 11:56 Blood Culture - Preliminary Blood No Growth after 24 hours 02/25/19 14:00 Urine Culture - Preliminary Urine,Voided Diabetes panel 02/26/19 Range/Units 06:06 Sodium 137 (137-145) mmol/L Potassium 4.2 (3.5-5.1) mmol/L Chloride 103 (98-107) mmol/L Carbon Dioxide 29 (22-30) mmol/L BUN 29 H (9-20) mg/dL Creatinine 0.84 (0.66-1.25) mg/dL Glucose 116 H (74-99) mg/dL Calcium 8.4 (8.4-10.2) mg/dL Thyroid panel 02/26/19 Range/Units 06:06 TSH 1.010 (0.465-4.680) mIU/L Calcium panel 02/26/19 Range/Units 06:06 Calcium 8.4 (8.4-10.2) mg/dL Pituitary panel 02/26/19 02/26/19 Range/Units 06:06 06:06 Sodium 137 (137-145) mmol/L Potassium 4.2 (3.5-5.1) mmol/L Chloride 103 (98-107) mmol/L Carbon Dioxide 29 (22-30) mmol/L BUN 29 H (9-20) mg/dL Creatinine 0.84 (0.66-1.25) mg/dL Glucose 116 H (74-99) mg/dL Calcium 8.4 (8.4-10.2) mg/dL TSH 1.010 (0.465-4.680) mIU/L Adrenal panel 02/26/19 Range/Units 06:06 Sodium 137 (137-145) mmol/L Potassium 4.2 (3.5-5.1) mmol/L Chloride 103 (98-107) mmol/L Carbon Dioxide 29 (22-30) mmol/L BUN 29 H (9-20) mg/dL Creatinine 0.84 (0.66-1.25) mg/dL Glucose 116 H (74-99) mg/dL Calcium 8.4 (8.4-10.2) mg/dL - Imaging Chest x-ray: report reviewed, image reviewed Assessment and Plan Assessment: 1. Paroxysmal atrial fibrillation, postoperative redo sternotomy with single- vessel coronary artery bypass grafting surgery and mitral valve replacement 2. Severe pulmonary hypertension 3. History of coronary artery disease status post coronary artery bypass grafting 5 vessels in 2002 was subsequent stenting of the [place] circumflex in 2002 4. Previous myocardial infarction 6. Hyperlipidemia 7. Hypertension 8. Chronic systolic heart failure 9. Hypothyroidism 10. History of Hodgkin's lymphoma in 1987 status post radiation 11. 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 Restless leg syndrome 13. History of splenectomy 14. Solitary 3 mm left basilar pulmonary nodule 15. Mild chronic obstructive pulmonary disease with a recent FEV1 62% of predicted value 16. Previous tobacco dependence Plan: Patient was seen and examined. Discharge diagnosis were reviewed. He was seen and examined by Dr. Jenn Schmidt from cardiothoracic surgery. We will consult cardiology for recommendations on anticoagulation and amiodarone. Per cardioth oracic surgery standpoint he can be discharged to home when okay per primary care service. Continue postoperative instructions which were reinforced with the patient. Reinforced the importance of continued smoking cessation. Continue to wear her heart hugger. Medical management and comorbid conditions per primary care service. Thank you for this consult and we will look forward to working with you in the care of your patient. Time with Patient: Greater than 30
[2019-02-26] MEDS: AZITHROMYCIN 500 MG in SODIUM CHLORIDE 0.9% 250 ML IVPB SCH (18:01)
[2019-02-26] MEDS: SENNOSIDES-DOCUSATE SODIUM 1 EACH TAB PO SCH (19:50)
[2019-02-26] MEDS: PANTOPRAZOLE 40 MG TABLET PO SCH (20:02)
[2019-02-26] MEDS: FUROSEMIDE 40 MG TAB PO SCH (20:02)
[2019-02-27] MEDS: LEVOTHYROXINE 50 MCG TAB PO SCH (06:02)
[2019-02-27 06:50] LABS: Anion Gap 5 mmol/L; Blood Urea Nitrogen 33 mg/dL (9-20); Calcium 8.7 mg/dL (8.4-10.2); Carbon Dioxide 32 mmol/L (22-30); Chloride 101 mmol/L (98-107); Glucose 83 mg/dL (74-99); Potassium 3.7 mmol/L (3.5-5.1); Sodium 138 mmol/L (137-145)
[2019-02-27] MEDS: AMIODARONE 200 MG TAB PO SCH ×2 (08:33→22:08)
[2019-02-27] MEDS: hydrALAZINE HCL 25 MG TAB PO SCH ×2 (08:33→22:09)
[2019-02-27] MEDS: ASPIRIN 81 MG PO SCH (08:33)
[2019-02-27] MEDS: APIXABAN 5 MG TAB PO SCH ×2 (08:33→22:09)
[2019-02-27] MEDS: MULTIVITAMINS, THERA 1 EACH TAB PO SCH (08:34)
[2019-02-27] MEDS: ATORVASTATIN 40 MG TAB PO SCH (08:34)
[2019-02-27] MEDS: FUROSEMIDE 40 MG TAB PO SCH (08:34)
[2019-02-27] MEDS: METOPROLOL TARTRATE 25 MG TAB PO SCH ×2 (08:37→22:09)
[2019-02-27] MEDS ORDERED: FUROSEMIDE 40 MG TAB PO SCH (09:00)
[2019-02-27] MEDS ORDERED: CALCIUM CARBONATE 500 MG CHEWABLE PO PRN (14:31)
[2019-02-27] MEDS: POTASSIUM CHLORIDE ER 20 MEQ TAB.ER PO SCH (14:41)
[2019-02-27] MEDS: AZITHROMYCIN 500 MG in SODIUM CHLORIDE 0.9% 250 ML IVPB SCH (14:41)
--- NOTE | 2019-02-27 14:53 | PN ---
PROGRESS NOTE Mr. Warner is a 63-year-old male status post mitral valve repair and coronary artery bypass grafting with redo surgery, who presented with an episode of atrial fibrillation. He is in sinus mechanism at this time. He felt some palpitation in the morning, although on the monitor I could not find a clear documentation of recurrent atrial fibrillation. His breathing is better. He denies any dizziness or palpitation. He denies any nausea. His activity level has been stable. He was started yesterday on anticoagulation in the form of Eliquis 5 mg twice a day. He is on amiodarone 400 mg twice a day, aspirin once a day, Lipitor 40 mg daily, Lasix 40 mg twice a day, hydralazine 25 mg twice a day, metoprolol tartrate 25 mg twice a day. PHYSICAL EXAMINATION: Blood pressure 119/60 with a heart in 90s. LUNGS: No wheezes or rales. HEART: Regular rate and rhythm S1, S2. No S3. With systolic murmur. No rub. ABDOMEN: Soft, nontender. No organomegaly. EXTREMITIES: No edema. LAB DATA: BUN and creatinine 33 and 0.84, potassium 3.7. His TSH is 1.01. IMPRESSION: 1. Paroxysmal atrial fibrillation back in sinus mechanism. 2. Status post redo surgery with mitral valve repair and coronary artery bypass grafting. 3. History of hyperlipidemia. 4. History of hypertension. RECOMMENDATION: We will continue present therapy. The dose of amiodarone can be decreased to 200 mg twice a day in 1 week. If he remains stable, I would expect he should be able to be discharged home tomorrow. We will follow his renal function and at this point, I will cut down the dose of the Lasix 40 mg once a day and follow his renal function. MMODL / IJN: [id number] /
--- NOTE | 2019-02-27 15:24 | PN ---
PROGRESS NOTE DATE OF SERVICE: February 27, 2019. PRESENTING COMPLAINT: Tired. INTERVAL HISTORY: This patient with recent coronary artery bypass presented with CHF exacerbation and paroxysmal atrial fibrillation. The patient has had episodes of sinus tachycardia yesterday. Does feel a bit tired today. Breathing overall is better. Did tolerate some diet. REVIEW OF SYSTEMS: Done for constitutional, cardiovascular, GI, pulmonary; relevant findings as above. CURRENT MEDICATIONS: Reviewed that include p.o. amiodarone, Eliquis, ceftriaxone for pneumonia. PHYSICAL EXAMINATION: VITAL SIGNS: Afebrile. Pulse 95, respirations 16, blood pressure 109/68, pulse ox 96% on room air. GENERAL APPEARANCE: Sitting up on a chair, awake. EYES: Pupils equal. Conjunctivae normal. NECK: JVD not raised. Mass not palpable. RESPIRATORY: Effort increased. LUNGS: Decreased breath sounds. CARDIOVASCULAR: 1st and 2nd sounds normal. Minimal edema. ABDOMEN: Soft, nontender. Liver and spleen not palpable. PSYCHIATRY: Alert and oriented x3. Mood and affect normal. INVESTIGATIONS: Potassium 3.7, BUN 33, creatinine 0.84. Procalcitonin 0.21. ASSESSMENT: 1. Acute on chronic congestive heart failure exacerbation from systolic dysfunction EF 45% from underlying coronary artery disease with clinical improvement. 2. Coronary artery disease with recent coronary bypass. 3. Mitral valve replacement, prosthetic heart valve. 4. Paroxysmal atrial fibrillation with rapid ventricular rate, now back in sinus rhythm, started on Eliquis. 5. Pneumonia suspect gram-negative organism, POA. 6. Essential hypertension. 7. Hyperlipidemia. 8. Restless legs syndrome. 9. Chronic insomnia, idiopathic. PLAN: Overall doing better. Continue another 24 hours of IV antibiotic. Repeat labs in the morning. Encourage to ambulate. The patient should be able to go home hopefully tomorrow. MMODL / IJN: [id number] /
[2019-02-27] MEDS: SENNOSIDES-DOCUSATE SODIUM 1 EACH TAB PO SCH (22:08)
[2019-02-27] MEDS: PANTOPRAZOLE 40 MG TABLET PO SCH (22:10)
[2019-02-28] MEDS: LEVOTHYROXINE 50 MCG TAB PO SCH (06:18)
[2019-02-28 07:19] LABS: Anion Gap 4 mmol/L; Blood Urea Nitrogen 32 mg/dL (9-20); Calcium 8.9 mg/dL (8.4-10.2); Carbon Dioxide 35 mmol/L (22-30); Chloride 100 mmol/L (98-107); Glucose 88 mg/dL (74-99); Potassium 3.9 mmol/L (3.5-5.1); Sodium 139 mmol/L (137-145)
[2019-02-28 08:21] LABS: Anisocytosis Slight; HCT 30.4 % (39.0-53.0); HGB 9.2 gm/dL (13.0-17.5); Hypochromasia Marked; MCHC 30.3 g/dL (31.0-37.0); MCV 102.2 fL (80.0-100.0); Macrocytosis Moderate; Mean Platelet Volume 7.3; Platelet Count 750 k/uL (150-450); Poikilocytosis Moderate; RBC 2.98 m/uL (4.30-5.90); RDW 17.3 % (11.5-15.5)
[2019-02-28] MEDS: ATORVASTATIN 40 MG TAB PO SCH (08:31)
[2019-02-28] MEDS: POTASSIUM CHLORIDE ER 20 MEQ TAB.ER PO SCH (08:31)
[2019-02-28] MEDS: APIXABAN 5 MG TAB PO SCH (08:31)
[2019-02-28] MEDS: hydrALAZINE HCL 25 MG TAB PO SCH (08:31)
[2019-02-28] MEDS: AMIODARONE 200 MG TAB PO SCH (08:31)
[2019-02-28] MEDS: METOPROLOL TARTRATE 25 MG TAB PO SCH (08:32)
[2019-02-28] MEDS: MULTIVITAMINS, THERA 1 EACH TAB PO SCH (08:32)
[2019-02-28] MEDS: ASPIRIN 81 MG PO SCH (08:32)
[2019-02-28] MEDS ORDERED: FUROSEMIDE 40 MG TAB PO SCH (09:00)
[2019-02-28 09:34] LABS: Basophils # (M) 0.12 k/uL (0-0.2); Eosinophils # (M) 0.35 k/uL (0-0.7); Lymphocytes # (M) 1.84 k/uL (1.0-4.8); Monocytes # (M) 0.35 k/uL (0-1.0); Neutrophils # (M) 8.97 k/uL (1.3-7.7); Neutrophils % (M) 78 %; Nucleated Red Blood Cells 3 /100 WBC (0-0); Total Cells Counted 200; WBC 11.5 k/uL (3.8-10.6)
[2019-02-28 09:35] LABS: Polychromasia Present; RBC Fragments Present
[2019-02-28 09:36] LABS: Mixed Population RBC Present
[2019-02-28 09:42] VITALS: PULSE 86; RESP 16
--- NOTE | 2019-02-28 10:53 | PN ---
PROGRESS NOTE Mr. Warner is a 63-year-old male with a history of coronary artery disease status post coronary artery bypass grafting and mitral valve repair, who presented with an episode of atrial fibrillation. He continued to be in sinus mechanism. His breathing is stable. He feels tired at times, but he has been ambulating. He denies any dizziness or palpitation. No syncope. He continues to be on amiodarone 400 mg twice a day, Eliquis 5 mg twice a day, aspirin 81 mg daily, furosemide 40 mg daily, hydralazine 50 mg twice a day, metoprolol tartrate 25 mg twice a day in addition to Protonix. PHYSICAL EXAMINATION: Blood pressure 129/70 with a heart rate in 60s. LUNGS: Clear. HEART: Regular rate and rhythm S1, S2. No S3 with systolic murmur. No diastolic murmur. No rub. ABDOMEN: Soft nontender. EXTREMITIES: No edema. LAB DATA: Hemoglobin 9.2, white blood cell of 11.5, BUN and creatinine 32 and 0.77. IMPRESSION: 1. Atrial fibrillation paroxysmal, status post redo surgery and mitral valve repair, now in sinus mechanism. 2. Status post coronary artery bypass grafting. 3. Mitral valve repair. 4. Hypertension. 5. Hyperlipidemia. RECOMMENDATION: From the cardiac standpoint, I would expect he should be able to be discharged home today. I will continue on the amiodarone at this dose for 3 more days then cut it down to 200 mg twice a day. Continue rest of his medical regimen and follow up as an outpatient. Hopefully we can taper down the amiodarone and subsequently stop it, in addition to the anticoagulation if he can maintain sinus mechanism. MMODL / IJN: [id number] /
[2019-02-28 13:34] VITALS: BP 129/79; TEMP 98.5
--- NOTE | 2019-02-28 22:41 | DS ---
DISCHARGE SUMMARY DATE OF ADMISSION: 02/25/2019. DATE OF DISCHARGE: 02/28/2019. FINAL DIAGNOSES: 1. Pneumonia, suspect gram-negative organism, POA. 2. Acute on chronic congestive heart failure exacerbation from systolic dysfunction, EF 45% from underlying coronary artery disease, POA. 3. Coronary artery disease recent coronary bypass. 4. Mitral valve replacement, prosthetic heart valve. 5. Paroxysmal atrial fibrillation, rapid ventricular rate on presentation, now back in sinus rhythm, POA. 6. Essential hypertension. 7. Hyperlipidemia. 8. Restless leg syndrome. 9. Chronic insomnia, idiopathic. HOSPITAL COURSE: This patient underwent coronary bypass and mitral valve replacement with a prosthetic valve. Discharged on 02/21/2019. The patient presented with heart rate up into 160s, found to be in atrial fibrillation. Did revert to sinus rhythm. Also found to have pneumonia and CHF exacerbation. Responded well to antibiotics and IV fluids. Doing much better today. Care was discussed with the patient in detail. Tolerating a diet. White count is coming down. PHYSICAL EXAMINATION: Afebrile, pulse 72, respiration2 16, blood pressure 129/79, pulse ox 98% on room air. LUNGS: Fair air entry. CARDIOVASCULAR: First and second sounds normal. Incision healing well. Discussion discharge planning more than 35 minutes. LABS: White count 11.5, hemoglobin 9.2, platelets 150,000, creatinine 0.77. CONSULTATION: 1. Dr. Mills from Cardiology. 2. Dr. Schmidt from Cardiothoracic. Additionally patient was felt to be too good for inpatient rehab. DISCHARGE MEDICATIONS: 1. Aspirin 325 p.o. daily. 2. Synthroid 50 mcg a day. 3. Prilosec 20 mg p.o. at bedtime. 4. Ropinirole 0.75 mg at bedtime. 5. Multivitamin 1 tablet p.o. daily. 6. Tylenol 1000 mg p.o. every 6 hours p.r.n. 7. Lipitor 40 mg p.o. daily. 8. Lasix 40 mg p.o. daily. 9. Lopressor 25 mg b.i.d. 10.Hydralazine 25 mg b.i.d. 11.Senokot-S 2 tablets p.o. at bedtime. 12.Cordarone 400 mg twice a day for 7 days, 400 mg a day for 7 days then 200 mg a day. 13.Eliquis 5 mg b.i.d. 14.Ceftin 500 mg b.i.d. for 3 days. 15.Potassium 20 mEq p.o. daily. FOLLOWUP: 1. Cardiology in [address] Kang Raymond in 3 days. Discussion and discharge planning more than 35 minutes. MMODL / IJN: [id number] /
== END 2019-02-28 16:55 | disposition home health service (06) ==
LOC: EC 11:13 → 3SCARD 15:14 → OBSVTOIN 02-27 14:50 → INTOOBSV 02-27 14:50
PROVIDERS: ADMIT Hospitalist; ATTEND Hospitalist
DX: J18.9 Pneumonia, unspecified organism (principal); I11.0 Hypertensive heart disease with heart failure; I50.23 Acute on chronic systolic (congestive) heart failure; J44.0 Chronic obstructive pulmonary disease with (acute) lower respiratory infection; I27.20 Pulmonary hypertension, unspecified; I48.0 Paroxysmal atrial fibrillation; E78.5 Hyperlipidemia, unspecified; E03.9 Hypothyroidism, unspecified; F51.04 Psychophysiologic insomnia; G25.81 Restless legs syndrome; I25.10 Atherosclerotic heart disease of native coronary artery without angina pectoris; I25.2 Old myocardial infarction; I49.3 Ventricular premature depolarization; R91.1 Solitary pulmonary nodule; R79.89 Other specified abnormal findings of blood chemistry; R77.8 Other specified abnormalities of plasma proteins; R03.1 Nonspecific low blood-pressure reading; R53.81 Other malaise; Z79.02 Long term (current) use of antithrombotics/antiplatelets; Z79.82 Long term (current) use of aspirin; Z79.890 Hormone replacement therapy; Z79.899 Other long term (current) drug therapy; Z91.041 Radiographic dye allergy status; Z90.81 Acquired absence of spleen; Z85.71 Personal history of Hodgkin lymphoma; Z92.3 Personal history of irradiation; Z95.1 Presence of aortocoronary bypass graft; Z90.49 Acquired absence of other specified parts of digestive tract; Z85.89 Personal history of malignant neoplasm of other organs and systems; Z95.5 Presence of coronary angioplasty implant and graft; Z95.2 Presence of prosthetic heart valve; Z87.891 Personal history of nicotine dependence; Z80.0 Family history of malignant neoplasm of digestive organs
CPT/HCPCS: 96376 ×2; 96365 ×2; 96366 ×2; 96375; 99291; 36415; 93005; 97161; 97165; 85379; 83880; 80053; 80048 ×3; 84443; 83605; 83735 ×2; 84484; 85025 ×2; 85027; 85610; 85730; 81003; 87040; 87086; 84145; 71045; 71046; 71275; G0378 ×4; J2543; J1200; J1940 ×2; J2930; J0456 ×3; J0696 ×3; Q9967

== ENCOUNTER → 2019-03-02 | Outpatient (CLI) | payer OTHER ==
--- NOTE | 2019-03-02 15:58 | XR ---
EXAMINATION TYPE: XR chest 2V DATE OF EXAM: 03/02/2019 COMPARISON: 02/26/2019 HISTORY: Pneumonia. Follow-up exam. Abnormal lung sounds. Patient denies cough or fever. TECHNIQUE: Frontal and lateral views of the chest are obtained. FINDINGS: Patchy left basilar airspace disease is again noted with trace pleural effusions. Prior ca rdiac valvular replacement has been performed. Small amount of intrafissural fluid is seen with eleva tion of the right minor fissure. Given the recent CT findings continued surveillance with CT is recom mended. Right midlung rounded pulmonary nodule is evident. There is generalized osseous demineralizat ion and mild degenerative changes of the thoracic spine. Surgical clips are noted in the upper abdome n. IMPRESSION: Similar exam to the prior of 02/26/2019 with right midlung pulmonary nodule, nodular cons olidation of the left lung base and trace pleural effusions. Follow-up to resolution is recommended.
== END | disposition home or self-care (01) ==
LOC: RADXRMAIN 15:19
PROVIDERS: ATTEND Nurse Practitioner
DX: R91.1 Solitary pulmonary nodule (principal)
CPT/HCPCS: 71046

== ENCOUNTER → 2019-03-29 | Outpatient (CLI) | payer OTHER ==
--- NOTE | 2019-03-29 16:19 | XR ---
EXAMINATION TYPE: XR chest 2V DATE OF EXAM: 03/29/2019 COMPARISON: 03/02/2019 HISTORY: 63 year-old male shortness of breath TECHNIQUE: PA and lateral views FINDINGS: Median sternotomy wires and post-CABG clips in the mediastinum. Prosthetic cardiac valve. Diffuse int erstitial prominence with small bilateral pleural effusions. Effusions and interstitial opacities sli ghtly increased. IMPRESSION: Interstitial changes with small pleural effusions and adjacent atelectasis and/or consolidation. Bruna elate for fluid overload state with pulmonary vascular congestion.
--- NOTE | 2019-03-29 16:35 | US ---
EXAMINATION TYPE: US venous doppler duplex LE BI DATE OF EXAM: 03/29/2019 3:18 PM COMPARISON: None CLINICAL HISTORY: 63-year-old male I82.409 deep vein thrombosis. SIDE PERFORMED: Bilateral TECHNIQUE: The lower extremity deep venous system is examined utilizing real time linear array sonog lis with graded compression, doppler sonography and color-flow sonography. FINDINGS: VESSELS IMAGED: External Iliac Vein (EIV) Common Femoral Vein Deep Femoral Vein Greater Saphenous Vein * Femoral Vein Popliteal Vein Small Saphenous Vein * Proximal Calf Veins (* superficial vessels) Right Leg: Negative for DVT Left Leg: Negative for DVT IMPRESSION: No evidence for DVT within the bilateral lower extremities imaged from the groin to the upper calves.
== END | disposition home or self-care (01) ==
LOC: RADUSWWP 14:13
PROVIDERS: ATTEND Thoracic Surgery (Cardiothoracic Vascular Surgery)
DX: J90 Pleural effusion, not elsewhere classified (principal); J98.11 Atelectasis; I82.409 Acute embolism and thrombosis of unspecified deep veins of unspecified lower extremity
CPT/HCPCS: 71046; 93970

== ENCOUNTER 2019-04-08 08:40 | Day surgery (SDC) | payer OTHER ==
[2019-04-08 09:12] LABS: Mean Platelet Volume 7.2; Platelet Count 478 k/uL (150-450)
[2019-04-08 09:14] VITALS: TEMP 97.1
[2019-04-08 09:16] LABS: Prothrombin Time 10.8 sec (9.0-12.0)
[2019-04-08 11:07] VITALS: PULSE 64
[2019-04-08 11:21] VITALS: BP 105/80; RESP 16
--- NOTE | 2019-04-08 11:26 | XR ---
EXAMINATION TYPE: XR chest 1V portable DATE OF EXAM: 04/08/2019 COMPARISON: 03/02/2019 and 03/29/2019 HISTORY: Status post right thoracentesis. Follow-up for pleural effusion. TECHNIQUE: Single frontal view of the chest is obtained. FINDINGS: Previously seen nodular density overlying the right upper lung appears now as a subtle con solidation. There is improved degree of right pleural effusion, now trace bilaterally. Minimal left b asilar subsegmental linear atelectasis is seen. Remainder the lungs are clear. Cardiac cranioplasty a nd post CABG changes are present. Cardia mediastinal silhouette is nonenlarged and stable. No acute o sseous pathology is seen. No postprocedural pneumothorax. IMPRESSION: No postprocedural pneumothorax. Improved right pleural effusion now trace bilaterally. R ight nodular density seen on the prior exam of 03/02/2019 now appears as right midlung airspace diseas e.
--- NOTE | 2019-04-08 16:14 | US ---
EXAMINATION TYPE: US thoracentesis DATE OF EXAM: 04/08/2019 COMPARISON: NONE HISTORY: Pleural effusion. FINDINGS: Maximal barrier technique was utilized. The skin overlying a suitable pocket of fluid was localized and the overlying skin prepped and draped. Lidocaine was used for local anesthesia. Ultras ound was used with sterile technique. A 5 [place] catheter over guide needle was advanced into the pl eural fluid collection using ultrasound guidance and the catheter advanced, needle removed. Approxim ately 1.5 liter(s) of serous angle is fluid was removed. Catheter was withdrawn and hemostasis achie omnica. There is no immediate complication. The patient discharged in stable condition without complic ation. IMPRESSION: STATUS POST ULTRASOUND GUIDED THORACENTESIS, POST PROCEDURE CHEST X-RAY PENDING. THIS NC OCEDURE WAS PERFORMED BY THE UNDERSIGNED.
== END 2019-04-08 11:32 | disposition home or self-care (01) ==
LOC: RADPROMAIN 08:40
PROVIDERS: ATTEND Thoracic Surgery (Cardiothoracic Vascular Surgery)
DX: J90 Pleural effusion, not elsewhere classified (principal); Z95.1 Presence of aortocoronary bypass graft
CPT/HCPCS: 32555; 71045; 85049; 85610

== ENCOUNTER 2019-04-09 11:43 | Day surgery (SDC) | payer OTHER ==
[2019-04-09 12:34] VITALS: BP 121/72; PULSE 79; RESP 18; TEMP 98.1
--- NOTE | 2019-04-09 16:34 | US ---
Discontinued left thoracentesis HISTORY: Pleural effusion Small left pleural effusion is identified. No thoracentesis performed at this time.
== END 2019-04-09 13:15 | disposition home or self-care (01) ==
LOC: RADPROMAIN 11:43
PROVIDERS: ATTEND Thoracic Surgery (Cardiothoracic Vascular Surgery)
DX: J90 Pleural effusion, not elsewhere classified (principal); Z91.041 Radiographic dye allergy status; Z53.8 Procedure and treatment not carried out for other reasons
CPT/HCPCS: 76604

== ENCOUNTER → 2019-04-21 | Outpatient (CLI) | payer OTHER ==
[2019-04-21 12:10] LABS: Anisocytosis Slight; Basophils # (A) 0.1 k/uL (0-0.2); Basophils % (A) 1 %; Eosinophils # (A) 0.2 k/uL (0-0.7); Eosinophils % (A) 3 %; HCT 34.2 % (39.0-53.0); HGB 10.2 gm/dL (13.0-17.5); Hypochromasia Marked; Lymphocytes # (A) 1.8 k/uL (1.0-4.8); Lymphocytes % (A) 25 %; MCH 26.6 pg (25.0-35.0); MCHC 29.8 g/dL (31.0-37.0); Mean Platelet Volume 6.8; Monocytes # (A) 0.7 k/uL (0-1.0); Monocytes % (A) 9 %; Neutrophils # (A) 4.2 k/uL (1.3-7.7); Neutrophils % (A) 59 %; Platelet Count 454 k/uL (150-450); Poikilocytosis Moderate; RBC 3.84 m/uL (4.30-5.90); RDW 16.9 % (11.5-15.5); WBC 7.1 k/uL (3.8-10.6)
[2019-04-21 12:14] LABS: MCV 89.2 fL (80.0-100.0)
[2019-04-22 14:39] LABS: LOG HCV IU/mL <1.08 (<1.08)
== END | disposition home or self-care (01) ==
LOC: LABWHC1 11:19
PROVIDERS: ATTEND Family Medicine
DX: D64.9 Anemia, unspecified (principal)
CPT/HCPCS: 36415; 85025; 87522

== ENCOUNTER → 2019-05-07 | Outpatient (CLI) | payer OTHER ==
--- NOTE | 2019-05-07 09:19 | US ---
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 No pain, NPO EXAM MEASUREMENTS: Liver Length: 13.7 cm Gallbladder Wall: 0.2 cm CHD: 0.6 cm Right Kidney: 11.8 x 4.8 x 4.3 cm Limited due to overlying bowel gas Pancreas: Obscured by bowel gas Liver: Appears coarse related to this patient's underlying known hepatocellular disease. This does l imit evaluation for hepatic masses however no focal hepatic mass is seen on today's exam.. Prominent hepatic veins and portal veins seen. Gallbladder: wnl Evidence for sonographic Holt's sign: neg CBD: Obscured by overlying bowel gas CHD: wnl Right Kidney: lower pole lateral hypoechoic lesion measures 0.8 x 0.7 x 0.7 cm. This is too small to accurately characterize. Incidental finding- AAA visualized in distal Aorta= 7.3 x 3.3 x 2.3 cm Probable right pleural effusion visualized. IMPRESSION: 1. Incidentally noted fusiform abdominal aortic aneurysm with marked atherosclerosis. This measures u p to 3.3 cm in transverse dimension. 2. Coarsened hepatic echotexture compatible with this patient's known history of hepatocellular disea se. Although this limits evaluation for hepatic masses no focal mass is seen on today's exam. 3. Prominent size of the portal venous system suggesting portal venous hypertension. 4. Probable small right pleural effusion.
== END | disposition home or self-care (01) ==
LOC: RADUSWWP 07:37
PROVIDERS: ATTEND Family Medicine
DX: B19.20 Unspecified viral hepatitis C without hepatic coma (principal)
CPT/HCPCS: 76705

== ENCOUNTER → 2019-05-10 | Outpatient (CLI) | payer OTHER ==
--- NOTE | 2019-05-11 07:19 | XR ---
EXAMINATION TYPE: XR chest 2V DATE OF EXAM: 05/10/2019 COMPARISON: 04/08/2019 HISTORY: Bilateral pleural effusions, follow-up exam. TECHNIQUE: Frontal and lateral views of the chest are obtained. FINDINGS: Persistent trace pleural effusions and hazy bibasilar airspace disease, likely atelectasis . Postsurgical changes are seen in the mediastinum with cardiac valvular replacement as well as of th e upper abdomen. No acute osseous pathology. No pneumothorax. Cardia mediastinal silhouette is stable . IMPRESSION: Persistent trace pleural effusions and bibasilar atelectasis.
== END | disposition home or self-care (01) ==
LOC: RADXRMAIN 16:58
PROVIDERS: ATTEND Nurse Practitioner
DX: J90 Pleural effusion, not elsewhere classified (principal)
CPT/HCPCS: 71046

== ENCOUNTER → 2019-05-14 | Outpatient (CLI) | payer OTHER ==
--- NOTE | 2019-05-14 15:27 | XR ---
EXAMINATION TYPE: XR chest 2V DATE OF EXAM: 05/14/2019 COMPARISON: 05/07/2019 HISTORY: R07.9. Prior cardiac valve replacement. Cough. Rib pain. TECHNIQUE: Frontal and lateral views of the chest are obtained. FINDINGS: There is chronic elevation of the right minor fissure without paratracheal thickening or e vidence of right upper lobe collapse. Trace pleural effusions remain. Cardiomediastinal silhouette is stable and nonenlarged with prior cardiac valvular replacement. Multiple surgical clips are seen in the upper abdomen. Generalized osseous demineralization is seen. IMPRESSION: Chronic elevation of the right minor fissure and chronic trace bilateral pleural effusio ns. No acute cardiopulmonary process.
== END | disposition home or self-care (01) ==
LOC: RADXRMAIN 14:40
PROVIDERS: ATTEND Thoracic Surgery (Cardiothoracic Vascular Surgery)
DX: J90 Pleural effusion, not elsewhere classified (principal)
CPT/HCPCS: 71046

== ENCOUNTER → 2019-06-09 | Outpatient (CLI) | payer OTHER ==
[2019-06-09 23:08] LABS: African American GFR (CKD) 74.7 (60.0-200.0); Albumin 4.7 g/dL (3.80-4.90); Albumin/Globulin Ratio 2.24 (1.60-3.17); Anion Gap 8.7 mmol/L (4.00-12.00); BUN/Creat Ratio 28.33 Ratio (12.00-20.00); Calcium 9.5 mg/dL (8.7-10.3); Carbon Dioxide 32.3 mmol/L (21.6-31.8); Globulin 2.1 g/dL (1.6-3.3); Potassium 4.1 mmol/L (3.5-5.5); Total Bilirubin 0.5 mg/dL (0.2-1.2); Total Protein 6.8 g/dL (6.2-8.2)
== END | disposition home or self-care (01) ==
LOC: LABWHC1 15:33
PROVIDERS: ATTEND Internal Medicine Gastroenterology
DX: R94.5 Abnormal results of liver function studies (principal)
CPT/HCPCS: 36415; 80053

== ENCOUNTER → 2019-07-20 | Outpatient (CLI) | payer OTHER ==
--- NOTE | 2019-07-21 08:39 | XR ---
EXAMINATION TYPE: XR chest 2V DATE OF EXAM: 07/20/2019 COMPARISON: 05/14/2019 HISTORY: Coronary artery disease. Pleural effusion. Follow-up exam. TECHNIQUE: Frontal and lateral views of the chest are obtained. FINDINGS: Trace pleural effusions blunt the costophrenic angles. Postsurgical changes from aortic va lvular replacement, CABG, abdominal surgery are seen. Chronic right minor fissural elevation is again noted. No new focal consolidation. Pulmonary hyperinflation of underlying COPD with lateral flatteni ng of the diaphragms. Mild degenerative changes of the spine. IMPRESSION: Stable trace pleural effusions and other chronic findings. No acute process.
== END | disposition home or self-care (01) ==
LOC: RADXRMAIN 15:50
PROVIDERS: ATTEND Internal Medicine Interventional Cardiology
DX: J90 Pleural effusion, not elsewhere classified (principal); I25.10 Atherosclerotic heart disease of native coronary artery without angina pectoris
CPT/HCPCS: 71046

== ENCOUNTER → 2019-09-06 | Outpatient (CLI) | payer OTHER | END | disposition home or self-care (01) | LOC: LABWHC1 12:30 | PROVIDERS: ATTEND Internal Medicine Interventional Cardiology | DX: E03.9 Hypothyroidism, unspecified (principal) | CPT/HCPCS: 36415; 84443 ==

== ENCOUNTER → 2019-10-04 | Outpatient (CLI) | payer OTHER ==
--- NOTE | 2019-10-04 16:25 | XR ---
EXAMINATION TYPE: XR cervical spine limited, 4 views DATE OF EXAM: 10/04/2019 COMPARISON: NONE HISTORY: 63-year-old male cervicalgia, neck pain TECHNIQUE: 4 views FINDINGS: No predental space widening or prevertebral soft tissue swelling. Preserved alignment of the cervical spine. Moderate facet arthropathy is present throughout. Disc interspaces relatively maintained. Limited odo ntoid view shows no gross abnormality. IMPRESSION: Moderate facet arthropathy throughout. No malalignment or prevertebral soft tissue swelling.
== END | disposition home or self-care (01) ==
LOC: RADXRMAIN 13:26
PROVIDERS: ATTEND Family Medicine
DX: M46.92 Unspecified inflammatory spondylopathy, cervical region (principal)
CPT/HCPCS: 72040

== ENCOUNTER 2019-11-15 10:28 | Day surgery (SDC) | payer OTHER ==
[2019-11-15 10:58] VITALS: TEMP 98.3
[2019-11-15] MEDS ORDERED: LACTATED RINGERS 1,000 ML IV ONE (11:00)
[2019-11-15] MEDS ORDERED: PHENYLEPHRINE-0.9% NACL SYG 1 MG/10 ML SYRINGE ONE (11:33)
[2019-11-15] MEDS ORDERED: LIDOCAINE HCL/PF 20 MG/ML 10 ML AMP ONE (11:33)
[2019-11-15] MEDS ORDERED: PROPOFOL 10 MG/ML 20 ML VIAL IV ONE (11:33)
[2019-11-15] MEDS ORDERED: KETAMINE 10 MG/ML 20 ML VIAL ONE (11:33)
--- NOTE | 2019-11-15 12:27 | P.PCN ---
Date of Procedure: 11/15/19 Description of Procedure: Brief history: Patient is a pleasant scheduled for an elective upper endoscopy as well as colonoscopy as a part of evaluation of GERD and abnormal weight loss. Patient with a long-standing history of GERD. Currently on Prilosec daily. Was sprayed symptoms a few times a week. He also reports unintentional weight loss. He feels this may be an association with mitral valve replacement. Procedure performed: Esophagogastroduodenoscopy With biopsy Colonoscopy with polypectomy Estimated blood loss: Minimal. Preoperative diagnosis: GERD, abnormal weight loss, patient has had EGD and colonoscopy in the past, history of colon polyps [place]est[place] [facility] [place]: After informed consent was obtained from the patient was brought into the endoscopy unit and IV sedation was administered by anesthesia under continuous monitoring. Initially upper endoscopy was done. The Olympus GF 190 video endoscope was inserted into the mouth and esophagus intubated without any difficulty and was gradually advanced into the stomach and duodenum and carefully examined. The bulb and second part of the duodenum appeared normal, With biopsies taken to rule out celiac sprue. The scope was then withdrawn into the stomach adequately insufflated with air and upon careful examination the antrum and body, cardia and fundus appeared normal, Except for some mild scattered erythema and body suggestive of gastritis. The scope was then withdrawn into the esophagus. The GE junction was located at 40 cm to the incisors and biopsied to rule out reflux esophagitis. It appeared regular with no erythema erosions or ulcerations. Rest of the esophagus appeared normal. Patient tolerated the procedure well. At this time the patient continued to remain sedation. Initial digital rectal examination was normal. Olympus CF 190 video colonoscope was then inserted into the rectum and gradually advanced to the cecum without any difficulty. Careful examination was performed as the scope was gradually being withdrawn. The prep was excellent. The ascending colon, transverse colon, descending colon, sigmoid colon and rectum appeared normal. 11 mm sessile descending colon polyp removed with cold snare polypectomy. Diminutive 2 mm transverse colon polyp removed with cold forcep polypectomy. Moderate left colonic diverticulosis marked by small and large diverticula. Somewhat tortuous sigmoid colon. The patient did have evidence of prior colonic resection with intact anastomotic site, patient appears to have had an ileocecectomy in the past. Retroflexion was performed in the rectum and no lesions were noted. Patient tolerated the procedure well. Impression: 1. Mild gastritis in body, biopsied. Biopsies of duodenum and GE junction. 2. Diminutive transverse colon polyp removed with cold forceps. 11 mm descending colon polyp removed with cold snare polypectomy. Moderate left colonic diverticulosis. Evidence of prior partial colectomy with anatomy consistent with ileocecectomy with intact anastomosis and normal visualized small bowel. Recommendations: Findings of this examination were discussed with the patient as well as his family. Okay to resume diet. Okay to resume medications and Eliquis tomorrow. Await pathology from all the x-rays. Would recommend repeat colonoscopy in 3 years for high risk colon polyps. Otherwise continue current medical treatment.
[2019-11-15 13:46] VITALS: RESP 16
[2019-11-15 13:47] VITALS: BP 121/73; PULSE 81
== END 2019-11-15 13:30 | disposition home or self-care (01) ==
LOC: ORWHC2ENDO 10:28
PROVIDERS: ATTEND Internal Medicine
DX: K29.80 Duodenitis without bleeding (principal); K31.7 Polyp of stomach and duodenum; K31.9 Disease of stomach and duodenum, unspecified; D12.4 Benign neoplasm of descending colon; K63.5 Polyp of colon; K57.30 Diverticulosis of large intestine without perforation or abscess without bleeding; Q43.8 Other specified congenital malformations of intestine; Z86.010 Personal history of colon polyps; I48.91 Unspecified atrial fibrillation; I11.0 Hypertensive heart disease with heart failure; I50.9 Heart failure, unspecified; E78.49 Other hyperlipidemia; Z90.49 Acquired absence of other specified parts of digestive tract; Z85.71 Personal history of Hodgkin lymphoma; Z87.891 Personal history of nicotine dependence; Z95.1 Presence of aortocoronary bypass graft; Z95.5 Presence of coronary angioplasty implant and graft; Z95.2 Presence of prosthetic heart valve; Z80.0 Family history of malignant neoplasm of digestive organs; I25.2 Old myocardial infarction; J44.9 Chronic obstructive pulmonary disease, unspecified; Z79.01 Long term (current) use of anticoagulants; Z79.82 Long term (current) use of aspirin; Z79.890 Hormone replacement therapy; Z79.899 Other long term (current) drug therapy; Z91.041 Radiographic dye allergy status
CPT/HCPCS: 88305; 45380; 45385; 43239; J2001; J2370; J2704

== ENCOUNTER 2020-05-05 18:35 | Inpatient (IN) | payer OTHER ==
[2020-05-05] MEDS ORDERED: IPRATROPIUM-ALBUTEROL 3 ML NEB INHALATION STA (19:04)
--- NOTE | 2020-05-05 19:08 | ED ---
General Adult HPI - General Chief complaint: Arrhythmia/Palpitations Stated complaint: AFIB Time Seen by Provider: 05/05/20 18:53 Source: patient, RN notes reviewed Mode of arrival: ambulatory Limitations: no limitations - History of Present Illness Initial comments: Patient is a pleasant 64-year-old male presenting to the emergency Department with complaints of palpitations. Onset of symptoms was this morning. Patient has had intermittent palpitations on and off. Patient is checked heart rate as high as 1:15. Patient does have history of similar symptoms previously associated with atrial fibrillation. Patient is on Eliquis. Patient states he has mild fatigue and some mild shortness of breath associated. Patient states he was also little bit fatigued the past day or 2. No chest pain. Symptoms at this time are mild. Patient dds she does have a history of COPD when questioned regarding this during examination secondary to mild wheezing. Patient is agreeable to nebulizer treatment. - Related Data Home Medications Medication Instructions Recorded Confirmed Levothyroxine Sodium [Synthroid] 50 mcg PO QAM 07/01/18 05/05/20 Omeprazole [PriLOSEC] 20 mg PO HS 07/01/18 05/05/20 Multivitamins, Thera [Multivitamin 1 tab PO DAILY 02/10/19 05/05/20 (formulary)] Aspirin [Adult Low Dose Aspirin EC] 81 mg PO DAILY 10/18/19 05/05/20 Metoprolol Tartrate [Lopressor] 25 mg PO QAM 10/18/19 05/05/20 Potassium Chloride 10 meq PO QAM 10/18/19 05/05/20 Albuterol Sulfate [Ventolin HFA] 2 puff INHALATION RT-Q6H PRN 10/29/19 05/05/20 Umeclidinium Brm/Vilanterol Tr 1 puff INHALATION RT-DAILY 10/29/19 05/05/20 [Anoro Ellipta 62.5-25 Mcg INH] Atorvastatin [Lipitor] 40 mg PO QAM 11/12/19 05/05/20 Furosemide [Lasix] 40 mg PO QAM 11/12/19 05/05/20 Gabapentin [Neurontin] 100 mg PO HS 05/05/20 05/05/20 Previous Rx's Medication Instructions Recorded Apixaban [Eliquis] 5 mg PO BID #60 tab 02/28/19 Allergies Allergy/AdvReac Type Severity Reaction Status Date / Time Iodinated Contrast Media AdvReac Nausea & Verified 05/05/20 20:36 [Iodinated Contrast- Oral Vomiting,chills and IV Dye] Review of Systems ROS Statement: Those systems with pertinent positive or pertinent negative responses have been documented in the HPI. ROS Other: All systems not noted in ROS Statement are negative. Constitutional: Denies: fever Eyes: Denies: eye pain ENT: Denies: ear pain Respiratory: Reports: as per HPI Cardiovascular: Reports: palpitations Endocrine: Reports: fatigue Gastrointestinal: Denies: abdominal pain Genitourinary: Denies: dysuria Musculoskeletal: Denies: back pain Skin: Denies: rash Neurological: Denies: weakness Past Medical History Past Medical History: Coronary Artery Disease (CAD), Cancer, Heart Failure, COPD, GERD/Reflux, Hyperlipidemia, Hypertension, Myocardial Infarction ([place]), Thyroid Disorder Additional Past Medical History / Comment(s): hx. 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, insomnia-states "only sleeps a couple hours per night, mitral valve replaced 02/15/2019, Last Myocardial Infarction Date:: 2004 History of Any Multi-Drug Resistant Organisms: None Reported Past Surgical History: Appendectomy, Bowel Resection, Coronary Bypass/CABG, Heart Catheterization, Heart Catheterization With Stent Additional Past Surgical History / Comment(s): staging laparotomy for Hodgkin's & splenectomy, CABG 5 vessel bypass 2002,JACEK, single-vessel bypass with mitral valve replacement feb 15 2019 Past Anesthesia/Blood Transfusion Reactions: Motion Sickness Additional Past Anesthesia/Blood Transfusion Reaction / Comment(s): no known hx blood transfusion Date of Last Stent Placement:: 2004 Past Psychological History: No Psychological Hx Reported Past Alcohol Use History: None Reported Past Drug Use History: Marijuana - Past Family History Mother Family Medical History: Cancer Additional Family Medical History / Comment(s): esophageal General Exam Limitations: no limitations General appearance: alert, in no apparent distress Head exam: Present: normocephalic Eye exam: Present: normal appearance Neck exam: Present: normal inspection Respiratory exam: Present: wheezes (Mild expiratory) Cardiovascular Exam: Present: tachycardia, irregular rhythm Expanded Peripheral pulses: 2+: Dorsalis Pedis (R), Dorsalis Pedis (L) GI/Abdominal exam: Present: soft. Absent: tenderness Extremities exam: Present: normal inspection. Absent: pedal edema, calf tenderness Neurological exam: Present: alert Psychiatric exam: Present: normal affect, normal mood Skin exam: Present: normal color Course Vital Signs 05/05/20 05/05/20 05/05/20 18:37 19:10 19:20 Temperature 98.1 F Pulse Rate 116 H 101 H Respiratory 20 18 18 Rate Blood Pressure 137/80 120/83 O2 Sat by Pulse 95 98 Oximetry 05/05/20 05/05/20 05/05/20 19:52 19:59 20:01 Temperature Pulse Rate 102 H 100 105 H Respiratory 18 Rate Blood Pressure 123/84 O2 Sat by Pulse 98 Oximetry EKG Findings - EKG Comments: EKG Findings:: A. fib with RVR, rate 109. QRS 102. QT 368. QTC 495. Left axis. Left anterior fascicular block. No acute ST change. Medical Decision Making - Medical Decision Making Patient reevaluated and resting comfortably in bed. Heart rate 102. Case discussed with practitioner Lucy covering with Dr. Daily, who will admit for Dr. Brown, who covers for . - Lab Data Result diagrams: 05/05/20 19:18 05/05/20 19:18 Lab Results 05/05/20 05/05/20 05/05/20 Range/Units 19:18 19:18 19:18 WBC 7.5 (3.8-10.6) k/uL RBC 4.53 (4.30-5.90) m/uL Hgb 13.9 (13.0-17.5) gm/dL Hct 41.3 (39.0-53.0) % MCV 91.3 (80.0-100.0) fL MCH 30.7 (25.0-35.0) pg MCHC 33.6 (31.0-37.0) g/dL RDW 16.7 H (11.5-15.5) % Plt Count 329 (150-450) k/uL Neutrophils % 56 % Lymphocytes % 20 % Monocytes % 6 % Eosinophils % 15 % Basophils % 1 % Neutrophils # 4.2 (1.3-7.7) k/uL Lymphocytes # 1.5 (1.0-4.8) k/uL Monocytes # 0.4 (0-1.0) k/uL Eosinophils # 1.1 H (0-0.7) k/uL Basophils # 0.0 (0-0.2) k/uL Anisocytosis Slight PT 11.7 (9.0-12.0) sec INR 1.2 H (<1.2) APTT 24.7 (22.0-30.0) sec Sodium 137 (137-145) mmol/L Potassium 3.9 (3.5-5.1) mmol/L Chloride 98 (98-107) mmol/L Carbon Dioxide 27 (22-30) mmol/L Anion Gap 12 mmol/L BUN 35 H (9-20) mg/dL Creatinine 1.36 H (0.66-1.25) mg/dL Est GFR (CKD-EPI)AfAm 64 (>60 ml/min/1.73 sqM) Est GFR (CKD-EPI)NonAf 55 (>60 ml/min/1.73 sqM) Glucose 111 H (74-99) mg/dL Calcium 10.0 (8.4-10.2) mg/dL Magnesium 2.0 (1.6-2.3) mg/dL Total Bilirubin 0.9 (0.2-1.3) mg/dL AST 24 (17-59) U/L ALT 18 (4-49) U/L Alkaline Phosphatase 145 H (38-126) U/L Creatine Kinase 45 L (55-170) U/L Troponin I (0.000-0.034) ng/mL Total Protein 7.8 (6.3-8.2) g/dL Albumin 4.7 (3.5-5.0) g/dL TSH 4.490 (0.465-4.680) mIU/L Free T4 1.76 (0.78-2.19) ng/dL Free T3 pg/mL 3.0 (2.8-5.3) pg/ml 05/05/20 Range/Units 19:18 WBC (3.8-10.6) k/uL RBC (4.30-5.90) m/uL Hgb (13.0-17.5) gm/dL Hct (39.0-53.0) % MCV (80.0-100.0) fL MCH (25.0-35.0) pg MCHC (31.0-37.0) g/dL RDW (11.5-15.5) % Plt Count (150-450) k/uL Neutrophils % % Lymphocytes % % Monocytes % % Eosinophils % % Basophils % % Neutrophils # (1.3-7.7) k/uL Lymphocytes # (1.0-4.8) k/uL Monocytes # (0-1.0) k/uL Eosinophils # (0-0.7) k/uL Basophils # (0-0.2) k/uL Anisocytosis PT (9.0-12.0) sec INR (<1.2) APTT (22.0-30.0) sec Sodium (137-145) mmol/L Potassium (3.5-5.1) mmol/L Chloride (98-107) mmol/L Carbon Dioxide (22-30) mmol/L Anion Gap mmol/L BUN (9-20) mg/dL Creatinine (0.66-1.25) mg/dL Est GFR (CKD-EPI)AfAm (>60 ml/min/1.73 sqM) Est GFR (CKD-EPI)NonAf (>60 ml/min/1.73 sqM) Glucose (74-99) mg/dL Calcium (8.4-10.2) mg/dL Magnesium (1.6-2.3) mg/dL Total Bilirubin (0.2-1.3) mg/dL AST (17-59) U/L ALT (4-49) U/L Alkaline Phosphatase (38-126) U/L Creatine Kinase (55-170) U/L Troponin I 0.014 (0.000-0.034) ng/mL Total Protein (6.3-8.2) g/dL Albumin (3.5-5.0) g/dL TSH (0.465-4.680) mIU/L Free T4 (0.78-2.19) ng/dL Free T3 pg/mL (2.8-5.3) pg/ml - Radiology Data Radiology results: image reviewed (Chest x-ray shows small left effusion) Disposition Clinical Impression: Atrial fibrillation with RVR Disposition: ADMITTED IP TO THIS [facility] Is patient prescribed a controlled substance at d/c from ED?: No Referrals: Kang Raymond DO [Primary Care Provider] - 1-2 days Decision Time: 20:48
[2020-05-05 19:35] LABS: Anisocytosis Slight; Basophils % (A) 1 %; Eosinophils # (A) 1.1 k/uL (0-0.7); Eosinophils % (A) 15 %; HCT 41.3 % (39.0-53.0); HGB 13.9 gm/dL (13.0-17.5); Lymphocytes # (A) 1.5 k/uL (1.0-4.8); Lymphocytes % (A) 20 %; MCH 30.7 pg (25.0-35.0); MCHC 33.6 g/dL (31.0-37.0); MCV 91.3 fL (80.0-100.0); Mean Platelet Volume 6.8; Monocytes # (A) 0.4 k/uL (0-1.0); Monocytes % (A) 6 %; Neutrophils # (A) 4.2 k/uL (1.3-7.7); Neutrophils % (A) 56 %; Platelet Count 329 k/uL (150-450); RBC 4.53 m/uL (4.30-5.90); RDW 16.7 % (11.5-15.5); WBC 7.5 k/uL (3.8-10.6)
[2020-05-05 19:48] LABS: INR 1.2 (<1.2); Partial Thromboplastin Time 24.7 sec (22.0-30.0); Prothrombin Time 11.7 sec (9.0-12.0)
[2020-05-05 19:50] LABS: Albumin 4.7 g/dL (3.5-5.0); Potassium 3.9 mmol/L (3.5-5.1); Total Bilirubin 0.9 mg/dL (0.2-1.3); Total Protein 7.8 g/dL (6.3-8.2)
--- NOTE | 2020-05-05 19:51 | XR ---
EXAMINATION TYPE: XR chest 1V portable DATE OF EXAM: 05/05/2020 COMPARISON: 07/20/2019 HISTORY: Dysrhythmia TECHNIQUE: FINDINGS: There are sternal wires. There is cardiac valve surgery. There is no heart failure nor conf luent pneumonic infiltrate. There is slight blunting left costophrenic angle. There are no hilar mass es. IMPRESSION: Small left pleural effusion. Pleural fluid improved compared to old exam. No heart failur e seen. Normal heart.
[2020-05-05] MEDS: DILTIAZEM 125 MG in SODIUM CHLORIDE 0.9% 100 ML IV SCH (19:58)
[2020-05-05 20:09] LABS: T4, Free (Free Thyroxine) 1.76 ng/dL (0.78-2.19)
[2020-05-05] MEDS ORDERED: NALOXONE 0.4 MG/ML 1 ML VIAL IV PRN (20:48)
[2020-05-05] MEDS: ZOLPIDEM 5 MG TAB PO PRN (23:16)
[2020-05-05] MEDS: GABAPENTIN 100 MG CAP PO SCH (23:16)
[2020-05-05] MEDS: APIXABAN 5 MG TAB PO SCH (23:16)
[2020-05-05] MEDS: PANTOPRAZOLE 40 MG TABLET PO SCH (23:16)
[2020-05-05] MEDS: SODIUM CHLORIDE 0.9% 1,000 ML IV SCH (23:19)
[2020-05-06] MEDS: APIXABAN 5 MG TAB PO SCH ×2 (08:26→20:03)
--- NOTE | 2020-05-06 08:36 | P.HPIM ---
History of Present Illness This is a pleasant 64 years old male with past medical history of multiple medical problems. He follows up with . 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 Carmen for his COPD. He has his mitral valve replaced on and since then has not eaten drinking well and he has some swallowing problems he feels like food is stuck in his throat at times. Yesterday he noticed in his monitor that his heart rate is going up to 115-120 and then the drops to 60 stating that his A. fib. However patient denies chest pain or dyspnea, he has chronic cough. No abdominal pain. No nausea vomiting or diarrhea actually discussed patent. No dysuria or urinary problem Vitals and labs are reviewed, on admission his heart rate was elevated at 116,creatinine is slightly elevated at 1.3 EKG showing atrial fibrillation with RVR at 109 Chest x-ray: No acute process, except for small left pleural effusion, no CHF In the emergency room he got a breathing treatment only. And he was started on Cardizem drip Review of Systems CONSTITUTIONAL: No fever, no malaise, no fatigue. HEENT: No recent visual problems or hearing problems. Denied any sore throat. CARDIOVASCULAR: No orthopnea, PND, no palpitations, no syncope. PULMONARY: No shortness of breath, no cough, no hemoptysis. GASTROINTESTINAL: No diarrhea, no nausea, no vomiting, no abdominal pain. Normoactive bowel sounds. NEUROLOGICAL: No headaches, no weakness, no numbness. HEMATOLOGICAL: Denies any bleeding or petechiae. GENITOURINARY: Denies any burning micturition, frequency, or urgency. MUSCULOSKELETAL/RHEUMATOLOGICAL: Denies any joint pain, swelling, or any muscle pain. ENDOCRINE: Denies any polyuria or polydipsia. Past Medical History Past Medical History: Coronary Artery Disease (CAD), Cancer, Heart Failure, COPD, GERD/Reflux, Hyperlipidemia, Hypertension, Myocardial Infarction ([place]), Thyroid Disorder Additional Past Medical History / Comment(s): hx. 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, insomnia-states "only sleeps a couple hours per night, mitral valve replaced 02/15/2019, Last Myocardial Infarction Date:: 2004 History of Any Multi-Drug Resistant Organisms: None Reported Past Surgical History: Appendectomy, Bowel Resection, Coronary Bypass/CABG, Heart Catheterization, Heart Catheterization With Stent Additional Past Surgical History / Comment(s): staging laparotomy for Hodgkin's & splenectomy, CABG 5 vessel bypass 2002,JACEK, single-vessel bypass with mitral valve replacement feb 15 2019 Past Anesthesia/Blood Transfusion Reactions: Motion Sickness Additional Past Anesthesia/Blood Transfusion Reaction / Comment(s): no known hx blood transfusion Date of Last Stent Placement:: 2004 Past Psychological History: No Psychological Hx Reported Smoking Status: Former smoker Past Alcohol Use History: Rare Additional Past Alcohol Use History / Comment(s): STARTED SMOKING AT AGE 15 quit smoking 2009 , SMOKED 1-2ppd Past Drug Use History: Marijuana Additional Drug Use History / Comment(s): PAST HISTORY - Past Family History Mother Family Medical History: Cancer Additional Family Medical History / Comment(s): esophageal Medications and Allergies Home Medications Medication Instructions Recorded Confirmed Type Levothyroxine Sodium [Synthroid] 50 mcg PO QAM 07/01/18 05/05/20 History Omeprazole [PriLOSEC] 20 mg PO HS 07/01/18 05/05/20 History Multivitamins, Thera [Multivitamin 1 tab PO DAILY 02/10/19 05/05/20 History (formulary)] Apixaban [Eliquis] 5 mg PO BID #60 tab 02/28/19 05/05/20 Rx Aspirin [Adult Low Dose Aspirin EC] 81 mg PO DAILY 10/18/19 05/05/20 History Metoprolol Tartrate [Lopressor] 25 mg PO QAM 10/18/19 05/05/20 History Potassium Chloride 10 meq PO QAM 10/18/19 05/05/20 History Albuterol Sulfate [Ventolin HFA] 2 puff INHALATION RT-Q6H PRN 10/29/19 05/05/20 History Umeclidinium Brm/Vilanterol Tr 1 puff INHALATION RT-DAILY 10/29/19 05/05/20 History [Anoro Ellipta 62.5-25 Mcg INH] Atorvastatin [Lipitor] 40 mg PO QAM 11/12/19 05/05/20 History Furosemide [Lasix] 40 mg PO QAM 11/12/19 05/05/20 History Gabapentin [Neurontin] 100 mg PO HS 05/05/20 05/05/20 History Allergies Allergy/AdvReac Type Severity Reaction Status Date / Time Iodinated Contrast Media AdvReac Nausea & Verified 05/05/20 20:36 [Iodinated Contrast- Oral Vomiting,chills and IV Dye] Physical Exam Vitals: Vital Signs Temp Pulse Pulse Resp BP BP Pulse Ox 05/06/20 03:59 98.4 F 100 16 116/81 95 05/05/20 22:20 97.8 F 105 H 16 142/81 97 05/05/20 21:40 98.7 F 96 18 117/79 97 05/05/20 20:01 105 H 18 123/84 98 05/05/20 19:59 100 05/05/20 19:52 102 H 05/05/20 19:20 101 H 18 120/83 98 05/05/20 19:10 18 05/05/20 18:37 98.1 F 116 H 20 137/80 95 Intake and Output 05/05/20 05/06/20 05/06/20 22:59 06:59 14:59 Intake Total 100 240 Balance 100 240 Intake: Oral 100 240 Other: # Voids 2 Weight 63.503 kg 58.9 kg GENERAL: The patient is alert and oriented x3, not in any acute distress. Well developed, well nourished. HEENT: Pupils are round and equally reacting to light. EOMI. No scleral icterus. No conjunctival pallor. Normocephalic, atraumatic. No pharyngeal erythema. No thyromegaly. CARDIOVASCULAR: S1 and S2 present. No murmurs, rubs, or gallops. PULMONARY: Chest is clear to auscultation, no wheezing or crackles. ABDOMEN: Soft, nontender, nondistended, normoactive bowel sounds. No palpable organomegaly. MUSCULOSKELETAL: No joint swelling or deformity. EXTREMITIES: No cyanosis, clubbing, or pedal edema. NEUROLOGICAL: Gross neurological examination did not reveal any focal deficits. SKIN: No rashes. No petechiae Results CBC & Chem 7: 05/05/20 19:18 05/05/20 19:18 Labs: Abnormal Lab Results - Last 24 Hours (Table) 05/05/20 05/05/20 05/05/20 Range/Units 19:18 19:18 19:18 RDW 16.7 H (11.5-15.5) % Eosinophils # 1.1 H (0-0.7) k/uL INR 1.2 H (<1.2) BUN 35 H (9-20) mg/dL Creatinine 1.36 H (0.66-1.25) mg/dL Glucose 111 H (74-99) mg/dL Alkaline Phosphatase 145 H (38-126) U/L Creatine Kinase 45 L (55-170) U/L Thrombosis Risk Factor Assmnt - Choose All That Apply Any of the Below Risk Factors Present?: Yes Each Factor Represents 1 point: Abnormal pulmonary function (COPD) Other Risk Factors: Yes Each Risk Factor Represents 2 Points: Age 61-74 years Thrombosis Risk Factor Assessment Total Risk Factor Score: 3 Thrombosis Risk Factor Assessment Level: Moderate Risk Assessment and Plan Assessment: A. fib and RVR, He is on Eliquis Acute kidney injury Swallowing problem, he feels food stuck in his throat. We'll do a swallow evaluation Hyperlipidemia Hypertension Hypothyroidism Heart failure COPD History of coronary artery disease History of her chin lymphoma and 1988 Mitral valve replacement on 02/2019 Plan: This is a pleasant 64 years old male who presents with A. fib and RVR. Continue with monitoring heart rate. continue with Cardizem drip and switched to oral medication per cardiology. Cardiology consult.Start patient on gentle hydration Labs and medication were reviewed.. Continue same treatment. Continue with symptomatic treatment. Resume home medication. Monitor lytes and vitals. DVT and GI prophylaxis. Further recommendations of the clinical course of the patient DVT prophylaxis Eliquis GI Prophylaxis: Pepcid PT/OT: Pending Prognosis is guarded
[2020-05-06] MEDS ORDERED: METOPROLOL TARTRATE 25 MG TAB PO SCH (09:00)
[2020-05-06] MEDS: ATORVASTATIN 40 MG TAB PO SCH (09:16)
[2020-05-06] MEDS: ASPIRIN 81 MG PO SCH (09:16)
[2020-05-06] MEDS: FUROSEMIDE 40 MG TAB PO SCH (09:16)
[2020-05-06] MEDS: LEVOTHYROXINE 50 MCG TAB PO SCH (09:19)
[2020-05-06] MEDS: IPRATROPIUM-ALBUTEROL 3 ML NEB INHALATION SCH ×3 (11:41→20:13)
[2020-05-06] MEDS: DILTIAZEM 125 MG in SODIUM CHLORIDE 0.9% 100 ML IV SCH (16:07)
[2020-05-06] MEDS: SODIUM CHLORIDE 0.9% 1,000 ML IV SCH ×3 (16:08→20:04)
--- NOTE | 2020-05-06 16:26 | P.CRDCN ---
History of Present Illness History of present illness: This is Joyce Adams PA-C dictating a consult on this patient The patient was interviewed and examined by me as well as by Dr. Feldman Case discussed with Dr. Feldman and he agrees with the plan of care HPI Patient is a 63-year-old male with a history of CAD status post CABG,, ca rdiomyopathy, valvular heart disease status post mitral valve repair, paroxysmal atrial fibrillation, COPD who presents with complaints of palpitations and weakness. He follows with Dr. Vogt in the office. He states that he has been feeling weak and tired lately. He has been having intermittent palpitations but they have become more frequent lately. He states that yesterday after he took his medications he felt very weak and tired, felt that his muscles were weak. He then started to experience palpitations and worsening shortness of breath. He had some associated dizziness. No chest pain, no syncope. He came to the emergency department for evaluation. He was found to be in atrial fibrillation with RVR. He was started on Cardizem. Today he remains in atrial fibrillation with rates in the 100s. Patient seen and examined resting in bed. States he is feeling somewhat better. ROS: No fevers, chills or rigors, no cough, phlegm or expectoration, no nausea, vomiting or diarrhea, no hematuria, dysuria, Positive for weakness no strokes or seizures, no skin lesions. EXAMINATION: Patient is afebrile, pulse in the 90s, respirations 16, blood pressure 123/81, oxygen saturation 96% on room air Patient seen and examined resting in bed, in no acute distress lungs with expiratory wheezing I laterally Heart is irregularly irregular, no audible murmurs No lower extremity edema REVIEW OF LABS, ECG & MEDICAL DATA WBC 7.5, hemoglobin 13.9, platelets 329, potassium 3.9, BUN 35, creatinine 1.36 Troponin normal TSH within normal limits IMPRESSION / ASSESSMENT: #1 symptomatic atrial fibrillation with RVR, remains in rate controlled atrial fibrillation and anticoagulated with eliquis #2 history of CAD status post CABG #3 history of cardiomyopathy #4 history of valvular heart disease status post mitral valve repair #5 COPD PLAN: Increase the metoprolol to 25 mg twice a day and try to wean off Cardizem Continue anticoagulation Continue to monitor telemetry Continue aspirin and statins Past Medical History Past Medical History: Coronary Artery Disease (CAD), Cancer, Heart Failure, COPD, GERD/Reflux, Hyperlipidemia, Hypertension, Myocardial Infarction (MT), Thyroid Disorder Additional Past Medical History / Comment(s): hx. 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, insomnia-states "only sleeps a couple hours per night, mitral valve replaced 02/15/2019, Last Myocardial Infarction Date:: 2004 History of Any Multi-Drug Resistant Organisms: None Reported Past Surgical History: Appendectomy, Bowel Resection, Coronary Bypass/CABG, Heart Catheterization, Heart Catheterization With Stent Additional Past Surgical History / Comment(s): staging laparotomy for Hodgkin's & splenectomy, CABG 5 vessel bypass 2002,JACEK, single-vessel bypass with mitral valve replacement feb 15 2019 Past Anesthesia/Blood Transfusion Reactions: Motion Sickness Additional Past Anesthesia/Blood Transfusion Reaction / Comment(s): no known hx blood transfusion Date of Last Stent Placement:: 2004 Past Psychological History: No Psychological Hx Reported Smoking Status: Former smoker Past Alcohol Use History: Rare Additional Past Alcohol Use History / Comment(s): STARTED SMOKING AT AGE 15 quit smoking 2009 , SMOKED 1-2ppd Past Drug Use History: Marijuana Additional Drug Use History / Comment(s): PAST HISTORY - Past Family History Mother Family Medical History: Cancer Additional Family Medical History / Comment(s): esophageal Medications and Allergies Home Medications Medication Instructions Recorded Confirmed Type Levothyroxine Sodium [Synthroid] 50 mcg PO QAM 07/01/18 05/05/20 History Omeprazole [PriLOSEC] 20 mg PO HS 07/01/18 05/05/20 History Multivitamins, Thera [Multivitamin 1 tab PO DAILY 02/10/19 05/05/20 History (formulary)] Apixaban [Eliquis] 5 mg PO BID #60 tab 02/28/19 05/05/20 Rx Aspirin [Adult Low Dose Aspirin EC] 81 mg PO DAILY 10/18/19 05/05/20 History Metoprolol Tartrate [Lopressor] 25 mg PO QAM 10/18/19 05/05/20 History Potassium Chloride 10 meq PO QAM 10/18/19 05/05/20 History Albuterol Sulfate [Ventolin HFA] 2 puff INHALATION RT-Q6H PRN 10/29/19 05/05/20 History Umeclidinium Brm/Vilanterol Tr 1 puff INHALATION RT-DAILY 10/29/19 05/05/20 History [Anoro Ellipta 62.5-25 Mcg INH] Atorvastatin [Lipitor] 40 mg PO QAM 11/12/19 05/05/20 History Furosemide [Lasix] 40 mg PO QAM 11/12/19 05/05/20 History Gabapentin [Neurontin] 100 mg PO HS 05/05/20 05/05/20 History Allergies Allergy/AdvReac Type Severity Reaction Status Date / Time Iodinated Contrast Media AdvReac Nausea & Verified 05/05/20 20:36 [Iodinated Contrast- Oral Vomiting,chills and IV Dye] Physical Exam Vitals: Vital Signs Temp Pulse Pulse Resp BP BP Pulse Ox 05/06/20 16:00 98.2 F 90 16 123/81 05/06/20 15:43 78 05/06/20 15:32 78 05/06/20 12:00 97.7 F 76 16 114/75 96 05/06/20 11:52 92 05/06/20 11:42 90 05/06/20 08:00 98.2 F 91 16 106/61 94 L 05/06/20 03:59 98.4 F 100 16 116/81 95 05/05/20 22:20 97.8 F 105 H 16 142/81 97 05/05/20 21:40 98.7 F 96 18 117/79 97 05/05/20 20:01 105 H 18 123/84 98 05/05/20 19:59 100 05/05/20 19:52 102 H 05/05/20 19:20 101 H 18 120/83 98 05/05/20 19:10 18 05/05/20 18:37 98.1 F 116 H 20 137/80 95 Intake and Output 05/06/20 05/06/20 05/06/20 06:59 14:59 22:59 Intake Total 240 100.75 Balance 240 100.75 Intake: Intake, IV Titration 100.75 Amount Diltiazem 125 mg In 100.75 Sodium Chloride 0.9% 100 ml @ 5 MG/HR 5 mls/hr IV .Q24H [facility] Rx#:[id number] Oral 240 Other: # Voids 2 Weight 58.9 kg Results 05/05/20 19:18 05/05/20 19:18 Cardiac Enzymes 05/05/20 05/05/20 Range/Units 19:18 19:18 AST 24 (17-59) U/L Troponin I 0.014 (0.000-0.034) ng/mL Coagulation 05/05/20 Range/Units 19:18 PT 11.7 (9.0-12.0) sec APTT 24.7 (22.0-30.0) sec CBC 05/05/20 Range/Units 19:18 WBC 7.5 (3.8-10.6) k/uL RBC 4.53 (4.30-5.90) m/uL Hgb 13.9 (13.0-17.5) gm/dL Hct 41.3 (39.0-53.0) % Plt Count 329 (150-450) k/uL Comprehensive Metabolic Panel 05/05/20 Range/Units 19:18 Sodium 137 (137-145) mmol/L Potassium 3.9 (3.5-5.1) mmol/L Chloride 98 (98-107) mmol/L Carbon Dioxide 27 (22-30) mmol/L BUN 35 H (9-20) mg/dL Creatinine 1.36 H (0.66-1.25) mg/dL Glucose 111 H (74-99) mg/dL Calcium 10.0 (8.4-10.2) mg/dL AST 24 (17-59) U/L ALT 18 (4-49) U/L Alkaline Phosphatase 145 H (38-126) U/L Total Protein 7.8 (6.3-8.2) g/dL Albumin 4.7 (3.5-5.0) g/dL Current Medications Generic Name Dose Route Start Last Admin Trade Name Freq PRN Reason Stop Dose Admin Albuterol/Ipratropium 3 ml 05/06/20 12:00 05/06/20 15:32 Duoneb 0.5 Mg-3 Mg/3 Ml Soln INHALATION 3 ml RT-QID JON Administration Apixaban 5 mg 05/05/20 23:00 05/06/20 08:26 Eliquis PO 5 mg BID JON Administration Aspirin 81 mg 05/06/20 09:00 05/06/20 09:16 Aspirin PO 81 mg DAILY JON Administration Atorvastatin Calcium 40 mg 05/06/20 09:00 05/06/20 09:16 Lipitor PO 40 mg QAM JON Administration Furosemide 40 mg 05/06/20 09:00 05/06/20 09:16 Lasix PO 40 mg QAM JON Administration Gabapentin 100 mg 05/05/20 23:00 05/05/20 23:16 Neurontin PO 100 mg HS JON Administration Diltiazem HCl 125 mg/ Sodium 125 mls @ 5 mls/hr 05/05/20 19:15 05/06/20 16:07 Chloride IV 5 mg/hr .Q24H JON 5 mls/hr Administration 5 MG/HR Sodium Chloride 1,000 mls @ 20 mls/hr 05/05/20 21:00 05/05/20 23:19 Saline 0.9% IV 20 mls/hr .Q24H JON Administration Sodium Chloride 1,000 mls @ 50 mls/hr 05/06/20 08:30 05/06/20 16:08 Saline 0.9% IV Not Given .Q20H JON Levothyroxine Sodium 50 mcg 05/06/20 09:00 05/06/20 09:19 Synthroid PO 50 mcg QAM@0630 JON Administration Metoprolol Tartrate 25 mg 05/06/20 21:00 Lopressor PO BID JON Naloxone HCl 0.2 mg 05/05/20 20:48 Narcan IV Q2M PRN Opioid Reversal Pantoprazole Sodium 40 mg 05/05/20 22:45 05/05/20 23:16 Protonix PO 40 mg HS JON Administration Zolpidem Tartrate 5 mg 05/05/20 22:44 05/05/20 23:16 Ambien PO 5 mg HS PRN Administration Insomnia Intake and Output 05/06/20 05/06/20 05/06/20 06:59 14:59 22:59 Intake Total 240 100.75 Balance 240 100.75 Intake: Intake, IV Titration 100.75 Amount Diltiazem 125 mg In 100.75 Sodium Chloride 0.9% 100 ml @ 5 MG/HR 5 mls/hr IV .Q24H [facility] Rx#:[id number] Oral 240 Other: # Voids 2 Weight 58.9 kg 05/05/20 19:18 05/05/20 19:18
[2020-05-06] MEDS: PANTOPRAZOLE 40 MG TABLET PO SCH (20:03)
[2020-05-06] MEDS: METOPROLOL TARTRATE 25 MG TAB PO SCH (20:03)
[2020-05-06] MEDS: GABAPENTIN 100 MG CAP PO SCH (20:03)
[2020-05-06] MEDS: MELATONIN 3 MG TABLET PO SCH (20:55)
[2020-05-06] MEDS: ZOLPIDEM 5 MG TAB PO PRN (22:52)
[2020-05-07] MEDS: LEVOTHYROXINE 50 MCG TAB PO SCH (05:42)
[2020-05-07 06:49] LABS: African American GFR (CKD) >90 (>60 ml/min/1.73 sqM); Anion Gap 5 mmol/L; Blood Urea Nitrogen 33 mg/dL (9-20); Calcium 9.1 mg/dL (8.4-10.2); Carbon Dioxide 31 mmol/L (22-30); Chloride 102 mmol/L (98-107); Glucose 95 mg/dL (74-99); Non-African American GFR(CKD) 79 (>60 ml/min/1.73 sqM); Potassium 3.6 mmol/L (3.5-5.1); Sodium 138 mmol/L (137-145)
[2020-05-07] MEDS ORDERED: Potassium Replacement Protocol 1 EACH MISC MISCELLANE PRN (07:25)
[2020-05-07] MEDS ORDERED: POTASSIUM CHLORIDE ER 20 MEQ TAB.ER PO SCH (08:00)
[2020-05-07] MEDS: IPRATROPIUM-ALBUTEROL 3 ML NEB INHALATION SCH ×4 (08:10→20:20)
[2020-05-07] MEDS: APIXABAN 5 MG TAB PO SCH ×2 (09:11→20:09)
[2020-05-07] MEDS: FUROSEMIDE 40 MG TAB PO SCH (09:12)
[2020-05-07] MEDS: METOPROLOL TARTRATE 25 MG TAB PO SCH (09:12)
[2020-05-07] MEDS: ATORVASTATIN 40 MG TAB PO SCH (09:12)
[2020-05-07] MEDS: ASPIRIN 81 MG PO SCH (09:12)
--- NOTE | 2020-05-07 15:06 | P.PN ---
Subjective This is Joyce Adams PA-C dictating a progress note on this patient The patient was interviewed and examined by me as well as by Dr. Feldman Case discussed with Dr. Feldman and he agrees with the plan of care HPI/interval history Patient is a 63-year-old male with a history of CAD status post CABG,, cardiomyopathy, valvular heart disease status post mitral valve repair, paroxysmal atrial fibrillation, COPD who presents with complaints of palpitations and weakness. He was found to be in atrial fibrillation with RVR. He was started on IV Cardizem and his metoprolol was increased. Yesterday he converted to sinus rhythm. He had hypotension on higher doses of metoprolol and he also had some bradycardia in the 40s. Patient seen and examined resting in bed. States he did have some dizziness but is overall feeling better than when he came in. None currently. States his breathing has improved. No chest pain. EXAMINATION Patient is afebrile, pulse in the 60s, respirations 18, blood pressure 120/70, oxygen saturation 94% on room air Patient seen and examined resting in bed, in no acute distress Heart is irregular, systolic murmur audible Lungs with expiratory wheezing bilaterally REVIEW OF LABS, ECG Potassium 3.6, BUN 33, creatinine 1.01 TSH within normal limits IMPRESSION / ASSESSMENT: #1 symptomatic atrial fibrillation with RVR, currently in sinus rhythm, anticoagulated #2 history of CAD status post CABG #3 history of cardiomyopathy #4 history of valvular heart disease status post mitral valve repair #5 COPD #6 underlying sick sinus syndrome PLAN: Dr. Feldman discussed atrial fibrillation management with the patient He has underlying sick sinus syndrome and has been intolerant to higher doses of metoprolol secondary to bradycardia and hypotension Antiarrhythmic drug therapy is limited secondary to his history of cardiomyopathy and CAD The doses of metoprolol he can tolerate will likely not control his rates when he is in A. fib In the future consider atrial fibrillation ablation Objective - Vital Signs Vital signs: Vital Signs Temp 98.0 F 05/07/20 08:00 Pulse 66 05/07/20 12:53 Resp 18 05/07/20 12:00 BP 120/70 05/07/20 12:00 Pulse Ox 94 L 05/07/20 12:00 Intake & Output 05/06/20 05/07/20 05/07/20 18:59 06:59 18:59 Intake Total 340.75 542.333 270 Balance 340.75 542.333 270 Weight 62.4 kg Intake: Intake, IV Titration 100.75 62.333 Amount Diltiazem 125 mg In 100.75 62.333 Sodium Chloride 0.9% 100 ml @ 5 MG/HR 5 mls/hr IV .Q24H [facility] Rx#:[id number] Oral 240 480 270 Other: # Voids 2 3 - Labs CBC & Chem 7: 05/05/20 19:18 05/07/20 06:12 Labs: Abnormal Lab Results - Last 24 Hours (Table) 05/07/20 Range/Units 06:12 Carbon Dioxide 31 H (22-30) mmol/L BUN 33 H (9-20) mg/dL
[2020-05-07] MEDS: DOCUSATE 100 MG CAP PO SCH ×2 (17:14→20:09)
[2020-05-07] MEDS: SODIUM CHLORIDE 0.9% 1,000 ML IV SCH ×2 (20:05)
[2020-05-07] MEDS: MELATONIN 3 MG TABLET PO SCH (20:09)
[2020-05-07] MEDS: PANTOPRAZOLE 40 MG TABLET PO SCH (20:09)
[2020-05-07] MEDS: GABAPENTIN 100 MG CAP PO SCH (20:09)
[2020-05-07] MEDS ORDERED: HYDROcodone/APAP 5-325MG 1 EACH TAB PO STA (21:00)
--- NOTE | 2020-05-08 01:06 | P.PN ---
Subjective This is a pleasant 64 years old male with past medical history of multiple medical problems. He follows up with . His logger is Dr. Vogt and he sees Dr. Carmen for his COPD. He has his mitral valve replaced on 02/2019 and since then has not eaten drinking well and he has some swallowing problems he feels like food is stuck in his throat at times. Yesterday he noticed in his monitor that his heart rate is going up to 115-120 and then the drops to 60 stating that his A. fib. However patient denies chest pain or dyspnea, he has chronic cough. No abdominal pain. No nausea vomiting or diarrhea actually discussed patent. No dysuria or urinary problem Vitals and labs are reviewed, on admission his heart rate was elevated at 116,creatinine is slightly elevated at 1.3 EKG showing atrial fibrillation with RVR at 109 Chest x-ray: No acute process, except for small left pleural effusion, no CHF In the emergency room he got a breathing treatment only. And he was started on Cardizem drip 05/07/2020 Patient lying in bed comfortable not in distress, no new symptoms. And hemodynamically stable Cardizem drip was stopped and metoprolol is at 25 mg daily, cardiology think patient has sick sinus syndrome because heart rate drops at times Respiratory effort to keep monitor the patient for 24 hours, besides patient still pending swallow evaluation because he feels sometimes food sticks in his throat Creatinine normal, stop IV fluids Objective - Vital Signs Vital signs: Vital Signs Temp 98.0 F 05/07/20 08:00 Pulse 66 05/07/20 12:53 Resp 18 05/07/20 12:00 BP 120/70 05/07/20 12:00 Pulse Ox 94 L 05/07/20 12:00 Intake & Output 05/06/20 05/07/20 05/07/20 18:59 06:59 18:59 Intake Total 340.75 542.333 270 Balance 340.75 542.333 270 Weight 62.4 kg Intake: Intake, IV Titration 100.75 62.333 Amount Diltiazem 125 mg In 100.75 62.333 Sodium Chloride 0.9% 100 ml @ 5 MG/HR 5 mls/hr IV .Q24H [facility] Rx#:[id number] Oral 240 480 270 Other: # Voids 2 3 - Exam GENERAL: The patient is alert and oriented x3, not in any acute distress. Well developed, well nourished. HEENT: Pupils are round and equally reacting to light. EOMI. No scleral icterus. No conjunctival pallor. Normocephalic, atraumatic. No pharyngeal erythema. No thyromegaly. CARDIOVASCULAR: S1 and S2 present. No murmurs, rubs, or gallops. PULMONARY: Chest is clear to auscultation, no wheezing or crackles. ABDOMEN: Soft, nontender, nondistended, normoactive bowel sounds. No palpable organomegaly. MUSCULOSKELETAL: No joint swelling or deformity. EXTREMITIES: No cyanosis, clubbing, or pedal edema. NEUROLOGICAL: Gross neurological examination did not reveal any focal deficits. SKIN: No rashes. no petechiae. - Labs CBC & Chem 7: 05/05/20 19:18 05/07/20 06:12 Labs: Abnormal Lab Results - Last 24 Hours (Table) 05/07/20 Range/Units 06:12 Carbon Dioxide 31 H (22-30) mmol/L BUN 33 H (9-20) mg/dL Assessment and Plan Assessment: A. fib and RVR, He is on Eliquis Possible sick sinus syndrome Acute kidney injury, resolved Swallowing problem, he feels food stuck in his throat. We'll do a swallow evaluation Hyperlipidemia Hypertension Hypothyroidism Heart failure COPD History of coronary artery disease History of her chin lymphoma and 1988 Mitral valve replacement on 02/2019 Plan: This is a pleasant 64 years old male who presents with A. fib and RVR. Continue with monitoring heart rate. continue with oral medication per cardiology. Discontinue IV fluids. Pending swallow evaluation Labs and medication were reviewed.. Continue same treatment. Continue with symptomatic treatment. Resume home medication. Monitor lytes and vitals. DVT and GI prophylaxis. Further recommendations of the clinical course of the patient DVT prophylaxis Eliquis GI Prophylaxis: Pepcid Prognosis is guarded
[2020-05-08] MEDS: LEVOTHYROXINE 50 MCG TAB PO SCH (05:31)
[2020-05-08 06:53] LABS: African American GFR (CKD) >90 (>60 ml/min/1.73 sqM); Anion Gap 9 mmol/L; Blood Urea Nitrogen 29 mg/dL (9-20); Calcium 9.6 mg/dL (8.4-10.2); Carbon Dioxide 30 mmol/L (22-30); Chloride 98 mmol/L (98-107); Glucose 89 mg/dL (74-99); Non-African American GFR(CKD) 80 (>60 ml/min/1.73 sqM); Potassium 3.6 mmol/L (3.5-5.1); Sodium 137 mmol/L (137-145)
[2020-05-08 07:51] VITALS: TEMP 98.4
[2020-05-08] MEDS: IPRATROPIUM-ALBUTEROL 3 ML NEB INHALATION SCH ×2 (08:05→11:40)
[2020-05-08] MEDS: ASPIRIN 81 MG PO SCH (08:21)
[2020-05-08] MEDS: ATORVASTATIN 40 MG TAB PO SCH (08:21)
[2020-05-08] MEDS: DOCUSATE 100 MG CAP PO SCH (08:21)
[2020-05-08] MEDS: APIXABAN 5 MG TAB PO SCH (08:21)
[2020-05-08] MEDS: FUROSEMIDE 40 MG TAB PO SCH (08:22)
[2020-05-08] MEDS ORDERED: METOPROLOL TARTRATE 25 MG TAB PO SCH (09:00)
--- NOTE | 2020-05-08 09:49 | PN ---
PROGRESS NOTE Abisai is a 64-year-old gentleman who is admitted to hospital with atrial fibrillation with rapid ventricular rate. He has extensive cardiac history and follows with Dr. Ludmila Vogt in the office. He has known coronary artery disease for which she had bypass surgery. His cardiomyopathy, valvular heart disease, status post valve repair, paroxysmal atrial fibrillation, and COPD. This morning he is feeling better. Does not have chest pain or difficulty in breathing. Heart rate is well controlled at 90 beats per minute. Blood pressure is 140/109, respiratory rate is 18. Chest exam reveals good air entry bilaterally. I do not hear any crackles or rhonchi. Heart exam reveals first and second heart sounds. Systolic murmur at the apex of the abdomen is soft. Exam of extremities did not reveal any edema. Peripheral pulses are felt. Labs show that the hemoglobin is 13.9, platelet count is 329, potassium is 3.6, creatinine is 1. TSH is 4.4. ASSESSMENT: 1. Persistent atrial fibrillation with controlled ventricular rate. 2. History of mitral regurgitation status post mitral valve repair. 3. Coronary artery disease, status post CABG. PLAN: Patient is on Eliquis, aspirin Lipitor, Lasix, Lopressor. The blood pressure is elevated after he receives his morning medications. I will consider adding an DAMIEN inhibitor. MMODL / IJN: [id number] /
[2020-05-08 12:25] VITALS: BP 139/91; PULSE 97; RESP 16
[2020-05-08] MEDS ORDERED: lisinopriL 5 MG TAB PO SCH (12:30)
--- NOTE | 2020-05-08 15:30 | CDI ---
Documentation Clarification Form Date: 05/08/2020 02:36:15 PM From: Meera Dunaway RN, CCDS Admit Date: 05/05/2020 08:48:00 PM Patient Name: Abisai Warner Visit Number: [id number] Discharge Date: ATTENTION: The Clinical Documentation Specialists (CDI) and [facility] Coding Staff appreciate your assistance in clarifying documentation. Please respond to the clarification below the line at the bottom and electronically sign. The CDI & [facility] Coding staff will review the response and follow-up if needed. Please note: Queries are made part of the Legal Health Record. If you have any questions, please contact the author of this message via ITS. Dr. Adalberto Shannon Heart failure is documented in your progress note on 05/08 with ongoing treatment. Request clarification for the type and acuity of the heart failure if known . History/Risk Factors: Atrial fibrillation, COPD, Hyperipidemia, Hypertension, Heart Failure, Clinical Indicators: 64-year-old male present to ED on 05/05 with complaints of palpitations, mild fatigue and some mild shortness of breath associated. 05/05 Vital signs on admission 137/80 116 20 98.1 95 % RA 05/05 EKG A.Fib with RVR rate 109 05/05 Chest x-ray: small left effusion. No heart failure seen. 02/15/19 JACEK report per cardiology progress note:: Overall normal left ventricular chamber size with inferior wall hypokinesia with an EF of 45 % 02/28 DS summary:" EF 45 % from underlying coronary artery disease." Treatment: Lasix 40 mg po q am ASA 81 mg po daily Lipitor 40 mg po daily Lopressor 25 mg po daily In your professional opinion, can you please clarify the acuity and type of CHF if known? Chronic Systolic Heart Failure: Unable to Determine Other, please specify (Last Revision: January 2018) on reviewing the chart, i think pt has Chronic Systolic Heart Failure, but with no acute exacerbation EF 45%, per JACEK on 01/19/2019 MTDD
--- NOTE | 2020-05-10 18:20 | DS ---
DISCHARGE SUMMARY DATE OF ADMISSION: 05/05/2020 DATE OF DISCHARGE: 05/08/2020 FINAL DIAGNOSES: 1. Paroxysmal atrial fibrillation with rapid ventricular rate. 2. Chronic congestive heart failure from systolic dysfunction, ejection fraction 45%, from underlying coronary artery disease. 3. Coronary artery disease with bypass. 4. Mitral valve replacement, prosthetic heart valve. 5. Essential hypertension. 6. Hyperlipidemia. 7. Restless legs syndrome. 8. Chronic insomnia, idiopathic. HOSPITAL COURSE: This patient presented with his heart rate being variable through the ER and palpitations. Heart rate was up to 115s in the ER. He has had his dose of beta cristina increased and dropped his heart rate. Eventually he settled down on a lower dose of beta cristina. The patient was seen by Cardiology. There was a concern about his insurance not covering his stay in the hospital; hence the patient did not want to stay another night. The patient was seen by Cardiology, Dr. Feldman and Dr. Chaudhari. Okayed to be discharged. Discussion and discharge planning more than 35 minutes. PHYSICAL EXAMINATION: Temperature 98.4, pulse 94, respiration 18, blood pressure 139/91, pulse ox 94% on room air. Heart sounds normal. Lungs reveal fair air entry. INVESTIGATIONS: White count 7.4, hemoglobin 13.9, potassium 3.6, creatinine 1.0. TSH 4.4. COVID-19 PCR - not detected. DISCHARGE MEDICATIONS: 1. Synthroid 50 mcg a day. 2. Prilosec 20 mg at bedtime. 3. Multivitamin 1 tablet p.o. daily. 4. Eliquis 5 mg b.i.d. 5. Aspirin 81 mg daily. 6. Ventolin HFA 2 puffs q.6 p.r.n. 7. Anoro Ellipta 62.5/25 one puff daily. 8. Lipitor 40 mg daily. 9. Neurontin 100 mg at bedtime. 10.Lasix 40 mg every 48 hours. 11.Melatonin 6 mg at bedtime. 12.Lopressor 12.5 p.o. b.i.d. 13.Potassium 10 mEq every 48 hours. FOLLOWUP: 1. Follow up with Dr. Ludmila Vogt on 05/19/2020. 2. Follow up with on 05/11/2020. MMODL / IJN: [id number] /
== END 2020-05-08 14:53 | disposition home or self-care (01) | DRG 309 ==
LOC: EC 18:35 → 3SCARD 20:48
PROVIDERS: ADMIT Hospitalist; ATTEND Hospitalist
DX: I48.19 Other persistent atrial fibrillation (principal); N17.9 Acute kidney failure, unspecified; I50.22 Chronic systolic (congestive) heart failure; I49.5 Sick sinus syndrome; Z11.59 Encounter for screening for other viral diseases; I42.9 Cardiomyopathy, unspecified; J44.9 Chronic obstructive pulmonary disease, unspecified; R13.10 Dysphagia, unspecified; I25.10 Atherosclerotic heart disease of native coronary artery without angina pectoris; I11.0 Hypertensive heart disease with heart failure; E78.5 Hyperlipidemia, unspecified; E03.9 Hypothyroidism, unspecified; Z85.71 Personal history of Hodgkin lymphoma; Z79.82 Long term (current) use of aspirin; Z79.890 Hormone replacement therapy; Z79.899 Other long term (current) drug therapy; Z85.038 Personal history of other malignant neoplasm of large intestine; Z79.01 Long term (current) use of anticoagulants; I25.2 Old myocardial infarction; Z87.891 Personal history of nicotine dependence; Z90.81 Acquired absence of spleen; Z95.1 Presence of aortocoronary bypass graft; Z95.2 Presence of prosthetic heart valve; Z91.041 Radiographic dye allergy status; Z95.5 Presence of coronary angioplasty implant and graft; Z90.49 Acquired absence of other specified parts of digestive tract; Z92.3 Personal history of irradiation; K21.9 Gastro-esophageal reflux disease without esophagitis; G25.81 Restless legs syndrome; F51.01 Primary insomnia; F51.04 Psychophysiologic insomnia
CPT/HCPCS: 36415; 71045; 80048; 80053; 82550; 83735; 84439; 84443; 84481; 84484; 85025; 85610; 85730; 93005; 94640; 96365; 96366; 99291

== ENCOUNTER → 2020-06-27 | Outpatient (CLI) | payer OTHER ==
[2020-06-27 16:23] LABS: Anisocytosis Slight; HCT 43.4 % (39.0-53.0); HGB 13.6 gm/dL (13.0-17.5); MCH 29.5 pg (25.0-35.0); MCHC 31.4 g/dL (31.0-37.0); MCV 93.9 fL (80.0-100.0); Mean Platelet Volume 7.1; Platelet Count 296 k/uL (150-450); RBC 4.62 m/uL (4.30-5.90); RDW 16.4 % (11.5-15.5); WBC 8.7 k/uL (3.8-10.6)
[2020-06-27 16:28] LABS: African American GFR (CKD) >90 (>60 ml/min/1.73 sqM); Blood Urea Nitrogen 38 mg/dL (9-20); Magnesium 2.2 mg/dL (1.6-2.3); Non-African American GFR(CKD) 78 (>60 ml/min/1.73 sqM)
== END | disposition home or self-care (01) ==
LOC: LABWHC1 15:23
PROVIDERS: ATTEND Internal Medicine Clinical Cardiac Electrophysiology
DX: Z01.818 Encounter for other preprocedural examination (principal)
CPT/HCPCS: 36415; 82565; 83735; 84520; 85027

== ENCOUNTER 2020-07-25 09:25 | Day surgery (SDC) | payer OTHER ==
[~2020-07-25 09:25] MED LIST changes: -ALBUMIN HUMAN 25% 50 ML IV ONE; -ASPIRIN 325 MG TAB PO ONE; -ATORVASTATIN 10 MG TAB PO ONE; -CALCIUM CHLORIDE 100 MG/ML 10 ML SYRINGE IV ONE; -CHLORHEXIDINE GLUCONATE 15 ML CUP MUCOUS MEM ONE; -CLEVIDIPINE BUTYRATE 25 MG in EMPTY BAG 1 BAG IV ONE; -DEXTROSE 5% IN WATER 1,000 ML with POTASSIUM CHLORIDE 110 MEQ, MAGNESIUM SULFATE 16 MEQ... IV ONE; -DEXTROSE 5% IN WATER 1,000 ML with POTASSIUM CHLORIDE 25 MEQ, SODIUM CHLORIDE 2.5MEQ/ML... IRRIGATION ONE; -HEPARIN SODIUM 1,000 UN/ML (10ML VL) IV ONE; -HEPARIN SODIUM,PORCINE 5,000 UNIT in SODIUM CHLORIDE 0.9% 500 ML 500 ML IV ONE; -INSULIN REGULAR 100 UNIT in SODIUM CHLORIDE 0.9% 100 ML IV ONE; -LACTATED RINGERS 1,000 ML IV ONE; -MAGNESIUM SULFATE MG 500 MG/ML IV ONE; -MANNITOL 25% 12.5 GM/50 ML VIAL IV ONE; -METOPROLOL TARTRATE 12.5 MG TAB PO ONE; -NITROGLYCERIN-D5W PMX 25 MG/250 ML BTL IV ONE; -NOREPINEPHRINE 4 MG in SODIUM CHLORIDE 0.9% 250 ML IV ONE; -PAPAVERINE 360 MG in SODIUM CHLORIDE 0.9% 90 ML IV ONE; -PHENYLEPHRINE 10 MG/ML VIAL IV ONE; -PHENYLEPHRINE 40 MG in SODIUM CHLORIDE 0.9% 250 ML IV ONE; -PROPOFOL 1,000 MG/100 ML VIAL IV ONE; -PROTAMINE SULFATE 10 MG/ML 25 ML VIAL IV ONE; -PROTAMINE SULFATE 250 MG in EMPTY BAG 1 BAG IV ONE; -SODIUM BICARB 8.4% 50 ML SYR (1 MEQ/ML) IV ONE; -SODIUM CHLORIDE 0.9% 1,000 ML IV ONE; -TRANEXAMIC ACID 2,000 MG in SODIUM CHLORIDE 0.9% 80 ML IV ONE; -VANCOMYCIN 1,000 MG VIAL MISCELLANE ONE; -ceFAZolin 2,000 MG in SODIUM CHLORIDE 0.9% 30 ML IVPB ONE; +diphenhydrAMINE 50 MG/ML 1 ML VIAL IVP ONE; +methylPREDNISolone SOD SUCCI 125 MG/2 ML VIAL IV ONE
[2020-07-25] MEDS ORDERED: SODIUM CHLORIDE 0.9% 1,000 ML IV ONE (09:52)
[2020-07-25] MEDS ORDERED: HEPARIN SODIUM,PORCINE 10,000 UNIT/ML 1 ML VIAL ONE (10:47)
[2020-07-25] MEDS ORDERED: SUCCINYLCHOLINE CHLORIDE 100 MG/5 ML SYR IV ONE (10:47)
[2020-07-25] MEDS ORDERED: PHENYLEPHRINE-0.9% NACL SYG 1 MG/10 ML SYRINGE ONE (10:47)
[2020-07-25] MEDS ORDERED: PROTAMINE SULFATE 10 MG/ML 5 ML VIAL IV ONE (10:47)
[2020-07-25] MEDS ORDERED: LIDOCAINE 1% INJ 10MG/ML (20 ML MDV) ONE ×2 (10:47→10:53)
[2020-07-25] MEDS ORDERED: MIDAZOLAM 2 MG/2 ML VIAL ONE (10:47)
[2020-07-25] MEDS ORDERED: ISOPROTERENOL 250 MCG/1.25 ML SYR IV ONE (10:47)
[2020-07-25] MEDS ORDERED: ePHEDrine SULFATE/0.9% NACL/PF 50 MG/5 ML SYRINGE IV ONE (10:47)
[2020-07-25] MEDS ORDERED: PROPOFOL 10 MG/ML 20 ML VIAL IV ONE (10:47)
[2020-07-25] MEDS ORDERED: FUROSEMIDE 10 MG/ML 2 ML VIAL ONE (10:47)
[2020-07-25] MEDS ORDERED: fentaNYL (PF) 50 MCG/ML 2 ML AMP ONE (10:47)
[2020-07-25] MEDS ORDERED: HEPARIN SOD,PORK IN 0.45% NACL 25,000 UNIT in 0.45% NACL 1 250ML.BAG IV ONE (11:05)
[2020-07-25] MEDS ORDERED: ceFAZolin 1,000 MG VIAL IV ONE (11:30)
[2020-07-25] MEDS ORDERED: LIDOCAINE 1% INJ 10MG/ML (20 ML MDV) SQ ONE (11:35)
[2020-07-25] MEDS ORDERED: HEPARIN SODIUM (1,000 UNIT/ML) 1,000 UNIT in SODIUM CHLORIDE 0.9% 1,000 ML IRRIGATION ONE (13:30)
[2020-07-25] MEDS ORDERED: LACTATED RINGERS 1,000 ML IV ONE (13:30)
[2020-07-25] MEDS ORDERED: IOPAMIDOL-370 100ML BTL INJ ONE (14:42)
--- NOTE | 2020-07-25 15:48 | P.EPPROC ---
- EP Procedure Note Electrophysiology Procedure Note: Diagnosis Atrial fibrillation, symptomatic, refractory to therapy History of mitral valve replacement History of mild LV dysfunction with heart failure, congestive, chronic class II heart failure at this time Result Likely left atrial appendectomy during mitral valve replacement, no mass in the left right atrium LV function and intracardiac echo. Normal Right and left atrial pressures fairly normal, mean LA pressure 6 mmHg Successful pulmonary vein isolation of all veins using cryo-ablation Complete entrance block in all 4 veins confirmed No evidence for phrenic nerve injury Esophageal deflection YES , Electrical cardioversion with a synchronized shock across the chest NO Linear ablation along the bridge between the left atrial appendage stump and left superior pulmonary vein Linear ablation along the left atrial roof line septal ablation in the left atrium, linear just posterior to the transseptal puncture site Focal atrial tachycardia induced and mapped. Mechanical termination posterior mitral annulus 6 o'clock position RF ablation at this site Tachycardia rendered noninducible Possible brief AVNRT but this could not be induced again. Therefore no ablation was performed Patient came in a junctional rhythm and remained in a junctional rhythm at the end of the procedure, possible antegrade conduction down the slow pathway was a junctional rhythm Procedure details Patient was brought to the EP lab in a fasting state. Written informed consent was obtained prior to the procedure. Procedure performed under general anesthesia After initial muscle relaxant use, muscle relaxants were not given thereafter in order to assess phrenic nerve during procedure. Patient prepped and draped as per protocol Full cryo-set up with standard preparation of the cryoablation tools done. Femoral Venous access obtained on the right and left groins Venous and arterial Sheaths placed. Diagnostic catheters for the high right atrium, phrenic nerve stimulation and pacing, His bundle, RV and coronary sinus placed Intracardiac echo catheter placed. Long sheath placed in the right atrium Left and right transseptal catheterization performed under intracardiac echo guidance. Intravenous heparin with aCT above 300 Later, catheter positioning and balloon positioning in the left atrium, under intracardiac echo guidance Diagnostic EP study with Drug infusion Coronary sinus pacing and recording Baseline measurements Sinus cycle length 1068 ms, AR interval 110 ms, junctional rhythm, QRS 129 and QT 520 ms Atrial pacing performed from the high right atrium and the coronary sinus Burst stimulation from the high right atrium and multiple sites within the coronary sinus poles on and off Isuprel AV node Wenckebach block 320 ms from the coronary sinus Extra stimulation at 2 different sites from the coronary sinus Transseptal catheterization performed RA pressure 11/2/6 LA pressure 15/-2/6 Transseptal catheterization performed with standard sheath. The cryoablation sheath was then placed with an over the wire exchange without any acute complications. All 4 pulmonary veins were isolated in the following sequence: Left superior followed by left inferior followed by right superior followed by right inferior The cryo-ablation balloon was placed at the os of each vein 1.5 mL of IV dye was injected to confirm an occluded vein Goal during cryoablation was to achieve complete occlusion of the pulmonary vein, achieve -30 degrees C at 30 seconds and achieve -40 degrees C at 60 seconds and a time to effect of less than 60-90 seconds, . If not the balloon was repositioned to obtain this result After completion of Cryoblation with durations from 180-240 seconds, entrance block was confirmed with the Attain circular catheter in a roving fashion around the antrum of the pulmonary veins Phrenic nerve pacing was performed from the SVC, right innominate vein area and diaphragm voltage was monitored. Diaphragmatic contractions were also monitored manually for strength of contraction. Parameter goals for each cryo freeze Complete occlusion of the appropriate vein -30 degrees C by 30 seconds -40 degrees C by 60 seconds Minimum between minus 40-55 degrees C Thaw time greater than 10 seconds Balloon visualized by intracardiac echo The esophagus was intubated. Esophageal Temperature monitoring with a CIRCA catheter formed. Esophageal deflection for hypothermia of the esophagus below 30 degrees C Left superior pulmonary vein Complete isolation, entrance block Left inferior pulmonary vein Complete isolation, entrance block Right superior pulmonary vein, during phrenic nerve pacing Complete isolation, entrance block Right inferior pulmonary vein, during phrenic nerve pacing Complete isolation, entrance block At the end of the procedure the Achieve catheter was once again used to check for entrance block Phrenic nerve stimulation was performed to confirm diaphragmatic stimulation the end of the procedure Cine fluoroscopy was performed at the very end of the procedure to confirm movement of both diaphragms with inspiration and expiration At the end of the procedure the patient was extubated Heparin was reversed Venous sheaths were removed and hemostasis assured Procedures performed (PVI - CRYO Ablation) Diagnostic EP study CS pacing and recording Left and right transseptal catheterization Catheter the mapping of the tachycardia (NOT 3D mapping) Intracardiac echocardiography Pulmonary vein isolation with transseptal and comprehensive EPS, [id number] Left atrial roof line, +[id number] Linear ablation, left atrium septum, +[id number] Linear ablation left atrial ridge between left atrial appendage stump and left. Pulmonary vein Focal atrial tachycardia posterior mitral, 6 o'clock position Drug Infusion +[id number]
--- NOTE | 2020-07-25 16:31 | P.PRLE ---
RE: Abisai Warner Dear Esme Barone underwent in A. fib ablation today. As you know he has symptomatic atrial fibrillation, history of mitral valve replacement and history of mild LV dysfunction with heart failure Results of the study LV function and intracardiac echo. Normal Right and left atrial pressures normal, mean LA pressure 6 mmHg Successful pulmonary vein isolation of all veins using cryo-ablation Linear ablation along the bridge between the left atrial appendage stump and left superior pulmonary vein Linear ablation along the left atrial roof line septal ablation in the left atrium, linear just posterior to the transseptal puncture site Focal atrial tachycardia induced and mapped. Mechanical termination posterior mitral annulus 6 o'clock position RF ablation at this site, Tachycardia rendered noninducible Possible brief AVNRT but this could not be induced again. Therefore no ablation was performed Patient came in a junctional rhythm and remained in a junctional rhythm at the end of the procedure, possible antegrade conduction down the slow pathway was a junctional rhythm Suggest Stop metoprolol Watch for a junctional rhythm Thank you for entrusting me with the care of the patient Warm regards Sincerely Dae Feldman
[2020-07-25] MEDS ORDERED: HYDROmorphone 0.5 MG/0.5 ML SYRINGE IVP STA (18:05)
[2020-07-25] MEDS: SODIUM CHLORIDE 0.9% 1,000 ML IV SCH ×2 (18:42→21:13)
--- NOTE | 2020-07-26 00:03 | US ---
EXAMINATION TYPE: US abdomen complete DATE OF EXAM: 07/25/2020 COMPARISON: CT, US CLINICAL HISTORY: abdominal pain. Abdominal pain. Hx splenectomy, part of colon removed per patient. EXAM MEASUREMENTS: Liver Length: 13.9 cm Gallbladder Wall: 0.16 cm CBD: Not visualized. Spleen: Hx splenectomy. Right Kidney: 10.7 x 3.8 x 4.7 cm Left Kidney: 9.9 x 5.3 x 5.1 cm *Limited due to gas. Pancreas: Obscured by overlying bowel gas. Liver: Appears to be coarse. Measures on the smaller side. Gallbladder: Hyperechoic area seen along gallbladder wall measurin.3 x 0.2 x 0.2 cm. Fold visual ized near gallbladder neck. Images taken supine only; patient needed to stay in this position due to recent procedure. Evidence for sonographic Holt's sign: No CBD: Not visualized. Right Kidney: Hypoechoic area seen lower pole measurin.0 x 1.1 x 0.8 cm. Left Kidney: Limited visibility and evaluation. No abnormalities seen at this time. Upper IVC: Appears to be wnl Abd Aorta: AAA visualized as seen on last exam. AAA measures 7.2 x 3.6 x 3.5 cm at mid-distal aorta. Atherosclerotic changes seen. Left iliac measures 1.46 cm in AP which is upper limits. IMPRESSION: There is abdominal aortic aneurysm that measures 7 cm in length and up to 3.5 cm in diameter with irr egular lumen. No dilation seen of the intrahepatic bile ducts. No definite gallstones. No free fluid. Pancreas not visualized. No evidence of solid renal mass or obstruction. Aneurysm increased 5 mm compared to old CT scan of 02/15/2012.
[2020-07-26] MEDS ORDERED: ALBUTEROL HFA INHALER INHALATION PRN (08:14)
[2020-07-26] MEDS ORDERED: ALBUTEROL NEBULIZED 2.5 MG/3 ML INHALATION PRN (08:14)
[2020-07-26] MEDS ORDERED: traMADol 50 MG TAB PO PRN (08:14)
[2020-07-26] MEDS ORDERED: POTASSIUM CHLORIDE ER 10 MEQ TAB.ER.PRT PO SCH (09:00)
[2020-07-26] MEDS ORDERED: ZINC SULFATE 220 MG CAP PO SCH (09:00)
[2020-07-26] MEDS ORDERED: CHOLECALCIFEROL 1,000 UNIT TAB PO SCH (09:00)
[2020-07-26] MEDS ORDERED: FORMOTEROL FUMARATE 20 MCG/2 ML NEBU INHALATION SCH (09:00)
[2020-07-26] MEDS ORDERED: MULTIVITAMINS, THERA 1 EACH TAB PO SCH (09:00)
[2020-07-26] MEDS ORDERED: ASPIRIN 81 MG PO SCH (09:00)
[2020-07-26] MEDS ORDERED: APIXABAN 5 MG TAB PO SCH (09:00)
[2020-07-26] MEDS ORDERED: FUROSEMIDE 40 MG TAB PO SCH (09:00)
[2020-07-26] MEDS ORDERED: ATORVASTATIN 40 MG TAB PO SCH (09:00)
[2020-07-26] MEDS ORDERED: LEVOTHYROXINE 50 MCG TAB PO SCH (09:00)
[2020-07-26] MEDS ORDERED: Acetaminophen-Codeine 300-30mg TAB PO PRN (09:20)
[2020-07-26] MEDS: IPRATROPIUM 0.5 MG/2.5 ML NEBU INHALATION SCH ×2 (13:00→16:35)
[2020-07-26 13:52] VITALS: BMI 20.5
[2020-07-26 15:21] VITALS: BP 120/77; PULSE 97; RESP 14; TEMP 98.3
[2020-07-26] MEDS ORDERED: GABAPENTIN 100 MG CAP PO SCH (21:00)
[2020-07-26] MEDS ORDERED: PANTOPRAZOLE 40 MG TABLET PO SCH (21:00)
[2020-07-27] MEDS ORDERED: LEVOTHYROXINE 50 MCG TAB PO SCH (06:30)
== END 2020-07-26 17:30 | disposition home or self-care (01) ==
LOC: CATHEP 09:25 → 3NCARDOBS 14:34 → CATHEP 07-26 17:30
PROVIDERS: ATTEND Internal Medicine Clinical Cardiac Electrophysiology
DX: I48.0 Paroxysmal atrial fibrillation (principal); I50.9 Heart failure, unspecified; I71.4 Abdominal aortic aneurysm, without rupture; I25.10 Atherosclerotic heart disease of native coronary artery without angina pectoris; E78.5 Hyperlipidemia, unspecified; J44.9 Chronic obstructive pulmonary disease, unspecified; E07.9 Disorder of thyroid, unspecified; K21.9 Gastro-esophageal reflux disease without esophagitis; Z95.4 Presence of other heart-valve replacement; Z90.81 Acquired absence of spleen; Z90.49 Acquired absence of other specified parts of digestive tract; Z91.041 Radiographic dye allergy status; Z79.82 Long term (current) use of aspirin; Z79.01 Long term (current) use of anticoagulants; Z79.890 Hormone replacement therapy; Z79.51 Long term (current) use of inhaled steroids; Z79.899 Other long term (current) drug therapy; Z95.1 Presence of aortocoronary bypass graft
CPT/HCPCS: 85347; 93623; 93662; 93613; 93656; 93657; 84132; 76700; C1769 ×4; C1894 ×2; C1730 ×2; C1759; C1893; C1733; C1766; C1732; J2001; J1644 ×2; J1170; Q9967

== ENCOUNTER → 2020-08-02 | Outpatient (CLI) | payer OTHER ==
[2020-08-02 21:38] LABS: African American GFR (CKD) 92.4 (60.0-200.0); Albumin 4.4 g/dL (3.80-4.90); Magnesium 2.4 mg/dL (1.5-2.4); Non-African American GFR(CKD) 79.7 (60.0-200.0); Potassium 4.3 mmol/L (3.5-5.5); Total Protein 6.9 g/dL (6.2-8.2)
== END | disposition home or self-care (01) ==
LOC: LABWHC1 11:35
PROVIDERS: ATTEND Nurse Practitioner
DX: I25.10 Atherosclerotic heart disease of native coronary artery without angina pectoris (principal); I48.0 Paroxysmal atrial fibrillation; B18.2 Chronic viral hepatitis C
CPT/HCPCS: 36415; 80048; 82040; 83735; 84155

== ENCOUNTER 2020-09-01 15:23 | Inpatient (IN) | payer OTHER ==
[2020-09-01] MEDS ORDERED: SODIUM CHLORIDE 0.9% 1,000 ML IV STA (16:30)
--- NOTE | 2020-09-01 16:34 | ED ---
General Adult HPI - General Chief complaint: Shortness of Breath Stated complaint: per product picker he is going in and out of a fib. Time Seen by Provider: 09/01/20 15:45 Source: patient, RN notes reviewed, old records reviewed Mode of arrival: ambulatory Limitations: no limitations - History of Present Illness Initial comments: This is a 64-year-old male who presents to the emergency department with past medical history significant for atrial fibrillation for which she had ablation in the past. Patient also has a history of Hodgkin's and COPD. Patient comes in today because he is becoming more more short of breath over the last few days. Patient states he has a test at home and told him he was in and out of atrial fibrillation. Patient denies any chest pain or palpitations. Patient denies headache patient denies numbness weakness per patient has lightheadedness or dizziness. Patient denies any abdominal pain. Patient denies any recent fever chills or cough. - Related Data Home Medications Medication Instructions Recorded Confirmed Levothyroxine Sodium [Synthroid] 50 mcg PO QAM 07/01/18 07/25/20 Omeprazole [PriLOSEC] 20 mg PO HS 07/01/18 07/25/20 Multivitamins, Thera [Multivitamin 1 tab PO DAILY 02/10/19 07/25/20 (formulary)] Aspirin [Adult Low Dose Aspirin EC] 81 mg PO DAILY 10/18/19 07/25/20 Albuterol Sulfate [Ventolin HFA] 2 puff INHALATION DIRECTED PRN 10/29/19 07/25/20 Umeclidinium Brm/Vilanterol Tr 1 puff INHALATION RT-DAILY 10/29/19 07/25/20 [Anoro Ellipta 62.5-25 Mcg INH] Atorvastatin [Lipitor] 40 mg PO QAM 11/12/19 07/25/20 Gabapentin [Neurontin] 100 mg PO HS 05/05/20 07/25/20 Albuterol Nebulized [Ventolin 2.5 mg INHALATION DIRECTED PRN 07/24/20 07/25/20 Nebulized] Cholecalciferol [Vitamin D3 (25 1,000 unit PO DAILY 07/24/20 07/25/20 Mcg = 1000 Iu)] Furosemide [Lasix] 40 mg PO DAILY 07/24/20 07/25/20 Potassium Chloride 10 meq PO DAILY 07/24/20 07/25/20 Tiotropium 18 Mcg/Puff [Spiriva] 1 puff INHALATION HS 07/24/20 07/25/20 Zinc Tab 1 tab PO DAILY 07/24/20 07/25/20 traMADol HCL [Ultram] 50 mg PO DIRECTED PRN 07/24/20 07/25/20 Previous Rx's Medication Instructions Recorded Apixaban [Eliquis] 5 mg PO BID #60 tab 02/28/19 Allergies Allergy/AdvReac Type Severity Reaction Status Date / Time Iodinated Contrast Media AdvReac Nausea & Verified 09/01/20 15:48 [Iodinated Contrast- Oral Vomiting,chills and IV Dye] Review of Systems ROS Statement: Those systems with pertinent positive or pertinent negative responses have been documented in the HPI. ROS Other: All systems not noted in ROS Statement are negative. Past Medical History Past Medical History: Coronary Artery Disease (CAD), Cancer, Heart Failure, COPD, GERD/Reflux, Hyperlipidemia, Hypertension, Myocardial Infarction ([place]), Thyroid Disorder Additional Past Medical History / Comment(s): see Dr Feldman H&P, hx. Hodgkin's lymphoma 1987-had radiation, cancer of appendix, restless legs, Last Myocardial Infarction Date:: 2004 History of Any Multi-Drug Resistant Organisms: None Reported Past Surgical History: Appendectomy, Bowel Resection, Cardiac Valve Replacement, Coronary Bypass/CABG, Heart Catheterization, Heart Catheterization With Stent Additional Past Surgical History / Comment(s): staging laparotomy for Hodgkin's & splenectomy, CABG 5 vessel bypass 2002,JACEK, single-vessel bypass with mitral valve replacement february,, two cardiac stents Past Anesthesia/Blood Transfusion Reactions: Motion Sickness Additional Past Anesthesia/Blood Transfusion Reaction / Comment(s): no known hx blood transfusion Date of Last Stent Placement:: unknown Past Psychological History: No Psychological Hx Reported Smoking Status: Former smoker Past Alcohol Use History: None Reported Past Drug Use History: None Reported, Marijuana - Past Family History Mother Family Medical History: Cancer Additional Family Medical History / Comment(s): esophageal General Exam - General Exam Comments Initial Comments: GENERAL: Patient is well-developed and well-nourished. Patient is nontoxic and well- hydrated and is in mild distress. ENT: Neck is soft and supple. No significant lymphadenopathy is noted. Oropharynx is clear. Moist mucous membranes. Neck has full range of motion without eliciting any pain. EYES: The sclera were anicteric and conjunctiva were pink and moist. Extraocular movements were intact and pupils were equal round and reactive to light. Eyelids were unremarkable. PULMONARY: Unlabored respirations. Good breath sounds bilaterally. No audible rales rhonchi or wheezing was noted. CARDIOVASCULAR: There is a regular rate and rhythm without any murmurs gallops or rubs. ABDOMEN: Soft and nontender with normal bowel sounds. SKIN: Skin is clear with no lesions or rashes and otherwise unremarkable. NEUROLOGIC: Patient is alert and oriented x3. Cranial nerves II through XII are grossly intact. Motor and sensory are also intact. Normal speech, volume and content. Symmetrical smile. MUSCULOSKELETAL: Normal extremities with adequate strength and full range of motion. No lower extremity swelling or edema. No calf tenderness. LYMPHATICS: No significant lymphadenopathy is noted PSYCHIATRIC: Normal psychiatric evaluation. Limitations: no limitations Course Vital Signs 09/01/20 09/01/20 15:44 19:30 Temperature 98.6 F Pulse Rate 103 H 95 Respiratory 24 18 Rate Blood Pressure 152/92 117/78 O2 Sat by Pulse 96 98 Oximetry Medical Decision Making - Medical Decision Making EKG shows sinus rhythm at 93 bpm UT interval is 80 QRSs 126 QT interval 4:30 QTC is 534. Patient's EKG shows no ST segment elevation or depression. CAT scan showed no pulmonary embolism. However did show a right lower lobe infiltrate. At this point in time it was 7:30 and the patient was diagnosed with pneumonia I started him on antibiotics I did a blood culture and did a COVID RapidTest - Lab Data Result diagrams: 09/01/20 16:48 09/01/20 16:48 Lab Results 09/01/20 09/01/20 09/01/20 Range/Units 16:48 16:48 16:48 WBC 9.2 (3.8-10.6) k/uL RBC 4.65 (4.30-5.90) m/uL Hgb 14.5 (13.0-17.5) gm/dL Hct 43.7 (39.0-53.0) % MCV 94.0 (80.0-100.0) fL MCH 31.2 (25.0-35.0) pg MCHC 33.2 (31.0-37.0) g/dL RDW 16.0 H (11.5-15.5) % Plt Count 338 (150-450) k/uL MPV 6.8 Neutrophils % 52 % Lymphocytes % 11 % Monocytes % 4 % Eosinophils % 32 % Basophils % 1 % Neutrophils # 4.7 (1.3-7.7) k/uL Lymphocytes # 1.0 (1.0-4.8) k/uL Monocytes # 0.3 (0-1.0) k/uL Eosinophils # 2.9 H (0-0.7) k/uL Basophils # 0.1 (0-0.2) k/uL PT 11.0 (9.0-12.0) sec INR 1.1 (<1.2) APTT 23.1 (22.0-30.0) sec D-Dimer 1.01 H (<0.60) mg/L FEU Sodium 138 (137-145) mmol/L Potassium 4.3 (3.5-5.1) mmol/L Chloride 98 (98-107) mmol/L Carbon Dioxide 30 (22-30) mmol/L Anion Gap 10 mmol/L BUN 37 H (9-20) mg/dL Creatinine 0.97 (0.66-1.25) mg/dL Est GFR (CKD-EPI)AfAm >90 (>60 ml/min/1.73 sqM) Est GFR (CKD-EPI)NonAf 83 (>60 ml/min/1.73 sqM) Glucose 102 H (74-99) mg/dL Plasma Lactic Acid Carlos Eduardo (0.7-2.0) mmol/L Calcium 9.9 (8.4-10.2) mg/dL Magnesium 2.1 (1.6-2.3) mg/dL Total Bilirubin 1.1 (0.2-1.3) mg/dL AST 31 (17-59) U/L ALT 34 (4-49) U/L Alkaline Phosphatase 113 (38-126) U/L Troponin I (0.000-0.034) ng/mL NT-Pro-B Natriuret Pep pg/mL Total Protein 7.9 (6.3-8.2) g/dL Albumin 4.5 (3.5-5.0) g/dL 09/01/20 09/01/20 09/01/20 Range/Units 16:48 16:48 16:48 WBC (3.8-10.6) k/uL RBC (4.30-5.90) m/uL Hgb (13.0-17.5) gm/dL Hct (39.0-53.0) % MCV (80.0-100.0) fL MCH (25.0-35.0) pg MCHC (31.0-37.0) g/dL RDW (11.5-15.5) % Plt Count (150-450) k/uL MPV Neutrophils % % Lymphocytes % % Monocytes % % Eosinophils % % Basophils % % Neutrophils # (1.3-7.7) k/uL Lymphocytes # (1.0-4.8) k/uL Monocytes # (0-1.0) k/uL Eosinophils # (0-0.7) k/uL Basophils # (0-0.2) k/uL PT (9.0-12.0) sec INR (<1.2) APTT (22.0-30.0) sec D-Dimer (<0.60) mg/L FEU Sodium (137-145) mmol/L Potassium (3.5-5.1) mmol/L Chloride (98-107) mmol/L Carbon Dioxide (22-30) mmol/L Anion Gap mmol/L BUN (9-20) mg/dL Creatinine (0.66-1.25) mg/dL Est GFR (CKD-EPI)AfAm (>60 ml/min/1.73 sqM) Est GFR (CKD-EPI)NonAf (>60 ml/min/1.73 sqM) Glucose (74-99) mg/dL Plasma Lactic Acid Carlos Eduardo 2.0 (0.7-2.0) mmol/L Calcium (8.4-10.2) mg/dL Magnesium (1.6-2.3) mg/dL Total Bilirubin (0.2-1.3) mg/dL AST (17-59) U/L ALT (4-49) U/L Alkaline Phosphatase (38-126) U/L Troponin I <0.012 (0.000-0.034) ng/mL NT-Pro-B Natriuret Pep 834 pg/mL Total Protein (6.3-8.2) g/dL Albumin (3.5-5.0) g/dL Disposition Clinical Impression: Acute exacerbation of chronic obstructive pulmonary disease, Pneumonia Disposition: ADMITTED IP TO THIS HOSP Referrals: Kang Raymond DO [Primary Care Provider] - 1-2 days Time of Disposition: 20:08
[2020-09-01 17:03] LABS: Basophils # (A) 0.1 k/uL (0-0.2); Basophils % (A) 1 %; HCT 43.7 % (39.0-53.0); HGB 14.5 gm/dL (13.0-17.5); Lymphocytes % (A) 11 %; MCH 31.2 pg (25.0-35.0); MCHC 33.2 g/dL (31.0-37.0); Mean Platelet Volume 6.8; Monocytes # (A) 0.3 k/uL (0-1.0); Monocytes % (A) 4 %; Neutrophils # (A) 4.7 k/uL (1.3-7.7); Neutrophils % (A) 52 %; Platelet Count 338 k/uL (150-450); RBC 4.65 m/uL (4.30-5.90); WBC 9.2 k/uL (3.8-10.6)
[2020-09-01 17:11] LABS: Eosinophils # (A) 2.9 k/uL (0-0.7); Eosinophils % (A) 32 %
--- NOTE | 2020-09-01 17:11 | XR ---
EXAMINATION TYPE: XR chest 2V DATE OF EXAM: 09/01/2020 COMPARISON: 05/05/2020. HISTORY: Difficulty in breathing. TECHNIQUE: Frontal and lateral views of the chest are obtained. FINDINGS: There is chronic blunting of the left phrenic angle. There is small opacity in the right l ower lobe. Otherwise no significant pleural effusion or pneumothorax seen. The cardiac silhouette si ze is within normal limits. The osseous structures are intact. Stable cardiothoracic postsurgical c hanges. IMPRESSION: Small right basilar opacity, compatible with infiltrate in the appropriate clinical setting.
[2020-09-01 17:17] LABS: INR 1.1 (<1.2); Partial Thromboplastin Time 23.1 sec (22.0-30.0)
[2020-09-01 17:25] LABS: ALT 34 U/L (4-49); AST 31 U/L (17-59); African American GFR (CKD) >90 (>60 ml/min/1.73 sqM); Albumin 4.5 g/dL (3.5-5.0); Alkaline Phosphatase 113 U/L (38-126); Anion Gap 10 mmol/L; Blood Urea Nitrogen 37 mg/dL (9-20); Calcium 9.9 mg/dL (8.4-10.2); Carbon Dioxide 30 mmol/L (22-30); Chloride 98 mmol/L (98-107); D-Dimer 1.01 mg/L FEU (<0.60); Glucose 102 mg/dL (74-99); Magnesium 2.1 mg/dL (1.6-2.3); Non-African American GFR(CKD) 83 (>60 ml/min/1.73 sqM); Potassium 4.3 mmol/L (3.5-5.1); Sodium 138 mmol/L (137-145); Total Bilirubin 1.1 mg/dL (0.2-1.3); Total Protein 7.9 g/dL (6.3-8.2)
[2020-09-01] MEDS ORDERED: FAMOTIDINE 20 MG/2 ML VIAL IV STA (18:09)
[2020-09-01] MEDS ORDERED: methylPREDNISolone SOD SUCCI 125 MG/2 ML VIAL IV STA (18:09)
[2020-09-01] MEDS ORDERED: diphenhydrAMINE 50 MG/ML 1 ML VIAL IVP STA (18:09)
--- NOTE | 2020-09-01 19:40 | CT ---
EXAMINATION TYPE: CT chest angio for PE DATE OF EXAM: 09/01/2020 COMPARISON: Same day radiograph. CT 02/25/2019. HISTORY: Shortness of breath, back pain and elevated d-dimer. CT DLP: 206.1 mGycm Automated exposure control for dose reduction was used. CONTRAST: CT Chest for pulmonary embolism performed with with IV Contrast, patient injected with 100ml mL of Is ovue 370. FINDINGS: LUNGS: There is small right lower lobe consolidation with trace bilateral pleural effusions. No pneum othorax. Additional mild bibasilar atelectasis seen. There is chronic mild elevation of the left h emidiaphragm and blunting of the costophrenic angle. MEDIASTINUM: There is satisfactory enhancement of the pulmonary artery and its branches, there is no CT evidence for pulmonary embolism. There are no greater than 1 cm hilar or mediastinal lymph nodes. No pericardial effusion is seen. Moderate thoracic aorta and coronary artery atherosclerotic disea se noted. OTHER: No additional significant abnormality is seen. Chronic mild T7 compression deformity seen. IMPRESSION: Small right lower lobe consolidation, consistent with pneumonia. Trace pleural effusions. No acute PE.
[2020-09-01] MEDS ORDERED: NON FORMULARY DRUG (Tiotropium Bromide [Spiriva Respimat] 4 GM Mist.Inhal) INHALATION SCH (20:00)
[2020-09-01] MEDS ORDERED: cefTRIAXone IN SWFI 1,000 MG/10 ML SYRINGE IVP STA (20:03)
[2020-09-01] MEDS ORDERED: PNEUMONIA PROTOCOL UTILIZED 1 EACH MISC PO PRN (20:26)
[2020-09-01] MEDS ORDERED: AZITHROMYCIN 500 MG in SODIUM CHLORIDE 0.9% 250 ML IVPB STA (20:26)
[2020-09-01] MEDS ORDERED: IPRATROPIUM-ALBUTEROL 3 ML NEB INHALATION PRN (20:26)
[2020-09-01] MEDS: methylPREDNISolone SOD SUCCI 125 MG/2 ML VIAL IV SCH (21:09)
[2020-09-01] MEDS ORDERED: ALBUTEROL NEBULIZED 2.5 MG/3 ML INHALATION PRN ×2 (23:08)
[2020-09-01] MEDS: traMADol 50 MG TAB PO PRN (23:40)
[2020-09-01] MEDS: APIXABAN 5 MG TAB PO SCH (23:41)
[2020-09-01] MEDS: METOPROLOL TARTRATE 25 MG TAB PO SCH (23:41)
[2020-09-01] MEDS: GABAPENTIN 100 MG CAP PO SCH (23:41)
[2020-09-02] MEDS: methylPREDNISolone SOD SUCCI 125 MG/2 ML VIAL IV SCH (06:01)
[2020-09-02] MEDS: LEVOTHYROXINE 50 MCG TAB PO SCH (06:01)
--- NOTE | 2020-09-02 07:31 | XR ---
EXAMINATION TYPE: XR chest 1V portable DATE OF EXAM: 09/02/2020 HISTORY: Shortness of breath. COMPARISON: 09/01/2020 TECHNIQUE: Single view of the chest is submitted. FINDINGS: Demonstrated are scattered senescent parenchymal change. Right basilar infiltrate persists. Correlate for pneumonia. The heart is stable. Hilar and mediastinal structures are within normal limits. Degenerative changes are seen of the dorsal spine. IMPRESSION: 1. Right basilar infiltrate persists. Correlate for pneumonia.
[2020-09-02] MEDS ORDERED: IPRATROPIUM 0.5 MG/2.5 ML NEBU INHALATION SCH (08:00)
[2020-09-02] MEDS: FORMOTEROL FUMARATE 20 MCG/2 ML NEBU INHALATION SCH ×2 (08:12→20:30)
[2020-09-02] MEDS ORDERED: NON FORMULARY DRUG (Zinc [Zinc] 50 MG Tablet) PO SCH (09:00)
[2020-09-02] MEDS: APIXABAN 5 MG TAB PO SCH ×2 (10:18→20:57)
[2020-09-02] MEDS: POTASSIUM CHLORIDE ER 10 MEQ TAB.ER.PRT PO SCH (10:18)
[2020-09-02] MEDS: METOPROLOL TARTRATE 25 MG TAB PO SCH ×2 (10:18→20:57)
[2020-09-02] MEDS: CHOLECALCIFEROL 1,000 UNIT TAB PO SCH (10:18)
[2020-09-02] MEDS: FUROSEMIDE 20 MG TAB PO SCH (10:18)
[2020-09-02] MEDS: ATORVASTATIN 40 MG TAB PO SCH (10:18)
[2020-09-02] MEDS: MULTIVITAMINS, THERA 1 EACH TAB PO SCH (10:18)
[2020-09-02] MEDS: CALCIUM CARBONATE 500 MG CHEWABLE PO SCH (10:18)
[2020-09-02] MEDS: ASPIRIN 81 MG PO SCH (10:18)
[2020-09-02] MEDS: IPRATROPIUM-ALBUTEROL 3 ML NEB INHALATION SCH ×4 (11:47→20:30)
[2020-09-02] MEDS: BUDESONIDE 1 MG/2 ML NEBU INHALATION SCH ×2 (11:54→20:30)
[2020-09-02 15:08] VITALS: BMI 18.6
[2020-09-02] MEDS: methylPREDNISolone SOD SUCCI 40 MG/ML 1 ML VIAL IV SCH ×2 (15:32→23:50)
[2020-09-02] MEDS ORDERED: LACTULOSE 20 GM/30 ML CUP PO ONE (16:03)
[2020-09-02] MEDS: traMADol 50 MG TAB PO PRN (19:51)
[2020-09-02] MEDS: GABAPENTIN 100 MG CAP PO SCH (20:57)
[2020-09-02] MEDS ORDERED: PANTOPRAZOLE 40 MG TABLET PO SCH (21:00)
--- NOTE | 2020-09-02 22:35 | P.HPIM ---
History of Present Illness H&P Date: 09/02/20 Chief Complaint: Short of breath History of presenting complaint: This is a pleasant 64-year-old patient, Dr. Esme Raymond. Chronic stable medical conditions include coronary artery disease with stent, carotid bypass in 2002, COPD, GERD, hyperlipidemia, hypertension, arch his lymphoma 1987 had radiation, cancer of the appendix, restless leg syndrome, cardiac valve rep lacement, staging laparotomy and Hodgkin's and splenectomy, mitral valve placement 2089 patient for a fairly 2019. Patient now presents with 4 days of increasing shortness of breath difficulty breathing. It is also not working. Wheezing. Slight cough. Small amount of green sputum. Decreased appetite. Chills. No obvious fever. Also has had some weight loss. Due to see Dr. Haq in the office for the same. Notice on his monitor that his heart rate had been up intermittently. Review of systems: GEN.: Decrease appetite and weight loss EYES: None HEENT: None NECK: None RESPIRATORY: As above CARDIOVASCULAR: None GASTROINTESTINAL: None GENITOURINARY: None MUSCULOSKELETAL: [Some joint pain LYMPHATICS: None HEMATOLOGICAL: None PSYCHIATRY: None NEUROLOGICAL: None Past medical history to include: Coronary artery disease with a 5 vessel bypass in 2002, mitral valve replacement in 2018, ablation for A. fib in 2019, CHF, COPD, GERD, hypertension, hyperlipidemia, hypothyroid, Hodgkin's lymphoma with radiation in 1987, appendix cancer, restless leg syndrome, staging B for Hodgkin's with splenectomy Social history: Patient smoked for 40 years 1-2 packs a day stopped in 2009. No alcohol. Lives with Physical examination: VITAL SIGNS: 98.6, 103, 24, 152/92, 96% room air GENERAL: BMI 18.6, thin built, sitting up slightly anxious. EYES: Pupils equal. Conjunctiva normal. HEENT: External appearance of nose and ears normal, oral cavity grossly normal. NECK: JVD not raised; masses not palpable. HEART: First and second heart sounds are normal; no edema. LUNGS:[ Respiratory rate increased, right basal crackles posteriorly, decreased breath sounds. ABDOMEN: Soft, nontender, liver spleen not palpable, no masses palpable. PSYCH: [Alert and oriented x3; mood and affect slightly anxious l. NEUROLOGICAL: Cranial nerves grossly intact; no facial asymmetry, power and sensation grossly intact. LYMPHATICS: No lymph nodes palpable in the axilla and neck INVESTIGATIONS, reviewed in the clinical context: White count 9.2 hemoglobin 14.5 platelets 338 potassium 4.3 creatinine 0.97 AST ALT both normal, troponin I less than 0.012 proBNP 834 pro-calcitonin 0.08 Coronavirus P/Cr-not detected EKG tracing personally reviewed by me-sinus rhythm, some nonspecific changes Chest x-ray film personally reviewed by me-some right-sided infiltrate CT [id number] consolidation, chronic mild T7 compression deformity. No PE Assessment: -Right-sided pneumonia, suspect gram-negative organism -Acute COPD exacerbation in an ex-smoker -Coronary artery disease prior history of carotid bypass in 2002 and stent placement 2018 -Paroxysmal atrial fibrillation with ablation and early this year -Chronic congestive heart failure EF not known -GERD -Essential hypertension -Hyperlipidemia -History of non-Hodgkin's lymphoma with radiation treatment in 1987 -Restless leg syndrome -Splenectomy for staging Hodgkin's -Weight loss being worked up outpatient by Dr. Haq Plan: Patient started on DuoNeb, IV Solu-Medrol, ceftriaxone Zithromax. Home medications resumed. Care was discussed with the patient question also. Cardiology was consulted. Past Medical History Past Medical History: Coronary Artery Disease (CAD), Cancer, Heart Failure, COPD, GERD/Reflux, Hyperlipidemia, Hypertension, Myocardial Infarction (MA), Thyroid Disorder Additional Past Medical History / Comment(s): see Dr Feldman H&P, hx. Hodgkin's lymphoma 1987-had radiation, cancer of appendix, restless legs, Last Myocardial Infarction Date:: 2004 History of Any Multi-Drug Resistant Organisms: None Reported Past Surgical History: Appendectomy, Bowel Resection, Cardiac Valve Replacement, Coronary Bypass/CABG, Heart Catheterization, Heart Catheterization With Stent Additional Past Surgical History / Comment(s): staging laparotomy for Hodgkin's & splenectomy, CABG 5 vessel bypass 2002,JACEK, single-vessel bypass with mitral valve replacement february,, two cardiac stents, ablation for afib 2019 Past Anesthesia/Blood Transfusion Reactions: No Reported Reaction Additional Past Anesthesia/Blood Transfusion Reaction / Comment(s): no known hx blood transfusion Date of Last Stent Placement:: unknown Past Psychological History: No Psychological Hx Reported Smoking Status: Former smoker Past Alcohol Use History: None Reported Additional Past Alcohol Use History / Comment(s): STARTED SMOKING AT AGE 15, quit smoking 2009 , SMOKED 1-2ppd Past Drug Use History: None Reported, Marijuana Additional Drug Use History / Comment(s): PAST HISTORY - Past Family History Mother Family Medical History: Cancer Additional Family Medical History / Comment(s): esophageal Medications and Allergies Home Medications Medication Instructions Recorded Confirmed Type Levothyroxine Sodium [Synthroid] 50 mcg PO DAILY 07/01/18 09/01/20 History Omeprazole [PriLOSEC] 20 mg PO HS 07/01/18 09/01/20 History Multivitamins, Thera [Multivitamin 1 tab PO DAILY 02/10/19 09/01/20 History (formulary)] Apixaban [Eliquis] 5 mg PO BID #60 tab 02/28/19 09/01/20 Rx Aspirin [Adult Low Dose Aspirin EC] 81 mg PO DAILY 10/18/19 09/01/20 History Albuterol Sulfate [Ventolin HFA] 2 puff INHALATION RT-BID PRN 10/29/19 09/01/20 History Umeclidinium Brm/Vilanterol Tr 1 puff INHALATION RT-DAILY 10/29/19 09/01/20 History [Anoro Ellipta 62.5-25 Mcg INH] Atorvastatin [Lipitor] 40 mg PO DAILY 11/12/19 09/01/20 History Gabapentin [Neurontin] 100 mg PO HS 05/05/20 09/01/20 History Albuterol Nebulized [Ventolin 2.5 mg INHALATION TID PRN 07/24/20 09/01/20 History Nebulized] Cholecalciferol [Vitamin D3 (25 1,000 unit PO DAILY 07/24/20 09/01/20 History Mcg = 1000 Iu)] Potassium Chloride 30 meq PO DAILY 07/24/20 09/01/20 History traMADol HCL [Ultram] 50 mg PO BID PRN 07/24/20 09/01/20 History Calcium Carbonate [Calcium] 600 mg PO DAILY 09/01/20 09/01/20 History Furosemide [Lasix] 20 mg PO DAILY 09/01/20 09/01/20 History Metoprolol Tartrate 12.5 mg PO HS 09/01/20 09/01/20 History Metoprolol Tartrate 25 mg PO DAILY 09/01/20 09/01/20 History Tiotropium [place] [Spiriva 2 puff INHALATION RT-HS 09/01/20 09/01/20 History Respimat] Zinc 50 mg PO DAILY 09/01/20 09/01/20 History Allergies Allergy/AdvReac Type Severity Reaction Status Date / Time Iodinated Contrast Media AdvReac Nausea & Verified 09/01/20 20:28 [Iodinated Contrast- Oral Vomiting,chills and IV Dye] Physical Exam Vitals: Vital Signs Temp Pulse Pulse Resp BP BP Pulse Ox 09/02/20 05:34 98.0 F 81 18 111/69 99 09/01/20 21:13 98.6 F 101 H 20 140/93 98 09/01/20 21:08 101 H 20 140/93 98 09/01/20 20:26 99 09/01/20 19:30 95 18 117/78 98 09/01/20 15:44 98.6 F 103 H 24 152/92 96 Intake and Output 09/01/20 09/02/20 09/02/20 22:59 06:59 14:59 Other: Voiding Method Toilet # Voids 1 Weight 53.977 kg Results CBC & Chem 7: 09/01/20 16:48 09/01/20 16:48 Labs: Abnormal Lab Results - Last 24 Hours (Table) 09/01/20 09/01/20 09/01/20 Range/Units 16:48 16:48 16:48 RDW 16.0 H (11.5-15.5) % Eosinophils # 2.9 H (0-0.7) k/uL D-Dimer 1.01 H (<0.60) mg/L FEU BUN 37 H (9-20) mg/dL Glucose 102 H (74-99) mg/dL Thrombosis Risk Factor Assmnt - Choose All That Apply Any of the Below Risk Factors Present?: Yes Each Factor Represents 1 point: Abnormal pulmonary function (COPD) Each Risk Factor Represents 2 Points: Age 61-74 years Other congenital or acquired thrombophilia - If yes, enter type in comment: No Thrombosis Risk Factor Assessment Total Risk Factor Score: 3 Thrombosis Risk Factor Assessment Level: Moderate Risk
[2020-09-03] MEDS ORDERED: FLUCONAZOLE 100 MG TAB PO ONE (00:05)
[2020-09-03] MEDS: IPRATROPIUM-ALBUTEROL 3 ML NEB INHALATION SCH ×4 (00:37→11:42)
[2020-09-03] MEDS: CALCIUM CARBONATE 500 MG CHEWABLE PO SCH ×4 (00:41→11:46)
[2020-09-03 06:05] VITALS: BP 104/67; RESP 16; TEMP 98
[2020-09-03] MEDS: LEVOTHYROXINE 50 MCG TAB PO SCH (06:20)
[2020-09-03] MEDS: FORMOTEROL FUMARATE 20 MCG/2 ML NEBU INHALATION SCH (08:19)
[2020-09-03] MEDS: BUDESONIDE 1 MG/2 ML NEBU INHALATION SCH (08:19)
[2020-09-03] MEDS ORDERED: FLUCONAZOLE 100 MG TAB PO SCH (09:00)
[2020-09-03] MEDS ORDERED: AZITHROMYCIN 500 MG TAB PO SCH (09:00)
[2020-09-03] MEDS: ASPIRIN 81 MG PO SCH (10:37)
[2020-09-03] MEDS: MULTIVITAMINS, THERA 1 EACH TAB PO SCH (10:37)
[2020-09-03] MEDS: ATORVASTATIN 40 MG TAB PO SCH (10:37)
[2020-09-03] MEDS: FUROSEMIDE 20 MG TAB PO SCH (10:38)
[2020-09-03] MEDS: methylPREDNISolone SOD SUCCI 40 MG/ML 1 ML VIAL IV SCH (10:38)
[2020-09-03] MEDS: METOPROLOL TARTRATE 25 MG TAB PO SCH (10:41)
[2020-09-03] MEDS: APIXABAN 5 MG TAB PO SCH (10:41)
[2020-09-03] MEDS: CHOLECALCIFEROL 1,000 UNIT TAB PO SCH (10:41)
[2020-09-03] MEDS: POTASSIUM CHLORIDE ER 10 MEQ TAB.ER.PRT PO SCH (10:42)
[2020-09-03 11:56] VITALS: PULSE 86
--- NOTE | 2020-09-03 12:54 | P.PN ---
Subjective This is a pleasant 64-year-old male past medical history significant for paroxysmal atrial fibrillation status post ablation on long-term anticoagulation, coronary artery disease status post bypass grafting, valvular heart disease status post prosthetic mitral valve replacement, hypertension, chronic systolic heart failure and dyslipidemia. He follows in the office with Dr. Vogt. He is seen and examined resting comfortably sitting up in bed. He denies any worsening shortness of breath. He continues to cough. He denies chest pain, dizziness or palpitations. Blood pressure 104/67 heart rate 86 afebrile maintaining oxygen saturation on room air. GENERAL: Well-appearing, well-nourished and in no acute distress. Frail and cac hectic. NECK: Supple without JVD or thyromegaly. LUNGS: Breath sounds clear to auscultation bilaterally. Respiration equal and unlabored. No wheezes, rales or rhonchi. HEART: Regular rate and rhythm without murmurs, rubs or gallops. S1 and S2 heard. EXTREMITIES: Normal range of motion, no edema. No clubbing or cyanosis. Peripheral pulses intact. ASSESSMENT Pneumonia Paroxysmal atrial fibrillation on long-term anticoagulation currently maintaining sinus mechanism Recent weight loss Valvular heart disease status post prosthetic mitral valve replacement Coronary artery disease status post bypass grafting Ischemic cardiomyopathy Chronic systolic heart failure, clinically euvolemic Hypertension COPD PLAN Stable for discharge from a cardiac perspective. Follow-up as already scheduled tomorrow with Dr. Haq. Follow-up in the office with Dr. Vogt in one week. Nurse Practitioner note has been reviewed, I agree with a documented findings and plan of care. Patient was seen and examined. Objective - Vital Signs Vital signs: Vital Signs Temp 98 F 09/03/20 05:00 Pulse 86 09/03/20 11:55 Resp 16 09/03/20 05:00 BP 104/67 09/03/20 05:00 Pulse Ox 96 09/03/20 05:00 Intake & Output 09/02/20 09/03/20 09/03/20 18:59 06:59 18:59 Intake Total 50 330 Balance 50 330 Weight 53.977 kg Intake: Intake, IV Titration 50 Amount cefTRIAXone 2 gm In 50 Sodium Chloride 0.9% 50 ml @ 100 mls/hr IVPB Q24HR JON Rx#:[id number] Oral 330 Other: Voiding Method Toilet # Voids 1 - Labs CBC & Chem 7: 09/01/20 16:48 09/01/20 16:48 Labs: Microbiology - Last 24 Hours (Table) 09/01/20 20:21 Blood Culture - Preliminary Blood No Growth after 24 hours
--- NOTE | 2020-09-03 22:31 | P.DS ---
Providers Date of admission: 09/01/20 20:29 Expected date of discharge: 09/03/20 Attending physician: Anders Brown Consults: 09/02/20 11:20 Consult Physician Routine Consulting Provider: Ashley Vogt Consult Reason/Comments: PAF Do you want consulting provider notified?: Yes Primary care physician: Kang Raymond [facility] Course: Chief Complaint: Short of breath History of presenting complaint: This is a pleasant 64-year-old patient, Dr. Esme Ryamond. Chronic stable medical conditions include coronary artery disease with stent, carotid bypass in 2002, COPD, GERD, hyperlipidemia, hypertension, arch his lymphoma 1987 had radiation, cancer of the appendix, restless leg syndrome, cardiac valve replacement, staging laparotomy and Hodgkin's and splenectomy, mitral valve placement 2089 patient for a fairly 2019. Patient now presents with 4 days of increasing shortness of breath difficulty breathing. It is also not working. Wheezing. Slight cough. Small amount of green sputum. Decreased appetite. Chills. No obvious fever. Also has had some weight loss. Due to see Dr. Haq in the office for the same. Notice on his monitor that his heart rate had been up intermittently. Admitted with pneumonia, COPD exacerbation, paroxysmal A. fib possibly. Treated with antibiotics nebulized bronchitis steroids. Today-feeling much better. Breathing improved. Patient to follow-up with Dr. Haq tomorrow for his weight loss. Cleared by cardiology. Discussed with the patient. Discussed with Dr. CYRIL Vogt. Discussion and discharge planning more than 35 minutes [employer] Porter: Dr. CYRIL [facility] Physical examination: VITAL SIGNS: 98, 94, 16, 104/67, 96% room air GENERAL: BMI 18.6, sitting up more comfortable EYES: Pupils equal. Conjunctiva normal. HEENT: External appearance of nose and ears normal, oral cavity grossly normal. NECK: JVD not raised; masses not palpable. HEART: First and second heart sounds are normal; no edema. LUNGS:[ Respiratory rate improved, prograde entry ABDOMEN: Soft, nontender, liver spleen not palpable, no masses palpable. PSYCH: [Alert and oriented x3; mood and affect slightly anxious l. INVESTIGATIONS, reviewed in the clinical context: White count 9.2 hemoglobin 14.5 platelets 338 potassium 4.3 creatinine 0.97 AST ALT both normal, troponin I less than 0.012 proBNP 834 pro-calcitonin 0.08 Coronavirus P/Cr-not detected EKG tracing personally reviewed by me-sinus rhythm, some nonspecific changes Chest x-ray film personally reviewed by me-some right-sided infiltrate CT [id number] consolidation, chronic mild T7 compression deformity. No PE Assessment: -Right-sided pneumonia, suspect gram-negative organism, POA -Acute COPD exacerbation in an ex-smoker, POA -Coronary artery disease prior history of carotid bypass in 2002 and stent placement 2018 -Paroxysmal atrial fibrillation with ablation and early this year -Chronic congestive heart failure EF not known -GERD -Essential hypertension -Hyperlipidemia -History of non-Hodgkin's lymphoma with radiation treatment in 1987 -Restless leg syndrome -Splenectomy for staging Hodgkin's -Weight loss being worked up outpatient by Dr. Haq Disposition: Home Patient Condition at Discharge: Stable Plan - Discharge Summary Discharge Rx Participant: No New Discharge Prescriptions: New Cefuroxime Axetil [Ceftin] 500 mg PO BID #6 tab predniSONE 10 mg PO DAILY #30 tab Continue Levothyroxine Sodium [Synthroid] 50 mcg PO DAILY Omeprazole [PriLOSEC] 20 mg PO HS Multivitamins, Thera [Multivitamin (formulary)] 1 tab PO DAILY Apixaban [Eliquis] 5 mg PO BID #60 tab Aspirin [Adult Low Dose Aspirin EC] 81 mg PO DAILY Umeclidinium Brm/Vilanterol Tr [Anoro Ellipta 62.5-25 Mcg INH] 1 puff INHALATION RT-DAILY Albuterol Sulfate [Ventolin HFA] 2 puff INHALATION RT-BID PRN PRN Reason: Shortness Of Breath Atorvastatin [Lipitor] 40 mg PO DAILY Gabapentin [Neurontin] 100 mg PO HS traMADol HCL [Ultram] 50 mg PO BID PRN PRN Reason: Pain Albuterol Nebulized [Ventolin Nebulized] 2.5 mg INHALATION TID PRN PRN Reason: Shortness Of Breath Potassium Chloride 30 meq PO DAILY Cholecalciferol [Vitamin D3 (25 Mcg = 1000 Iu)] 1,000 unit PO DAILY Tiotropium [place] [Spiriva Respimat] 2 puff INHALATION RT-HS Zinc 50 mg PO DAILY Calcium Carbonate [Calcium] 600 mg PO DAILY Furosemide [Lasix] 20 mg PO DAILY Metoprolol Tartrate 12.5 mg PO HS Metoprolol Tartrate 25 mg PO DAILY Discharge Medication List Levothyroxine Sodium [Synthroid] 50 mcg PO DAILY 07/01/18 [History] Omeprazole [PriLOSEC] 20 mg PO HS 07/01/18 [History] Multivitamins, Thera [Multivitamin (formulary)] 1 tab PO DAILY 02/10/19 [History] Apixaban [Eliquis] 5 mg PO BID #60 tab 02/28/19 [Rx] Aspirin [Adult Low Dose Aspirin EC] 81 mg PO DAILY 10/18/19 [History] Albuterol Sulfate [Ventolin HFA] 2 puff INHALATION RT-BID PRN 10/29/19 [History] Umeclidinium Brm/Vilanterol Tr [Anoro Ellipta 62.5-25 Mcg INH] 1 puff INHALATION RT-DAILY 10/29/19 [History] Atorvastatin [Lipitor] 40 mg PO DAILY 11/12/19 [History] Gabapentin [Neurontin] 100 mg PO HS 05/05/20 [History] Albuterol Nebulized [Ventolin Nebulized] 2.5 mg INHALATION TID PRN 07/24/20 [Hi story] Cholecalciferol [Vitamin D3 (25 Mcg = 1000 Iu)] 1,000 unit PO DAILY 07/24/20 [History] Potassium Chloride 30 meq PO DAILY 07/24/20 [History] traMADol HCL [Ultram] 50 mg PO BID PRN 07/24/20 [History] Calcium Carbonate [Calcium] 600 mg PO DAILY 09/01/20 [History] Furosemide [Lasix] 20 mg PO DAILY 09/01/20 [History] Metoprolol Tartrate 12.5 mg PO HS 09/01/20 [History] Metoprolol Tartrate 25 mg PO DAILY 09/01/20 [History] Tiotropium [place] [Spiriva Respimat] 2 puff INHALATION RT-HS 09/01/20 [History] Zinc 50 mg PO DAILY 09/01/20 [History] Cefuroxime Axetil [Ceftin] 500 mg PO BID #6 tab 09/03/20 [Rx] predniSONE 10 mg PO DAILY #30 tab 09/03/20 [Rx] Follow up Appointment(s)/Referral(s): Yonatan Haq MD [STAFF PHYSICIAN] - 1-2 Days (Office is closed at time of DC, please call Friday for appointment.) Ashley Vogt MD [Family Provider] - 1 Week (Office is closed at time of DC, please call Friday for appointment.) Kang Raymond DO [Primary Care Provider] - 1-2 days (Office is closed at time of DC, please call Friday for appointment.) [employer] [NON-STAFF] - Patient Instructions/Handouts: Cefuroxime (By mouth), Prednisone (By mouth), Viral Pneumonia (DC) Activity/Diet/Wound Care/Special Instructions: Heart healthy diet as tolerated Activity as tolerated Discharge Disposition: HOME SELF-CARE
== END 2020-09-03 15:27 | disposition home or self-care (01) | DRG 178 ==
LOC: EC 15:23 → 6NMEDSUR 20:29
PROVIDERS: ADMIT Hospitalist; ATTEND Hospitalist
DX: J15.6 Pneumonia due to other Gram-negative bacteria (principal); I50.22 Chronic systolic (congestive) heart failure; J44.0 Chronic obstructive pulmonary disease with (acute) lower respiratory infection; J44.1 Chronic obstructive pulmonary disease with (acute) exacerbation; R64 Cachexia; Z68.1 Body mass index [BMI] 19.9 or less, adult; E78.5 Hyperlipidemia, unspecified; G25.81 Restless legs syndrome; I11.0 Hypertensive heart disease with heart failure; I25.10 Atherosclerotic heart disease of native coronary artery without angina pectoris; I25.5 Ischemic cardiomyopathy; I48.0 Paroxysmal atrial fibrillation; K21.9 Gastro-esophageal reflux disease without esophagitis; Z20.828 Contact with and (suspected) exposure to other viral communicable diseases; I25.2 Old myocardial infarction; Z79.01 Long term (current) use of anticoagulants; Z79.82 Long term (current) use of aspirin; Z79.890 Hormone replacement therapy; Z79.899 Other long term (current) drug therapy; Z85.038 Personal history of other malignant neoplasm of large intestine; Z85.72 Personal history of non-Hodgkin lymphomas; Z87.891 Personal history of nicotine dependence; Z90.81 Acquired absence of spleen; Z95.1 Presence of aortocoronary bypass graft; Z95.2 Presence of prosthetic heart valve; Z95.5 Presence of coronary angioplasty implant and graft; Z91.041 Radiographic dye allergy status; Z98.890 Other specified postprocedural states; Z80.0 Family history of malignant neoplasm of digestive organs
CPT/HCPCS: 36415; 71045; 71046; 71275; 80053; 83605; 83735; 83880; 84145; 84484; 85025; 85379; 85610; 85730; 87040; 87070; 87205; 87635; 94640; 96374; 96375; 99285

== ENCOUNTER 2020-09-04 11:34 | Emergency (ER) | payer OTHER ==
[2020-09-04 11:40] VITALS: TEMP 97.7
[2020-09-04] MEDS ORDERED: ONDANSETRON 4 MG/2 ML VIAL IVP STA (12:45)
[2020-09-04] MEDS ORDERED: SODIUM CHLORIDE 0.9% 1,000 ML IV STA (12:45)
[2020-09-04 13:00] VITALS: PULSE 96; RESP 18
[2020-09-04 13:16] LABS: Anisocytosis Slight; Basophils # (A) 0.1 k/uL (0-0.2); Basophils % (A) 1 %; Eosinophils % (A) 0 %; HCT 41.4 % (39.0-53.0); HGB 13.3 gm/dL (13.0-17.5); Lymphocytes # (A) 1.1 k/uL (1.0-4.8); Lymphocytes % (A) 10 %; MCH 30.3 pg (25.0-35.0); MCHC 32.2 g/dL (31.0-37.0); MCV 94.1 fL (80.0-100.0); Mean Platelet Volume 6.8; Monocytes # (A) 0.7 k/uL (0-1.0); Monocytes % (A) 6 %; Neutrophils # (A) 8.7 k/uL (1.3-7.7); Neutrophils % (A) 80 %; Platelet Count 305 k/uL (150-450); RBC 4.39 m/uL (4.30-5.90); RDW 16.4 % (11.5-15.5); WBC 10.9 k/uL (3.8-10.6)
[2020-09-04 13:17] LABS: ALT 33 U/L (4-49); AST 25 U/L (17-59); African American GFR (CKD) >90 (>60 ml/min/1.73 sqM); Alkaline Phosphatase 94 U/L (38-126); Amylase 81 U/L (30-110); Anion Gap 4 mmol/L; Blood Urea Nitrogen 40 mg/dL (9-20); Calcium 9.8 mg/dL (8.4-10.2); Carbon Dioxide 32 mmol/L (22-30); Chloride 101 mmol/L (98-107); Glucose 107 mg/dL (74-99); Lipase 172 U/L (23-300); Non-African American GFR(CKD) >90 (>60 ml/min/1.73 sqM); Sodium 137 mmol/L (137-145); Total Bilirubin 0.9 mg/dL (0.2-1.3); Total Protein 7.1 g/dL (6.3-8.2)
[2020-09-04 13:27] LABS: Potassium 4.3 mmol/L (3.5-5.1)
--- NOTE | 2020-09-04 13:37 | ED ---
General Adult HPI - General Chief complaint: Nausea/Vomiting/Diarrhea Stated complaint: vomiting/weakness/SOB-revisit Time Seen by Provider: 09/04/20 12:10 Source: patient, RN notes reviewed Mode of arrival: wheelchair Limitations: physical limitation - History of Present Illness Initial comments: 64-year-old male with a past medical history of CAD, heart failure, COPD, GERD, hyperlipidemia, hypertension, RI presents to the emergency department for nausea vomiting. Patient states he was released from the hospital yesterday after being treated for pneumonia. When he went home he was nauseous and vomiting. He does admit to mild cough and shortness of breath that he states has been stable since his admission. Patient does have a history of lymphoma with splenectomy. Patient has no other complaints at this time including shortness of breath, chest pain, abdominal pain, headache, or visual changes. - Related Data Home Medications Medication Instructions Recorded Confirmed Levothyroxine Sodium [Synthroid] 50 mcg PO DAILY 07/01/18 09/04/20 Omeprazole [PriLOSEC] 20 mg PO HS 07/01/18 09/04/20 Multivitamins, Thera [Multivitamin 1 tab PO DAILY 02/10/19 09/04/20 (formulary)] Aspirin [Adult Low Dose Aspirin EC] 81 mg PO DAILY 10/18/19 09/04/20 Albuterol Sulfate [Ventolin HFA] 2 puff INHALATION RT-BID PRN 10/29/19 09/04/20 Umeclidinium Brm/Vilanterol Tr 1 puff INHALATION RT-DAILY 10/29/19 09/04/20 [Anoro Ellipta 62.5-25 Mcg INH] Atorvastatin [Lipitor] 40 mg PO DAILY 11/12/19 09/04/20 Gabapentin [Neurontin] 100 mg PO HS 05/05/20 09/04/20 Albuterol Nebulized [Ventolin 2.5 mg INHALATION TID PRN 07/24/20 09/04/20 Nebulized] Cholecalciferol [Vitamin D3 (25 1,000 unit PO DAILY 07/24/20 09/04/20 Mcg = 1000 Iu)] Potassium Chloride 30 meq PO DAILY 07/24/20 09/04/20 traMADol HCL [Ultram] 50 mg PO BID PRN 07/24/20 09/04/20 Calcium Carbonate [Calcium] 600 mg PO DAILY 09/01/20 09/04/20 Furosemide [Lasix] 20 mg PO DAILY 09/01/20 09/04/20 Metoprolol Tartrate 12.5 mg PO HS 09/01/20 09/04/20 Metoprolol Tartrate 25 mg PO DAILY 09/01/20 09/04/20 Tiotropium [place] [Spiriva 2 puff INHALATION RT-HS 09/01/20 09/04/20 Respimat] Zinc 50 mg PO DAILY 09/01/20 09/04/20 predniSONE See Taper PO DAILY 09/04/20 09/04/20 Previous Rx's Medication Instructions Recorded Apixaban [Eliquis] 5 mg PO BID #60 tab 02/28/19 Cefuroxime Axetil [Ceftin] 500 mg PO BID #6 tab 09/03/20 Ondansetron [Zofran ODT] 4 mg PO Q8HR PRN #15 tab 09/04/20 Allergies Allergy/AdvReac Type Severity Reaction Status Date / Time Iodinated Contrast Media AdvReac Nausea & Verified 09/04/20 12:49 [Iodinated Contrast- Oral Vomiting,chills and IV Dye] Review of Systems ROS Statement: Those systems with pertinent positive or pertinent negative responses have been documented in the HPI. ROS Other: All systems not noted in ROS Statement are negative. Past Medical History Past Medical History: Coronary Artery Disease (CAD), Cancer, Heart Failure, COPD, GERD/Reflux, Hyperlipidemia, Hypertension, Myocardial Infarction (RI), Thyroid Disorder Additional Past Medical History / Comment(s): see Dr Feldman H&P, hx. Hodgkin's lymphoma 1987-had radiation, cancer of appendix, restless legs, Last Myocardial Infarction Date:: 2004 History of Any Multi-Drug Resistant Organisms: None Reported Past Surgical History: Appendectomy, Bowel Resection, Cardiac Valve Replacement, Coronary Bypass/CABG, Heart Catheterization, Heart Catheterization With Stent Additional Past Surgical History / Comment(s): staging laparotomy for Hodgkin's & splenectomy, CABG 5 vessel bypass 2002,JACEK, single-vessel bypass with mitral valve replacement february,, two cardiac stents, ablation for afib 2019 Past Anesthesia/Blood Transfusion Reactions: No Reported Reaction Additional Past Anesthesia/Blood Transfusion Reaction / Comment(s): no known hx blood transfusion Date of Last Stent Placement:: unknown Past Psychological History: No Psychological Hx Reported Smoking Status: Former smoker Past Alcohol Use History: None Reported Past Drug Use History: None Reported, Marijuana - Past Family History Mother Family Medical History: Cancer Additional Family Medical History / Comment(s): esophageal General Exam Limitations: physical limitation General appearance: alert, in no apparent distress Head exam: Present: atraumatic, normocephalic, normal inspection Eye exam: Present: normal appearance, PERRL, EOMI. Absent: scleral icterus, conjunctival injection, periorbital swelling ENT exam: Present: normal exam, mucous membranes moist Neck exam: Present: normal inspection, full ROM. Absent: tenderness, meningismus, lymphadenopathy Respiratory exam: Present: normal lung sounds bilaterally. Absent: respiratory distress, wheezes, rales, rhonchi, stridor Cardiovascular Exam: Present: regular rate, normal rhythm, normal heart sounds. Absent: systolic murmur, diastolic murmur, rubs, gallop, clicks GI/Abdominal exam: Present: soft, normal bowel sounds. Absent: distended, tenderness, guarding, rebound, rigid Neurological exam: Present: alert Course Vital Signs 09/04/20 09/04/20 09/04/20 11:36 12:58 13:53 Temperature 97.7 F Pulse Rate 99 96 96 Respiratory 20 18 18 Rate Blood Pressure 139/89 135/93 126/98 O2 Sat by Pulse 98 97 96 Oximetry Medical Decision Making - Medical Decision Making Vitals are stable. CBC unremarkable. Leukocytosis likely reflective of vomiting. CMP does show some mild dehydration, patient was given fluids. Uri nalysis negative. Chest x-ray was ordered which is similar in appearance to previous chest x-ray from 3 days ago. Patient was given Zofran and past oral challenge test. He was given a dose of Rocephin here in the ER. Discussed inpatient versus outpatient treatment with patient. Patient is agreeable to discharge home. If the Zofran is not helping him at home he will return to the emergency room. Especially if he is unable to keep down his fluid and medications for his pneumonia. He will otherwise follow-up with his doctor. - Lab Data Result diagrams: 09/04/20 13:10 09/04/20 12:56 Lab Results 09/04/20 09/04/20 09/04/20 Range/Units 12:56 12:56 13:10 WBC 10.9 H (3.8-10.6) k/uL RBC 4.39 (4.30-5.90) m/uL Hgb 13.3 (13.0-17.5) gm/dL Hct 41.4 (39.0-53.0) % MCV 94.1 (80.0-100.0) fL MCH 30.3 (25.0-35.0) pg MCHC 32.2 (31.0-37.0) g/dL RDW 16.4 H (11.5-15.5) % Plt Count 305 (150-450) k/uL MPV 6.8 Neutrophils % 80 % Lymphocytes % 10 % Monocytes % 6 % Eosinophils % 0 % Basophils % 1 % Neutrophils # 8.7 H (1.3-7.7) k/uL Lymphocytes # 1.1 (1.0-4.8) k/uL Monocytes # 0.7 (0-1.0) k/uL Eosinophils # 0.0 (0-0.7) k/uL Basophils # 0.1 (0-0.2) k/uL Anisocytosis Slight Sodium 137 (137-145) mmol/L Potassium 4.3 (3.5-5.1) mmol/L Chloride 101 (98-107) mmol/L Carbon Dioxide 32 H (22-30) mmol/L Anion Gap 4 mmol/L BUN 40 H (9-20) mg/dL Creatinine 0.82 (0.66-1.25) mg/dL Est GFR (CKD-EPI)AfAm >90 (>60 ml/min/1.73 sqM) Est GFR (CKD-EPI)NonAf >90 (>60 ml/min/1.73 sqM) Glucose 107 H (74-99) mg/dL Calcium 9.8 (8.4-10.2) mg/dL Total Bilirubin 0.9 (0.2-1.3) mg/dL AST 25 (17-59) U/L ALT 33 (4-49) U/L Alkaline Phosphatase 94 (38-126) U/L Total Protein 7.1 (6.3-8.2) g/dL Albumin 4.0 (3.5-5.0) g/dL Amylase 81 (30-110) U/L Lipase 172 (23-300) U/L Urine Color Yellow Urine Appearance Clear (Clear) Urine pH 6.5 (5.0-8.0) Ur Specific Hope 1.029 (1.001-1.035) Urine Protein Trace H (Negative) Urine Glucose (UA) Negative (Negative) Urine Ketones Negative (Negative) Urine Blood Negative (Negative) Urine Nitrite Negative (Negative) Urine Bilirubin Negative (Negative) Urine Urobilinogen <2.0 (<2.0) mg/dL Ur Leukocyte Esterase Negative (Negative) Disposition Clinical Impression: Nausea and vomiting Disposition: HOME SELF-CARE Condition: Good Instructions (If sedation given, give patient instructions): Acute Nausea and Vomiting (ED) Additional Instructions: Please take Zofran as directed. You must take your antibiotics. The Zofran should help you do this however if you are still unable you need to return to the emergency room. Otherwise follow-up with your doctor in one to 2 days. Prescriptions: Ondansetron [Zofran ODT] 4 mg PO Q8HR PRN #15 tab PRN Reason: Nausea Is patient prescribed a controlled substance at d/c from ED?: No Referrals: Kang Raymond DO [Primary Care Provider] - 1-2 days Time of Disposition: 14:58
--- NOTE | 2020-09-04 13:43 | XR ---
EXAMINATION TYPE: XR chest 2V DATE OF EXAM: 09/04/2020 COMPARISON: 11/02/2019 INDICATION: Confirmed pneumonia, weakness, short of breath TECHNIQUE: Frontal and lateral views of the chest are obtained. FINDINGS: The heart size is normal. The pulmonary vasculature is normal. Small infiltrate is developing at the right base. Sternotomy wires are present from prior cardiac margarito ve surgery. There appears to be nodule at the left apex measures 0.8 cm. There is blunting the left c ostophrenic angle may be a small left pleural effusion. IMPRESSION: 1. Developing right lower lobe infiltrate. 2. Left small pleural effusion. 3. Left apical nodule.
[2020-09-04] MEDS ORDERED: KETOROLAC 15 MG/ML 1 ML VIAL IVP STA (14:04)
[2020-09-04 14:14] LABS: Appearance,Urine Clear (Clear); Bilirubin,Urine Negative (Negative); Blood,Urine Negative (Negative); Color,Urine Yellow; Glucose,Urine (UA) Negative (Negative); Ketones,Urine Negative (Negative); Leukocyte Esterase,Urine Negative (Negative); Nitrite,Urine Negative (Negative); PH, Urine 6.5 (5.0-8.0); Protein,Urine Trace (Negative); Specific Gravity,Urine 1.029 (1.001-1.035); Urobilinogen,Urine <2.0 mg/dL (<2.0)
[2020-09-04] MEDS ORDERED: cefTRIAXone IN SWFI 1,000 MG/10 ML SYRINGE IVP STA (14:58)
[2020-09-04 15:19] VITALS: BP 139/92
== END 2020-09-04 15:19 | disposition home or self-care (01) ==
LOC: EC 11:34
DX: R11.2 Nausea with vomiting, unspecified (principal); E86.0 Dehydration; R05 Cough; R06.02 Shortness of breath; I11.0 Hypertensive heart disease with heart failure; I50.9 Heart failure, unspecified; I25.2 Old myocardial infarction; G25.81 Restless legs syndrome; E07.9 Disorder of thyroid, unspecified; K21.9 Gastro-esophageal reflux disease without esophagitis; J44.9 Chronic obstructive pulmonary disease, unspecified; Z79.51 Long term (current) use of inhaled steroids; Z79.82 Long term (current) use of aspirin; Z79.890 Hormone replacement therapy; Z79.899 Other long term (current) drug therapy; Z92.3 Personal history of irradiation; Z90.81 Acquired absence of spleen; Z85.72 Personal history of non-Hodgkin lymphomas; Z87.891 Personal history of nicotine dependence; Z95.5 Presence of coronary angioplasty implant and graft; Z95.1 Presence of aortocoronary bypass graft; Z90.49 Acquired absence of other specified parts of digestive tract; Z91.041 Radiographic dye allergy status; Z80.0 Family history of malignant neoplasm of digestive organs; Z85.89 Personal history of malignant neoplasm of other organs and systems
CPT/HCPCS: 36415; 80053; 82150; 83690; 85025; 81003; 71046; 99284; 96374; 96375 ×2; 96361; J2405; J0696; J1885

== ENCOUNTER → 2020-10-17 | Outpatient (CLI) | payer OTHER ==
--- NOTE | 2020-10-18 09:33 | CT ---
EXAMINATION TYPE: CT abdomen pelvis w con DATE OF EXAM: 10/17/2020 COMPARISON: 02/15/2012 INDICATION: abdominal pain, weight loss. hx of lymphoma. DLP: 375.4 mGycm, Automated exposure control for dose reduction was used. CONTRAST: 100 mL of Isovue 300. Study performed with Oral Contrast TECHNIQUE: Axial images were obtained from above the diaphragm to the pubic rami in the axial plane a t 5 mm thick sections. Reconstructed images are reviewed on the computer in the coronal plane. FINDINGS: Limited CT sections are obtained the lung bases. There is an area of increased density within the po sterior right lung base measuring 1.3 x 2.3 cm. Series 3 image 18. Some minimal compressive atelectas is may be at the left base.. CT ABDOMEN: Liver: Normal Spleen: Absent Pancreas: Normal Adrenal glands: The adrenal glands are normal. Gallbladder: Normal Kidneys: No masses are evident. No hydronephrosis is present. No cysts are present. Delayed images were obtained through the kidneys, which remain unremarkable. Aorta: Vascular calcification is within the aorta. There is prominence of the mid abdominal aorta wi th an AP diameter of 3.5 cm this terminates bifurcation and begins below the renal arteries. Inferior vena cava: Normal. CT PELVIS: Loops of bowel within the abdomen and pelvis are normal. There are loops of bowel which are incom pletely distended or lack oral contrast limiting their evaluation. Fecal debris is within the rectum. Appendix: Normal as visualized. Urinary bladder: Nondistended. This may account for some apparent diffuse wall thickening. Genitourinary structures: Prostate is somewhat prominent contains calcification. Osseous structures: No suspicious lytic or sclerotic lesions are evident. Lymphadenopathy: No enlarged lymphadenopathy is evident. IMPRESSIONS: 1. No suspicious adenopathy. 2. Nodular density posterior right lung base of uncertain etiology. Atelectasis and neoplasm should b e considered. Follow-up is recommended.
== END | disposition home or self-care (01) ==
LOC: RADCTMAIN 16:03
PROVIDERS: ATTEND Internal Medicine Hematology & Oncology
DX: R91.1 Solitary pulmonary nodule (principal); Z91.041 Radiographic dye allergy status
CPT/HCPCS: 74177; Q9967

== ENCOUNTER → 2020-11-10 | Outpatient (CLI) | payer OTHER ==
--- NOTE | 2020-11-10 16:26 | PE ---
Nuclear medicine PET/CT HISTORY: R91.1, initial Patient received 8.2 mCi F-18 FDG intravenously in delayed scanning was performed from skull base to the mid thighs. Localization and attenuation correction CT was performed. Correlation CT 10/17/2020 abdomen pelvis, 09/01/2020 CT chest Chest and neck: The area of increased density at the posterior right lung base shows no hypermetaboli c uptake. No additional lung mass, no pleural pericardial effusion. Patient is post median sternotomy . Nonunion is present, some mild uptake present along the sternum. There is no mediastinal, cervical, supraclavicular, axillary, or hilar adenopathy. Dense coronary artery calcifications are present. Andrade spect cardiac valve replacement the mitral level. ABDOMEN: There is an area of abnormal uptake present at the retroperitoneal region possibly along the root of the mesentery, posterior aspect of the pancreas, SUV 5.8. Abdominal aortic aneurysm noted in cidentally. Postop changes are noted in the right lower quadrant bowel, there is some associated upta ke present, SUV 5.1. Osseous structures show no suspicious hypermetabolic uptake. IMPRESSION: Indeterminate suspicious retroperitoneal hypermetabolic uptake may be due to adenopathy, paucity of fat at the level of the posterior aspect of the pancreas limits evaluation on CT.
== END | disposition home or self-care (01) ==
LOC: RADPETMAIN 10:40
PROVIDERS: ATTEND Internal Medicine Critical Care Medicine
DX: R91.1 Solitary pulmonary nodule (principal)
CPT/HCPCS: 78815; A9552

== ENCOUNTER 2021-04-05 10:30 | Day surgery (SDC) | payer OTHER ==
[~2021-04-05 10:30] MED LIST changes: +LACTATED RINGERS 1,000 ML IV SCH; -diphenhydrAMINE 50 MG/ML 1 ML VIAL IVP ONE; -methylPREDNISolone SOD SUCCI 125 MG/2 ML VIAL IV ONE
[2021-04-05 10:48] VITALS: RESP 16; TEMP 97.6
[2021-04-05] MEDS ORDERED: LIDOCAINE 1% INJ 10MG/ML (20 ML MDV) ONE (12:02)
[2021-04-05] MEDS ORDERED: PROPOFOL 10 MG/ML 20 ML VIAL IV ONE (12:02)
--- NOTE | 2021-04-05 12:45 | P.PCN ---
Date of Procedure: 04/05/21 Description of Procedure: BRIEF HISTORY: Patient is a 65-year-old male who previously is scheduled for colonoscopy for evaluation of diarrhea. Previously the patient underwent colonoscopy on 11/15/2006 was performed for abnormal weight loss. There were no complaints of diarrhea at that time and random biopsies were not performed. On colonoscopy at that time patient had diverticulosis noted as well as polypectomy and findings consistent with prior partial colectomy. He continues to report frequent loose stools and continues to have trouble gaining weight. PROCEDURE PERFORMED: Colonoscopy with polypectomy and biopsy. PREOPERATIVE DIAGNOSIS: Diarrhea, change in bowel habits. ESTIMATED BLOOD LOSS: Minimal. IV sedation per Anesthesia. PROCEDURE: After informed consent was obtained, the patient, was brought into the endoscopy unit. IV sedation was administered by Anesthesia under continuous monitoring. Digital rectal examination was normal. Initially the Olympus CF-190 flexible video colonoscope was then inserted in the rectum, gradually advanced into the the distal colon at the site of the ileocolonic anastomosis without any difficulty. Careful examination was performed as the scope was gradually being withdrawn.. Prep was excellent. Mucosa of the ileocolonic anastomotic site, ascending colon, transverse colon, descending colon, sigmoid colon, and rectum appeared normal. Diminutive transverse colon polyp removed with cold forcep polypectomy. Random biopsies taken of the small bowel, right colon and left colon. Scattered diverticula noted throughout the colon. Retroflexion was performed in the rectum and no lesions were seen. The patient tolerated the procedure well. IMPRESSION: Diminutive transverse colon polyp removed with cold forcep polypectomy. Mild pandiverticulosis. Anatomy consistent with prior partial colectomy with intact anastomosis. Random biopsies of the small bowel, right colon and left colon in the setting of diarrhea and altered bowel function. RECOMMENDATIONS: Findings of this examination were discussed with the patient.. Okay to resume diet. Okay to resume medications. Await pathology from biopsies. Follow up in the GI clinic as scheduled for results of biopsies and continue management.
[2021-04-05 13:03] VITALS: BP 106/64; PULSE 62
== END 2021-04-05 13:31 | disposition home or self-care (01) ==
LOC: ORWHC2ENDO 10:30
PROVIDERS: ATTEND Internal Medicine
DX: D12.3 Benign neoplasm of transverse colon (principal); D72.820 Lymphocytosis (symptomatic); K52.9 Noninfective gastroenteritis and colitis, unspecified; K57.30 Diverticulosis of large intestine without perforation or abscess without bleeding; Z90.49 Acquired absence of other specified parts of digestive tract; Z98.0 Intestinal bypass and anastomosis status; Z87.891 Personal history of nicotine dependence; I25.10 Atherosclerotic heart disease of native coronary artery without angina pectoris; I11.0 Hypertensive heart disease with heart failure; I50.9 Heart failure, unspecified; E78.5 Hyperlipidemia, unspecified; J44.9 Chronic obstructive pulmonary disease, unspecified; E07.9 Disorder of thyroid, unspecified; Z79.01 Long term (current) use of anticoagulants; Z79.82 Long term (current) use of aspirin; Z79.890 Hormone replacement therapy; Z79.899 Other long term (current) drug therapy; Z91.041 Radiographic dye allergy status
CPT/HCPCS: 88305; 45380; J2001; J2704

== ENCOUNTER → 2021-04-23 | Outpatient (CLI) | payer OTHER ==
--- NOTE | 2021-04-23 12:32 | US ---
EXAMINATION TYPE: US abdomen complete DATE OF EXAM: 04/23/2021 COMPARISON: NONE CLINICAL HISTORY: R19.7 diarrhea. hx AAA. Diarrhea. Weight loss. Hx spleen removed due to cancer p er patient EXAM MEASUREMENTS: Liver Length: 11.9 cm Gallbladder Wall: 0.1 cm CBD: 0.7 cm Right Kidney: 10.6 x 4.4 x 4.0 cm Left Kidney: 9.5 x 3.9 x 4.6 cm Pancreas: Obscured and unable to visualized due to patient body habitus Liver: Left liver lobe obscured and not well seen. Gallbladder: wnl Evidence for sonographic Holt's sign: neg CBD: wnl Spleen: Surgically absent Right Kidney: Cystic lesions seen, largest = 1.0 x 1.0 x 1.0 cm Left Kidney: cystic lesions seen, largest = 1.0 x 0.9 x 0.9 cm Upper IVC: wnl Abd Aorta: Distal AAA visualized= 2.9 x 4.0 cm The liver is homogenous. The intrahepatic portion of the IVC and proximal abdominal aorta are within normal limits. There is no evidence of cholelithiasis. Common bile duct is unremarkable. The visu alized portions of the pancreas are homogenous. The spleen is unremarkable. Kidneys are symmetric a nd free of hydronephrosis. No renal lesions are seen. IMPRESSION: 1. Abdominal aortic aneurysm measures up to 4.0 cm, unchanged since prior CT October 2020. 2. Bilateral renal cystic changes. 3 Spleen is surgically absent.
== END | disposition home or self-care (01) ==
LOC: RADUSWWP 07:29
PROVIDERS: ATTEND Internal Medicine
DX: I71.4 Abdominal aortic aneurysm, without rupture (principal); N28.1 Cyst of kidney, acquired; Z90.49 Acquired absence of other specified parts of digestive tract
CPT/HCPCS: 76700

== ENCOUNTER → 2021-12-13 | Outpatient (CLI) | payer MEDICARE ==
[2021-12-13 15:37] LABS: African American GFR (CKD) >90 (>60 ml/min/1.73 sqM); Blood Urea Nitrogen 23 mg/dL (9-20); Non-African American GFR(CKD) >90 (>60 ml/min/1.73 sqM)
--- NOTE | 2021-12-13 20:33 | CT ---
EXAMINATION TYPE: CT abdomen pelvis w con DATE OF EXAM: 12/13/2021 COMPARISON: PET scan dated 11/10/[address] dated 10/17/2020 HISTORY: Abnormal weight loss, abnormal liver function test. CT DLP: 423.80 mGycm Automated exposure control for dose reduction was used. TECHNIQUE: Helical acquisition of images was performed from the lung bases through the pelvis. CONTRAST: Performed with Oral Contrast and with IV Contrast, patient injected with 100 mL of Isovue 300. FINDINGS: Suspicious hypodense infiltrative lesion is seen in the retroperitoneum inseparable from the uncinate process of the pancreas measuring 19 x 29 x 51 mm and likely corresponding to the hypermetabolic les ion seen in the previous PET scan. In retrospect review of October 2020 CT scan, there is questionabl e small hypodense lesion at that location measuring 11 x 18 mm. This lesion demonstrates infiltration into the inferior aspect of the pancreatic head, along the origin of the celiac trunk as well as cir cumferentially surrounding the superior aspect of the superior mesenteric artery yet without complete occlusion. The lesion also causes severe narrowing of the adjacent portion of the portal vein yet without obstru ction. Marked dilatation of the pancreatic duct up to 8mm with pancreatic atrophy. Significant dilata tion of the common bile duct measuring 14 mm as well as the central intrahepatic biliary tree likely secondary to the described lesion. The gallbladder is also markedly distended. This most likely repre sents a pancreatic cancer. No definite hepatic focal lesion identified. Previous splenectomy. Thickened left adrenal, unchanged. Left upper pole renal cyst. Ill-defined hypodensity seen at the upper pole of the left kidney, atten tion follow-up. Extensive arterial atherosclerotic calcifications. Large infrarenal abdominal aortic aneurysm measuring up to 3.9 cm without extension into the common iliac arteries. Severe narrowing of the proximal portion of the celiac trunk yet patent distally. The urinary bladder is not distended, suboptimally visualized. Prostatic concretion. Unremarkable stomach. Suboptimal assessment of the small and large bowel due to paucity of intra-abdominal fat and severe d iffuse peritoneal edema/ascites. No evidence of small bowel obstruction. Fecal loading of the colon. It is not possible to exclude peritoneal carcinomatosis. Diffuse body wall edema with cachexia. No gr oss lymphadenopathy yet suboptimally assessed. Bilateral pleural effusions with bilateral basal pulmo nary nodules and pleural nodularity on the right side, possibly metastatic. Sternotomy wire sutures. Osteopenia. No gross aggressive bone lesion. IMPRESSION: The above-described findings are highly suggestive of pancreatic cancer infiltrating through the retr operitoneum and causing pancreatic duct and biliary tree obstruction (double duct sign) as detailed a angela. It is not possible to exclude peritoneal carcinomatosis. No gross hepatic metastasis. Suspected bilateral lung bases metastasis. Recommend surgical consultation. Further PET scan assessment and ti ssue diagnosis should be also considered. Persistent large infrarenal abdominal aortic aneurysm, for vascular surgery consultation. Other incidental findings as described above. A [place] critical message alert has been initiated for Yonatan Haq MD via the [employer] ical Results System on 12/13/2021 8:31 PM. This message alert has been sent to Yonatan Haq MD via the pr eferences provided by the clinician for the receipt of Radiology Critical Findings. Message ID [id number].
== END | disposition home or self-care (01) ==
LOC: RADCTMAIN 14:43
PROVIDERS: ATTEND Internal Medicine Hematology & Oncology
DX: R94.5 Abnormal results of liver function studies (principal)
CPT/HCPCS: 82565; 84520; 74177; 36415; Q9967

== ENCOUNTER 2021-12-14 09:36 | Observation (INO) | payer MEDICARE ==
[2021-12-14 09:46] VITALS: RESP 18
[2021-12-14] MEDS ORDERED: SODIUM CHLORIDE 0.9% 1,000 ML IV STA ×2 (10:02→17:32)
[2021-12-14 10:29] LABS: Basophils % (A) 0 %; Eosinophils % (A) 0 %; HCT 36.1 % (39.0-53.0); HGB 11.7 gm/dL (13.0-17.5); Lymphocytes # (A) 0.6 k/uL (1.0-4.8); Lymphocytes % (A) 7 %; MCH 34.2 pg (25.0-35.0); MCHC 32.4 g/dL (31.0-37.0); MCV 105.5 fL (80.0-100.0); Macrocytosis Moderate; Mean Platelet Volume 7.7; Monocytes # (A) 0.4 k/uL (0-1.0); Monocytes % (A) 5 %; Neutrophils # (A) 7.4 k/uL (1.3-7.7); Neutrophils % (A) 88 %; Platelet Count 266 k/uL (150-450); RBC 3.43 m/uL (4.30-5.90); RDW 14.6 % (11.5-15.5); WBC 8.4 k/uL (3.8-10.6)
[2021-12-14 10:43] LABS: ALT 54 U/L (4-49); AST 46 U/L (17-59); African American GFR (CKD) >90 (>60 ml/min/1.73 sqM); Albumin 2.7 g/dL (3.5-5.0); Alkaline Phosphatase 674 U/L (38-126); Amylase 104 U/L (30-110); Anion Gap 4 mmol/L; Blood Urea Nitrogen 24 mg/dL (9-20); Calcium 8.1 mg/dL (8.4-10.2); Carbon Dioxide 30 mmol/L (22-30); Chloride 106 mmol/L (98-107); Glucose 82 mg/dL (74-99); Lipase 315 U/L (23-300); Non-African American GFR(CKD) >90 (>60 ml/min/1.73 sqM); Potassium 3.7 mmol/L (3.5-5.1); Sodium 140 mmol/L (137-145); Total Bilirubin 2.1 mg/dL (0.2-1.3); Total Protein 5.6 g/dL (6.3-8.2)
--- NOTE | 2021-12-14 10:43 | ED ---
General Adult HPI - General Source: patient, RN notes reviewed, old records reviewed Mode of arrival: wheelchair Limitations: no limitations <Francesco Patton - Last Filed: 12/14/21 14:40> <Alfreda Tobar - Last Filed: 12/14/21 18:20> - General Chief complaint: Recheck/Abnormal Lab/Rx Stated complaint: abnormal CT Time Seen by Provider: 12/14/21 09:45 - History of Present Illness Initial comments: This is a 66-year-old male who presents emergency Department stating that he had a CAT scan because he been losing weight and he has a history of multiple myeloma. Patient states he got a call today to tell him to come into the emergency department because his CAT scan showed something abnormal. Patient states he's had no abdominal pain. Patient denies any nausea vomiting diarrhea. Patient denies any fever chills. Patient states he feels at his baseline currently he is here only because they told to come in because he has an abnormal CAT scan. (Francesco Patton) - Related Data Home Medications Medication Instructions Recorded Confirmed Levothyroxine Sodium [Synthroid] 50 mcg PO DAILY 07/01/18 12/14/21 Omeprazole [PriLOSEC] 20 mg PO HS 07/01/18 12/14/21 Aspirin [Adult Low Dose Aspirin EC] 81 mg PO DAILY 10/18/19 12/14/21 Albuterol Sulfate [Ventolin HFA] 2 puff INHALATION RT-BID PRN 10/29/19 12/14/21 Umeclidinium Brm/Vilanterol Tr 1 puff INHALATION RT-DAILY 10/29/19 12/14/21 [Anoro Ellipta 62.5-25 Mcg INH] Atorvastatin [Lipitor] 40 mg PO HS 11/12/19 12/14/21 Gabapentin [Neurontin] 100 mg PO HS 05/05/20 12/14/21 Albuterol Nebulized [Ventolin 2.5 mg INHALATION RT-Q4H PRN 07/24/20 12/14/21 Nebulized] Potassium Chloride [Potassium 10 meq PO DAILY 07/24/20 12/14/21 Chloride ER] traMADol HCL [Ultram] 50 mg PO BID PRN 07/24/20 12/14/21 Furosemide [Lasix] 20 mg PO DAILY 09/01/20 12/14/21 Metoprolol Tartrate 25 mg PO HS 09/01/20 12/14/21 Metoprolol Tartrate 37.5 mg PO DAILY 09/01/20 12/14/21 Isosorbide Mononitrate ER [Imdur] 30 mg PO DAILY 12/14/21 12/14/21 Multivitamins, Thera [Multivitamin 1 tab PO DAILY 12/14/21 12/14/21 (formulary)] Previous Rx's Medication Instructions Recorded Apixaban [Eliquis] 5 mg PO BID #60 tab 02/28/19 Allergies Allergy/AdvReac Type Severity Reaction Status Date / Time Iodinated Contrast Media AdvReac Nausea & Verified 12/14/21 13:32 [Iodinated Contrast- Oral Vomiting,chills and IV Dye] Review of Systems ROS Other: All systems not noted in ROS Statement are negative. <Francesco Patton - Last Filed: 12/14/21 14:40> ROS Other: All systems not noted in ROS Statement are negative. <Alfreda Tobar - Last Filed: 12/14/21 18:20> ROS Statement: Those systems with pertinent positive or pertinent negative responses have been documented in the HPI. Past Medical History Past Medical History: Coronary Artery Disease (CAD), Cancer, Heart Failure, COPD, GERD/Reflux, Hyperlipidemia, Hypertension, Myocardial Infarction ([place]), Thyroid Disorder Additional Past Medical History / Comment(s): CURRENT: WEIGHT LOSS, NO APPETITE, DIARRHEA. Hodgkin's lymphoma 1987-had radiation. Cancer of appendix AND BOWEL 2004. Restless legs Last Myocardial Infarction Date:: 2004 History of Any Multi-Drug Resistant Organisms: None Reported Past Surgical History: Appendectomy, Bowel Resection, Cardiac Valve Replacement, Coronary Bypass/CABG, Heart Catheterization, Heart Catheterization With Stent Additional Past Surgical History / Comment(s): staging laparotomy for Hodgkin's & splenectomy. CABG 5 vessel bypass 2002. JACEK. Single-vessel bypass with mitral valve replacement february,. two cardiac stents. ablation for afib 2019 Past Anesthesia/Blood Transfusion Reactions: No Reported Reaction Additional Past Anesthesia/Blood Transfusion Reaction / Comment(s): no known hx blood transfusion Date of Last Stent Placement:: unknown Past Psychological History: No Psychological Hx Reported Smoking Status: Former smoker Past Alcohol Use History: None Reported Past Drug Use History: None Reported, Marijuana - Past Family History Mother Family Medical History: Cancer Additional Family Medical History / Comment(s): esophageal <Francesco Patton - Last Filed: 12/14/21 14:40> General Exam Limitations: no limitations <Francesco Patton - Last Filed: 12/14/21 14:40> - General Exam Comments Initial Comments: GENERAL: Patient is cachectic. Patient is nontoxic and well-hydrated and is in no acute distress. ENT: Neck is soft and supple. No significant lymphadenopathy is noted. Oropharynx is clear. Moist mucous membranes. Neck has full range of motion without eliciting any pain. EYES: The sclera were anicteric and conjunctiva were pink and moist. Extraocular movements were intact and pupils were equal round and reactive to light. Eyelids were unremarkable. PULMONARY: Unlabored respirations. Good breath sounds bilaterally. No audible rales rhonchi or wheezing was noted. CARDIOVASCULAR: There is a regular rate and rhythm without any murmurs gallops or rubs. ABDOMEN: Soft and nontender with normal bowel sounds. SKIN: Skin is clear with no lesions or rashes and otherwise unremarkable. NEUROLOGIC: Patient is alert and oriented x3. Cranial nerves II through XII are grossly intact. Motor and sensory are also intact. Normal speech, volume and content. Symmetrical smile. MUSCULOSKELETAL: Normal extremities with adequate strength and full range of motion. LYMPHATICS: No significant lymphadenopathy is noted PSYCHIATRIC: Normal psychiatric evaluation. (Francesco Patton) Course Vital Signs 12/14/21 12/14/21 12/14/21 09:45 10:21 12:56 Temperature 97.8 F Pulse Rate 77 67 66 Respiratory 18 18 18 Rate Blood Pressure 125/80 137/80 132/86 O2 Sat by Pulse 100 99 98 Oximetry 12/14/21 12/14/21 12/14/21 14:04 15:46 17:52 Temperature Pulse Rate 66 69 71 Respiratory 18 18 18 Rate Blood Pressure 138/89 143/88 120/88 O2 Sat by Pulse 97 96 97 Oximetry 12/14/21 18:17 Temperature 98.2 F Pulse Rate 72 Respiratory 18 Rate Blood Pressure 135/85 O2 Sat by Pulse 98 Oximetry Medical Decision Making - Lab Data Result diagrams: 12/14/21 10:14 12/14/21 10:14 <Francesco Patton - Last Filed: 12/14/21 14:40> - Lab Data Result diagrams: 12/14/21 10:14 12/14/21 10:14 <Alfreda Tobar - Last Filed: 12/14/21 18:20> - Medical Decision Making I reviewed the CAT scan results that he had yesterday it did show a probable pancreatic mass infiltrating into the retroperitoneal area as well as having metastases to the basis of the lungs. Patient was also dehydrated and his bilirubin and alk phos were elevated. Dr. Tobar will be taking over the care of this patient 2:30 PM (Francesco Patton) Patient care was signed out to me, patient was awaiting transfer to [facility] however decision was made that if they were unable to place him he would be agreeable to staying here awaiting bed [facility]. This plan had been discussed with sound physicians. We did get a call back around 5 PM notifying us that they did not suspect a bed would be available tonight, observation orders were placed however around 16 we received a call that they did have a bed available patient to be transferred. Patient be transferred from the ER to inpatient [facility]. (Alfreda Tobar) - Lab Data Lab Results 12/14/21 12/14/21 12/14/21 Range/Units 10:14 10:14 14:15 WBC 8.4 (3.8-10.6) k/uL RBC 3.43 L (4.30-5.90) m/uL Hgb 11.7 L (13.0-17.5) gm/dL Hct 36.1 L (39.0-53.0) % MCV 105.5 H (80.0-100.0) fL MCH 34.2 (25.0-35.0) pg MCHC 32.4 (31.0-37.0) g/dL RDW 14.6 (11.5-15.5) % Plt Count 266 (150-450) k/uL MPV 7.7 Neutrophils % 88 % Lymphocytes % 7 % Monocytes % 5 % Eosinophils % 0 % Basophils % 0 % Neutrophils # 7.4 (1.3-7.7) k/uL Lymphocytes # 0.6 L (1.0-4.8) k/uL Monocytes # 0.4 (0-1.0) k/uL Eosinophils # 0.0 (0-0.7) k/uL Basophils # 0.0 (0-0.2) k/uL Macrocytosis Moderate Sodium 140 (137-145) mmol/L Potassium 3.7 (3.5-5.1) mmol/L Chloride 106 (98-107) mmol/L Carbon Dioxide 30 (22-30) mmol/L Anion Gap 4 mmol/L BUN 24 H (9-20) mg/dL Creatinine 0.51 L (0.66-1.25) mg/dL Est GFR (CKD-EPI)AfAm >90 (>60 ml/min/1.73 sqM) Est GFR (CKD-EPI)NonAf >90 (>60 ml/min/1.73 sqM) Glucose 82 (74-99) mg/dL Calcium 8.1 L (8.4-10.2) mg/dL Total Bilirubin 2.1 H (0.2-1.3) mg/dL AST 46 (17-59) U/L ALT 54 H (4-49) U/L Alkaline Phosphatase 674 H (38-126) U/L Total Protein 5.6 L (6.3-8.2) g/dL Albumin 2.7 L (3.5-5.0) g/dL Amylase 104 (30-110) U/L Lipase 315 H (23-300) U/L Coronavirus (PCR) Not Detected (Not Detectd) Disposition Time of Disposition: 11:02 <Francesco Patton - Last Filed: 12/14/21 14:40> <Alfreda Tobar - Last Filed: 12/14/21 18:20> Clinical Impression: Common bile duct (CBD) obstruction, Pancreatic cancer metastasized to lung, Dehydration Disposition: ADMITTED IP TO THIS HOSP
[2021-12-14] MEDS ORDERED: NALOXONE 0.4 MG/ML 1 ML VIAL IV PRN ×2 (17:05→17:15)
[2021-12-14] MEDS ORDERED: traMADol 50 MG TAB PO PRN (17:16)
[2021-12-14] MEDS ORDERED: ALBUTEROL NEBULIZED 2.5 MG/3 ML INHALATION PRN (17:16)
--- NOTE | 2021-12-14 17:32 | P.HPIM ---
History of Present Illness H&P Date: 12/14/21 Chief Complaint: abnormal CT 66-year-old male who presents emergency Department stating that he had a CAT scan yesterday because he been losing weight and was having abdominal pain for about a year. Patient's weight dropped from 220 to 95 pounds over one year. He was having sweats, nausea, occasional vomiting, diarrhea up to 5 times a day as well as profound weakness. Also with mild sob, no chest pain. Patient states he got a call today to tell him to come into the emergency department because his CAT scan showed something abnormal. Computed tomography scan done yesterday revealed pancreatic cancer infiltrating through the retroperitoneum and causing pancreatic duct and biliary tree obstruction. Radiologist did not exclude peritoneal carcinomatosis. There was also bilateral lung bases metastases noted. Findings d/w Daniel Ramires was called for transfer but patient did not have a bed as of today so he was admitted here. Review of Systems 12 point review of system was performed, negative except for what is stated in HPI Past Medical History Past Medical History: Coronary Artery Disease (CAD), Cancer, Heart Failure, COPD, GERD/Reflux, Hyperlipidemia, Hypertension, Myocardial Infarction ([place]), Thyroid Disorder Additional Past Medical History / Comment(s): CURRENT: WEIGHT LOSS, NO APPETITE, DIARRHEA. Hodgkin's lymphoma 1987-had radiation. Cancer of appendix AND BOWEL 2004. Restless legs Last Myocardial Infarction Date:: 2004 History of Any Multi-Drug Resistant Organisms: None Reported Past Surgical History: Appendectomy, Bowel Resection, Cardiac Valve Replacement, Coronary Bypass/CABG, Heart Catheterization, Heart Catheterization With Stent Additional Past Surgical History / Comment(s): staging laparotomy for Hodgkin's & splenectomy. CABG 5 vessel bypass 2002. JACEK. Single-vessel bypass with mitral valve replacement february,. two cardiac stents. ablation for afib 2019 Past Anesthesia/Blood Transfusion Reactions: No Reported Reaction Additional Past Anesthesia/Blood Transfusion Reaction / Comment(s): no known hx blood transfusion Date of Last Stent Placement:: unknown Past Psychological History: No Psychological Hx Reported Smoking Status: Former smoker Past Alcohol Use History: None Reported Past Drug Use History: None Reported, Marijuana - Past Family History Mother Family Medical History: Cancer Additional Family Medical History / Comment(s): esophageal Medications and Allergies Home Medications Medication Instructions Recorded Confirmed Type Levothyroxine Sodium [Synthroid] 50 mcg PO DAILY 07/01/18 12/14/21 History Omeprazole [PriLOSEC] 20 mg PO HS 07/01/18 12/14/21 History Apixaban [Eliquis] 5 mg PO BID #60 tab 02/28/19 12/14/21 Rx Aspirin [Adult Low Dose Aspirin EC] 81 mg PO DAILY 10/18/19 12/14/21 History Albuterol Sulfate [Ventolin HFA] 2 puff INHALATION RT-BID PRN 10/29/19 12/14/21 History Umeclidinium Brm/Vilanterol Tr 1 puff INHALATION RT-DAILY 10/29/19 12/14/21 History [Anoro Ellipta 62.5-25 Mcg INH] Atorvastatin [Lipitor] 40 mg PO HS 11/12/19 12/14/21 History Gabapentin [Neurontin] 100 mg PO HS 05/05/20 12/14/21 History Albuterol Nebulized [Ventolin 2.5 mg INHALATION RT-Q4H PRN 07/24/20 12/14/21 History Nebulized] Potassium Chloride [Potassium 10 meq PO DAILY 07/24/20 12/14/21 History Chloride ER] traMADol HCL [Ultram] 50 mg PO BID PRN 07/24/20 12/14/21 History Furosemide [Lasix] 20 mg PO DAILY 09/01/20 12/14/21 History Metoprolol Tartrate 25 mg PO HS 09/01/20 12/14/21 History Metoprolol Tartrate 37.5 mg PO DAILY 09/01/20 12/14/21 History Isosorbide Mononitrate ER [Imdur] 30 mg PO DAILY 12/14/21 12/14/21 History Multivitamins, Thera [Multivitamin 1 tab PO DAILY 12/14/21 12/14/21 History (formulary)] Allergies Allergy/AdvReac Type Severity Reaction Status Date / Time Iodinated Contrast Media AdvReac Nausea & Verified 12/14/21 13:32 [Iodinated Contrast- Oral Vomiting,chills and IV Dye] Physical Exam Vitals: Vital Signs Temp Pulse Resp BP Pulse Ox 12/14/21 15:46 69 18 143/88 96 12/14/21 14:04 66 18 138/89 97 12/14/21 12:56 66 18 132/86 98 12/14/21 10:21 67 18 137/80 99 12/14/21 09:45 97.8 F 77 18 125/80 100 Intake and Output 12/14/21 12/14/21 12/14/21 06:59 14:59 22:59 Other: Weight 40.823 kg Constitutional: cachectic Eyes:Anicteric sclerae, moist conjunctiva, no lid-lag, PERRLA, ENMT: Oropharynx clear, no erythema, exudates Neck: Supple, FROM, no masses, or JVD, No carotid bruits, No thyromegaly Lungs: Clear to auscultation, Clear to percussion, Normal respiratory effort, no accessory muscle use Cardiovascular: Heart regular in rate and rhythm, No murmurs, gallops, or rubs, No peripheral edema Abdominal: Soft, Nontender, no guarding, rebound or rigidity, Normoactive bowel sounds, No hepatomegaly, No splenomegaly, No palpable mass Skin: Normal temperature, tone, texture, turgor, no induration, No subcutaneous nodules, No rash, lesions, No ulcers Extremities: + muscle wasting, no digital cyanosis, No clubbing, Pedal pulses intact and symmetrical, Radial pulses intact and symmetrical, No calf tenderness Psychiatric: Alert and oriented to person, place and time, appropriate affect, intact judgement Neuro: Muscles Strength 5/5 in all 4 extremities, Sensation to light touch grossly present throughout, Cranial nerves II-XII grossly intact, no focal sensory deficits Results CBC & Chem 7: 12/14/21 10:14 12/14/21 10:14 Labs: Abnormal Lab Results - Last 24 Hours (Table) 12/14/21 12/14/21 Range/Units 10:14 10:14 RBC 3.43 L (4.30-5.90) m/uL Hgb 11.7 L (13.0-17.5) gm/dL Hct 36.1 L (39.0-53.0) % MCV 105.5 H (80.0-100.0) fL Lymphocytes # 0.6 L (1.0-4.8) k/uL BUN 24 H (9-20) mg/dL Creatinine 0.51 L (0.66-1.25) mg/dL Calcium 8.1 L (8.4-10.2) mg/dL Total Bilirubin 2.1 H (0.2-1.3) mg/dL ALT 54 H (4-49) U/L Alkaline Phosphatase 674 H (38-126) U/L Total Protein 5.6 L (6.3-8.2) g/dL Albumin 2.7 L (3.5-5.0) g/dL Lipase 315 H (23-300) U/L Assessment and Plan Plan: Pancreatic cancer with biliary ductal obstruction and pancreatic ductal obstruction Patient would likely need ERCP, Daniel abraham called already, no GI service to do it here Patient was seen by Dr. Haq. IV fluids Chronic Coronary Artery Disease (CAD), COPD, GERD/Reflux, Hyperlipidemia, Hypertension, Paroxysmal a-fib All stable resume meds
[2021-12-14 18:19] VITALS: BP 135/85; PULSE 72; TEMP 98.2
[2021-12-14] MEDS ORDERED: PANTOPRAZOLE 40 MG TABLET PO SCH (21:00)
[2021-12-14] MEDS ORDERED: METOPROLOL TARTRATE 25 MG TAB PO SCH (21:00)
[2021-12-14] MEDS ORDERED: ATORVASTATIN 40 MG TAB PO SCH (21:00)
[2021-12-14] MEDS ORDERED: APIXABAN 5 MG TAB PO SCH (21:00)
[2021-12-14] MEDS ORDERED: GABAPENTIN 100 MG CAP PO SCH (21:00)
[2021-12-15] MEDS ORDERED: LEVOTHYROXINE 50 MCG TAB PO SCH (06:30)
[2021-12-15] MEDS ORDERED: IPRATROPIUM 0.5 MG/2.5 ML NEBU INHALATION SCH (08:00)
[2021-12-15] MEDS ORDERED: NON FORMULARY DRUG (Umeclidinium Brm/Vilanterol Tr [Anoro Ellipta 62.5-25 Mcg Inh] 1 EACH INHALATION SCH (08:00)
[2021-12-15] MEDS ORDERED: FORMOTEROL FUMARATE 20 MCG/2 ML NEBU INHALATION SCH (08:00)
[2021-12-15] MEDS ORDERED: POTASSIUM CHLORIDE ER 10 MEQ TAB.ER.PRT PO SCH (09:00)
[2021-12-15] MEDS ORDERED: ASPIRIN 81 MG PO SCH (09:00)
[2021-12-15] MEDS ORDERED: ISOSORBIDE MONONITRATE ER 30 MG TAB.ER.24H PO SCH (09:00)
[2021-12-15] MEDS ORDERED: METOPROLOL TARTRATE 25 MG TAB PO SCH (09:00)
--- NOTE | 2021-12-15 14:59 | P.DS ---
Providers Date of admission: 12/14/21 17:05 Attending physician: Gerardo Gifford MD Primary care physician: [facility]– [place] Course: 66-year-old male who presents emergency Department stating that he had a CAT scan yesterday because he been losing weight and was having abdominal pain for about a year. Patient's weight dropped from 220 to 95 pounds over one year. He was having sweats, nausea, occasional vomiting, diarrhea up to 5 times a day as well as profound weakness. Also with mild sob, no chest pain. Patient states he got a call today to tell him to come into the emergency department because his CAT scan showed something abnormal. Computed tomography scan done yesterday revealed pancreatic cancer infiltrating through the retroperitoneum and causing pancreatic duct and biliary tree obstruction. Radiologist did not exclude peritoneal carcinomatosis. There was also bilateral lung bases metastases noted. Findings d/w Daniel Ramires was called for transfer but patient did not have a bed as of today so he was admitted here. Patient eventually had a bed available at [facility] and was discharged. Plan - Discharge Summary New Discharge Prescriptions: No Action Levothyroxine Sodium [Synthroid] 50 mcg PO DAILY Omeprazole [PriLOSEC] 20 mg PO HS Apixaban [Eliquis] 5 mg PO BID #60 tab Aspirin [Adult Low Dose Aspirin EC] 81 mg PO DAILY Umeclidinium Brm/Vilanterol Tr [Anoro Ellipta 62.5-25 Mcg INH] 1 puff INHALATION RT-DAILY Albuterol Sulfate [Ventolin HFA] 2 puff INHALATION RT-BID PRN PRN Reason: Shortness Of Breath Atorvastatin [Lipitor] 40 mg PO HS Gabapentin [Neurontin] 100 mg PO HS traMADol HCL [Ultram] 50 mg PO BID PRN PRN Reason: Pain Albuterol Nebulized [Ventolin Nebulized] 2.5 mg INHALATION RT-Q4H PRN PRN Reason: Shortness Of Breath Potassium Chloride [Potassium Chloride ER] 10 meq PO DAILY Furosemide [Lasix] 20 mg PO DAILY Metoprolol Tartrate 25 mg PO HS Metoprolol Tartrate 37.5 mg PO DAILY Isosorbide Mononitrate ER [Imdur] 30 mg PO DAILY Multivitamins, Thera [Multivitamin (formulary)] 1 tab PO DAILY Discharge Medication List Levothyroxine Sodium [Synthroid] 50 mcg PO DAILY 07/01/18 [History] Omeprazole [PriLOSEC] 20 mg PO HS 07/01/18 [History] Apixaban [Eliquis] 5 mg PO BID #60 tab 02/28/19 [Rx] Aspirin [Adult Low Dose Aspirin EC] 81 mg PO DAILY 10/18/19 [History] Albuterol Sulfate [Ventolin HFA] 2 puff INHALATION RT-BID PRN 10/29/19 [History] Umeclidinium Brm/Vilanterol Tr [Anoro Ellipta 62.5-25 Mcg INH] 1 puff INHALATION RT-DAILY 10/29/19 [History] Atorvastatin [Lipitor] 40 mg PO HS 11/12/19 [History] Gabapentin [Neurontin] 100 mg PO HS 05/05/20 [History] Albuterol Nebulized [Ventolin Nebulized] 2.5 mg INHALATION RT-Q4H PRN 07/24/20 [History] Potassium Chloride [Potassium Chloride ER] 10 meq PO DAILY 07/24/20 [History] traMADol HCL [Ultram] 50 mg PO BID PRN 07/24/20 [History] Furosemide [Lasix] 20 mg PO DAILY 09/01/20 [History] Metoprolol Tartrate 25 mg PO HS 09/01/20 [History] Metoprolol Tartrate 37.5 mg PO DAILY 09/01/20 [History] Isosorbide Mononitrate ER [Imdur] 30 mg PO DAILY 12/14/21 [History] Multivitamins, Thera [Multivitamin (formulary)] 1 tab PO DAILY 12/14/21 [History] Follow up Appointment(s)/Referral(s): Kang Raymond DO [Primary Care Provider] - 1-2 days Discharge Disposition: DC/TRNS IP HOSP W/PLND IP READ
== END 2021-12-14 20:39 | disposition short-term general hospital, planned readmission (82) ==
LOC: EC 09:36 → 6NMEDSUR 17:05
PROVIDERS: ADMIT Internal Medicine; ATTEND Internal Medicine
DX: C25.9 Malignant neoplasm of pancreas, unspecified (principal); C78.00 Secondary malignant neoplasm of unspecified lung; C90.00 Multiple myeloma not having achieved remission; K83.1 Obstruction of bile duct; E86.0 Dehydration; R19.7 Diarrhea, unspecified; Z20.822 Contact with and (suspected) exposure to COVID-19; I11.0 Hypertensive heart disease with heart failure; I50.9 Heart failure, unspecified; I25.10 Atherosclerotic heart disease of native coronary artery without angina pectoris; I25.2 Old myocardial infarction; J44.9 Chronic obstructive pulmonary disease, unspecified; I48.0 Paroxysmal atrial fibrillation; E78.5 Hyperlipidemia, unspecified; K21.9 Gastro-esophageal reflux disease without esophagitis; G25.81 Restless legs syndrome; Z79.890 Hormone replacement therapy; Z79.82 Long term (current) use of aspirin; Z79.01 Long term (current) use of anticoagulants; Z79.899 Other long term (current) drug therapy; Z91.048 Other nonmedicinal substance allergy status; Z85.71 Personal history of Hodgkin lymphoma; Z85.038 Personal history of other malignant neoplasm of large intestine; Z90.49 Acquired absence of other specified parts of digestive tract; Z95.5 Presence of coronary angioplasty implant and graft; Z95.2 Presence of prosthetic heart valve; Z95.1 Presence of aortocoronary bypass graft; Z90.81 Acquired absence of spleen; Z87.891 Personal history of nicotine dependence; Z80.0 Family history of malignant neoplasm of digestive organs
CPT/HCPCS: 99285; 36415; 80053; 82150; 83690; 85025; 87635; G0378